=== PATIENT | female | born 1975 | race Caucasian/White ===

== ENCOUNTER 2016-04-26 12:22 | Emergency (ER) | payer OTHER ==
[~2016-04-26] VITALS: Ht 175.3 cm; Wt 97.4 kg
[~2016-04-26 12:22] MED LIST: AMIT25TA9 PO; ONDA4TAB10 SL; PROC1SUP PR; SUMA20SP
[2016-04-26 12:25] VITALS: TEMP 36.8; Ht 175.3 cm; Wt 97.4 kg
[2016-04-26] MEDS ORDERED: MoRPHine SULFATE 4 MG/ML 1 ML CARP\\VIAL IV STA (13:32)
[2016-04-26] MEDS ORDERED: SODIUM CHLORIDE 0.9% 1000ML 1,000 ML IV STA (13:32)
[2016-04-26] MEDS ORDERED: ONDANSETRON INJ 2 MG/ML 2 ML VIAL IV STA (13:32)
[2016-04-26 14:03] LABS: BASO % 0.8 %; BASO ABS # 0.08 K/uL (0-0.2); COMPLETE YES; EOS % 1.7 %; HEMATOCRIT 36.6 % (37-47); IG% 0.3 %; LYMPH % 22.8 %; LYMPH ABS # 2.29 K/uL (1.2-3.4); MEAN CELL VOLUME 90.6 fL (80-100); MEAN CORPUSCULAR HEMOGLOBIN 30.4 pg (25-34); MEAN CORPUSCULAR HGB CONC 33.6 g/dl (32-36); MEAN PLATELET VOLUME 9.7 fL (7.4-10.4); MONO % 5.9 %; NEUT % 68.5 %; PLATELET COUNT 281 K/uL (130-400); RED BLOOD COUNT 4.04 M/uL (4.2-5.4); WHITE BLOOD COUNT 10.06 K/uL (4.8-10.8)
[2016-04-26 14:05] LABS: PREG INTERNAL NEGATIVE QC NEG CLEAR BACKGROUND; PREG INTERNAL POSITIVE QC POS CONTROL LINE
[2016-04-26 14:20] LABS: BUN/CREATININE RATIO 8.3 (10-20); CALCIUM 9.7 mg/dl (8.5-10.1); CREATININE 0.77 mg/dl (0.60-1.20); POTASSIUM 3.2 mmol/L (3.5-5.1)
[2016-04-26 14:23] LABS: ALB/GLOB RATIO 1.1 (0.9-2)
[2016-04-26] MEDS ORDERED: HYDROmorphone INJ 0.5 MG/0.5 ML SYR IV STA (14:23)
--- NOTE | 2016-04-26 14:35 | DIAGNOSTIC IMAGING REPORT ---
PA CHEST RADIOGRAPH AND UPRIGHT AND SUPINE AP RADIOGRAPHS OF THE ABDOMEN CLINICAL HISTORY: Right-sided abdominal pain. COMPARISON STUDY: Chest radiograph and abdominal series March 22, [address] of the abdomen and pelvis April 04, 2016. FINDINGS: Lung volumes are diminished. This is unchanged. No pneumothorax or pleural effusion is present. There is no evidence of pulmonary edema. Cardiomediastinal silhouette is stable. There are cholecystectomy clips. There is no free air. Bowel gas pattern is within normal limits. IMPRESSION: 1. No free air or evidence of bowel obstruction. 2. No acute cardiopulmonary findings. Electronically signed by: Kp Stafford M.D. 04/26/2016 2:33 PM Dictated Date/Time: 04/26/2016 2:32 PM
[2016-04-26 14:55] LABS: URINE APPEARANCE CLOUDY (CLEAR); URINE BILIRUBIN NEG (NEG); URINE COLOR YELLOW; URINE EPITHELIAL CELL AUTO >30 /lpf (0-5); URINE NITRITE NEG (NEG); URINE SPECIFIC GRAVITY 1.017 (1.000-1.030); UROBILINOGEN NEG (NEG); ZZUR CULT IF INDIC CLEAN CATCH YES
[2016-04-26 15:10] LABS: MANUAL MICROSCOPIC REQUIRED? NO; REVIEW REQ? YES
[2016-04-26] MEDS ORDERED: HYDROmorphone INJ 1 MG/ML SYR IV STA (15:13)
[2016-04-26 16:04] VITALS: BP 148/88; PULSE 92; O2SAT 97
[2016-04-26] MEDS ORDERED: CEFTRIAXONE SOD 350MG/ML 1 GM VIAL IM ONE (16:15)
[2016-04-26] MEDS ORDERED: SULF800T23 PO (16:20)
[2016-04-26] MEDS ORDERED: PHEN-876 PO (16:23)
--- NOTE | 2016-04-26 16:23 | EMERGENCY ROOM VISIT NOTE ---
History First contact with patient: 13:19 Chief Complaint: ABDOMINAL PAIN Stated Complaint: ABD. PAIN Nursing Triage Summary: Abd and right flank pain. Vomiting for 24 hours. Denies urinary symptoms. Pain worse with movement. Diarrhea. Does not have gallbladder. History of Present Illness The patient is a 41 year old female who presents to the Emergency Room with complaints of abdominal pain and vomiting. The patient reports that her symptoms began yesterday. She states she has been vomiting all night. She reports that she began to have right-sided abdominal pain in the middle of the night last night. She does have a history of IBS and sees Dr. Choi. She has associated diarrhea, which is chronic for her. Her symptoms have been steadily increasing. They are worse with movement or walking. She rates her discomfort a 10/10. She does have an upcoming appointment with her rehab nurse in 2 weeks. She reports a history of cholecystectomy and tubal ligation. She denies fevers/chills, urinary symptoms, chest pain, shortness of breath or blood in the stools. Review of Systems A complete 10-point Review of Systems was discussed with the patient, with pertinent positives and negatives listed in the History of Present Illness. All remaining Review of Systems questions can be considered negative unless otherwise specified. 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 (23) Migraine Unspecified W/O Intractable Migraine (24) Ovarian Cyst Nec/Nos (25) Sterilization (26) Tension headache (27) Tension headache (28) Urin Tract Infection Nos (29) UTI (lower urinary tract infection) Surgical Problems: (1) History of cholecystectomy (2) History of tubal ligation Family History Diabetes mellitus FHx: cancer Hypertension Seizures Social History Smoking Status: Never Smoker Alcohol Use: none Drug Use: none Housing Status: lives with family Occupation Status: unemployed Current/Historical Medications Scheduled Alosetron Hcl (Lotronex), 0.5 MG PO QAM Amitriptyline Hcl (Elavil), 1 TAB PO HS Medroxyprogesterone Acetate (Medroxyprogesterone Aceta), 150 MG IM UD Pantoprazole (Pantoprazole Sodium), 40 MG PO BID Phenazopyridine HCl (Pyridium), 200 MG PO TID Sulfa/Trimethoprim (Bactrim Ds 800MG/160MG), 1 TAB PO BID Scheduled PRN Dicyclomine Hcl (Dicyclomine Hcl), 10 MG PO QID PRN for Abdominal Pain Ondasetron Odt (Zofran Odt), 4 MG SL Q6H PRN for Nausea Prochlorperazine (Compro), 1 SUPP FL TID PRN for Nausea Sumatriptan Succinate (Imitrex Nasal [place]), 1 SPRAY NA for Migraine Tramadol (Ultram), 100 MG PO QID PRN for Pain Allergies Coded Allergies: POLLEN (Verified Allergy, Mild, ITCHING/SNEEZING, 04/26/16) Physical Exam Vital Signs Date Time Temp Pulse Resp B/P Pulse Ox O2 Delivery O2 Flow Rate FiO2 04/26/16 16:04 92 20 148/88 97 Room Air 04/26/16 15:13 86 18 139/96 97 Room Air 04/26/16 13:49 78 20 142/66 97 04/26/16 12:25 36.8 105 19 152/76 95 Room Air Pain Rating (0-10): 10.0 Physical Exam VITALS: Vitals are noted on the nurse's note and reviewed by myself. Vital signs stable. GENERAL: This is a 41-year-old female, in no acute distress, nondiaphoretic, well-developed well-nourished. SKIN: Capillary reflex less than 2 seconds. HEENT: Normocephalic. PERRLA. EOMI. Nares patent. Mucous membranes moist. Neck is supple without nuchal rigidity. HEART: Regular rate and rhythm without murmurs gallops or rubs. LUNGS: Clear to auscultation bilaterally without wheezes, rales or rhonchi. No retractions or accessory muscle use. ABDOMEN: Positive bowel sounds x 4. Diffuse mild tenderness of the abdomen. No guarding or rebound tenderness. NEURO: Patient was alert and oriented to person place and time. Medical Decision & Procedures ER Provider Diagnostic Interpretation: PA CHEST RADIOGRAPH AND UPRIGHT AND SUPINE AP RADIOGRAPHS OF THE ABDOMEN CLINICAL HISTORY: Right-sided abdominal pain. COMPARISON STUDY: Chest radiograph and abdominal series March 22, [address] of the abdomen and pelvis April 04, 2016. FINDINGS: Lung volumes are diminished. This is unchanged. No pneumothorax or pleural effusion is present. There is no evidence of pulmonary edema. Cardiomediastinal silhouette is stable. There are cholecystectomy clips. There is no free air. Bowel gas pattern is within normal limits. IMPRESSION: 1. No free air or evidence of bowel obstruction. 2. No acute cardiopulmonary findings. Laboratory Results 04/26/16 13:45 Red Blood Count 4.04, Mean Corpuscular Volume 90.6, Mean Corpuscular Hemoglobin 30.4, Mean Corpuscular Hemoglobin Concent 33.6, Mean Platelet Volume 9.7, Neutrophils (%) (Auto) 68.5, Lymphocytes (%) (Auto) 22.8, Monocytes (%) (Auto) 5.9, Eosinophils (%) (Auto) 1.7, Basophils (%) (Auto) 0.8, Neutrophils # (Auto) 6.90, Lymphocytes # (Auto) 2.29, Monocytes # (Auto) 0.59, Eosinophils # (Auto) 0.17, Basophils # (Auto) 0.08 04/26/16 13:45 Test 04/26/16 12:45 04/26/16 13:45 Urine Color YELLOW Urine Appearance CLOUDY (CLEAR) Urine pH 6.0 (4.5-7.5) Urine Specific [place] 1.017 (1.000-1.030) Urine Protein TRACE (NEG) Urine Glucose (UA) NEG (NEG) Urine Ketones NEG (NEG) Urine Occult Blood 2+ (NEG) Urine Nitrite NEG (NEG) Urine Bilirubin NEG (NEG) Urine Urobilinogen NEG (NEG) Urine Leukocyte Esterase LARGE (NEG) Urine WBC (Auto) >30 /hpf (0-5) Urine RBC (Auto) 0-4 /hpf (0-4) Urine Hyaline Casts (Auto) 5-10 /lpf (0-5) Urine Epithelial Cells (Auto) >30 /lpf (0-5) Urine Bacteria (Auto) 4+ (NEG) Urine Yeast (Auto) (NONE PRSENT) Urine Test NEG (NEG) White Blood Count 10.06 K/uL (4.8-10.8) Red Blood Count 4.04 M/uL (4.2-5.4) Hemoglobin 12.3 g/dL (12.0-16.0) Hematocrit 36.6 % (37-47) Mean Corpuscular Volume 90.6 fL (80-100) Mean Corpuscular Hemoglobin 30.4 pg (25-34) Mean Corpuscular Hemoglobin Concent 33.6 g/dl (32-36) Platelet Count 281 K/uL (130-400) Mean Platelet Volume 9.7 fL (7.4-10.4) Neutrophils (%) (Auto) 68.5 % Lymphocytes (%) (Auto) 22.8 % Monocytes (%) (Auto) 5.9 % Eosinophils (%) (Auto) 1.7 % Basophils (%) (Auto) 0.8 % Neutrophils # (Auto) 6.90 K/uL (1.4-6.5) Lymphocytes # (Auto) 2.29 K/uL (1.2-3.4) Monocytes # (Auto) 0.59 K/uL (0.11-0.59) Eosinophils # (Auto) 0.17 K/uL (0-0.5) Basophils # (Auto) 0.08 K/uL (0-0.2) RDW Standard Deviation 46.5 fL (36.4-46.3) RDW Coefficient of Variation 14.0 % (11.5-14.5) Immature Granulocyte % (Auto) 0.3 % Immature Granulocyte # (Auto) 0.03 K/uL (0.00-0.02) Anion Gap 11.0 mmol/L (3-11) Est Creatinine Clear Calc Drug Dose 119.5 ml/min Estimated GFR () 111.2 Estimated GFR (Non- 95.9 BUN/Creatinine Ratio 8.3 (10-20) Calcium Level 9.7 mg/dl (8.5-10.1) Total Bilirubin 0.4 mg/dl (0.2-1) Aspartate Amino Transf (AST/SGOT) 8 U/L (15-37) Alanine Aminotransferase (ALT/SGPT) 23 U/L (12-78) Alkaline Phosphatase 78 U/L (45-117) Total Protein 8.2 gm/dl (6.4-8.2) Albumin 4.2 gm/dl (3.4-5.0) Globulin 4.0 gm/dl (2.5-4.0) Albumin/Globulin Ratio 1.1 (0.9-2) Lipase 106 U/L (73-393) Medications Administered Medications (Trade) Dose Ordered Sig/Magdalene Route Start Time Stop Time Status Last Admin Dose Admin Sodium Chloride (Nss 1000ml) 1,000 ml @ 999 mls/hr Q1H1M STAT IV 04/26/16 13:32 04/26/16 14:32 DC 04/26/16 13:46 999 MLS/HR Ondansetron HCl (Zofran Inj) 4 mg NOW STAT IV 04/26/16 13:32 04/26/16 13:34 DC 04/26/16 13:47 4 MG Morphine Sulfate (MoRPHine SULFATE INJ) 4 mg NOW STAT IV 04/26/16 13:32 04/26/16 13:34 DC 04/26/16 13:47 4 MG Hydromorphone HCl (Dilaudid Inj) 0.5 mg NOW STAT IV 04/26/16 14:23 04/26/16 14:24 DC 04/26/16 14:28 0.5 MG Hydromorphone HCl (Dilaudid Inj) 1 mg NOW STAT IV 04/26/16 15:13 04/26/16 15:14 DC 04/26/16 15:18 1 MG Ceftriaxone Sodium (Rocephin Im) 1,000 mg NOW ONCE IM 04/26/16 16:15 04/26/16 16:16 DC 04/26/16 16:18 1,000 MG Medical Decision Differential diagnosis includes appendicitis, gastritis, colitis, IBS, pyelonephritis, cystitis, renal, among others. The patient was evaluated as above. Labs were drawn and IV access was obtained. Imaging studies were performed and read by radiology as above. The patient was initially medicated with 1 L normal saline solution, 4 mg morphine IV and 4 mg Zofran IV. She complained of continued pain and was then given 0.5 mg Dilaudid IV. She was given 1 mg Dilaudid IV before discharge. The patient was reassessed multiple times during their stay in the emergency department and remained in stable condition. The patient is a 41-year-old female who presents today complaining of right- sided abdominal pain. The patient is very well-known to this emergency department and has presented multiple times for similar complaints. Labs revealed no leukocytosis, anemia or concerning electrolyte abnormalities. LFTs were within normal limits. Kidney function was within normal limits. Abdominal series was obtained and was unremarkable. Given that the patient does not have a leukocytosis, I feel that any acute infectious process within the abdomen is very unlikely. The patient has had 7 CT scans of her abdomen and pelvis within the last year, and I do not feel that further CT is necessary at this time. Urinalysis was suggestive of a possible infection. Urine was negative. The patient was given 1 g Rocephin and will be placed on Bactrim and Pyridium. She was instructed to follow-up closely with her primary care provider and rehab nurse. She will return for worsening symptoms, fevers, or any new symptoms. Based on the patient's presentation, lab results, and imaging studies, I feel the patient is stable for outpatient treatment. The patient's case was reviewed with Dr. Ornelas, ED attending physician, who agreed with my assessment and treatment plan. Discharge instructions were reviewed with the patient. The patient verbalized understanding of my assessment and treatment plan and was discharged home in good condition. Impression Primary Impression: Right sided abdominal pain Departure Information Dispostion Home / Self-Care Condition GOOD Prescriptions Phenazopyridine HCl (Pyridium) 200 Mg Tab 200 MG PO TID for 3 Days, #9 TAB Prov: Nae Tadeo PA-C 04/26/16 Sulfa/Trimethoprim (Bactrim Ds 800MG/160MG) Tab 1 TAB PO BID for 7 Days, #14 TAB Prov: Nae Tadeo PA-C 04/26/16 Referrals RV. Schwab MD (PCP) Patient Instructions My [facility] Additional Instructions You have been treated in the Emergency Department your Abdominal Pain. Laboratory results and imaging studies have ruled out any emergent causes for your abdominal pain which would warrant admission or surgery. You were prescribed Bactrim to be taken twice daily as prescribed. This is an antibiotic. All antibiotics have the potential to cause diarrhea. Stop this medication and contact a medical provider if you were to develop any significant adverse side effects including: wheezing, shortness of breath, passing out, vomiting, or a diffuse rash. Always take antibiotics as directed and COMPLETE the ENTIRE course regardless of the improvement of your symptoms. Pyridium as prescribed. For pain control, you can use the following [id number] medicines (if >12 yo): - Regular strength (325mg/tab) Tylenol (acetaminophen) 2 tabs every 4-6 hours as needed. Do not exceed 12 tablets in a 24 hour period. Avoid taking more than 4 grams (4000 mg) of Tylenol per day. This includes any other sources of acetaminophen you may take on a regular basis. - Regular strength (200 mg/tab) Advil (ibuprofen) 1-2 tabs every 4-6 hours as needed. Do not exceed a dose of 3200 mg per day. Drink plenty of water and stay well hydrated. Follow-up with your primary care provider within 2-3 days for further evaluation of your symptoms. Return to the emergency department if your symptoms persist despite treatment plan outlined above or if the following symptoms occur: Worsening abdominal pain , fevers, worsening vomiting or any other new/concerning symptoms.
[2016-09-14] MEDS ORDERED: IMTIN5 (13:07)
[2016-09-14] MEDS ORDERED: ACET325T96 PO (14:54)
[2016-09-14] MEDS ORDERED: [UNRECOGNIZED DRUG - CODE] PO (15:35)
[2016-09-14] MEDS ORDERED: TRAM-10 PO (15:51)
[2016-09-14] MEDS ORDERED: PRT/40 PO (18:58)
[2016-11-28] MEDS ORDERED: DIPH25CA65 PO (12:39)
[2016-11-28] MEDS ORDERED: RBN/2 PO (12:39)
[2016-11-28] MEDS ORDERED: ZOLP5TAB PO (12:39)
[2016-11-28] MEDS ORDERED: PARO1TAB29 PO (12:39)
[2016-11-28] MEDS ORDERED: SUCR1TAB29 PO (12:39)
[2016-11-28] MEDS ORDERED: ZOLP10TA PO (12:39)
[2016-11-28] MEDS ORDERED: MEDR1INJ3 IM (12:39)
[2016-11-28] MEDS ORDERED: COLE1TAB5 PO (12:39)
[2016-11-28] MEDS ORDERED: CLID5CAP PO (12:39)
[2016-11-28] MEDS ORDERED: ELUX1TAB PO (12:39)
[2016-11-28] MEDS ORDERED: PROC5TAB PO (12:39)
[2016-11-28] MEDS ORDERED: RANI300T2 PO (12:39)
== END 2016-04-26 15:30 | disposition home or self-care (01) ==
LOC: C.EDB 12:24 → C.EDA 15:30
DX: R10.9 Unspecified abdominal pain (principal); Z90.49 Acquired absence of other specified parts of digestive tract; K58.0 Irritable bowel syndrome with diarrhea; F41.9 Anxiety disorder, unspecified; K21.9 Gastro-esophageal reflux disease without esophagitis; J45.909 Unspecified asthma, uncomplicated; Z87.440 Personal history of urinary (tract) infections; F31.9 Bipolar disorder, unspecified; K22.70 Barrett's esophagus without dysplasia; Z83.3 Family history of diabetes mellitus; Z82.49 Family history of ischemic heart disease and other diseases of the circulatory system; Z79.899 Other long term (current) drug therapy

== ENCOUNTER 2016-05-05 11:27 | Emergency (ER) | payer OTHER ==
[~2016-05-05] VITALS: Ht 177.8 cm; Wt 97.4 kg
[~2016-05-05 11:27] MED LIST changes: -SUMA20SP
[2016-05-05 11:34] VITALS: Ht 177.8 cm; Wt 97.4 kg
[2016-05-05] MEDS ORDERED: ONDANSETRON INJ 2 MG/ML 2 ML VIAL IV STA ×2 (12:00→14:54)
[2016-05-05 12:06] LABS: BASO % 0.8 %; BASO ABS # 0.07 K/uL (0-0.2); COMPLETE YES; EOS % 3.1 %; HEMATOCRIT 36.1 % (37-47); IG% 0.2 %; LYMPH % 25.1 %; MEAN CELL VOLUME 91.4 fL (80-100); MEAN CORPUSCULAR HEMOGLOBIN 30.4 pg (25-34); MEAN CORPUSCULAR HGB CONC 33.2 g/dl (32-36); MEAN PLATELET VOLUME 9.8 fL (7.4-10.4); MONO % 8.4 %; NEUT % 62.4 %; PLATELET COUNT 302 K/uL (130-400); RED BLOOD COUNT 3.95 M/uL (4.2-5.4); WHITE BLOOD COUNT 8.38 K/uL (4.8-10.8)
[2016-05-05 12:33] LABS: BUN/CREATININE RATIO 10.7 (10-20); CALCIUM 9.5 mg/dl (8.5-10.1); CREATININE 0.81 mg/dl (0.60-1.20); POTASSIUM 3.3 mmol/L (3.5-5.1)
[2016-05-05 12:35] LABS: ALB/GLOB RATIO 1.1 (0.9-2)
[2016-05-05] MEDS ORDERED: SODIUM CHLORIDE 0.9% 1000ML 1,000 ML IV STA (12:46)
[2016-05-05] MEDS ORDERED: HYDROmorphone INJ 1 MG/ML SYR IV STA ×3 (12:49→14:54)
[2016-05-05] MEDS ORDERED: GI COCKTAIL PO STA (12:50)
[2016-05-05] MEDS ORDERED: FAMOTIDINE 20 MG TAB PO STA (12:50)
[2016-05-05] MEDS ORDERED: SUCRALFATE 1 GM TAB PO STA (12:50)
--- NOTE | 2016-05-05 12:52 | EMERGENCY ROOM VISIT NOTE ---
History Report prepared by Froy: Rafael Batista Under the Supervision of: Dr. Lukas Cristobal M.D. First contact with patient: 12:45 Chief Complaint: ABDOMINAL PAIN Stated Complaint: IBS, VOMITING X 2 DAYS OFF AND ON Nursing Triage Summary: Pt reports emesis since Sun. Now "dull, stabbing pain around umbilicus." Hx of IBS-D. History of Present Illness The patient is a 41 year old female who presents to the Emergency Room with complaints of persistent abdominal pain that started 2 days ago. She says that the pain was a "cramping", but has shifted to a "stabbing" pain prior to arrival today. She has not had any abdominal surgeries. The patient has no chance of . Her last menstrual period was last month. The patient has IBS and sees a doctor for it. Source of History: patient Onset: 2 days ago Position: abdomen Quality: other (cramping that has since shifted to a stabbing) Timing: other (persistent) Note: No other associated symptoms noted. Review of Systems See HPI for pertinent positives & negatives. A total of 10 systems reviewed and were otherwise negative. Past Medical & Surgical Medical Problems: (1) Abdominal pain (2) Abdominal pain (3) Abdominal pain (4) Anxiety (5) Asthma, Unspecified, W (Acute) Exacerbation (6) Back pain (7) Barretts esophagus (8) Bipolar Disorder, Unspecified (9) Blindness, One Eye (10) section (11) Dehydration (12) Deliver-Single Liveborn (13) Esophageal Reflux (14) Hyperventilation (15) Hyperventilation (16) Hyperventilation (17) Hypokalemia (18) Hypokalemia, gastrointestinal losses (19) IBS (irritable bowel syndrome) (20) Intractable pain (21) Intractable vomiting (22) Mesenteric adenitis (23) Migraine Unspecified W/O Intractable Migraine (24) Ovarian Cyst Nec/Nos (25) Sterilization (26) Tension headache (27) Tension headache (28) Urin Tract Infection Nos (29) UTI (lower urinary tract infection) Surgical Problems: (1) History of cholecystectomy (2) History of tubal ligation Family History Diabetes mellitus FHx: cancer Hypertension Seizures Social History Smoking Status: Never Smoker Alcohol Use: none Drug Use: none Housing Status: lives with family Occupation Status: unemployed Current/Historical Medications Scheduled Alosetron Hcl (Lotronex), 0.5 MG PO QAM Amitriptyline Hcl (Elavil), 1 TAB PO HS Medroxyprogesterone Acetate (Medroxyprogesterone Aceta), 150 MG IM UD Pantoprazole (Pantoprazole Sodium), 40 MG PO BID Scheduled PRN Dicyclomine Hcl (Dicyclomine Hcl), 10 MG PO QID PRN for Abdominal Pain Ondasetron Odt (Zofran Odt), 4 MG SL Q6H PRN for Nausea Prochlorperazine (Compro), 1 SUPP [place] TID PRN for Nausea Sumatriptan Succinate (Imitrex Nasal [place]), 1 SPRAY NA for Migraine Tramadol (Ultram), 100 MG PO QID PRN for Pain Allergies Coded Allergies: POLLEN (Verified Allergy, Mild, ITCHING/SNEEZING, 05/05/16) Physical Exam Vital Signs Date Time Temp Pulse Resp B/P Pulse Ox O2 Delivery O2 Flow Rate FiO2 05/05/16 16:21 37.3 104 18 129/79 95 05/05/16 16:04 104 18 129/79 95 Room Air 05/05/16 12:59 104 18 136/91 96 Room Air 05/05/16 11:34 37.3 109 18 116/76 95 Room Air Physical Exam GENERAL: Patient is a healthy-appearing well-nourished. Hyperventilating. HEAD: Normocephalic atraumatic EYES: Ocular movements intact pupils equal and react to light OROPHARYNX mucous membranes are moist no exudates present no erythema or edema present NECK: Supple no nuchal rigidity CHEST: Good equal expansion LUNGS: Clear and equal to auscultation CARDIAC: Normal S1 and S2 ABDOMEN: Soft nontender no guarding BACK: No CVA tenderness EXTREMITIES: No pain upon palpation normal muscle strength in all groups no clubbing cyanosis or edema NEURO: Patient is following commands is answering questions appropriately. Alert and oriented x3 Cranial Nerves 2-12 grossly intact Medical Decision & Procedures ER Provider Diagnostic Interpretation: X-ray results as stated below per interpretation by me and the radiologist: PA CHEST RADIOGRAPH AND UPRIGHT AND SUPINE AP RADIOGRAPHS OF THE ABDOMEN CLINICAL HISTORY: Epigastric pain and nausea. Vomiting. COMPARISON STUDY: Chest radiograph with abdominal series April 26, 2016. FINDINGS: No pneumothorax or pleural effusion is present. Lung volumes are at the lower limits of normal. There is no consolidation. Cardiac size is normal. Mediastinal contours are normal. There is no evidence of pulmonary edema. There is no free air. Cholecystectomy clips are present. The bowel gas pattern is normal. There is a moderate amount stool within colon. IMPRESSION: 1. No free air or evidence of bowel obstruction. 2. Moderate amount stool within the colon. 3. No acute cardiopulmonary findings. Electronically signed by: Kp Stafford M.D. 05/05/2016 1:25 PM Dictated Date/Time: 05/05/2016 1:23 PM Laboratory Results 05/05/16 11:55 Red Blood Count 3.95, Mean Corpuscular Volume 91.4, Mean Corpuscular Hemoglobin 30.4, Mean Corpuscular Hemoglobin Concent 33.2, Mean Platelet Volume 9.8, Neutrophils (%) (Auto) 62.4, Lymphocytes (%) (Auto) 25.1, Monocytes (%) (Auto) 8.4, Eosinophils (%) (Auto) 3.1, Basophils (%) (Auto) 0.8, Neutrophils # (Auto) 5.23, Lymphocytes # (Auto) 2.10, Monocytes # (Auto) 0.70, Eosinophils # (Auto) 0.26, Basophils # (Auto) 0.07 05/05/16 11:55 Test 05/05/16 11:55 05/05/16 15:50 White Blood Count 8.38 K/uL (4.8-10.8) Red Blood Count 3.95 M/uL (4.2-5.4) Hemoglobin 12.0 g/dL (12.0-16.0) Hematocrit 36.1 % (37-47) Mean Corpuscular Volume 91.4 fL (80-100) Mean Corpuscular Hemoglobin 30.4 pg (25-34) Mean Corpuscular Hemoglobin Concent 33.2 g/dl (32-36) Platelet Count 302 K/uL (130-400) Mean Platelet Volume 9.8 fL (7.4-10.4) Neutrophils (%) (Auto) 62.4 % Lymphocytes (%) (Auto) 25.1 % Monocytes (%) (Auto) 8.4 % Eosinophils (%) (Auto) 3.1 % Basophils (%) (Auto) 0.8 % Neutrophils # (Auto) 5.23 K/uL (1.4-6.5) Lymphocytes # (Auto) 2.10 K/uL (1.2-3.4) Monocytes # (Auto) 0.70 K/uL (0.11-0.59) Eosinophils # (Auto) 0.26 K/uL (0-0.5) Basophils # (Auto) 0.07 K/uL (0-0.2) RDW Standard Deviation 47.7 fL (36.4-46.3) RDW Coefficient of Variation 14.3 % (11.5-14.5) Immature Granulocyte % (Auto) 0.2 % Immature Granulocyte # (Auto) 0.02 K/uL (0.00-0.02) Anion Gap 10.0 mmol/L (3-11) Est Creatinine Clear Calc Drug Dose 115.5 ml/min Estimated GFR () 104.6 Estimated GFR (Non- 90.2 BUN/Creatinine Ratio 10.7 (10-20) Calcium Level 9.5 mg/dl (8.5-10.1) Total Bilirubin 0.5 mg/dl (0.2-1) Aspartate Amino Transf (AST/SGOT) 6 U/L (15-37) Alanine Aminotransferase (ALT/SGPT) 20 U/L (12-78) Alkaline Phosphatase 75 U/L (45-117) Total Protein 8.1 gm/dl (6.4-8.2) Albumin 4.3 gm/dl (3.4-5.0) Globulin 3.8 gm/dl (2.5-4.0) Albumin/Globulin Ratio 1.1 (0.9-2) Lipase 107 U/L (73-393) Urine Color YELLOW Urine Appearance CLOUDY (CLEAR) Urine pH 5.5 (4.5-7.5) Urine Specific [place] 1.007 (1.000-1.030) Urine Protein NEG (NEG) Urine Glucose (UA) NEG (NEG) Urine Ketones NEG (NEG) Urine Occult Blood 2+ (NEG) Urine Nitrite NEG (NEG) Urine Bilirubin NEG (NEG) Urine Urobilinogen NEG (NEG) Urine Leukocyte Esterase LARGE (NEG) Urine WBC (Auto) >30 /hpf (0-5) Urine RBC (Auto) 0-4 /hpf (0-4) Urine Hyaline Casts (Auto) 5-10 /lpf (0-5) Urine Epithelial Cells (Auto) >30 /lpf (0-5) Urine Bacteria (Auto) 2+ (NEG) Urine Test NEG (NEG) Labs reviewed by ED physician. Medications Administered Medications (Trade) Dose Ordered Sig/Magdalene Route Start Time Stop Time Status Last Admin Dose Admin Ondansetron HCl 4 mg 4 mg NOW STAT IV 05/05/16 12:00 05/05/16 12:02 DC 05/05/16 12:05 4 MG Sodium Chloride (Nss 1000ml) 1,000 ml @ 999 mls/hr Q1H1M STAT IV 05/05/16 12:46 05/05/16 13:46 DC 05/05/16 12:52 999 MLS/HR Hydromorphone HCl (Dilaudid Inj) 1 mg NOW STAT IV 05/05/16 12:49 05/05/16 12:51 DC 05/05/16 12:58 1 MG Famotidine (Pepcid Tab) 20 mg NOW STAT PO 05/05/16 12:50 05/05/16 12:51 DC 05/05/16 13:30 20 MG Sucralfate (Carafate Tab) 1 gm NOW STAT PO 05/05/16 12:50 05/05/16 12:51 DC 05/05/16 13:30 1 GM Lidocaine HCl (Viscous Lidocaine 2% Soln) 20 ml STK-MED ONCE .ROUTE 05/05/16 13:28 05/05/16 13:29 DC 05/05/16 13:32 20 ML Al Hydroxide/Mg Hydroxide (Maalox Susp) 30 ml STK-MED ONCE .ROUTE 05/05/16 13:28 05/05/16 13:29 DC 05/05/16 13:32 30 ML Hydromorphone HCl 1 mg 1 mg NOW STAT IV 05/05/16 13:39 05/05/16 13:41 DC 05/05/16 13:49 1 MG Promethazine HCl/ Sodium Chloride (Phenergan Inj/ Nss 50ml) 51 ml @ 204 mls/hr NOW STAT IV 05/05/16 13:39 05/05/16 13:53 DC 05/05/16 13:55 204 MLS/HR Hydromorphone HCl (Dilaudid Inj) 1 mg NOW STAT IV 05/05/16 14:54 05/05/16 14:59 DC 05/05/16 15:45 1 MG Ondansetron HCl (Zofran Inj) 4 mg NOW STAT IV 05/05/16 14:54 05/05/16 14:59 DC 05/05/16 15:44 4 MG Magnesium Citrate (Citrate Of Magnesia Soln) 296 ml NOW STAT PO 05/05/16 14:54 05/05/16 14:59 DC 05/05/16 15:43 296 ML Dicyclomine HCl (Bentyl Inj) 20 mg NOW STAT IM 05/05/16 14:54 05/05/16 14:59 DC 05/05/16 15:44 20 MG Ketorolac Tromethamine (Toradol Inj) 30 mg NOW STAT IV 05/05/16 14:54 05/05/16 14:59 DC 05/05/16 15:44 30 MG ED Course 1246: Ordered NSS 1000 ml @ 999 mls/hr IV. 1248: Past medical records reviewed. The patient was evaluated in room C11B. A complete history and physical examination was performed. 1249: Ordered Dilaudid Inj 1 mg IV. 1250: Ordered Carafate Tab 1 gm PO, Pepcid Tab 20 mg PO, GI Cocktail 24 ml PO. 1339: Ordered Promethazine HCl 25 mg/Sodium Chloride 51 ml @ 204 mls/hr IV. 1454: Ordered Bentyl Inj 20 mg IM, Citrate of Magnesia Soln 296 ml PO, Zofran Inj 4 mg IV. 1505: I reevaluated the patient and she is resting comfortably. The patient verbally expressed understanding and agreement of the treatment plan. The patient will be discharged. Medical Decision Differential diagnosis: Etiologies such as appendicitis, diverticulitis, PUD, biliary pathology, UTI, pancreatitis, obstruction, mesenteric ischemia, aortic pathology, infections, inflammatory bowel disease, renal colic, as well as others were entertained. This is a 41-year-old female who presents emergency department complaining of abdominal pain. I will note that the patient has had multiple imaging studies here in the emergency department with very low yield. Serial abdominal examinations were performed on the patient in the emergency department and at no time did the patient exhibit a surgical abdomen or even abdominal tenderness on examination. Based on these findings and using shared medical decision- making as well as a normal CBC normal renal profile normal liver profile normal lipase I felt that further imaging would not contribute much to this patient. I do believe that the patient is suffering from a costipation or she was given 1 mg Dilaudid x3 as well as Zofran Phenergan and Bentyl. The patient was also given a normal saline bolus as well as Zofran. Repeat examination revealed improvement in the patient's symptoms. I do believe that the patient is well enough to be discharged home for follow-up with gastroenterology. In the meantime the patient is going to use a clear liquid diet as well as 5 mL some Maalox before every meal and at bedtime. She was placed on magnesium citrate which she will take half the bottle and repeat in 6 hours. Patient was in agreement with the treatment plan. Impression Primary Impression: Abdominal pain Additional Impression: Constipation Scribe Attestation The scribe's documentation has been prepared under my direction and personally reviewed by me in its entirety. I confirm that the note above accurately reflects all work, treatment, procedures, and medical decision making performed by me. Departure Information Dispostion Home / Self-Care Referrals No Doctor, Assigned (PCP) Forms Call Back Authorization, HOME CARE DOCUMENTATION FORM, IMPORTANT VISIT INFORMATION, School Instructions, Work Instructions Patient Instructions Constipation, ED Epigastric Pain [facility] [place] Interwise Additional Instructions Take 1/2 bottle of Mag Citrate Repeat second half in six hours Clear liquid diet next 48 hours Culture results are usually available in approx 48 hours You have been examined and treated today on an emergency basis only. This is not a substitute for, or an effort to provide, complete comprehensive medical care. It is impossible to recognize and treat all injuries or illnesses in a single emergency department visit. It is therefore important that you follow up closely with your PCP. Call as soon as possible for an appointment. Thank you for your time and consideration. I look forward to speaking with you again soon. Please don't hesitate to call us if you have any questions. Problem Qualifiers Primary Impression: Abdominal pain Abdominal location: generalized Qualified Codes: R10.84 - Generalized abdominal pain Additional Impression: Constipation Constipation type: unspecified constipation type Qualified Codes: K59.00 - Constipation, unspecified
--- NOTE | 2016-05-05 13:26 | DIAGNOSTIC IMAGING REPORT ---
PA CHEST RADIOGRAPH AND UPRIGHT AND SUPINE AP RADIOGRAPHS OF THE ABDOMEN CLINICAL HISTORY: Epigastric pain and nausea. Vomiting. COMPARISON STUDY: Chest radiograph with abdominal series April 26, 2016. FINDINGS: No pneumothorax or pleural effusion is present. Lung volumes are at the lower limits of normal. There is no consolidation. Cardiac size is normal. Mediastinal contours are normal. There is no evidence of pulmonary edema. There is no free air. Cholecystectomy clips are present. The bowel gas pattern is normal. There is a moderate amount stool within colon. IMPRESSION: 1. No free air or evidence of bowel obstruction. 2. Moderate amount stool within the colon. 3. No acute cardiopulmonary findings. Electronically signed by: Kp Stafford M.D. 05/05/2016 1:25 PM Dictated Date/Time: 05/05/2016 1:23 PM
[2016-05-05] MEDS ORDERED: LIDOCAINE HCL 2% VISC SOLN 20 ML UDC ONE (13:28)
[2016-05-05] MEDS ORDERED: ALUMINUM/MAGNESIUM SUSP 30 ML UDC ONE (13:28)
[2016-05-05] MEDS ORDERED: PROMETHAZINE HCL INJ 25 MG in SODIUM CHLORIDE 0.9% 50ML 50 ML IV STA (13:39)
[2016-05-05] MEDS ORDERED: MAGNESIUM CITRATE 296 ML/BTL PO STA (14:54)
[2016-05-05] MEDS ORDERED: KETOROLAC TROMETHAMINE 30 MG/ML VIAL IV STA (14:54)
[2016-05-05] MEDS ORDERED: DICYCLOMINE HCL 10 MG/ML 2 ML AMP IM STA (14:54)
[2016-05-05 16:21] VITALS: BP 129/79; PULSE 104; TEMP 37.3; O2SAT 95
[2016-05-05 17:03] LABS: URINE APPEARANCE CLOUDY (CLEAR); URINE BILIRUBIN NEG (NEG); URINE COLOR YELLOW; URINE EPITHELIAL CELL AUTO >30 /lpf (0-5); URINE NITRITE NEG (NEG); URINE PH 5.5 (4.5-7.5); URINE SPECIFIC GRAVITY 1.007 (1.000-1.030); UROBILINOGEN NEG (NEG); ZZUR CULT IF INDIC CLEAN CATCH YES
[2016-05-05 17:10] LABS: MANUAL MICROSCOPIC REQUIRED? NO; REVIEW REQ? NO
[2016-09-14] MEDS ORDERED: IMTIN5 (13:07)
[2016-09-14] MEDS ORDERED: ACET325T96 PO (14:54)
[2016-09-14] MEDS ORDERED: [UNRECOGNIZED DRUG - CODE] PO (15:35)
[2016-09-14] MEDS ORDERED: TRAM-10 PO (15:51)
[2016-09-14] MEDS ORDERED: PRT/40 PO (18:58)
[2016-11-28] MEDS ORDERED: RANI300T2 PO (12:39)
[2016-11-28] MEDS ORDERED: DIPH25CA65 PO (12:39)
[2016-11-28] MEDS ORDERED: ZOLP10TA PO (12:39)
[2016-11-28] MEDS ORDERED: MEDR1INJ3 IM (12:39)
[2016-11-28] MEDS ORDERED: PROC5TAB PO (12:39)
[2016-11-28] MEDS ORDERED: COLE1TAB5 PO (12:39)
[2016-11-28] MEDS ORDERED: ZOLP5TAB PO (12:39)
[2016-11-28] MEDS ORDERED: CLID5CAP PO (12:39)
[2016-11-28] MEDS ORDERED: SUCR1TAB29 PO (12:39)
[2016-11-28] MEDS ORDERED: RBN/2 PO (12:39)
[2016-11-28] MEDS ORDERED: ELUX1TAB PO (12:39)
[2016-11-28] MEDS ORDERED: PARO1TAB29 PO (12:39)
== END 2016-05-05 16:23 | disposition home or self-care (01) ==
LOC: C.EDB 11:28 → C.EDC 16:23
DX: R10.84 Generalized abdominal pain (principal); K59.00 Constipation, unspecified; K58.9 Irritable bowel syndrome, unspecified; J45.909 Unspecified asthma, uncomplicated; F41.9 Anxiety disorder, unspecified; K22.70 Barrett's esophagus without dysplasia; F31.9 Bipolar disorder, unspecified; K21.9 Gastro-esophageal reflux disease without esophagitis; E87.6 Hypokalemia; I88.0 Nonspecific mesenteric lymphadenitis; G43.909 Migraine, unspecified, not intractable, without status migrainosus; Z79.899 Other long term (current) drug therapy

== ENCOUNTER 2016-05-20 10:56 | Emergency (ER) | payer OTHER ==
[~2016-05-20] VITALS: Ht 175.3 cm; Wt 95.9 kg
[2016-05-20 11:06] VITALS: TEMP 37; Ht 175.3 cm; Wt 95.9 kg
[2016-05-20] MEDS ORDERED: KETOROLAC TROMETHAMINE 30 MG/ML VIAL IV STA (11:58)
[2016-05-20] MEDS ORDERED: ACETAMINOPHEN 500 MG TAB PO STA (11:58)
[2016-05-20] MEDS ORDERED: DiphenhydrAMINE HCL 50 MG/ML VIAL IV STA (11:58)
[2016-05-20] MEDS ORDERED: ONDANSETRON INJ 2 MG/ML 2 ML VIAL IV STA (11:58)
[2016-05-20] MEDS ORDERED: PROCHLORPERAZINE 5 MG/ML 2 ML VIAL IV STA (11:58)
[2016-05-20] MEDS ORDERED: HYDROmorphone INJ 1 MG/ML SYR IV STA (11:58)
[2016-05-20] MEDS ORDERED: SODIUM CHLORIDE 0.9% 1000ML 1,000 ML IV STA (11:58)
--- NOTE | 2016-05-20 12:05 | EMERGENCY ROOM VISIT NOTE ---
History Report prepared by Froy: Scott Vitale Under the Supervision of: Dr. Noble Vasquez M.D. First contact with patient: 11:56 Chief Complaint: ABDOMINAL PAIN Stated Complaint: VOMITING,ABD PAIN Nursing Triage Summary: Triage note: Pt reports nausea, vomitting, diarrhea upper abd pain x 3 days. "i had a biopsy done 3 days ago so i don't know if it is from that ." History of Present Illness The patient is a 41 year old female who presents to the Emergency Room with complaints of constant abdominal pain for the past three days. The patient currently rates her discomfort as a 10/10 in severity. The patient additionally states that she has been vomiting. The patient states that it feels like there are stones in her stomach. She states that she had a recent biopsy of her duodenum. The patient states that she can't eat or drink without vomiting, and she cannot take any pain medication. She states that she has a history of IBS-D and cholecystectomy. Source of History: patient Onset: three days ago Position: abdomen Symptom Intensity: 10/10 Quality: other (feel like stones) Timing: constant Associated Symptoms: + vomiting Review of Systems See HPI for pertinent positives & negatives. A total of 10 systems reviewed and were otherwise negative. Past Medical & Surgical Medical Problems: (1) Abdominal pain (2) Abdominal pain (3) Abdominal pain (4) Anxiety (5) Asthma, Unspecified, W (Acute) Exacerbation (6) Back pain (7) Barretts esophagus (8) Bipolar Disorder, Unspecified (9) Blindness, One Eye (10) section (11) Dehydration (12) Deliver-Single Liveborn (13) Esophageal Reflux (14) Hyperventilation (15) Hyperventilation (16) Hyperventilation (17) Hypokalemia (18) Hypokalemia, gastrointestinal losses (19) IBS (irritable bowel syndrome) (20) Intractable pain (21) Intractable vomiting (22) Mesenteric adenitis (23) Migraine Unspecified W/O Intractable Migraine (24) Ovarian Cyst Nec/Nos (25) Sterilization (26) Tension headache (27) Tension headache (28) Urin Tract Infection Nos (29) UTI (lower urinary tract infection) Surgical Problems: (1) History of cholecystectomy (2) History of tubal ligation Family History Diabetes mellitus FHx: cancer Hypertension Seizures Social History Smoking Status: Never Smoker Alcohol Use: none Drug Use: none Housing Status: lives with family Occupation Status: unemployed Current/Historical Medications Scheduled Alosetron Hcl (Lotronex), 0.5 MG PO QAM Amitriptyline Hcl (Elavil), 1 TAB PO HS Medroxyprogesterone Acetate (Medroxyprogesterone Aceta), 150 MG IM UD Pantoprazole (Pantoprazole Sodium), 40 MG PO BID Scheduled PRN Dicyclomine Hcl (Dicyclomine Hcl), 10 MG PO QID PRN for Abdominal Pain Ondasetron Odt (Zofran Odt), 4 MG SL Q6H PRN for Nausea Prochlorperazine (Compro), 1 SUPP [place] TID PRN for Nausea Sumatriptan Succinate (Imitrex Nasal [place]), 1 SPRAY NA for Migraine Tramadol (Ultram), 100 MG PO QID PRN for Pain Allergies Coded Allergies: POLLEN (Verified Allergy, Mild, ITCHING/SNEEZING, 05/05/16) Physical Exam Vital Signs Date Time Temp Pulse Resp B/P Pulse Ox O2 Delivery O2 Flow Rate FiO2 05/20/16 15:58 88 18 152/92 97 05/20/16 14:00 88 18 153/100 99 Room Air 05/20/16 12:52 93 18 155/92 97 Room Air 05/20/16 11:06 37.0 111 20 136/101 98 Room Air Physical Exam CONSTITUTIONAL: moderate to severe emotional distress HEENT: No icterus, moist mucous membranes NECK: No meningismus, trachea is midline. CARDIOVASCULAR: Regular rate, normal perfusion RESPIRATORY: Unlabored breathing. Clear to auscultation. GASTROINTESTINAL: Moderate epigastric tenderness GENITOURINARY: No flank tenderness MUSCULOSKELETAL: Full range of motion NEUROLOGIC: No acute gross focal deficits. PSYCHIATRIC: Normal affect SKIN: Normal for ethnicity. Medical Decision & Procedures ER Provider Diagnostic Interpretation: Radiology results as stated below per my review and radiologist interpretation. TWO VIEW CHEST CLINICAL HISTORY: Epigastric abdominal pain. FINDINGS: PA and lateral chest radiographs are compared to study dated 05/05/2016. The cardiomediastinal silhouette is unremarkable. The lungs and pleural spaces are clear. There is no pneumothorax. The bony thorax appears intact. Cholestatic clips are seen in the right upper quadrant. The stomach is distended and filled with enteric contrast. IMPRESSION: No active disease in the chest. Electronically signed by: Kevin Panda M.D. 05/20/2016 2:15 PM Dictated Date/Time: 05/20/2016 2:[address] SCAN OF THE ABDOMEN AND PELVIS WITH IV CONTRAST CLINICAL HISTORY: Epigastric abdominal pain. Vomiting. COMPARISON STUDY: Multiple prior abdominal CT scans, most recently dated 04/04/2016. TECHNIQUE: Following the IV administration of 118 cc of Optiray 320, CT scan of the abdomen and pelvis is performed from the lung bases to the proximal femora. Images are reviewed in the axial, sagittal, and coronal planes. IV contrast was administered without complication. Automated dose control exposure was utilized. The examination is modestly degraded by motion artifact. CT DOSE: 900.68 mGy.cm FINDINGS: Lung bases: The heart is normal in size and there is trace pericardial effusion. The lung bases are clear noting dependent atelectasis. A small hiatal hernia is noted. Liver: The contrast-enhanced liver is enlarged, measuring 21 cm in craniocaudal length. The liver demonstrates diminished attenuation consistent with hepatic steatosis. More focal fatty infiltration is noted adjacent to the falciform ligament. There is no intrahepatic biliary ductal dilatation. The hepatic veins and portal veins are patent. Gallbladder: Surgically absent noting clips in the gallbladder fossa. Spleen: Normal in size and attenuation. Pancreas: Atrophic for age. Adrenal glands: Unremarkable. Kidneys: The contrast enhanced kidneys are normal in size and without hydronephrosis. The kidneys enhance symmetrically. There is a punctate nonobstructing calculus again seen in the interpolar right kidney. A subcentimeter cortical hypodensity in the right upper pole likely represents a cyst but is too small for definitive characterization. Abdominal vasculature: The abdominal aorta is normal in course and caliber. Bowel: The small bowel and colon are normal in course and caliber. There are scattered colonic diverticula without CT evidence of acute diverticulitis. The appendix is well-visualized and normal. Peritoneum: There is no intraperitoneal free air or abdominal ascites. There is a small fat-containing umbilical hernia. Lymphadenopathy: None. Pelvic viscera: The bladder, uterus, and adnexa are normal as visualized. Small ovarian follicles are identified. Skeletal structures: No fracture is identified. No lytic or blastic lesions are seen. Heterogeneity of the left iliac wing is unchanged. IMPRESSION: 1. There are no acute infectious or inflammatory findings in the abdomen or pelvis. 2. Hepatomegaly and hepatic steatosis. 3. A punctate nonobstructing right renal calculus is again noted. 4. Additional findings as above. Electronically signed by: Kevin Panda M.D. 05/20/2016 2:39 PM Dictated Date/Time: 05/20/2016 2:34 PM Laboratory Results 05/20/16 11:32 Red Blood Count 4.19, Mean Corpuscular Volume 91.9, Mean Corpuscular Hemoglobin 30.8, Mean Corpuscular Hemoglobin Concent 33.5, Mean Platelet Volume 9.9, Neutrophils (%) (Auto) 60.0, Lymphocytes (%) (Auto) 29.4, Monocytes (%) (Auto) 7.6, Eosinophils (%) (Auto) 1.4, Basophils (%) (Auto) 1.4, Neutrophils # (Auto) 5.77, Lymphocytes # (Auto) 2.82, Monocytes # (Auto) 0.73, Eosinophils # (Auto) 0.13, Basophils # (Auto) 0.13 05/20/16 11:32 Test 05/20/16 11:32 05/20/16 12:01 05/20/16 12:30 05/20/16 12:34 White Blood Count 9.60 K/uL (4.8-10.8) Red Blood Count 4.19 M/uL (4.2-5.4) Hemoglobin 12.9 g/dL (12.0-16.0) Hematocrit 38.5 % (37-47) Mean Corpuscular Volume 91.9 fL (80-100) Mean Corpuscular Hemoglobin 30.8 pg (25-34) Mean Corpuscular Hemoglobin Concent 33.5 g/dl (32-36) Platelet Count 369 K/uL (130-400) Mean Platelet Volume 9.9 fL (7.4-10.4) Neutrophils (%) (Auto) 60.0 % Lymphocytes (%) (Auto) 29.4 % Monocytes (%) (Auto) 7.6 % Eosinophils (%) (Auto) 1.4 % Basophils (%) (Auto) 1.4 % Neutrophils # (Auto) 5.77 K/uL (1.4-6.5) Lymphocytes # (Auto) 2.82 K/uL (1.2-3.4) Monocytes # (Auto) 0.73 K/uL (0.11-0.59) Eosinophils # (Auto) 0.13 K/uL (0-0.5) Basophils # (Auto) 0.13 K/uL (0-0.2) RDW Standard Deviation 46.8 fL (36.4-46.3) RDW Coefficient of Variation 14.0 % (11.5-14.5) Immature Granulocyte % (Auto) 0.2 % Immature Granulocyte # (Auto) 0.02 K/uL (0.00-0.02) Anion Gap 16.0 mmol/L (3-11) Est Creatinine Clear Calc Drug Dose 96.1 ml/min Estimated GFR () 86.2 Estimated GFR (Non- 74.4 BUN/Creatinine Ratio 5.8 (10-20) Calcium Level 9.2 mg/dl (8.5-10.1) Magnesium Level 2.0 mg/dl (1.8-2.4) Total Bilirubin 0.3 mg/dl (0.2-1) Direct Bilirubin < 0.1 mg/dl (0-0.2) Aspartate Amino Transf (AST/SGOT) < 3 U/L (15-37) Alanine Aminotransferase (ALT/SGPT) 15 U/L (12-78) Alkaline Phosphatase 72 U/L (45-117) Troponin I < 0.015 ng/ml (0-0.045) C-Reactive Protein 0.79 mg/dl (0-0.29) Total Protein 8.6 gm/dl (6.4-8.2) Albumin 4.7 gm/dl (3.4-5.0) Lipase 134 U/L (73-393) Procalcitonin < 0.05 ng/mL (0-0.5) Human Chorionic Gonadotropin, Qual NEG (NEG) Urine Color YELLOW Urine Appearance TURBID (CLEAR) Urine pH 5.0 (4.5-7.5) Urine Specific [place] 1.011 (1.000-1.030) Urine Protein 1+ (NEG) Urine Glucose (UA) NEG (NEG) Urine Ketones NEG (NEG) Urine Occult Blood 2+ (NEG) Urine Nitrite NEG (NEG) Urine Bilirubin NEG (NEG) Urine Urobilinogen NEG (NEG) Urine Leukocyte Esterase LARGE (NEG) Urine WBC (Auto) >30 /hpf (0-5) Urine RBC (Auto) 0-4 /hpf (0-4) Urine Hyaline Casts (Auto) 5-10 /lpf (0-5) Urine Epithelial Cells (Auto) >30 /lpf (0-5) Urine Bacteria (Auto) 4+ (NEG) Urine Opiates Screen NEG (NEG) Urine Methadone, Qualitative NEG (NEG) Urine Barbiturates NEG (NEG) Urine Phencyclidine (PCP) Level NEG (NEG) Ur Amphetamine/Methamphetamine NEG (NEG) MDMA (Ecstasy) Screen NEG (NEG) Urine Benzodiazepines Screen NEG (NEG) Urine Cocaine Metabolite NEG (NEG) Urine Marijuana (THC) NEG (NEG) Activated Partial Thromboplast Time 33.8 SECONDS (21.0-31.0) Partial Thromboplastin Ratio 1.3 Ethyl Alcohol mg/dL < 3.0 mg/dl (0-3) Labs reviewed by ED physician. Medications Administered Medications (Trade) Dose Ordered Sig/Magdalene Route Start Time Stop Time Status Last Admin Dose Admin Sodium Chloride (Nss 1000ml) 1,000 ml @ 0 mls/hr Q0M STAT IV 05/20/16 11:58 05/20/16 12:03 DC 05/20/16 12:20 999 MLS/HR Prochlorperazine Edisylate (Compazine Inj) 10 mg NOW STAT IV 05/20/16 11:58 05/20/16 12:03 DC 05/20/16 12:19 10 MG Diphenhydramine HCl (Benadryl Inj) 25 mg NOW STAT IV 05/20/16 11:58 05/20/16 12:03 DC 05/20/16 12:19 25 MG Hydromorphone HCl (Dilaudid Inj) 1 mg PRN STAT IV 05/20/16 11:58 05/20/16 12:03 DC 05/20/16 12:19 1 MG Ketorolac Tromethamine (Toradol Inj) 30 mg NOW STAT IV 05/20/16 11:58 05/20/16 12:03 DC 05/20/16 12:19 30 MG Acetaminophen (Tylenol Tab) 1,000 mg NOW STAT PO 05/20/16 11:58 05/20/16 12:03 DC 05/20/16 12:20 1,000 MG Ondansetron HCl (Zofran Inj) 4 mg NOW STAT IV 05/20/16 11:58 05/20/16 12:03 DC 05/20/16 12:20 4 MG ED Course 1156: Past medical records reviewed. The patient was evaluated in room A11. A complete history and physical examination was performed. 1158: Zofran Inj 4mg IV, Tylenol Tab 1000mg PO, Toradol Inj 30mg IV, Dilaudid Inj 1mg IV, Benadryl Inj 25mg IV, Compazine 10mg IV, Sodium Chloride 1000 ml @ 0 mls/hr wide open IV 1550: Upon reexamination the patient is resting. I discussed results and treatment plan with the patient. She verbalizes agreement and understanding. The patient is ready for discharge. Medical Decision Differential diagnoses include but are not limited to; pancreatitis, biliary disease, neuropsychiatric pathology, complication of biopsy. 41-year-old presented to the emergency room for evaluation of several hours of acute epigastric pain after recent biopsy by Dr. Choi. She notes a history of chronic abdominal problems on multiple pain medications. Screening evaluation was negative, including CT and labs. Patient was comfortable on reexamination prior to discharge at roughly 4 PM. Declined any prescriptions. Impression Primary Impression: Abdominal pain Scribe Attestation The scribe's documentation has been prepared under my direction and personally reviewed by me in its entirety. I confirm that the note above accurately reflects all work, treatment, procedures, and medical decision making performed by me. Departure Information Dispostion Home / Self-Care Referrals RV. Schwab MD (PCP) Forms Call Back Authorization, HOME CARE DOCUMENTATION FORM, IMPORTANT VISIT INFORMATION Patient Instructions Abdominal Pain - [facility], My [facility]
[2016-05-20 12:15] LABS: BASO % 1.4 %; BASO ABS # 0.13 K/uL (0-0.2); COMPLETE YES; EOS % 1.4 %; HEMATOCRIT 38.5 % (37-47); IG% 0.2 %; LYMPH % 29.4 %; LYMPH ABS # 2.82 K/uL (1.2-3.4); MEAN CELL VOLUME 91.9 fL (80-100); MEAN CORPUSCULAR HEMOGLOBIN 30.8 pg (25-34); MEAN CORPUSCULAR HGB CONC 33.5 g/dl (32-36); MEAN PLATELET VOLUME 9.9 fL (7.4-10.4); MONO % 7.6 %; PLATELET COUNT 369 K/uL (130-400); RED BLOOD COUNT 4.19 M/uL (4.2-5.4)
[2016-05-20] MEDS ORDERED: OPTIRAY 320 IV PRN (12:15)
[2016-05-20 12:22] LABS: PREG INTERNAL NEGATIVE QC NEG CLEAR BACKGROUND; PREG INTERNAL POSITIVE QC POS CONTROL LINE
[2016-05-20 12:27] LABS: ALT/SGPT 15 U/L (12-78); BLOOD UREA NITROGEN 6 mg/dl (7-18); BUN/CREATININE RATIO 5.8 (10-20); CALCIUM 9.2 mg/dl (8.5-10.1); CARBON DIOXIDE 18 mmol/L (21-32); CHLORIDE 110 mmol/L (98-107); CREATININE 0.95 mg/dl (0.60-1.20); GLUCOSE 97 mg/dl (70-99)
[2016-05-20 12:50] LABS: PROCALCITONIN < 0.05 ng/mL (0-0.5)
[2016-05-20 13:01] LABS: PARTIAL THROMBOPLASTIN RATIO 1.3
[2016-05-20 13:02] LABS: ALKALINE PHOSPHATASE 72 U/L (45-117); C-REACTIVE PROTEIN 0.79 mg/dl (0-0.29)
[2016-05-20 13:10] LABS: POTASSIUM 3.4 mmol/L (3.5-5.1); SODIUM 144 mmol/L (136-145)
[2016-05-20 13:17] LABS: AST/SGOT < 3 U/L (15-37)
[2016-05-20 13:48] LABS: URINE APPEARANCE TURBID (CLEAR); URINE BILIRUBIN NEG (NEG); URINE COLOR YELLOW; URINE EPITHELIAL CELL AUTO >30 /lpf (0-5); URINE NITRITE NEG (NEG); URINE SPECIFIC GRAVITY 1.011 (1.000-1.030); UROBILINOGEN NEG (NEG)
[2016-05-20 13:49] LABS: MANUAL MICROSCOPIC REQUIRED? NO; REVIEW REQ? NO
[2016-05-20 14:10] LABS: BENZODIAZEPINE, URINE NEG (NEG); COCAINE,URINE NEG (NEG); PHENCYCLIDINE, URINE NEG (NEG)
--- NOTE | 2016-05-20 14:17 | DIAGNOSTIC IMAGING REPORT ---
TWO VIEW CHEST CLINICAL HISTORY: Epigastric abdominal pain. FINDINGS: PA and lateral chest radiographs are compared to study dated 05/05/2016. The cardiomediastinal silhouette is unremarkable. The lungs and pleural spaces are clear. There is no pneumothorax. The bony thorax appears intact. Cholestatic clips are seen in the right upper quadrant. The stomach is distended and filled with enteric contrast. IMPRESSION: No active disease in the chest. Electronically signed by: Kevin Panda M.D. 05/20/2016 2:15 PM Dictated Date/Time: 05/20/2016 2:14 PM
--- NOTE | 2016-05-20 14:40 | DIAGNOSTIC IMAGING REPORT ---
CT SCAN OF THE ABDOMEN AND PELVIS WITH IV CONTRAST CLINICAL HISTORY: Epigastric abdominal pain. Vomiting. COMPARISON STUDY: Multiple prior abdominal CT scans, most recently dated 04/04/2016. TECHNIQUE: Following the IV administration of 118 cc of Optiray 320, CT scan of the abdomen and pelvis is performed from the lung bases to the proximal femora. Images are reviewed in the axial, sagittal, and coronal planes. IV contrast was administered without complication. Automated dose control exposure was utilized. The examination is modestly degraded by motion artifact. CT DOSE: 900.68 mGy.cm FINDINGS: Lung bases: The heart is normal in size and there is trace pericardial effusion. The lung bases are clear noting dependent atelectasis. A small hiatal hernia is noted. Liver: The contrast-enhanced liver is enlarged, measuring 21 cm in craniocaudal length. The liver demonstrates diminished attenuation consistent with hepatic steatosis. More focal fatty infiltration is noted adjacent to the falciform ligament. There is no intrahepatic biliary ductal dilatation. The hepatic veins and portal veins are patent. Gallbladder: Surgically absent noting clips in the gallbladder fossa. Spleen: Normal in size and attenuation. Pancreas: Atrophic for age. Adrenal glands: Unremarkable. Kidneys: The contrast enhanced kidneys are normal in size and without hydronephrosis. The kidneys enhance symmetrically. There is a punctate nonobstructing calculus again seen in the interpolar right kidney. A subcentimeter cortical hypodensity in the right upper pole likely represents a cyst but is too small for definitive characterization. Abdominal vasculature: The abdominal aorta is normal in course and caliber. Bowel: The small bowel and colon are normal in course and caliber. There are scattered colonic diverticula without CT evidence of acute diverticulitis. The appendix is well-visualized and normal. Peritoneum: There is no intraperitoneal free air or abdominal ascites. There is a small fat-containing umbilical hernia. Lymphadenopathy: None. Pelvic viscera: The bladder, uterus, and adnexa are normal as visualized. Small ovarian follicles are identified. Skeletal structures: No fracture is identified. No lytic or blastic lesions are seen. Heterogeneity of the left iliac wing is unchanged. IMPRESSION: 1. There are no acute infectious or inflammatory findings in the abdomen or pelvis. 2. Hepatomegaly and hepatic steatosis. 3. A punctate nonobstructing right renal calculus is again noted. 4. Additional findings as above. Electronically signed by: Kevin Panda M.D. 05/20/2016 2:39 PM Dictated Date/Time: 05/20/2016 2:34 PM
[2016-05-20 15:58] VITALS: BP 152/92; PULSE 88; O2SAT 97
[2016-09-14] MEDS ORDERED: IMTIN5 (13:07)
[2016-09-14] MEDS ORDERED: ACET325T96 PO (14:54)
[2016-09-14] MEDS ORDERED: [UNRECOGNIZED DRUG - CODE] PO (15:35)
[2016-09-14] MEDS ORDERED: TRAM-10 PO (15:51)
[2016-09-14] MEDS ORDERED: PRT/40 PO (18:58)
[2016-11-28] MEDS ORDERED: PARO1TAB29 PO (12:39)
[2016-11-28] MEDS ORDERED: ELUX1TAB PO (12:39)
[2016-11-28] MEDS ORDERED: MEDR1INJ3 IM (12:39)
[2016-11-28] MEDS ORDERED: SUCR1TAB29 PO (12:39)
[2016-11-28] MEDS ORDERED: ZOLP5TAB PO (12:39)
[2016-11-28] MEDS ORDERED: CLID5CAP PO (12:39)
[2016-11-28] MEDS ORDERED: COLE1TAB5 PO (12:39)
[2016-11-28] MEDS ORDERED: ZOLP10TA PO (12:39)
[2016-11-28] MEDS ORDERED: RBN/2 PO (12:39)
[2016-11-28] MEDS ORDERED: RANI300T2 PO (12:39)
[2016-11-28] MEDS ORDERED: PROC5TAB PO (12:39)
[2016-11-28] MEDS ORDERED: DIPH25CA65 PO (12:39)
== END 2016-05-20 16:00 | disposition home or self-care (01) ==
LOC: C.EDB 10:58 → C.EDA 16:00
DX: R10.13 Epigastric pain (principal); K58.9 Irritable bowel syndrome, unspecified; F41.9 Anxiety disorder, unspecified; J45.901 Unspecified asthma with (acute) exacerbation; K22.70 Barrett's esophagus without dysplasia; F31.9 Bipolar disorder, unspecified; H54.40 Blindness, one eye, unspecified eye; K21.9 Gastro-esophageal reflux disease without esophagitis; E87.6 Hypokalemia; I88.0 Nonspecific mesenteric lymphadenitis; G43.909 Migraine, unspecified, not intractable, without status migrainosus; Z79.899 Other long term (current) drug therapy

== ENCOUNTER 2016-06-09 15:13 | Emergency (ER) | payer OTHER ==
[~2016-06-09] VITALS: Ht 175.3 cm; Wt 96.2 kg
[2016-06-09 15:17] VITALS: Ht 175.3 cm; Wt 96.2 kg
[2016-06-09] MEDS ORDERED: SODIUM CHLORIDE 0.9% 1000ML 1,000 ML IV STA (15:58)
[2016-06-09] MEDS ORDERED: ONDANSETRON INJ 2 MG/ML 2 ML VIAL IV STA (15:58)
[2016-06-09 16:28] LABS: HEMATOCRIT 37.8 % (37-47); MEAN CELL VOLUME 90.9 fL (80-100); MEAN CORPUSCULAR HEMOGLOBIN 30.5 pg (25-34); MEAN CORPUSCULAR HGB CONC 33.6 g/dl (32-36); PLATELET COUNT 258 K/uL (130-400); RED BLOOD COUNT 4.16 M/uL (4.2-5.4); WHITE BLOOD COUNT 8.99 K/uL (4.8-10.8)
[2016-06-09 16:30] LABS: URINE APPEARANCE CLEAR (CLEAR); URINE BILIRUBIN NEG (NEG); URINE COLOR YELLOW; URINE EPITHELIAL CELL AUTO >30 /lpf (0-5); URINE NITRITE NEG (NEG); URINE PH 5.5 (4.5-7.5); URINE SPECIFIC GRAVITY 1.028 (1.000-1.030); UROBILINOGEN NEG (NEG); ZZUR CULT IF INDIC CLEAN CATCH NO
[2016-06-09 16:31] LABS: MANUAL MICROSCOPIC REQUIRED? NO; REVIEW REQ? NO
[2016-06-09 16:46] LABS: ALT/SGPT 18 U/L (12-78); BLOOD UREA NITROGEN 7 mg/dl (7-18); BUN/CREATININE RATIO 8.2 (10-20); CALCIUM 9.2 mg/dl (8.5-10.1); CARBON DIOXIDE 19 mmol/L (21-32); CHLORIDE 109 mmol/L (98-107); CREATININE 0.84 mg/dl (0.60-1.20); GLUCOSE 105 mg/dl (70-99); POTASSIUM 3.2 mmol/L (3.5-5.1); SODIUM 140 mmol/L (136-145)
--- NOTE | 2016-06-09 16:46 | DIAGNOSTIC IMAGING REPORT ---
TWO VIEW CHEST CLINICAL HISTORY: Cough. Fever. FINDINGS: PA and lateral chest radiographs are compared to study dated 05/20/2016. The cardiomediastinal silhouette is unremarkable. There are low lung volumes. Patchy airspace consolidation is seen at the right lung base, new from 05/20/2016. The left lung appears clear. No pleural effusion is identified. There is no pneumothorax. The bony thorax appears intact. Cholecystectomy clips are seen in the right upper quadrant. IMPRESSION: There is patchy airspace consolidation at the right lung base, typical in appearance for pneumonia. Radiographic follow-up to resolution is recommended. Electronically signed by: Kevin Panda M.D. 06/09/2016 4:45 PM Dictated Date/Time: 06/09/2016 4:44 PM
[2016-06-09 16:49] LABS: ALKALINE PHOSPHATASE 88 U/L (45-117); AST/SGOT 12 U/L (15-37)
[2016-06-09] MEDS ORDERED: AZITHROMYCIN 250 MG TAB PO STA (16:51)
[2016-06-09] MEDS ORDERED: HYDROCODONE/HOMATROPINE SYRUP 5MG/1.5MG 5ML UDP PO STA (16:55)
[2016-06-09] MEDS ORDERED: HYDR5SYP11 PO (16:59)
[2016-06-09] MEDS ORDERED: ONDA4TAB46 PO (16:59)
[2016-06-09] MEDS ORDERED: AZIT250T PO (16:59)
--- NOTE | 2016-06-09 17:00 | EMERGENCY ROOM VISIT NOTE ---
History First contact with patient: 15:38 Chief Complaint: COUGH Stated Complaint: COUGH Nursing Triage Summary: pt c/o cough 3 days ago now has diarrhea and vomiting. feels weak History of Present Illness The patient is a 41 year old female who presents to the Emergency Room with complaints of cough for the past 3 days and nausea vomiting and diarrhea since yesterday. The patient states that the cough started 3 days ago and now when she coughs she vomits as well as moves her bowels. The patient denies any ear pain, sore throat, head congestion. The patient does admit to a low-grade temperature of 100.5. The patient admits to generalized abdominal pain but no specific point area of pain. The patient denies any urinary symptoms of frequency, urgency or dysuria. Review of Systems 10 system review was performed and was negative unless stated otherwise history of present illness. 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 (23) Migraine Unspecified W/O Intractable Migraine (24) Ovarian Cyst Nec/Nos (25) Sterilization (26) Tension headache (27) Tension headache (28) Urin Tract Infection Nos (29) UTI (lower urinary tract infection) Surgical Problems: (1) History of cholecystectomy (2) History of tubal ligation Family History Diabetes mellitus FHx: cancer Hypertension Seizures Social History Smoking Status: Never Smoker Alcohol Use: none Drug Use: none Housing Status: lives with family Occupation Status: unemployed Current/Historical Medications Scheduled Alosetron Hcl (Lotronex), 0.5 MG PO QAM Amitriptyline Hcl (Elavil), 1 TAB PO HS Azithromycin (Zithromax), 500 MG PO DAILY Medroxyprogesterone Acetate (Medroxyprogesterone Aceta), 150 MG IM UD Pantoprazole (Pantoprazole Sodium), 40 MG PO BID Scheduled PRN Dicyclomine Hcl (Dicyclomine Hcl), 10 MG PO QID PRN for Abdominal Pain Hydrocodone W/ Homatropine (Hycodan 5/1.5MG 5 Ml), 5-10 ML PO Q4H PRN for Cough Ondansetron Hcl (Zofran), 4 MG PO Q8H PRN for Nausea Ondasetron Odt (Zofran Odt), 4 MG SL Q6H PRN for Nausea Prochlorperazine (Compro), 1 SUPP CA TID PRN for Nausea Sumatriptan Succinate (Imitrex Nasal [place]), 1 SPRAY NA for Migraine Tramadol (Ultram), 100 MG PO QID PRN for Pain Allergies Coded Allergies: POLLEN (Verified Allergy, Mild, ITCHING/SNEEZING, 06/09/16) Physical Exam Vital Signs Date Time Temp Pulse Resp B/P Pulse Ox O2 Delivery O2 Flow Rate FiO2 06/09/16 15:17 93 Room Air 06/09/16 15:17 37.2 115 22 140/92 93 Room Air Physical Exam GENERAL: 41-year-old white female who is well-known to the emergency room presents in no acute distress. MENTAL Status: Alert and oriented 3. NOSE: Nasal mucosa without erythema or engorgement. PHARYNX: No erythema or edema noted. Airway is adequate. EARS: Canals clear. TMs without fluid level noted. NECK: Supple, no lymphadenopathy noted. No carotid bruits noted. LUNGS: Clear auscultation without wheezes rales or rhonchi. BACK: No CVA tenderness noted CARDIAC: Regular rate and rhythm without murmur. Pulses is full and equal throughout. ABDOMEN: Positive bowel sounds all 4 quadrants. Soft, generalized tenderness to palpation without any specific point tenderness, organomegaly or masses noted EXTREMITIES: No cyanosis or edema noted. Medical Decision & Procedures ER Provider Diagnostic Interpretation: TWO VIEW CHEST CLINICAL HISTORY: Cough. Fever. FINDINGS: PA and lateral chest radiographs are compared to study dated 05/20/2016. The cardiomediastinal silhouette is unremarkable. There are low lung volumes. Patchy airspace consolidation is seen at the right lung base, new from 05/20/2016. The left lung appears clear. No pleural effusion is identified. There is no pneumothorax. The bony thorax appears intact. Cholecystectomy clips are seen in the right upper quadrant. IMPRESSION: There is patchy airspace consolidation at the right lung base, typical in appearance for pneumonia. Radiographic follow-up to resolution is recommended. Electronically signed by: Kevin Panda M.D. 06/09/2016 4:45 PM Dictated Date/Time: 06/09/2016 4:44 PM The status of this report is Signed. Laboratory Results 06/09/16 16:15 Red Blood Count 4.16, Mean Corpuscular Volume 90.9, Mean Corpuscular Hemoglobin 30.5, Mean Corpuscular Hemoglobin Concent 33.6, Mean Platelet Volume 10.0 06/09/16 16:15 Test 06/09/16 16:15 White Blood Count 8.99 K/uL (4.8-10.8) Red Blood Count 4.16 M/uL (4.2-5.4) Hemoglobin 12.7 g/dL (12.0-16.0) Hematocrit 37.8 % (37-47) Mean Corpuscular Volume 90.9 fL (80-100) Mean Corpuscular Hemoglobin 30.5 pg (25-34) Mean Corpuscular Hemoglobin Concent 33.6 g/dl (32-36) Platelet Count 258 K/uL (130-400) Mean Platelet Volume 10.0 fL (7.4-10.4) RDW Standard Deviation 47.4 fL (36.4-46.3) RDW Coefficient of Variation 14.3 % (11.5-14.5) Urine Color YELLOW Urine Appearance CLEAR (CLEAR) Urine pH 5.5 (4.5-7.5) Urine Specific [place] 1.028 (1.000-1.030) Urine Protein 2+ (NEG) Urine Glucose (UA) NEG (NEG) Urine Ketones NEG (NEG) Urine Occult Blood 3+ (NEG) Urine Nitrite NEG (NEG) Urine Bilirubin NEG (NEG) Urine Urobilinogen NEG (NEG) Urine Leukocyte Esterase TRACE (NEG) Urine WBC (Auto) 5-10 /hpf (0-5) Urine RBC (Auto) 10-30 /hpf (0-4) Urine Hyaline Casts (Auto) 5-10 /lpf (0-5) Urine Epithelial Cells (Auto) >30 /lpf (0-5) Urine Bacteria (Auto) NEG (NEG) Anion Gap 12.0 mmol/L (3-11) Est Creatinine Clear Calc Drug Dose 108.8 ml/min Estimated GFR () 100.1 Estimated GFR (Non- 86.3 BUN/Creatinine Ratio 8.2 (10-20) Calcium Level 9.2 mg/dl (8.5-10.1) Total Bilirubin 0.2 mg/dl (0.2-1) Direct Bilirubin < 0.1 mg/dl (0-0.2) Aspartate Amino Transf (AST/SGOT) 12 U/L (15-37) Alanine Aminotransferase (ALT/SGPT) 18 U/L (12-78) Alkaline Phosphatase 88 U/L (45-117) Total Protein 8.3 gm/dl (6.4-8.2) Albumin 4.2 gm/dl (3.4-5.0) Lipase 108 U/L (73-393) Medications Administered Medications (Trade) Dose Ordered Sig/Magdalene Route Start Time Stop Time Status Last Admin Dose Admin Sodium Chloride (Nss 1000ml) 1,000 ml @ 999 mls/hr Q1H1M STAT IV 06/09/16 15:58 06/09/16 16:58 DC 06/09/16 15:58 999 MLS/HR Ondansetron HCl (Zofran Inj) 4 mg NOW STAT IV 06/09/16 15:58 06/09/16 16:00 DC 06/09/16 15:58 4 MG Azithromycin (Zithromax Tab) 500 mg NOW STAT PO 06/09/16 16:51 06/09/16 16:53 DC 06/09/16 16:59 500 MG Hydrocodone Bit/ Homatropine Methylb (Hycodan Syrup) 5 ml NOW STAT PO 06/09/16 16:55 06/09/16 16:56 DC 06/09/16 17:00 5 ML ED Course The patient was evaluated. IV access was obtained. The patient was given 1 L normal saline wide-open. She was given Zofran 4 mg IV push for nausea. CBC and differential, renal profile, LFTs and lipase levels were ordered. Urinalysis was ordered. Chest x-ray was ordered and interpreted by the radiologist and myself as above with evidence of right lower lobe pneumonia. The patient was informed of the findings. The patient's labs are reviewed. The patient's white count was normal. Otherwise labs are unremarkable. Urinalysis did not reveal any bacteria. There was some blood this will be sent for culture. Except for The patient was given Zithromax 500 mg by mouth while in the emergency room.. Patient was also given Hycodan syrup 5 mL's while in the emergency room. The patient was reevaluated was feeling better. The patient was discharged home in stable condition. Medical Decision Differential diagnosis include URI, pneumonia, influenza, viral gastroenteritis , GERD Impression Primary Impression: Pneumonia Additional Impression: Nausea and vomiting Departure Information Dispostion Home / Self-Care Condition GOOD Prescriptions Hydrocodone W/ Homatropine (HYCODAN 5/1.5MG 5 ML) 1 Syp Syp 5-10 ML PO Q4H Y for Cough, #200 ML Prov: Maine Blake PA-C 06/09/16 Ondansetron Hcl (ZOFRAN) 4 Mg Tab 4 MG PO Q8H Y for Nausea, #14 TAB Prov: Maine Blake PA-C 06/09/16 Azithromycin (Zithromax) 250 Mg Tab 500 MG PO DAILY for 4 Days, #8 TAB Prov: Maine Blake PA-C 06/09/16 Referrals RV. Schwab MD (PCP) Patient Instructions ED Pneumonia, [facility] Additional Instructions Push fluids, rest. Tylenol and/or ibuprofen as needed for fever. Take Vicodin as needed for cough. Do not drive while taking the Vicodin. Take Zithromax as prescribed. Take Zofran as needed for nausea. Follow-up with your family physician on Sunday or Sunday next week. If symptoms worsen in the interim, return to ER. Problem Qualifiers Primary Impression: Pneumonia Pneumonia type: due to unspecified organism Laterality: right Lung location : lower lobe of lung Qualified Codes: J18.1 - Lobar pneumonia, unspecified organism Additional Impression: Nausea and vomiting Vomiting type: unspecified Vomiting Intractability: unspecified Qualified Codes: R11.2 - Nausea with vomiting, unspecified
[2016-06-09 17:09] VITALS: BP 145/89; PULSE 91; TEMP 37; O2SAT 100
[2016-06-09 17:59] LABS: BASO % 0.9 %; BASO ABS # 0.08 K/uL (0-0.2); COMPLETE YES; IG% 0.2 %; LYMPH % 22.7 %; LYMPH ABS # 2.04 K/uL (1.2-3.4); MONO % 10.6 %; NEUT % 63.6 %
[2016-09-14] MEDS ORDERED: IMTIN5 (13:07)
[2016-09-14] MEDS ORDERED: ACET325T96 PO (14:54)
[2016-09-14] MEDS ORDERED: [UNRECOGNIZED DRUG - CODE] PO (15:35)
[2016-09-14] MEDS ORDERED: TRAM-10 PO (15:51)
[2016-09-14] MEDS ORDERED: PRT/40 PO (18:58)
[2016-11-28] MEDS ORDERED: RANI300T2 PO (12:39)
[2016-11-28] MEDS ORDERED: ZOLP10TA PO (12:39)
[2016-11-28] MEDS ORDERED: ELUX1TAB PO (12:39)
[2016-11-28] MEDS ORDERED: SUCR1TAB29 PO (12:39)
[2016-11-28] MEDS ORDERED: MEDR1INJ3 IM (12:39)
[2016-11-28] MEDS ORDERED: RBN/2 PO (12:39)
[2016-11-28] MEDS ORDERED: PROC5TAB PO (12:39)
[2016-11-28] MEDS ORDERED: CLID5CAP PO (12:39)
[2016-11-28] MEDS ORDERED: COLE1TAB5 PO (12:39)
[2016-11-28] MEDS ORDERED: ZOLP5TAB PO (12:39)
[2016-11-28] MEDS ORDERED: DIPH25CA65 PO (12:39)
[2016-11-28] MEDS ORDERED: PARO1TAB29 PO (12:39)
== END 2016-06-09 17:10 | disposition home or self-care (01) ==
LOC: C.EDB 15:15
DX: J18.9 Pneumonia, unspecified organism (principal); R11.2 Nausea with vomiting, unspecified; J45.909 Unspecified asthma, uncomplicated; K21.9 Gastro-esophageal reflux disease without esophagitis; F41.9 Anxiety disorder, unspecified; F31.9 Bipolar disorder, unspecified; K58.9 Irritable bowel syndrome, unspecified; N83.209 Unspecified ovarian cyst, unspecified side; Z87.440 Personal history of urinary (tract) infections; Z98.51 Tubal ligation status; Z90.49 Acquired absence of other specified parts of digestive tract; Z79.899 Other long term (current) drug therapy; Z91.09 Other allergy status, other than to drugs and biological substances; Z83.3 Family history of diabetes mellitus; Z80.9 Family history of malignant neoplasm, unspecified; Z82.49 Family history of ischemic heart disease and other diseases of the circulatory system; Z82.0 Family history of epilepsy and other diseases of the nervous system

== ENCOUNTER 2016-07-23 14:34 | Emergency (ER) | payer OTHER ==
[~2016-07-23] VITALS: Ht 175.3 cm; Wt 96.2 kg
[~2016-07-23 14:34] MED LIST changes: +ONDA4TAB46 PO
[2016-07-23 14:40] VITALS: TEMP 37.1; Ht 175.3 cm; Wt 96.2 kg
[2016-07-23] MEDS ORDERED: ONDANSETRON INJ 2 MG/ML 2 ML VIAL IV STA (15:08)
[2016-07-23] MEDS ORDERED: SODIUM CHLORIDE 0.9% 1000ML 1,000 ML IV STA (15:08)
[2016-07-23] MEDS ORDERED: HYDROmorphone INJ 1 MG/ML SYR IV STA (15:08)
[2016-07-23 15:27] LABS: BASO % 0.6 %; BASO ABS # 0.07 K/uL (0-0.2); COMPLETE YES; EOS % 1.1 %; HEMATOCRIT 35.8 % (37-47); IG% 0.2 %; LYMPH % 23.6 %; LYMPH ABS # 2.85 K/uL (1.2-3.4); MEAN CELL VOLUME 91.3 fL (80-100); MEAN CORPUSCULAR HEMOGLOBIN 30.6 pg (25-34); MEAN CORPUSCULAR HGB CONC 33.5 g/dl (32-36); MONO % 8.3 %; NEUT % 66.2 %; PLATELET COUNT 291 K/uL (130-400); RED BLOOD COUNT 3.92 M/uL (4.2-5.4); WHITE BLOOD COUNT 12.06 K/uL (4.8-10.8)
[2016-07-23 15:30] LABS: ISTAT HEMOGLOBIN 12.6 g/dl (12.0-16.0); ISTAT IONIZED CALCIUM 1.27 mmol/l (1.12-1.32)
[2016-07-23 15:43] LABS: ALT/SGPT 17 U/L (12-78); AST/SGOT 6 U/L (15-37); BLOOD UREA NITROGEN 8 mg/dl (7-18); BUN/CREATININE RATIO 8.2 (10-20); CALCIUM 9.4 mg/dl (8.5-10.1); CARBON DIOXIDE 22 mmol/L (21-32); CHLORIDE 109 mmol/L (98-107); GLUCOSE 100 mg/dl (70-99); POTASSIUM 3.3 mmol/L (3.5-5.1); SODIUM 144 mmol/L (136-145)
[2016-07-23] MEDS ORDERED: OPTIRAY 320 IV PRN (15:45)
[2016-07-23 15:46] LABS: ALKALINE PHOSPHATASE 68 U/L (45-117)
--- NOTE | 2016-07-23 15:53 | DIAGNOSTIC IMAGING REPORT ---
CT SCAN OF THE ABDOMEN AND PELVIS WITH IV CONTRAST CLINICAL HISTORY: Right lower quadrant abdominal pain. COMPARISON STUDY: Multiple prior abdominal CT scans, most recently dated 05/20/16. TECHNIQUE: Following the IV administration of 115 cc of Optiray 320, CT scan of the abdomen and pelvis is performed from the lung bases to the proximal femora. Images are reviewed in the axial, sagittal, and coronal planes. IV contrast was administered without complication. Automated dose control exposure was utilized. The examination is modestly degraded by motion artifact. CT DOSE: 670.27 mGy.cm FINDINGS: Lung bases: The heart is normal in size and there is trace pericardial effusion. The lung bases are clear noting dependent atelectasis. A small hiatal hernia is noted. Liver: The contrast-enhanced liver is enlarged, measuring 21 cm in craniocaudal length. The liver demonstrates diminished attenuation consistent with hepatic steatosis. More focal fatty infiltration is noted adjacent to the falciform ligament. There is no intrahepatic biliary ductal dilatation. The hepatic veins and portal veins are patent. Gallbladder: Surgically absent noting clips in the gallbladder fossa. Spleen: Normal in size and attenuation. Pancreas: Atrophic for age. Adrenal glands: Unremarkable. Kidneys: The contrast enhanced kidneys are normal in size and without hydronephrosis. The kidneys enhance symmetrically. There is a punctate nonobstructing calculus again seen in the interpolar right kidney. A subcentimeter cortical hypodensity in the right upper pole likely represents a cyst but is too small for definitive characterization. Abdominal vasculature: The abdominal aorta is normal in course and caliber. Bowel: The small bowel and colon are normal in course and caliber. There are scattered colonic diverticula without CT evidence of acute diverticulitis. The appendix is well-visualized and normal. Peritoneum: There is no intraperitoneal free air or abdominal ascites. There is a small fat-containing umbilical hernia. Lymphadenopathy: None. Pelvic viscera: The bladder, uterus, and adnexa are normal as visualized. Small ovarian follicles are identified. Skeletal structures: No fracture is identified. No lytic or blastic lesions are seen. Heterogeneity of the left iliac wing is unchanged. IMPRESSION: 1. There are no acute infectious or inflammatory findings in the abdomen or pelvis. No significant change from multiple prior studies. 2. Hepatomegaly and hepatic steatosis. 3. A punctate nonobstructing right renal calculus is again noted. 4. Additional findings as above. Electronically signed by: Kevin Panda M.D. 07/23/2016 3:51 PM Dictated Date/Time: 07/23/2016 3:47 PM
[2016-07-23 16:17] LABS: URINE APPEARANCE CLOUDY (CLEAR); URINE BILIRUBIN NEG (NEG); URINE COLOR YELLOW; URINE EPITHELIAL CELL AUTO >30 /lpf (0-5); URINE NITRITE NEG (NEG); URINE PH 5.5 (4.5-7.5); URINE SPECIFIC GRAVITY > 1.045 (1.000-1.030); UROBILINOGEN NEG (NEG); ZZUR CULT IF INDIC CLEAN CATCH YES
[2016-07-23 16:18] LABS: MANUAL MICROSCOPIC REQUIRED? NO; REVIEW REQ? YES
[2016-07-23] MEDS ORDERED: MoRPHine SULFATE 4 MG/ML 1 ML CARP\\VIAL IV STA (16:47)
[2016-07-23] MEDS ORDERED: KETOROLAC TROMETHAMINE 30 MG/ML VIAL IV STA (16:47)
[2016-07-23 17:00] VITALS: BP 151/97; PULSE 99; O2SAT 99
[2016-07-23] MEDS ORDERED: SULFAMETHOXAZOLE/TRIMETHOPRIM DS 800/160MG TAB PO STA (17:06)
[2016-07-23] MEDS ORDERED: CEFTRIAXONE SOD 350MG/ML 1 GM VIAL IM STA (17:10)
[2016-07-23] MEDS ORDERED: AZITHROMYCIN 250 MG TAB PO STA (17:10)
[2016-07-23] MEDS ORDERED: SULF800T23 PO (17:10)
--- NOTE | 2016-07-23 21:31 | EMERGENCY ROOM VISIT NOTE ---
History Report prepared by Froy: Destiny Greenwood Under the Supervision of: Shawn SeamanO. First contact with patient: 14:53 Chief Complaint: ABDOMINAL PAIN Stated Complaint: RIGHT SIDE PAIN History of Present Illness The patient is a 41 year old female who presents to the Emergency Room with complaints of worsening right sided abdominal pain for the past week. She states that the pain has been there for a week, but it started to get much worse last night and continued to worsen today. The patient has also been experiencing intermittent fevers with temperatures around 100.6. She has been taking Tylenol for her symptoms, which has been helping. She took her last dose at 8pm last night. She has been experiencing nausea and vomiting and states that this is worse with trying to eat anything. The patient rates her current pain as a 9/10 in severity. Movement exacerbates her pain. She has a history of IBS-D but states that these symptoms feel different. The patient denies urinary symptoms, back pain, abnormal vaginal bleeding or discharge, and any chance of . She still has her appendix. Source of History: patient Onset: 1 week ago Position: abdomen (right sided) Symptom Intensity: 9/10 Timing: worsening Modifying Factors (Worsening): movement Modifying Factors (Relieving): tylenol Associated Symptoms: + fevers, + nausea, + vomiting, No back pain, No urinary symptoms Note: Pt denies abnormal vaginal bleeding or discharge and any chance of . Review of Systems See HPI for pertinent positives & negatives. A total of 10 systems reviewed and were otherwise negative. Past Medical & Surgical Medical Problems: (1) Abdominal pain (2) Abdominal pain (3) Abdominal pain (4) Anxiety (5) Asthma, Unspecified, W (Acute) Exacerbation (6) Back pain (7) Barretts esophagus (8) Bipolar Disorder, Unspecified (9) Blindness, One Eye (10) section (11) Dehydration (12) Deliver-Single Liveborn (13) Esophageal Reflux (14) Hyperventilation (15) Hyperventilation (16) Hyperventilation (17) Hypokalemia (18) Hypokalemia, gastrointestinal losses (19) IBS (irritable bowel syndrome) (20) Intractable pain (21) Intractable vomiting (22) Mesenteric adenitis (23) Migraine Unspecified W/O Intractable Migraine (24) Ovarian Cyst Nec/Nos (25) Sterilization (26) Tension headache (27) Tension headache (28) Urin Tract Infection Nos (29) UTI (lower urinary tract infection) Surgical Problems: (1) History of cholecystectomy (2) History of tubal ligation Family History Diabetes mellitus FHx: cancer Hypertension Seizures Social History Smoking Status: Never Smoker Alcohol Use: none Drug Use: none Housing Status: lives with family Occupation Status: unemployed Current/Historical Medications Scheduled Alosetron Hcl (Lotronex), 0.5 MG PO QAM Amitriptyline Hcl (Elavil), 1 TAB PO HS Medroxyprogesterone Acetate (Medroxyprogesterone Aceta), 150 MG IM UD Pantoprazole (Pantoprazole Sodium), 40 MG PO BID Sulfa/Trimethoprim (Bactrim Ds 800MG/160MG), 1 TAB PO BID Scheduled PRN Acetaminophen Tab (Tylenol), 650 MG PO Q4 PRN for abd pain Dicyclomine Hcl (Dicyclomine Hcl), 10 MG PO QID PRN for Abdominal Pain Ondasetron Odt (Zofran Odt), 4 MG SL Q6H PRN for Nausea Prochlorperazine (Compro), 1 SUPP DC TID PRN for Nausea Sumatriptan Succinate (Imitrex Nasal [place]), 1 SPRAY NA for Migraine Tramadol (Ultram), 100 MG PO QID PRN for Pain Allergies Coded Allergies: POLLEN (Verified Allergy, Mild, ITCHING/SNEEZING, 06/09/16) Physical Exam Vital Signs Date Time Temp Pulse Resp B/P Pulse Ox O2 Delivery O2 Flow Rate FiO2 07/23/16 17:00 99 18 151/97 99 Room Air 07/23/16 14:40 37.1 96 22 146/99 99 Room Air Physical Exam GENERAL: alert, well appearing, well nourished, sitting up in bed holding abdomen, in moderate distress, non-toxic EYE EXAM: normal conjunctiva OROPHARYNX: no exudate, no erythema, lips, buccal mucosa, and tongue normal and mucous membranes are moist NECK: supple, no nuchal rigidity, no adenopathy, non-tender LUNGS: Clear to auscultation. Normal chest wall mechanics HEART: no murmurs, S1 normal and S2 normal ABDOMEN: abdomen soft, tender to palpation of the RLQ, normo-active bowel sounds , no masses, no rebound or guarding. PELVIC: Normal external genitalia, normal vaginal mucosa, no cervical tenderness , right adnexal tenderness. BACK: Back is symmetrical on inspection and there is no deformity, no midline tenderness, no CVA tenderness. SKIN: no rashes and no bruising UPPER EXTREMITIES: upper extremities are grossly normal. LOWER EXTREMITIES: No pitting edema. NEURO EXAM: Normal sensorium, cranial nerves II-XII grossly intact, normal speech, no gross weakness of arms, no gross weakness of legs. Medical Decision & Procedures ER Provider Diagnostic Interpretation: Radiology results as stated below per my review and the radiologist's interpretation: CT SCAN OF THE ABDOMEN AND PELVIS WITH IV CONTRAST CLINICAL HISTORY: Right lower quadrant abdominal pain. COMPARISON STUDY: Multiple prior abdominal CT scans, most recently dated 05/20/16. TECHNIQUE: Following the IV administration of 115 cc of Optiray 320, CT scan of the abdomen and pelvis is performed from the lung bases to the proximal femora. Images are reviewed in the axial, sagittal, and coronal planes. IV contrast was administered without complication. Automated dose control exposure was utilized. The examination is modestly degraded by motion artifact. CT DOSE: 670.27 mGy.cm FINDINGS: Lung bases: The heart is normal in size and there is trace pericardial effusion. The lung bases are clear noting dependent atelectasis. A small hiatal hernia is noted. Liver: The contrast-enhanced liver is enlarged, measuring 21 cm in craniocaudal length. The liver demonstrates diminished attenuation consistent with hepatic steatosis. More focal fatty infiltration is noted adjacent to the falciform ligament. There is no intrahepatic biliary ductal dilatation. The hepatic veins and portal veins are patent. Gallbladder: Surgically absent noting clips in the gallbladder fossa. Spleen: Normal in size and attenuation. Pancreas: Atrophic for age. Adrenal glands: Unremarkable. Kidneys: The contrast enhanced kidneys are normal in size and without hydronephrosis. The kidneys enhance symmetrically. There is a punctate nonobstructing calculus again seen in the interpolar right kidney. A subcentimeter cortical hypodensity in the right upper pole likely represents a cyst but is too small for definitive characterization. Abdominal vasculature: The abdominal aorta is normal in course and caliber. Bowel: The small bowel and colon are normal in course and caliber. There are scattered colonic diverticula without CT evidence of acute diverticulitis. The appendix is well-visualized and normal. Peritoneum: There is no intraperitoneal free air or abdominal ascites. There is a small fat-containing umbilical hernia. Lymphadenopathy: None. Pelvic viscera: The bladder, uterus, and adnexa are normal as visualized. Small ovarian follicles are identified. Skeletal structures: No fracture is identified. No lytic or blastic lesions are seen. Heterogeneity of the left iliac wing is unchanged. IMPRESSION: 1. There are no acute infectious or inflammatory findings in the abdomen or pelvis. No significant change from multiple prior studies. 2. Hepatomegaly and hepatic steatosis. 3. A punctate nonobstructing right renal calculus is again noted. 4. Additional findings as above. Electronically signed by: Kevin Panda M.D. 07/23/2016 3:51 PM Dictated Date/Time: 07/23/2016 3:47 PM Laboratory Results 07/23/16 15:15 Red Blood Count 3.92, Mean Corpuscular Volume 91.3, Mean Corpuscular Hemoglobin 30.6, Mean Corpuscular Hemoglobin Concent 33.5, Mean Platelet Volume 10.0, Neutrophils (%) (Auto) 66.2, Lymphocytes (%) (Auto) 23.6, Monocytes (%) (Auto) 8.3, Eosinophils (%) (Auto) 1.1, Basophils (%) (Auto) 0.6, Neutrophils # (Auto) 7.99, Lymphocytes # (Auto) 2.85, Monocytes # (Auto) 1.00, Eosinophils # (Auto) 0.13, Basophils # (Auto) 0.07 07/23/16 15:15 Test 07/23/16 15:15 07/23/16 15:16 07/23/16 16:03 White Blood Count 12.06 K/uL (4.8-10.8) Red Blood Count 3.92 M/uL (4.2-5.4) Hemoglobin 12.0 g/dL (12.0-16.0) Hematocrit 35.8 % (37-47) Mean Corpuscular Volume 91.3 fL (80-100) Mean Corpuscular Hemoglobin 30.6 pg (25-34) Mean Corpuscular Hemoglobin Concent 33.5 g/dl (32-36) Platelet Count 291 K/uL (130-400) Mean Platelet Volume 10.0 fL (7.4-10.4) Neutrophils (%) (Auto) 66.2 % Lymphocytes (%) (Auto) 23.6 % Monocytes (%) (Auto) 8.3 % Eosinophils (%) (Auto) 1.1 % Basophils (%) (Auto) 0.6 % Neutrophils # (Auto) 7.99 K/uL (1.4-6.5) Lymphocytes # (Auto) 2.85 K/uL (1.2-3.4) Monocytes # (Auto) 1.00 K/uL (0.11-0.59) Eosinophils # (Auto) 0.13 K/uL (0-0.5) Basophils # (Auto) 0.07 K/uL (0-0.2) RDW Standard Deviation 49.9 fL (36.4-46.3) RDW Coefficient of Variation 14.8 % (11.5-14.5) Immature Granulocyte % (Auto) 0.2 % Immature Granulocyte # (Auto) 0.02 K/uL (0.00-0.02) Est Creatinine Clear Calc Drug Dose 91.4 ml/min Estimated GFR () 81.0 Estimated GFR (Non- 69.9 BUN/Creatinine Ratio 8.2 (10-20) Calcium Level 9.4 mg/dl (8.5-10.1) Total Bilirubin 0.4 mg/dl (0.2-1) Direct Bilirubin < 0.1 mg/dl (0-0.2) Aspartate Amino Transf (AST/SGOT) 6 U/L (15-37) Alanine Aminotransferase (ALT/SGPT) 17 U/L (12-78) Alkaline Phosphatase 68 U/L (45-117) Total Protein 8.0 gm/dl (6.4-8.2) Albumin 4.3 gm/dl (3.4-5.0) Lipase 119 U/L (73-393) Bedside Hemoglobin 12.6 g/dl (12.0-16.0) Bedside Hematocrit 37 % (37-47) Bedside Sodium 143 mEq/L (135-144) Bedside Potassium 3.5 mEq/L (3.3-5.0) Bedside Chloride 108 mEq/L (101-112) Bedside Total CO2 21 mEq/l (24-31) Anion Gap 18.0 mmol/L (16-25) Bedside Blood Urea Nitrogen 9 mg/dl (7-18) Bedside Creatinine 1.0 mg/dl (0.6-1.3) Bedside Glucose (other) 101 mg/dl (70-99) Bedside Ionized Calcium (Sandra) 1.27 mmol/l (1.12-1.32) Urine Color YELLOW Urine Appearance CLOUDY (CLEAR) Urine pH 5.5 (4.5-7.5) Urine Specific [place] > 1.045 (1.000-1.030) Urine Protein NEG (NEG) Urine Glucose (UA) NEG (NEG) Urine Ketones NEG (NEG) Urine Occult Blood 2+ (NEG) Urine Nitrite NEG (NEG) Urine Bilirubin NEG (NEG) Urine Urobilinogen NEG (NEG) Urine Leukocyte Esterase MODERATE (NEG) Urine WBC (Auto) >30 /hpf (0-5) Urine RBC (Auto) 0-4 /hpf (0-4) Urine Hyaline Casts (Auto) /lpf (0-5) Urine Epithelial Cells (Auto) >30 /lpf (0-5) Urine Bacteria (Auto) 2+ (NEG) Urine Pathogenic Casts /lpf (0) Urine Yeast (Auto) (NONE PRSENT) Urine Test NEG (NEG) Laboratory results per my review. Medications Administered Medications (Trade) Dose Ordered Sig/Magdalene Route Start Time Stop Time Status Last Admin Dose Admin Hydromorphone HCl 1 mg 1 mg NOW STAT IV 07/23/16 15:08 07/23/16 15:09 DC 07/23/16 15:25 1 MG Sodium Chloride (Nss 1000ml) 1,000 ml @ 999 mls/hr Q1H1M STAT IV 07/23/16 15:08 07/23/16 16:08 DC 07/23/16 15:25 999 MLS/HR Ondansetron HCl (Zofran Inj) 4 mg NOW STAT IV 07/23/16 15:08 07/23/16 15:09 DC 07/23/16 15:25 4 MG Ketorolac Tromethamine (Toradol Inj) 30 mg NOW STAT IV 07/23/16 16:47 07/23/16 16:48 DC 07/23/16 17:00 30 MG Morphine Sulfate (MoRPHine SULFATE INJ) 4 mg NOW STAT IV 07/23/16 16:47 07/23/16 16:48 DC 07/23/16 16:59 4 MG Trimethoprim/ Sulfamethoxazole (Septra Ds 800/ 160MG Tab) 1 tab NOW STAT PO 07/23/16 17:06 07/23/16 17:07 DC 07/23/16 17:14 1 TAB Ceftriaxone Sodium (Rocephin Im) 250 mg NOW STAT IM 07/23/16 17:10 07/23/16 17:11 DC 07/23/16 17:22 250 MG Azithromycin (Zithromax Tab) 1,000 mg NOW STAT PO 07/23/16 17:10 07/23/16 17:11 DC 07/23/16 17:22 1,000 MG ED Course ED COURSE: Vital signs were reviewed and showed tachycardic The patients medical record was reviewed The above diagnostic studies were performed and reviewed. ED treatments and interventions as stated above. 1453: The patient was evaluated in room C10. A complete history and physical examination was performed. 1508: Zofran 4 mg IV, NSS 1000 ml @ 999 mls/hr IV, Dilaudid 1 mg IV 1559: I reassessed the patient and updated her at this time. 1646: I reevaluated the patient and she is complaining of more pain. 1647: Morphine sulfate 4 mg IV, Toradol 30 mg IV 1701: At this time I performed a pelvic examination, please refer to the physical examination for my findings. 1706: Trimethoprim/Sulfamethoxazole 1 tab PO 1710: Azithromycin 1000 mg PO, Rocephin 250 mg IM 1714: Upon reevaluation, the patient is feeling better. I discussed my findings with the patient and she understands and agrees with the treatment plan. Based on the patients age, coexisting illnesses, exam and lab findings the decision to treat as an outpatient was made. The patient remained stable while under my care. The patient appeared well at the time of discharge. Medical Decision Differential diagnoses includes but is not limited to gastritis, peptic ulcer disease, GERD, gallbladder disease, pancreatitis, small bowel obstruction, acute coronary syndrome, pericarditis, ischemic bowel, irritable bowel disease, irritable bowel syndrome, appendicitis, diverticulitis, malignancy, hernia, urinary tract infection, torsion, /ectopic , perforation, trauma, infectious. Patient is a 41-year-old female who presents the ER for right lower quadrant dull pain which has been present for the past week. She notes that it has been persistent for the past week without any exacerbating or remitting factors. She has vomited with eating. She does have a history of IBS. Previous cholecystectomy. Previous tubal ligation. On exam she does have tenderness in right lower quadrant which improves when distracted. Pelvic exam did show a faint green discharge with minimal tenderness in the right lower quadrant/right adnexa. She was treated for STDs with Rocephin and azithromycin and covered with Bactrim for possible UTI based on her urine although this could've been a contaminant. Labs have a mild leukocytosis which I favor secondary to the vomiting. CT of her abdomen pelvis was unremarkable without signs of appendicitis, obstruction or torsion. Patient was updated in regards these findings following normal saline, Zofran and Dilaudid and morphine she was discharged follow-up with her primary care doctor. Discussed with Pt concerning signs and symptoms to watch out for. Pt was instructed to follow up with their PCP and discussed with the patient their option to return to the ED at anytime for persistent or worsening symptoms. The appropriate anticipatory guidance and out-patient management, including indications for return to the emergency department, were explained at length to the patient and understood. Impression Primary Impression: RLQ abdominal pain Additional Impression: UTI (urinary tract infection) Scribe Attestation The scribe's documentation has been prepared under my direction and personally reviewed by me in its entirety. I confirm that the note above accurately reflects all work, treatment, procedures, and medical decision making performed by me. Departure Information Dispostion Home / Self-Care Prescriptions Sulfa/Trimethoprim (Bactrim Ds 800MG/160MG) Tab 1 TAB PO BID, #20 TAB Prov: Rey Aguirre, 07/23/16 Referrals RV. Schwab MD (PCP) Forms Call Back Authorization, HOME CARE DOCUMENTATION FORM, IMPORTANT VISIT INFORMATION Patient Instructions Abdominal Pain - [facility], [facility] Additional Instructions Please follow up with your primary care doctor with in the next 24 hours. Any worsening of your symptoms, please return to the ED immediately. This includes persistent fevers greater than 100.4, worsening pain, passing out, or any other concerning signs or symptoms from your standpoint. Please take Motrin or Tylenol as needed for pain. Please take the antibiotics as prescribed. Problem Qualifiers Additional Impression: UTI (urinary tract infection) Urinary tract infection type: site unspecified Hematuria presence: with hematuria Qualified Codes: N39.0 - Urinary tract infection, site not specified ; R31.9 - Hematuria, unspecified
[2016-09-14] MEDS ORDERED: IMTIN5 (13:07)
[2016-09-14] MEDS ORDERED: ACET325T96 PO (14:54)
[2016-09-14] MEDS ORDERED: ALOS0.5T PO (15:35)
[2016-09-14] MEDS ORDERED: TRAM-10 PO (15:51)
[2016-11-28] MEDS ORDERED: ZOLP10TA PO (12:39)
[2016-11-28] MEDS ORDERED: CLID5CAP PO (12:39)
[2016-11-28] MEDS ORDERED: PROC5TAB PO (12:39)
[2016-11-28] MEDS ORDERED: RANI300T2 PO (12:39)
[2016-11-28] MEDS ORDERED: ELUX1TAB PO (12:39)
[2016-11-28] MEDS ORDERED: SUCR1TAB29 PO (12:39)
[2016-11-28] MEDS ORDERED: DIPH25CA65 PO (12:39)
[2016-11-28] MEDS ORDERED: RBN/2 PO (12:39)
[2016-11-28] MEDS ORDERED: PARO1TAB29 PO (12:39)
[2016-11-28] MEDS ORDERED: MEDR1INJ3 IM (12:39)
[2016-11-28] MEDS ORDERED: ZOLP5TAB PO (12:39)
[2016-11-28] MEDS ORDERED: COLE1TAB5 PO (12:39)
[2017-02-11] MEDS ORDERED: OXYC1TAB3 PO (13:58)
[2017-02-11] MEDS ORDERED: CYCL10TA6 PO (13:58)
== END 2016-07-23 17:27 | disposition home or self-care (01) ==
LOC: C.EDB 14:35 → C.EDC 17:27
DX: R10.31 Right lower quadrant pain (principal); N39.0 Urinary tract infection, site not specified; R31.9 Hematuria, unspecified; A64 Unspecified sexually transmitted disease; K58.0 Irritable bowel syndrome with diarrhea; F41.9 Anxiety disorder, unspecified; J45.909 Unspecified asthma, uncomplicated; M54.9 Dorsalgia, unspecified; K22.70 Barrett's esophagus without dysplasia; F31.9 Bipolar disorder, unspecified; H54.40 Blindness, one eye, unspecified eye; K21.9 Gastro-esophageal reflux disease without esophagitis; N83.209 Unspecified ovarian cyst, unspecified side; Z83.3 Family history of diabetes mellitus; Z82.49 Family history of ischemic heart disease and other diseases of the circulatory system; Z82.0 Family history of epilepsy and other diseases of the nervous system

== ENCOUNTER 2016-08-04 16:45 | Emergency (ER) | payer OTHER ==
[~2016-08-04] VITALS: Ht 175.3 cm; Wt 95.1 kg
[~2016-08-04 16:45] MED LIST changes: -ONDA4TAB46 PO; +SULF800T23 PO
[2016-08-04 16:56] VITALS: TEMP 36.8; Ht 175.3 cm; Wt 95.1 kg
[2016-08-04] MEDS ORDERED: SODIUM CHLORIDE 0.9% 1000ML 1,000 ML IV STA (17:51)
[2016-08-04 17:58] VITALS: O2SAT 100
[2016-08-04] MEDS ORDERED: ONDANSETRON INJ 2 MG/ML 2 ML VIAL IV STA (18:13)
[2016-08-04 18:17] LABS: BASO % 0.5 %; BASO ABS # 0.06 K/uL (0-0.2); COMPLETE YES; EOS % 1.2 %; HEMATOCRIT 36.2 % (37-47); IG% 0.2 %; LYMPH % 19.9 %; LYMPH ABS # 2.57 K/uL (1.2-3.4); MEAN CELL VOLUME 92.8 fL (80-100); MEAN CORPUSCULAR HEMOGLOBIN 30.3 pg (25-34); MEAN CORPUSCULAR HGB CONC 32.6 g/dl (32-36); MEAN PLATELET VOLUME 9.9 fL (7.4-10.4); MONO % 8.6 %; NEUT % 69.6 %; PLATELET COUNT 310 K/uL (130-400)
[2016-08-04 18:35] LABS: ALT/SGPT 21 U/L (12-78); AST/SGOT 9 U/L (15-37); BLOOD UREA NITROGEN 12 mg/dl (7-18); BUN/CREATININE RATIO 16.1 (10-20); CALCIUM 9.2 mg/dl (8.5-10.1); CARBON DIOXIDE 22 mmol/L (21-32); CHLORIDE 109 mmol/L (98-107); CREATININE 0.74 mg/dl (0.60-1.20); GLUCOSE 96 mg/dl (70-99); POTASSIUM 3.4 mmol/L (3.5-5.1); SODIUM 141 mmol/L (136-145)
[2016-08-04 18:37] LABS: ALKALINE PHOSPHATASE 79 U/L (45-117)
[2016-08-04 18:42] LABS: PREG INTERNAL NEGATIVE QC NEG CLEAR BACKGROUND; PREG INTERNAL POSITIVE QC POS CONTROL LINE
[2016-08-04] MEDS ORDERED: OPTIRAY 320 IV PRN (18:45)
[2016-08-04] MEDS: HYDROmorphone INJ 1 MG/ML SYR IV PRN ×2 (18:46→20:24)
--- NOTE | 2016-08-04 19:45 | DIAGNOSTIC IMAGING REPORT ---
CT OF THE CHEST WITH IV CONTRAST CLINICAL HISTORY: Retrosternal chest pain s/p EGD today, COMPARISON STUDY: Radiograph June 09, [address] July 02, 2007 TECHNIQUE: Following IV administration of 115 mL of Optiray-320, helical axial images of the chest were obtained. Images were viewed in the axial, sagittal and coronal planes. IV contrast was administered without complication. A small amount of oral contrast was given immediately prior to CT. CT DOSE: 241.63 mGy.cm FINDINGS: No oral contrast extravasation is noted from the esophagus. There is no pneumomediastinum. No pneumothorax or pleural effusion is present. There is no consolidation to suggest pneumonia. Mild ground glass opacities favor atelectasis. No abnormalities within the bony thorax and upper abdomen are identified. No pneumoperitoneum is noted within the upper abdomen. IMPRESSION: No acute intrathoracic findings. No pneumomediastinum or oral contrast extravasation to suggest leak. Electronically signed by: Kp Stafford M.D. 08/04/2016 7:44 PM Dictated Date/Time: 08/04/2016 7:39 PM
[2016-08-04] MEDS ORDERED: GI COCKTAIL PO STA (22:08)
[2016-08-04] MEDS ORDERED: LIDOCAINE HCL 2% VISC SOLN 20 ML UDC ONE (22:14)
[2016-08-04] MEDS ORDERED: ALUMINUM/MAGNESIUM SUSP 30 ML UDC ONE (22:14)
[2016-08-04 23:05] VITALS: BP 124/78; PULSE 86; O2SAT 98
--- NOTE | 2016-08-05 00:38 | EMERGENCY ROOM VISIT NOTE ---
History Report prepared by Froy: Brian Cruz Under the Supervision of: Dr. Kyle Carbajal M.D. First contact with patient: 17:47 Chief Complaint: CHEST PAIN Stated Complaint: CHEST PAIN Nursing Triage Summary: pt had an egd today at 10 am at [facility], around 1200 pt developed midsternal cp constant in nature, called pcp told it was probably a spasm History of Present Illness The patient is a 41 year old female who presents to the Emergency Room with complaints of constant sternal chest pain beginning seven hours prior to arrival. She describes her discomfort as "a child sitting on my chest" and currently rates her discomfort as a 7/10 in severity. The patient states she had an EGD performed this morning at [facility] at 10 AM, and she developed the chest discomfort approximately an hour later. She notes the endoscopy was performed for reflux. The patient states she took a nap and woke up with the pain again, and she has not eaten or drank anything. She notes she called Dr. Choi'sJose (Gastroenterology) office, who told the patient it was probably a spasm but to go to the ED for imaging. The patient states this was her first endoscopy. She notes her symptoms worsen with swallowing. The patient also complains of experiencing diarrhea after the procedure. Pt denies LOC, headache, fevers, chills, diaphoresis, visual changes, neck pain, breathing difficulties, nausea, vomiting, abdominal pain, back pain, melena, hematochezia, urinary symptoms, numbness, weakness, lymphadenopathy, rash, or other complaints. Source of History: patient Onset: seven hours [employer] Position: chest Symptom Intensity: 7/10 Quality: other ("child sitting on my chest") Timing: constant Modifying Factors (Worsening): other (swallowing) Associated Symptoms: + chest pain, + diarrhea Review of Systems See HPI for pertinent positives and negatives. A total of ten systems were reviewed and were otherwise negative. Past Medical & Surgical Medical Problems: (1) Abdominal pain (2) Abdominal pain (3) Abdominal pain (4) Acute gastroenteritis (5) Anxiety (6) Asthma, Unspecified, W (Acute) Exacerbation (7) Back pain (8) Barretts esophagus (9) Bipolar Disorder, Unspecified (10) Blindness, One Eye (11) Bronchitis (12) section (13) Cough (14) Coughing (15) Dehydration (16) Deliver-Single Liveborn (17) Epigastric abdominal pain (18) Esophageal Reflux (19) Hyperventilation (20) Hyperventilation (21) Hyperventilation (22) Hypokalemia (23) Hypokalemia, gastrointestinal losses (24) IBS (irritable bowel syndrome) (25) Intractable pain (26) Intractable vomiting (27) Left sided abdominal pain (28) Left upper quadrant abdominal pain of unknown etiology (29) Mesenteric adenitis (30) Migraine Unspecified W/O Intractable Migraine (31) Ovarian Cyst Nec/Nos (32) Right sided abdominal pain (33) Right upper quadrant abdominal pain (34) RLQ abdominal pain (35) Sterilization (36) Tension headache (37) Tension headache (38) Upper abdominal pain (39) Urin Tract Infection Nos (40) Urinary tract infection (41) UTI (lower urinary tract infection) (42) UTI (urinary tract infection) Surgical Problems: (1) History of cholecystectomy (2) History of tubal ligation Family History Diabetes mellitus FHx: cancer Hypertension Seizures Social History Smoking Status: Never Smoker Alcohol Use: none Drug Use: none Housing Status: lives with family Occupation Status: unemployed Current/Historical Medications Scheduled Alosetron Hcl (Lotronex), 0.5 MG PO QAM Amitriptyline Hcl (Elavil), 1 TAB PO HS Medroxyprogesterone Acetate (Medroxyprogesterone Aceta), 150 MG IM UD Pantoprazole (Pantoprazole Sodium), 40 MG PO BID Sulfa/Trimethoprim (Bactrim Ds 800MG/160MG), 1 TAB PO BID Scheduled PRN Acetaminophen Tab (Tylenol), 650 MG PO Q4 PRN for abd pain Dicyclomine Hcl (Dicyclomine Hcl), 10 MG PO QID PRN for Abdominal Pain Ondasetron Odt (Zofran Odt), 4 MG SL Q6H PRN for Nausea Prochlorperazine (Compro), 1 SUPP CO TID PRN for Nausea Sumatriptan Succinate (Imitrex Nasal [place]), 1 SPRAY NA for Migraine Tramadol (Ultram), 100 MG PO QID PRN for Pain Allergies Coded Allergies: POLLEN (Verified Allergy, Mild, ITCHING/SNEEZING, 08/04/16) Clonazepam (Verified Allergy, Unknown, ., 08/04/16) Physical Exam Vital Signs Date Time Temp Pulse Resp B/P Pulse Ox O2 Delivery O2 Flow Rate FiO2 08/04/16 23:05 86 23 124/78 98 08/04/16 22:17 87 21 139/79 98 Room Air 08/04/16 20:20 94 16 129/102 97 Room Air 08/04/16 18:33 92 08/04/16 18:12 98 18 109/75 97 Room Air 08/04/16 17:58 100 Room Air 08/04/16 17:58 100 Room Air 08/04/16 16:56 36.8 104 18 124/70 100 Room Air Physical Exam GENERAL: Awake, alert, uncomfortable-appearing, in no distress HENT: Normocephalic, atraumatic. Oropharynx unremarkable. EYES: Normal conjunctiva. Sclera non-icteric. NECK: Supple. No nuchal rigidity. FROM. No JVD. RESPIRATORY: Clear to auscultation. CARDIAC: Regular rate, normal rhythm. Extremities warm and well perfused. Pulses equal. ABDOMEN: Soft, non-distended. No tenderness to palpation. No rebound or guarding. No masses. RECTAL: Deferred. MUSCULOSKELETAL: Chest examination reveals no tenderness. The back is symmetrical on inspection without obvious abnormality. There is no CVA tenderness to palpation. No joint edema. LOWER EXTREMITIES: Calves are equal size bilaterally and non-tender. No edema. No discoloration. NEURO: Normal sensorium. No sensory or motor deficits noted. SKIN: No rash or jaundice noted. Medical Decision & Procedures ER Provider Diagnostic Interpretation: CT: Radiology results as stated below per my review and radiologist interpretation CT OF THE CHEST WITH IV CONTRAST CLINICAL HISTORY: Retrosternal chest pain s/p EGD today, COMPARISON STUDY: Radiograph June 09, [address] July 02, 2007 TECHNIQUE: Following IV administration of 115 mL of Optiray-320, helical axial images of the chest were obtained. Images were viewed in the axial, sagittal and coronal planes. IV contrast was administered without complication. A small amount of oral contrast was given immediately prior to CT. CT DOSE: 241.63 mGy.cm FINDINGS: No oral contrast extravasation is noted from the esophagus. There is no pneumomediastinum. No pneumothorax or pleural effusion is present. There is no consolidation to suggest pneumonia. Mild ground glass opacities favor atelectasis. No abnormalities within the bony thorax and upper abdomen are identified. No pneumoperitoneum is noted within the upper abdomen. IMPRESSION: No acute intrathoracic findings. No pneumomediastinum or oral contrast extravasation to suggest leak. Electronically signed by: Kp Stafford M.D. 08/04/2016 7:44 PM Laboratory Results 08/04/16 18:08 Red Blood Count 3.90, Mean Corpuscular Volume 92.8, Mean Corpuscular Hemoglobin 30.3, Mean Corpuscular Hemoglobin Concent 32.6, Mean Platelet Volume 9.9, Neutrophils (%) (Auto) 69.6, Lymphocytes (%) (Auto) 19.9, Monocytes (%) (Auto) 8.6, Eosinophils (%) (Auto) 1.2, Basophils (%) (Auto) 0.5, Neutrophils # (Auto) 8.97, Lymphocytes # (Auto) 2.57, Monocytes # (Auto) 1.11, Eosinophils # (Auto) 0.16, Basophils # (Auto) 0.06 08/04/16 18:08 Test 08/04/16 18:07 08/04/16 18:08 Bedside Troponin I 0.000 ng/ml (0-0.045) White Blood Count 12.90 K/uL (4.8-10.8) Red Blood Count 3.90 M/uL (4.2-5.4) Hemoglobin 11.8 g/dL (12.0-16.0) Hematocrit 36.2 % (37-47) Mean Corpuscular Volume 92.8 fL (80-100) Mean Corpuscular Hemoglobin 30.3 pg (25-34) Mean Corpuscular Hemoglobin Concent 32.6 g/dl (32-36) Platelet Count 310 K/uL (130-400) Mean Platelet Volume 9.9 fL (7.4-10.4) Neutrophils (%) (Auto) 69.6 % Lymphocytes (%) (Auto) 19.9 % Monocytes (%) (Auto) 8.6 % Eosinophils (%) (Auto) 1.2 % Basophils (%) (Auto) 0.5 % Neutrophils # (Auto) 8.97 K/uL (1.4-6.5) Lymphocytes # (Auto) 2.57 K/uL (1.2-3.4) Monocytes # (Auto) 1.11 K/uL (0.11-0.59) Eosinophils # (Auto) 0.16 K/uL (0-0.5) Basophils # (Auto) 0.06 K/uL (0-0.2) RDW Standard Deviation 48.7 fL (36.4-46.3) RDW Coefficient of Variation 14.3 % (11.5-14.5) Immature Granulocyte % (Auto) 0.2 % Immature Granulocyte # (Auto) 0.03 K/uL (0.00-0.02) Anion Gap 10.0 mmol/L (3-11) Est Creatinine Clear Calc Drug Dose 122.8 ml/min Estimated GFR () 116.6 Estimated GFR (Non- 100.6 BUN/Creatinine Ratio 16.1 (10-20) Calcium Level 9.2 mg/dl (8.5-10.1) Total Bilirubin 0.3 mg/dl (0.2-1) Direct Bilirubin < 0.1 mg/dl (0-0.2) Aspartate Amino Transf (AST/SGOT) 9 U/L (15-37) Alanine Aminotransferase (ALT/SGPT) 21 U/L (12-78) Alkaline Phosphatase 79 U/L (45-117) Total Protein 7.8 gm/dl (6.4-8.2) Albumin 4.2 gm/dl (3.4-5.0) Lipase 110 U/L (73-393) Human Chorionic Gonadotropin, Qual NEG (NEG) Laboratory results reviewed by me Medications Administered Medications (Trade) Dose Ordered Sig/Magdalene Route Start Time Stop Time Status Last Admin Dose Admin Sodium Chloride (Nss 1000ml) 1,000 ml @ 999 mls/hr Q1H1M STAT IV 08/04/16 17:51 08/04/16 18:51 DC 08/04/16 18:14 999 MLS/HR Hydromorphone HCl (Dilaudid Inj) 1 mg Q15M PRN IV 08/04/16 18:15 08/04/16 23:38 DC 08/04/16 20:24 1 MG Ondansetron HCl (Zofran Inj) 4 mg NOW STAT IV 08/04/16 18:13 08/04/16 18:16 DC 08/04/16 18:46 4 MG Al Hydroxide/Mg Hydroxide (Maalox Susp) 30 ml STK-MED ONCE .ROUTE 08/04/16 22:14 08/04/16 22:15 DC 08/04/16 22:16 30 ML Lidocaine HCl (Viscous Lidocaine 2% Soln) 20 ml STK-MED ONCE .ROUTE 08/04/16 22:14 08/04/16 22:15 DC 08/04/16 22:16 10 ML ECG Indication: chest pain Rate (beats per minute): 97 Rhythm: normal sinus Findings: nonspecific-ST abn, no ectopy Comparison ECG Date: 03/22/2016 Change: no significant change ED Course 175: Ordered Sodium Chloride 1,000 ml @ 999 mls/hr IV. 1811: The patient was evaluated in room B7. A complete history and physical exam was performed. 1812: Ordered Zofran Inj 4 mg IV. 1814: Ordered Dilaudid Inj 1 mg IV. 2201: Reevaluated the patient at this time, and she is still experiencing some chest discomfort. 2207: Ordered Gi Cocktail 24 ml PO. 2244: Patient reassessed and is feeling better. Still has some minor discomfort but prefers to go home. Return instructions were outlined and the patient was discharged in stable condition. Medical Decision Triage Nursing notes reviewed. The patient's presentation and history were concerning for chest pain s/p endoscopy. Etiologies such as esophageal spasm, esophagitis, esophageal perforation, cardiac ischemia, aortic dissection, pulmonary embolism, pneumonia, pneumothorax , musculoskeletal, infections, gastrointestinal, as well as others were entertained. The patient was evaluated. She is quite uncomfortable. She had an IV established. ECG was unchanged. Patient was given normal saline, Dilaudid, and Zofran. Laboratory work revealed a slight leukocytosis but not significantly different than prior 2 weeks ago. Chemistry panel, LFTs, lipase, troponin, and were negative. A single set of cardiac markers were performed based upon the patient's duration of symptoms. ECG was also nonischemic. History does not support a cardiac etiology. The patient went for CT imaging of the chest. The patient's CT imaging of the chest was unremarkable. There was nothing to suggest esophageal rupture or extravasation of contrast. No obstruction was seen. Lung parenchyma was normal as was the mediastinum. The patient was still feeling some discomfort with swallowing and therefore was given a GI cocktail. She was rested and reassessed. She was feeling somewhat better although still had some discomfort. She preferred to be discharged. I discussed conservative management with the patient. She will use Maalox or Gaviscon. She will follow-up closely with gastroenterology. If she develops any worsening symptoms, symptoms persist, or she develops fever she will come back to emergency department immediately. By the evaluation outlined above other emergent etiologies such as those listed in the differential, as well as others, were deemed relatively unlikely. The patient was informed about the findings as listed above. All questions were answered and she was pleased with the treatment. Return instructions were outlined and the patient was discharged in stable condition. The patient was referred to GI for follow-up Sunday for a recheck of the current condition. The chart was completed utilizing [employer] Speech voice recognition software. Grammatical errors, random word insertions, pronoun errors, and incomplete sentences are an occasional consequence of this system due to software limitations, ambient noise, and hardware issues. Any formal questions or concerns about the content, text, or information contained within the body of this dictation should be directly addressed to the physician for clarification. Impression Primary Impression: Retrosternal chest pain Scribe Attestation The scribe's documentation has been prepared under my direction and personally reviewed by me in its entirety. I confirm that the note above accurately reflects all work, treatment, procedures, and medical decision making performed by me. Departure Information Dispostion Home / Self-Care Referrals RV. Schwab MD (PCP) Patient Instructions My [facility] Additional Instructions CHEST PAIN INSTRUCTIONS: DO NOT drive, drink alcohol, operate machinery, or perform dangerous activities today. You were given medications in the ER that can affect your ability to safely function or operate a vehicle. Use Maalox or Gaviscon every 2-3 hours as needed for discomfort. Acetaminophen(Tylenol) may be used for fever or pain. Use 1000mg every six hours as needed. Avoid using more than 4000mg in a 24 hour period. Rest and drink plenty of fluids as tolerated. Continue current medications. Avoid strenuous activities and anything that worsens your pain. Resume normal activities once your symptoms resolve. Return to the ER immediately for worsening or persistent chest pain, abdominal pain, vomiting, fevers, chest pains, vomiting blood, bloody stools, black stools , difficulty breathing, worsening of your condition, or as needed. Follow up with your GI doctor on Sunday for a recheck of your current condition.
[2016-09-14] MEDS ORDERED: IMTIN5 (13:07)
[2016-09-14] MEDS ORDERED: ACET325T96 PO (14:54)
[2016-09-14] MEDS ORDERED: ALOS0.5T PO (15:35)
[2016-09-14] MEDS ORDERED: TRAM-10 PO (15:51)
[2016-11-28] MEDS ORDERED: CLID5CAP PO (12:39)
[2016-11-28] MEDS ORDERED: DIPH25CA65 PO (12:39)
[2016-11-28] MEDS ORDERED: ELUX1TAB PO (12:39)
[2016-11-28] MEDS ORDERED: ZOLP10TA PO (12:39)
[2016-11-28] MEDS ORDERED: PARO1TAB29 PO (12:39)
[2016-11-28] MEDS ORDERED: COLE1TAB5 PO (12:39)
[2016-11-28] MEDS ORDERED: MEDR1INJ3 IM (12:39)
[2016-11-28] MEDS ORDERED: RBN/2 PO (12:39)
[2016-11-28] MEDS ORDERED: ZOLP5TAB PO (12:39)
[2016-11-28] MEDS ORDERED: SUCR1TAB29 PO (12:39)
[2016-11-28] MEDS ORDERED: RANI300T2 PO (12:39)
[2016-11-28] MEDS ORDERED: PROC5TAB PO (12:39)
[2017-02-11] MEDS ORDERED: CYCL10TA6 PO (13:58)
[2017-02-11] MEDS ORDERED: OXYC1TAB3 PO (13:58)
== END 2016-08-04 23:06 | disposition home or self-care (01) ==
LOC: C.EDB 16:46
DX: R07.2 Precordial pain (principal); F41.9 Anxiety disorder, unspecified; J45.909 Unspecified asthma, uncomplicated; F31.9 Bipolar disorder, unspecified; K22.70 Barrett's esophagus without dysplasia; K21.9 Gastro-esophageal reflux disease without esophagitis; E87.6 Hypokalemia; K58.9 Irritable bowel syndrome, unspecified; I88.0 Nonspecific mesenteric lymphadenitis; G43.909 Migraine, unspecified, not intractable, without status migrainosus; Z87.440 Personal history of urinary (tract) infections; Z83.3 Family history of diabetes mellitus; Z80.9 Family history of malignant neoplasm, unspecified; Z82.49 Family history of ischemic heart disease and other diseases of the circulatory system; Z79.899 Other long term (current) drug therapy

== ENCOUNTER 2016-08-21 10:59 | Emergency (ER) | payer OTHER ==
[~2016-08-21] VITALS: Ht 175.3 cm; Wt 80.9 kg
[2016-08-21 11:08] VITALS: Ht 175.3 cm; Wt 80.9 kg
[2016-08-21 11:49] LABS: BASO % 1.3 %; BASO ABS # 0.12 K/uL (0-0.2); COMPLETE YES; EOS % 2.4 %; HEMATOCRIT 38.4 % (37-47); IG% 0.1 %; LYMPH % 32.7 %; LYMPH ABS # 2.98 K/uL (1.2-3.4); MEAN CELL VOLUME 94.1 fL (80-100); MEAN CORPUSCULAR HEMOGLOBIN 29.9 pg (25-34); MEAN CORPUSCULAR HGB CONC 31.8 g/dl (32-36); MONO % 9.1 %; NEUT % 54.4 %; PLATELET COUNT 366 K/uL (130-400); RED BLOOD COUNT 4.08 M/uL (4.2-5.4)
[2016-08-21 11:55] LABS: URINE APPEARANCE CLOUDY (CLEAR); URINE BILIRUBIN NEG (NEG); URINE COLOR YELLOW; URINE EPITHELIAL CELL AUTO >30 /lpf (0-5); URINE NITRITE NEG (NEG); URINE PH 5.5 (4.5-7.5); URINE SPECIFIC GRAVITY 1.018 (1.000-1.030); UROBILINOGEN NEG (NEG); ZZUR CULT IF INDIC CLEAN CATCH YES
[2016-08-21 12:06] LABS: BUN/CREATININE RATIO 9.8 (10-20); CREATININE 0.8 mg/dl (0.60-1.20); POTASSIUM 3.3 mmol/L (3.5-5.1)
[2016-08-21 12:08] LABS: ALB/GLOB RATIO 1.1 (0.9-2)
[2016-08-21 12:09] LABS: MANUAL MICROSCOPIC REQUIRED? NO; REVIEW REQ? YES
[2016-08-21] MEDS ORDERED: KETOROLAC TROMETHAMINE 30 MG/ML VIAL IV STA (12:21)
[2016-08-21] MEDS ORDERED: ONDANSETRON INJ 2 MG/ML 2 ML VIAL IV STA (12:21)
[2016-08-21] MEDS ORDERED: SODIUM CHLORIDE 0.9% 1000ML 1,000 ML IV STA (12:21)
[2016-08-21 13:13] LABS: CALCIUM 9.6 mg/dl (8.5-10.1)
--- NOTE | 2016-08-21 13:22 | DIAGNOSTIC IMAGING REPORT ---
ABDOMEN 2VIEW W/PA CHEST RTN CLINICAL HISTORY: eval for obstruction pain. Obstruction. COMPARISON STUDY: 06/09/2016 FINDINGS: The soft tissues, psoas shadows, renal outlines and intestinal gas pattern appear normal. There is no evidence for bowel obstruction. There is no evidence for free intraperitoneal air. No abnormal abdominal calcifications are seen. A frontal view of the chest was performed and is unremarkable. IMPRESSION: Normal study. Electronically signed by: Lai Blake M.D. 08/21/2016 1:21 PM Dictated Date/Time: 08/21/2016 1:20 PM
[2016-08-21] MEDS ORDERED: ONDA4TAB10 SL (13:54)
[2016-08-21 14:15] VITALS: BP 115/84; PULSE 83; TEMP 37.4; O2SAT 96
--- NOTE | 2016-08-21 14:27 | EMERGENCY ROOM VISIT NOTE ---
History Report prepared by Froy: Eli Cheatham Under the Supervision of: Dr. Vinny Montez M.D. First contact with patient: 12:01 Chief Complaint: ABDOMINAL PAIN Stated Complaint: BELLY PAIN MAJOR ISB-D Nursing Triage Summary: pt reports ibsd, diarreah and vomiting started last mich pain on the left upper quad History of Present Illness The patient is a 41 year old female who presents to the Emergency Room with complaints of worsening right mid abdominal pain for the past 3 days. Last night she developed nausea and vomiting after which the pain became worse. She describes the pain as stabbing. She has a history of IBS and often does experience abdominal pain, but she states the pain this time is different and feels more stabbing whereas she usually just feels bloated. She reports diarrhea. She denies any fever, problems urinating, hematuria, abnormal vaginal discharge or bleeding. She follows which GI, but states that the medications being prescribed are not working for her. Source of History: patient Onset: 3 days ago Position: abdomen Quality: stabbing Timing: worsening Associated Symptoms: + diarrhea, + nausea, + vomiting, No fevers, No urinary symptoms Note: Pt denies abnormal vaginal discharge or bleeding. Review of Systems See HPI for pertinent positives & negatives. A total of 10 systems reviewed and were otherwise negative. Past Medical & Surgical Medical Problems: (1) Abdominal pain (2) Abdominal pain (3) Abdominal pain (4) Acute gastroenteritis (5) Anxiety (6) Asthma, Unspecified, W (Acute) Exacerbation (7) Back pain (8) Barretts esophagus (9) Bipolar Disorder, Unspecified (10) Blindness, One Eye (11) Bronchitis (12) section (13) Cough (14) Coughing (15) Dehydration (16) Deliver-Single Liveborn (17) Epigastric abdominal pain (18) Esophageal Reflux (19) Hyperventilation (20) Hyperventilation (21) Hyperventilation (22) Hypokalemia (23) Hypokalemia, gastrointestinal losses (24) IBS (irritable bowel syndrome) (25) Intractable pain (26) Intractable vomiting (27) Left sided abdominal pain (28) Left upper quadrant abdominal pain of unknown etiology (29) Mesenteric adenitis (30) Migraine Unspecified W/O Intractable Migraine (31) Ovarian Cyst Nec/Nos (32) Right sided abdominal pain (33) Right upper quadrant abdominal pain (34) RLQ abdominal pain (35) Sterilization (36) Tension headache (37) Tension headache (38) Upper abdominal pain (39) Urin Tract Infection Nos (40) Urinary tract infection (41) UTI (lower urinary tract infection) (42) UTI (urinary tract infection) Surgical Problems: (1) History of cholecystectomy (2) History of tubal ligation Family History Diabetes mellitus FHx: cancer Hypertension Seizures Social History Smoking Status: Never Smoker Alcohol Use: none Drug Use: none Housing Status: lives with family Occupation Status: unemployed Current/Historical Medications Scheduled Alosetron Hcl (Lotronex), 0.5 MG PO QAM Amitriptyline Hcl (Elavil), 1 TAB PO HS Medroxyprogesterone Acetate (Medroxyprogesterone Aceta), 150 MG IM UD Ondasetron Odt (Zofran Odt), 4 MG SL Q6H Pantoprazole (Pantoprazole Sodium), 40 MG PO BID Scheduled PRN Acetaminophen Tab (Tylenol), 650 MG PO Q4 PRN for abd pain Dicyclomine Hcl (Dicyclomine Hcl), 10 MG PO QID PRN for Abdominal Pain Ondasetron Odt (Zofran Odt), 4 MG SL Q6H PRN for Nausea Prochlorperazine (Compro), 1 SUPP [place] TID PRN for Nausea Sumatriptan Succinate (Imitrex Nasal [place]), 1 SPRAY NA for Migraine Tramadol (Ultram), 100 MG PO QID PRN for Pain Allergies Coded Allergies: POLLEN (Verified Allergy, Mild, ITCHING/SNEEZING, 08/04/16) Clonazepam (Verified Allergy, Unknown, ., 08/04/16) Physical Exam Vital Signs Date Time Temp Pulse Resp B/P Pulse Ox O2 Delivery O2 Flow Rate FiO2 08/21/16 14:15 37.4 83 18 115/84 96 08/21/16 12:52 78 125/84 99 08/21/16 11:08 37.4 100 18 151/71 96 Room Air Physical Exam Constitutional: Vital signs reviewed. Eyes: Pupils are equal round reactive to light. Conjunctiva are noninjected. ENT: Pharynx is clear without erythema or exudate. Mucous membranes are moist. Neck supple without meningeal signs. Respiratory: Clear to auscultation bilaterally. Breath sounds are equal bilaterally. Cardiovascular: Regular rate and rhythm. No rubs or gallops. GI: Soft, nondistended with right mid abdominal tenderness, no guarding. Bowel sounds are present. Musculoskeletal: No peripheral edema. No lower extremity tenderness. Integumentary: No cyanosis. Neurological: The patient is awake and alert. No focal deficits. Psychiatric: Crying throughout H and P, clutching her abdomen. Medical Decision & Procedures ER Provider Diagnostic Interpretation: X-ray results as stated below per interpretation by me and the radiologist: ABDOMEN 2VIEW W/PA CHEST RTN CLINICAL HISTORY: eval for obstruction pain. Obstruction. COMPARISON STUDY: 06/09/2016 FINDINGS: The soft tissues, psoas shadows, renal outlines and intestinal gas pattern appear normal. There is no evidence for bowel obstruction. There is no evidence for free intraperitoneal air. No abnormal abdominal calcifications are seen. A frontal view of the chest was performed and is unremarkable. IMPRESSION: Normal study. Electronically signed by: Lai Blake M.D. 08/21/2016 1:21 PM Dictated Date/Time: 08/21/2016 1:20 PM Laboratory Results 08/21/16 11:30 Red Blood Count 4.08, Mean Corpuscular Volume 94.1, Mean Corpuscular Hemoglobin 29.9, Mean Corpuscular Hemoglobin Concent 31.8, Mean Platelet Volume 10.0, Neutrophils (%) (Auto) 54.4, Lymphocytes (%) (Auto) 32.7, Monocytes (%) (Auto) 9.1, Eosinophils (%) (Auto) 2.4, Basophils (%) (Auto) 1.3, Neutrophils # (Auto) 4.94, Lymphocytes # (Auto) 2.98, Monocytes # (Auto) 0.83, Eosinophils # (Auto) 0.22, Basophils # (Auto) 0.12 08/21/16 11:30 Test 08/21/16 11:29 08/21/16 11:30 08/21/16 12:38 Urine Color YELLOW Urine Appearance CLOUDY (CLEAR) Urine pH 5.5 (4.5-7.5) Urine Specific [place] 1.018 (1.000-1.030) Urine Protein NEG (NEG) Urine Glucose (UA) NEG (NEG) Urine Ketones NEG (NEG) Urine Occult Blood 3+ (NEG) Urine Nitrite NEG (NEG) Urine Bilirubin NEG (NEG) Urine Urobilinogen NEG (NEG) Urine Leukocyte Esterase SMALL (NEG) Urine WBC (Auto) 10-30 /hpf (0-5) Urine RBC (Auto) 5-10 /hpf (0-4) Urine Hyaline Casts (Auto) /lpf (0-5) Urine Epithelial Cells (Auto) >30 /lpf (0-5) Urine Bacteria (Auto) 1+ (NEG) Urine Pathogenic Casts /lpf (0) White Blood Count 9.10 K/uL (4.8-10.8) Red Blood Count 4.08 M/uL (4.2-5.4) Hemoglobin 12.2 g/dL (12.0-16.0) Hematocrit 38.4 % (37-47) Mean Corpuscular Volume 94.1 fL (80-100) Mean Corpuscular Hemoglobin 29.9 pg (25-34) Mean Corpuscular Hemoglobin Concent 31.8 g/dl (32-36) Platelet Count 366 K/uL (130-400) Mean Platelet Volume 10.0 fL (7.4-10.4) Neutrophils (%) (Auto) 54.4 % Lymphocytes (%) (Auto) 32.7 % Monocytes (%) (Auto) 9.1 % Eosinophils (%) (Auto) 2.4 % Basophils (%) (Auto) 1.3 % Neutrophils # (Auto) 4.94 K/uL (1.4-6.5) Lymphocytes # (Auto) 2.98 K/uL (1.2-3.4) Monocytes # (Auto) 0.83 K/uL (0.11-0.59) Eosinophils # (Auto) 0.22 K/uL (0-0.5) Basophils # (Auto) 0.12 K/uL (0-0.2) RDW Standard Deviation 47.6 fL (36.4-46.3) RDW Coefficient of Variation 13.8 % (11.5-14.5) Immature Granulocyte % (Auto) 0.1 % Immature Granulocyte # (Auto) 0.01 K/uL (0.00-0.02) Anion Gap 9.0 mmol/L (3-11) Est Creatinine Clear Calc Drug Dose 105.3 ml/min Estimated GFR () 106.1 Estimated GFR (Non- 91.6 BUN/Creatinine Ratio 9.8 (10-20) Calcium Level 9.6 mg/dl (8.5-10.1) Total Bilirubin 0.3 mg/dl (0.2-1) Aspartate Amino Transf (AST/SGOT) 11 U/L (15-37) Alanine Aminotransferase (ALT/SGPT) 20 U/L (12-78) Alkaline Phosphatase 79 U/L (45-117) Total Protein 7.9 gm/dl (6.4-8.2) Albumin 4.2 gm/dl (3.4-5.0) Globulin 3.7 gm/dl (2.5-4.0) Albumin/Globulin Ratio 1.1 (0.9-2) Lipase 110 U/L (73-393) Urine Test NEG (NEG) Laboratory results as reviewed by me. Medications Administered Medications (Trade) Dose Ordered Sig/Magdalene Route Start Time Stop Time Status Last Admin Dose Admin Ketorolac Tromethamine (Toradol Inj) 10 mg NOW STAT IV 08/21/16 12:21 08/21/16 12:24 DC 08/21/16 12:21 10 MG Ondansetron HCl 4 mg 4 mg NOW STAT IV 08/21/16 12:21 08/21/16 12:24 DC 08/21/16 12:21 4 MG Sodium Chloride (Nss 1000ml) 1,000 ml @ 999 mls/hr Q1H1M STAT IV 08/21/16 12:21 08/21/16 13:21 DC 08/21/16 12:21 999 MLS/HR ED Course 1207: The patient was evaluated in room C12B. A complete history and physical exam was performed. 1221: NSS 1000 ml @ 999 mls/hr IV, Zofran Inj 4 mg IV, Toradol Inj 10 mg IV. 1323: I reevaluated the patient. I discussed the test results with her. 1349: I discussed the patient's case with [facility]. She recommend no acute intervention at this time and outpatient follow up. 1355: Upon reevaluation, the patient appeared to have improvement of her symptoms. I discussed tonight's findings with her. She verbalized agreement of the treatment plan. She was discharged home. Medical Decision This is a 41-year-old female who presents with abdominal pain. Differential diagnosis includes chronic pain syndrome, irritable bowel syndrome, constipation , pancreatitis, duodenitis. I did perform a limited focused review of portions of the patient's old chart on the electronic medical record. The patient was here August 04 for chest pain which developed after EGD. She had an unremarkable CT of the chest. She was here July 23 for right sided abdominal pain with a history of IBS. She had a CT of the abdomen/pelvis which was unremarkable for any acute findings. Since April she was here 3 other times for abdominal pain and noted on one visit to have 7 prior CTs of the abdomen/ pelvis within the past year. She was admitted for intractable pain in January of last year and seen by GI. She was diagnosed with IBS and had extensive testing including EGD, celiac testing and was noted to have had 30 CTs in the past 10-15 years. I did evaluate the patient as noted above. The patient has a very dramatic presentation. She is crying and holding her abdomen throughout the history and physical. She states that this pain is different but reviewing the H&Ps from her prior providers she has been here each time with 10 out of 10 pain and her workup has always been negative for any acute process. I did question the nurses who know the patient from prior visits and they stated that she always presents in a similar fashion and that she appears no different than usual. On examination she has some mild tenderness in the right side without peritoneal signs. I did listen outside the room without her knowing and noted that she was quiet and not moaning in pain as she was when I was in the room. Her nurses state that this is common for her when she comes here. I did, from my initial visit with her, explain to her that I would not be providing her with narcotic pain medication as I think this would be counterproductive in treating her overall health. I also explained to her that she has had multiple CT scans in the past, which was previously estimated at over 30 CTs in the past 10-15 years and explained that this poses a significant risk to her health. After further discussion with the patient she did admit that the pain she has today is very similar to the pain she has had on her prior visits. IV access was established. I did treat the patient with Toradol IV. I did order and personally review the patient's urine analysis as described above. The specimen appears to be contaminated. Review of her prior urinalyses show similar findings on her previous visits with negative urine cultures to follow. A culture was sent. She denies having any urinary symptoms and so has no objection to not being treated with antibiotics at this time. I did order and review the patient's blood work as noted in the electronic medical record. Her white blood cell count is not elevated. She does not have a left shift. She has a normal lipase. Her potassium is slightly low. I did order an x-ray of the abdomen and chest. I did review the images myself as well as the radiology report as described above. There is no evidence of free air or obstruction. She does appear to have some moderate fecal retention. I did discuss the test results with the patient. I did attempted speak to her GI physician, Dr. Choi but he was not available today. I did speak to the nurse practitioner, Berta. She recommended outpatient follow up for further evaluation and agreed with me that no further intervention was needed in the emergency department. I did discuss the plan with the patient. She was given a prescription for Zofran and discharged. Consults Time Called: 1345 Consulting Physician: [facility] Returned Call: 1342 I discussed the patient's case with her. She recommend no acute intervention at this time and outpatient follow up. Impression Primary Impression: Chronic abdominal pain Additional Impression: Hypokalemia Scribe Attestation The scribe's documentation has been prepared under my direct and personally reviewed by me in its entirety. I confirm that the note above accurately reflects all work, treatment, procedures, and medical decision making performed by me. Departure Information Dispostion Home / Self-Care Prescriptions Ondasetron Odt (ZOFRAN ODT) 4 Mg Tab 4 MG SL Q6H for Nausea, #10 TAB Prov: Vinny Montez M.D. 08/21/16 Referrals RV. Schwab MD (PCP) Forms Call Back Authorization, HOME CARE DOCUMENTATION FORM, IMPORTANT VISIT INFORMATION Patient Instructions ED Abd Pain Unkn Cause Fem, ED Chronic Pain Management, [facility] Additional Instructions You have been examined and treated today on an emergency basis only. This is not a substitute for, or an effort to provide, complete comprehensive medical care. It is impossible to recognize and treat all injuries or illnesses in a single emergency department visit. It is therefore important that you follow up closely with your physician. Call as soon as possible for an appointment. Return for worsening symptoms or if you develop fever or any other concerning symptoms. Problem Qualifiers
[2016-09-14] MEDS ORDERED: IMTIN5 (13:07)
[2016-09-14] MEDS ORDERED: ACET325T96 PO (14:54)
[2016-09-14] MEDS ORDERED: ALOS0.5T PO (15:35)
[2016-09-14] MEDS ORDERED: TRAM-10 PO (15:51)
[2016-11-28] MEDS ORDERED: ELUX1TAB PO (12:39)
[2016-11-28] MEDS ORDERED: SUCR1TAB29 PO (12:39)
[2016-11-28] MEDS ORDERED: RANI300T2 PO (12:39)
[2016-11-28] MEDS ORDERED: PARO1TAB29 PO (12:39)
[2016-11-28] MEDS ORDERED: COLE1TAB5 PO (12:39)
[2016-11-28] MEDS ORDERED: PROC5TAB PO (12:39)
[2016-11-28] MEDS ORDERED: ZOLP5TAB PO (12:39)
[2016-11-28] MEDS ORDERED: RBN/2 PO (12:39)
[2016-11-28] MEDS ORDERED: DIPH25CA65 PO (12:39)
[2016-11-28] MEDS ORDERED: MEDR1INJ3 IM (12:39)
[2016-11-28] MEDS ORDERED: ZOLP10TA PO (12:39)
[2016-11-28] MEDS ORDERED: CLID5CAP PO (12:39)
[2017-02-11] MEDS ORDERED: OXYC1TAB3 PO (13:58)
[2017-02-11] MEDS ORDERED: CYCL10TA6 PO (13:58)
== END 2016-08-21 14:16 | disposition home or self-care (01) ==
LOC: C.EDB 11:01 → C.EDC 14:16
DX: G89.29 Other chronic pain (principal); R10.9 Unspecified abdominal pain; E87.6 Hypokalemia; K58.9 Irritable bowel syndrome, unspecified; R19.7 Diarrhea, unspecified; F41.9 Anxiety disorder, unspecified; J45.909 Unspecified asthma, uncomplicated; K22.70 Barrett's esophagus without dysplasia; F31.9 Bipolar disorder, unspecified; K21.9 Gastro-esophageal reflux disease without esophagitis; N83.209 Unspecified ovarian cyst, unspecified side; Z98.51 Tubal ligation status

== ENCOUNTER → 2016-08-31 | Outpatient (CLI) | payer OTHER ==
[~2016-08-31] MED LIST changes: +ACET325T96 PO; +ALOS0.5T PO; +AMT25 PO; +CLID5CAP PO; +COLE1TAB5 PO; +CYCL10TA6 PO; +DICY10CA12 PO; +DIPH25CA65 PO; +DPPI150 IM; +ELUX1TAB PO; +HYDR-5688 PO; +IMTIN5; +MEDR1INJ3 IM; +OXYC1TAB3 PO; +PANT40TA2 PO; +PARO1TAB29 PO; +PENI-82 PO; +PROC5TAB PO; +RANI300T2 PO; +RBN/2 PO; +SUCR1TAB29 PO; -SULF800T23 PO; +TRAM-10 PO; +ZOLP10TA PO; +ZOLP5TAB PO
[2016-08-31 14:14] LABS: BASO % 0.9 %; BASO ABS # 0.09 K/uL (0-0.2); COMPLETE YES; EOS % 1.6 %; HEMATOCRIT 38.8 % (37-47); IG% 0.2 %; LYMPH % 21.7 %; LYMPH ABS # 2.27 K/uL (1.2-3.4); MEAN CELL VOLUME 94.4 fL (80-100); MEAN CORPUSCULAR HEMOGLOBIN 30.9 pg (25-34); MEAN CORPUSCULAR HGB CONC 32.7 g/dl (32-36); MEAN PLATELET VOLUME 10.5 fL (7.4-10.4); MONO % 8.7 %; NEUT % 66.9 %; PLATELET COUNT 317 K/uL (130-400); RED BLOOD COUNT 4.11 M/uL (4.2-5.4); WHITE BLOOD COUNT 10.48 K/uL (4.8-10.8)
[2016-08-31 14:22] LABS: ALT/SGPT 27 U/L (12-78); AST/SGOT 13 U/L (15-37); BLOOD UREA NITROGEN 9 mg/dl (7-18); BUN/CREATININE RATIO 11.3 (10-20); CALCIUM 9.7 mg/dl (8.5-10.1); CARBON DIOXIDE 28 mmol/L (21-32); CHLORIDE 107 mmol/L (98-107); CREATININE 0.82 mg/dl (0.60-1.20); GLUCOSE 87 mg/dl (70-99); MAGNESIUM 2.3 mg/dl (1.8-2.4); POTASSIUM 3.4 mmol/L (3.5-5.1); SODIUM 143 mmol/L (136-145)
[2016-08-31 14:33] LABS: ALKALINE PHOSPHATASE 94 U/L (45-117)
== END | disposition home or self-care (01) ==
LOC: C.LAB1850 12:40
PROVIDERS: ATTEND Physician Assistant
DX: G40.209 Localization-related (focal) (partial) symptomatic epilepsy and epileptic syndromes with complex partial seizures, not intractable, without status epilepticus (principal)

== ENCOUNTER 2016-09-14 17:58 | Emergency (ER) | payer OTHER ==
[~2016-09-14] VITALS: Ht 175.3 cm; Wt 96.1 kg
[~2016-09-14 17:58] MED LIST changes: -AMT25 PO; -CLID5CAP PO; -COLE1TAB5 PO; -CYCL10TA6 PO; -DICY10CA12 PO; -DIPH25CA65 PO; -DPPI150 IM; -ELUX1TAB PO; -HYDR-5688 PO; -MEDR1INJ3 IM; -OXYC1TAB3 PO; -PANT40TA2 PO; -PARO1TAB29 PO; -PENI-82 PO; -PROC5TAB PO; -RANI300T2 PO; -RBN/2 PO; -SUCR1TAB29 PO; -ZOLP10TA PO; -ZOLP5TAB PO
[2016-09-14 18:11] VITALS: BP 150/81; PULSE 100; TEMP 37.5; O2SAT 94; Ht 175.3 cm; Wt 96.1 kg
[2016-09-14] MEDS ORDERED: PANT40TA2 PO (18:58)
[2016-09-14] MEDS ORDERED: DPPI150 IM (18:58)
[2016-09-14] MEDS ORDERED: DICY10CA12 PO (18:58)
[2016-09-14] MEDS ORDERED: SODIUM CHLORIDE 0.9% 1000ML 1,000 ML IV STA (19:01)
[2016-09-14] MEDS ORDERED: PROMETHAZINE HCL INJ 25 MG/ML 1 ML VIAL IM STA (19:01)
[2016-09-14] MEDS ORDERED: KETOROLAC TROMETHAMINE 30 MG/ML VIAL IV STA (19:01)
[2016-09-14 19:13] LABS: BASO % 0.7 %; BASO ABS # 0.08 K/uL (0-0.2); COMPLETE YES; EOS % 1.3 %; HEMATOCRIT 35.5 % (37-47); IG% 0.2 %; LYMPH % 27.9 %; MEAN CELL VOLUME 90.8 fL (80-100); MEAN CORPUSCULAR HEMOGLOBIN 30.2 pg (25-34); MEAN CORPUSCULAR HGB CONC 33.2 g/dl (32-36); MEAN PLATELET VOLUME 9.9 fL (7.4-10.4); MONO % 8.1 %; NEUT % 61.8 %; PLATELET COUNT 319 K/uL (130-400); RED BLOOD COUNT 3.91 M/uL (4.2-5.4); WHITE BLOOD COUNT 11.12 K/uL (4.8-10.8)
[2016-09-14 19:21] LABS: URINE APPEARANCE CLEAR (CLEAR); URINE BILIRUBIN NEG (NEG); URINE COLOR YELLOW; URINE EPITHELIAL CELL AUTO >30 /lpf (0-5); URINE NITRITE NEG (NEG); URINE SPECIFIC GRAVITY 1.027 (1.000-1.030); UROBILINOGEN NEG (NEG); ZZUR CULT IF INDIC CLEAN CATCH YES
--- NOTE | 2016-09-14 19:21 | EMERGENCY ROOM VISIT NOTE ---
History First contact with patient: 18:49 Chief Complaint: ABDOMINAL PAIN Stated Complaint: BELLY PAIN, VOMITING Nursing Triage Summary: triage note: pt reports "i have ibsd and about 3 days ago my stomach started to hurts and i am throwing up." History of Present Illness The patient is a 41 year old female who presents to the Emergency Room with complaints of abdominal pain, nausea and vomiting. The patient has a history of chronic and recurrent abdominal pain. She has been diagnosed with IBS and has had significant evaluation including multiple CTs, EGD and close evaluation with her ironworker. She states that 3 days ago her discomfort started. She rates her discomfort a 9/10. She reports nausea and vomiting. She denies any pain in her chest or trouble breathing. She states she has had a fever at home. She reports diarrhea. She denies urinary symptoms. Review of Systems A 10 system review of systems was completed with positives and pertinent negatives listed in the HPI. Past Medical/Surgical History Medical Problems: (1) Abdominal pain (2) Abdominal pain (3) Abdominal pain (4) Acute gastroenteritis (5) Anxiety (6) Asthma, Unspecified, W (Acute) Exacerbation (7) Back pain (8) Barretts esophagus (9) Bipolar Disorder, Unspecified (10) Blindness, One Eye (11) Bronchitis (12) section (13) Cough (14) Coughing (15) Dehydration (16) Deliver-Single Liveborn (17) Epigastric abdominal pain (18) Esophageal Reflux (19) Hyperventilation (20) Hyperventilation (21) Hyperventilation (22) Hypokalemia (23) Hypokalemia, gastrointestinal losses (24) IBS (irritable bowel syndrome) (25) Intractable pain (26) Intractable vomiting (27) Left sided abdominal pain (28) Left upper quadrant abdominal pain of unknown etiology (29) Mesenteric adenitis (30) Migraine Unspecified W/O Intractable Migraine (31) Ovarian Cyst Nec/Nos (32) Right sided abdominal pain (33) Right upper quadrant abdominal pain (34) RLQ abdominal pain (35) Sterilization (36) Tension headache (37) Tension headache (38) Upper abdominal pain (39) Urin Tract Infection Nos (40) Urinary tract infection (41) UTI (lower urinary tract infection) (42) UTI (urinary tract infection) Surgical Problems: (1) History of cholecystectomy (2) History of tubal ligation Family History Diabetes mellitus FHx: cancer Hypertension Seizures Social History Smoking Status: Never Smoker Alcohol Use: none Drug Use: none Housing Status: lives with family Occupation Status: unemployed Current/Historical Medications Scheduled Alosetron Hcl (Lotronex), 0.5 MG PO QAM Amitriptyline HCl (Amitriptyline HCl), 25 MG PO HS Medroxyprogesterone Acetate (Medroxyprogesterone Aceta), 150 MG IM UD Pantoprazole (Pantoprazole Sodium), 40 MG PO BID Scheduled PRN Acetaminophen Tab (Tylenol), 650 MG PO Q4 PRN for abd pain Dicyclomine Hcl (Dicyclomine Hcl), 10 MG PO QID PRN for Abdominal Pain Ondasetron Odt (Zofran Odt), 4 MG SL Q6H PRN for Nausea Sumatriptan Succinate (Imitrex Nasal [place]), 1 SPRAY NA for Migraine Tramadol (Ultram), 100 MG PO QID PRN for Pain Allergies Coded Allergies: POLLEN (Verified Allergy, Mild, ITCHING/SNEEZING, 08/04/16) Clonazepam (Verified Allergy, Unknown, ., 08/04/16) Physical Exam Vital Signs Date Time Temp Pulse Resp B/P (MAP) Pulse Ox O2 Delivery O2 Flow Rate FiO2 09/14/16 18:11 37.5 100 18 150/81 94 Room Air Physical Exam VITALS: Vitals are noted on the nurse's note and reviewed by myself. Vital signs stable. The patient is afebrile. GENERAL: The patient is anxious in appearance, in no acute distress, nondiaphoretic, well-developed well-nourished. SKIN: The skin was without rashes, erythema, edema, or bruising. There is no tenting of the skin. Capillary reflex less than 2 seconds. HEAD: Normocephalic atraumatic. EARS: The external ears are normal in appearance. EYES: Pupils equal round and reactive to light and accommodation. Conjunctivae without injection, sclerae without icterus. Extraocular movements intact. NOSE: Patent, turbinates without inflammation or discharge. MOUTH: Mucous membranes moist. Tonsils are not enlarged. Pharynx without erythema or exudate. Uvula midline. Airway patent. Tongue does not deviate. NECK: Supple without nuchal rigidity. No lymphadenopathy. No thyromegaly. Cervical spine is nontender. No JVD. HEART: Regular rate and rhythm without murmurs gallops or rubs. LUNGS: Clear to auscultation bilaterally without wheezes, rales or rhonchi. No retractions or accessory muscle use. ABDOMEN: Positive bowel sounds x 4. Soft, marked diffuse tenderness, without masses or organomegaly. MUSCULOSKELETAL: No muscle atrophy, erythema, or edema noted. Full range of motion in all extremities. Normal gait. Strength 5/5 throughout. NEURO: Patient was alert and oriented to person place and time. No focal neurological deficits. Medical Decision & Procedures ER Provider Diagnostic Interpretation: ABDOMEN 2VIEW W/PA CHEST RTN CLINICAL HISTORY: upper abdominal pain nausea COMPARISON STUDY: No previous studies for comparison. FINDINGS: The soft tissues, psoas shadows, renal outlines and intestinal gas pattern appear normal. There is no evidence for bowel obstruction. There is no evidence for free intraperitoneal air. No abnormal abdominal calcifications are seen. A frontal view of the chest was performed and is unremarkable. IMPRESSION: Normal study. Laboratory Results 09/14/16 19:00 Red Blood Count 3.91, Mean Corpuscular Volume 90.8, Mean Corpuscular Hemoglobin 30.2, Mean Corpuscular Hemoglobin Concent 33.2, Mean Platelet Volume 9.9, Neutrophils (%) (Auto) 61.8, Lymphocytes (%) (Auto) 27.9, Monocytes (%) (Auto) 8.1, Eosinophils (%) (Auto) 1.3, Basophils (%) (Auto) 0.7, Neutrophils # (Auto) 6.88, Lymphocytes # (Auto) 3.10, Monocytes # (Auto) 0.90, Eosinophils # (Auto) 0.14, Basophils # (Auto) 0.08 09/14/16 19:00 Test 09/14/16 19:00 09/14/16 20:15 White Blood Count 11.12 K/uL (4.8-10.8) Red Blood Count 3.91 M/uL (4.2-5.4) Hemoglobin 11.8 g/dL (12.0-16.0) Hematocrit 35.5 % (37-47) Mean Corpuscular Volume 90.8 fL (80-100) Mean Corpuscular Hemoglobin 30.2 pg (25-34) Mean Corpuscular Hemoglobin Concent 33.2 g/dl (32-36) Platelet Count 319 K/uL (130-400) Mean Platelet Volume 9.9 fL (7.4-10.4) Neutrophils (%) (Auto) 61.8 % Lymphocytes (%) (Auto) 27.9 % Monocytes (%) (Auto) 8.1 % Eosinophils (%) (Auto) 1.3 % Basophils (%) (Auto) 0.7 % Neutrophils # (Auto) 6.88 K/uL (1.4-6.5) Lymphocytes # (Auto) 3.10 K/uL (1.2-3.4) Monocytes # (Auto) 0.90 K/uL (0.11-0.59) Eosinophils # (Auto) 0.14 K/uL (0-0.5) Basophils # (Auto) 0.08 K/uL (0-0.2) RDW Standard Deviation 44.3 fL (36.4-46.3) RDW Coefficient of Variation 13.5 % (11.5-14.5) Immature Granulocyte % (Auto) 0.2 % Immature Granulocyte # (Auto) 0.02 K/uL (0.00-0.02) Anion Gap 11.0 mmol/L (3-11) Est Creatinine Clear Calc Drug Dose 97.2 ml/min Estimated GFR () 87.3 Estimated GFR (Non- 75.4 BUN/Creatinine Ratio 16.2 (10-20) Calcium Level 8.8 mg/dl (8.5-10.1) Total Bilirubin 0.2 mg/dl (0.2-1) Aspartate Amino Transf (AST/SGOT) 5 U/L (15-37) Alanine Aminotransferase (ALT/SGPT) 15 U/L (12-78) Alkaline Phosphatase 81 U/L (45-117) Total Protein 7.7 gm/dl (6.4-8.2) Albumin 4.0 gm/dl (3.4-5.0) Globulin 3.7 gm/dl (2.5-4.0) Albumin/Globulin Ratio 1.1 (0.9-2) Lipase 111 U/L (73-393) Urine Color YELLOW Urine Appearance CLEAR (CLEAR) Urine pH 6.0 (4.5-7.5) Urine Specific [place] 1.019 (1.000-1.030) Urine Protein NEG (NEG) Urine Glucose (UA) NEG (NEG) Urine Ketones NEG (NEG) Urine Occult Blood 1+ (NEG) Urine Nitrite NEG (NEG) Urine Bilirubin NEG (NEG) Urine Urobilinogen NEG (NEG) Urine Leukocyte Esterase NEG (NEG) Urine WBC (Auto) 1-5 /hpf (0-5) Urine RBC (Auto) 5-10 /hpf (0-4) Urine Hyaline Casts (Auto) 0 /lpf (0-5) Urine Epithelial Cells (Auto) 20-30 /lpf (0-5) Urine Bacteria (Auto) NEG (NEG) Medications Administered Medications (Trade) Dose Ordered Sig/Magdalene Route Start Time Stop Time Status Last Admin Dose Admin Sodium Chloride 1,000 ml @ 999 mls/hr Q1H1M STAT IV 09/14/16 19:01 09/14/16 20:01 DC 09/14/16 19:01 999 MLS/HR Promethazine HCl (Phenergan Inj) 25 mg NOW STAT IM 09/14/16 19:01 09/14/16 19:03 DC 09/14/16 19:22 25 MG Ketorolac Tromethamine (Toradol Inj) 30 mg NOW STAT IV 09/14/16 19:01 09/14/16 19:03 DC 09/14/16 19:18 30 MG Dicyclomine HCl (Bentyl Inj) 20 mg NOW ONCE IM 09/14/16 20:00 09/14/16 20:01 DC 09/14/16 20:19 20 MG ED Course The patient was seen and examined. Previous visits were reviewed. The patient does not have a fever. She does have a mild leukocytosis of 11.12. She does not have any significant electrolyte abnormalities. Lipase was not elevated. Urine clean catch suggested contamination versus urinary tract infection. The patient agreed to a re-collect as a straight cath. This repeated urinalysis was negative for urinary tract infection. Plain films of the abdomen did not reveal any free air or evidence for obstruction The patient was hydrated with normal saline She was given 25 mg IM Phenergan and 30 mg IV Toradol. She still complained of pain She was given 20 mg IM Bentyl and still complained of pain She was given a take-home pack of OxyIR The patient presents to the emergency department with a long-standing history of chronic abdominal pain with significant evaluation including CT imaging, EGD and close follow-up with gastroenterology. She states that she has been diagnosed with IBS. The above workup does not reveal any significant change or abnormality compared to previous. There was some contamination on initial clean catch urinalysis. This was not found on the repeat straight cath urinalysis. I advised the patient that this could indicate a pelvic infection. I recommended a pelvic examination but the patient refused. The patient also refused CT imaging. She has had numerous CTs of the abdomen and pelvis in the past. The patient is very dramatic in her presentation with her abdominal pain. Review of previous documentation indicates the patient has a similar presentation on all of her visits. I do not feel that additional IV narcotics is the best plan of care for her. I agreed to give her a take-home pack of pain medication and advised her to follow-up with her family doctor and gastroenterology tomorrow. She should return to the ER with worsening symptoms. The case was discussed with Dr. Black who agrees with the assessment and treatment plan. Medication Reconciliation: I attest that I have personally reviewed the patient' s current medication list. Medical Decision DIFFERENTIAL DIAGNOSIS: Hepatitis, cholecystitis, cholangitis, biliary colic, pancreatitis, pneumonia, subdiaphragmatic abscess, appendicitis, inguinal hernia , nephrolithiasis, inflammatory bowel disease, mesenteric adenitis, peptic ulcer disease, GERD, gastritis, pancreatitis, myocardial infarction, pericarditis, ruptured aortic aneurysm, appendicitis, gastroenteritis, bowel obstruction, splenic infarct, diverticulitis, mesenteric ischemia, metabolic, peritonitis, among others. Impression Primary Impression: Chronic bilateral upper abdominal pain Departure Information Dispostion Home / Self-Care Condition GOOD Referrals RV. Schwab MD (PCP) Patient Instructions My [facility] [place] Additional Instructions Oxy IR 1-2 tablets every 4-6 hrs as needed for worse pain. No driving or alcohol use with Oxy IR. Contact your family doctor and ironworker first thing in the morning for a follow-up appointment Return with any worsening symptoms
[2016-09-14] MEDS ORDERED: AMT25 PO (19:24)
[2016-09-14 19:30] LABS: BUN/CREATININE RATIO 16.2 (10-20); CALCIUM 8.8 mg/dl (8.5-10.1); CREATININE 0.94 mg/dl (0.60-1.20); POTASSIUM 3.2 mmol/L (3.5-5.1)
[2016-09-14 19:33] LABS: ALB/GLOB RATIO 1.1 (0.9-2)
[2016-09-14 19:35] LABS: MANUAL MICROSCOPIC REQUIRED? NO; REVIEW REQ? NO
[2016-09-14] MEDS ORDERED: DICYCLOMINE HCL 10 MG/ML 2 ML AMP IM ONE (20:00)
[2016-09-14 20:34] LABS: URINE APPEARANCE CLEAR (CLEAR); URINE BILIRUBIN NEG (NEG); URINE COLOR YELLOW; URINE EPITHELIAL CELL AUTO 20-30 /lpf (0-5); URINE NITRITE NEG (NEG); URINE SPECIFIC GRAVITY 1.019 (1.000-1.030); UROBILINOGEN NEG (NEG); ZZURINE CULT IF INDIC CATH NO
[2016-09-14 20:36] LABS: MANUAL MICROSCOPIC REQUIRED? NO; REVIEW REQ? NO
--- NOTE | 2016-09-14 20:46 | DIAGNOSTIC IMAGING REPORT ---
ABDOMEN 2VIEW W/PA CHEST RTN CLINICAL HISTORY: upper abdominal pain nausea COMPARISON STUDY: No previous studies for comparison. FINDINGS: The soft tissues, psoas shadows, renal outlines and intestinal gas pattern appear normal. There is no evidence for bowel obstruction. There is no evidence for free intraperitoneal air. No abnormal abdominal calcifications are seen. A frontal view of the chest was performed and is unremarkable. IMPRESSION: Normal study. Electronically signed by: Lai Blake M.D. 09/14/2016 8:45 PM Dictated Date/Time: 09/14/2016 8:44 PM
[2016-09-14] MEDS ORDERED: OXYCODONE IR HOME PACK PO ONE (21:15)
[2016-11-28] MEDS ORDERED: COLE1TAB5 PO (12:39)
[2016-11-28] MEDS ORDERED: DIPH25CA65 PO (12:39)
[2016-11-28] MEDS ORDERED: PARO1TAB29 PO (12:39)
[2016-11-28] MEDS ORDERED: ELUX1TAB PO (12:39)
[2016-11-28] MEDS ORDERED: RANI300T2 PO (12:39)
[2016-11-28] MEDS ORDERED: ZOLP5TAB PO (12:39)
[2016-11-28] MEDS ORDERED: RBN/2 PO (12:39)
[2016-11-28] MEDS ORDERED: MEDR1INJ3 IM (12:39)
[2016-11-28] MEDS ORDERED: ZOLP10TA PO (12:39)
[2016-11-28] MEDS ORDERED: CLID5CAP PO (12:39)
[2016-11-28] MEDS ORDERED: SUCR1TAB29 PO (12:39)
[2016-11-28] MEDS ORDERED: PROC5TAB PO (12:39)
[2017-02-11] MEDS ORDERED: OXYC1TAB3 PO (13:58)
[2017-02-11] MEDS ORDERED: CYCL10TA6 PO (13:58)
== END 2016-09-14 21:50 | disposition home or self-care (01) ==
LOC: C.EDB 17:59 → C.EDA 21:50
DX: R10.11 Right upper quadrant pain (principal); R10.12 Left upper quadrant pain; G89.29 Other chronic pain; R11.2 Nausea with vomiting, unspecified; K58.9 Irritable bowel syndrome, unspecified; F41.9 Anxiety disorder, unspecified; J45.909 Unspecified asthma, uncomplicated; K21.9 Gastro-esophageal reflux disease without esophagitis; Z79.899 Other long term (current) drug therapy; Z87.19 Personal history of other diseases of the digestive system; Z87.440 Personal history of urinary (tract) infections; Z87.898 Personal history of other specified conditions; Z82.0 Family history of epilepsy and other diseases of the nervous system; Z82.49 Family history of ischemic heart disease and other diseases of the circulatory system; Z83.3 Family history of diabetes mellitus

== ENCOUNTER → 2016-11-09 | Outpatient (CLI) | payer OTHER ==
[~2016-11-09] MED LIST changes: -ALOS0.5T PO; -AMIT25TA9 PO; +AMT25 PO; +CLID5CAP PO; +COLE1TAB5 PO; +DICY10CA12 PO; +DIPH25CA65 PO; +DPPI150 IM; +ELUX1TAB PO; +HYDR-5688 PO; +MEDR1INJ3 IM; +PARO1TAB29 PO; +PENI-82 PO; -PROC1SUP PR; +PROC5TAB PO; +PRT/40 PO; +RANI300T2 PO; +RBN/2 PO; +SUCR1TAB29 PO; +ZOLP10TA PO; +ZOLP5TAB PO; +[UNRECOGNIZED DRUG - CODE] PO
--- NOTE | 2016-11-09 10:58 | DIAGNOSTIC IMAGING REPORT ---
TWO VIEW CHEST CLINICAL HISTORY: Community acquired pneumonia. Atypical chest pain and dyspnea. FINDINGS: PA and lateral chest radiographs are compared to study dated 09/14/2016. The cardiomediastinal silhouette is unremarkable. The lungs and pleural spaces are clear. There is no pneumothorax. The bony thorax appears intact. IMPRESSION: No active disease in the chest. Electronically signed by: Kevin Panda M.D. 11/09/2016 10:57 AM Dictated Date/Time: 11/09/2016 10:57 AM
[2016-11-09 12:06] LABS: HEMATOCRIT 38.2 % (37-47); MEAN CORPUSCULAR HEMOGLOBIN 29.3 pg (25-34); MEAN CORPUSCULAR HGB CONC 32.2 g/dl (32-36); PLATELET COUNT 330 K/uL (130-400); WHITE BLOOD COUNT 9.34 K/uL (4.8-10.8)
[2016-11-09 12:10] LABS: PREG INTERNAL NEGATIVE QC NEG CLEAR BACKGROUND; PREG INTERNAL POSITIVE QC POS CONTROL LINE
== END | disposition home or self-care (01) ==
LOC: C.RAD1850 10:40
PROVIDERS: ATTEND Physician Assistant
DX: J18.9 Pneumonia, unspecified organism (principal); N94.6 Dysmenorrhea, unspecified

== ENCOUNTER → 2016-11-09 | Outpatient (CLI) | payer OTHER | END | disposition home or self-care (01) | LOC: C.PAPS 13:24 | PROVIDERS: ATTEND Physician Assistant | DX: Z12.4 Encounter for screening for malignant neoplasm of cervix (principal) ==

== ENCOUNTER 2016-11-16 10:02 | Emergency (ER) | payer OTHER ==
[~2016-11-16] VITALS: Ht 175.3 cm; Wt 97.2 kg
[~2016-11-16 10:02] MED LIST changes: -CLID5CAP PO; -COLE1TAB5 PO; -DIPH25CA65 PO; -ELUX1TAB PO; -HYDR-5688 PO; -MEDR1INJ3 IM; -PARO1TAB29 PO; -PENI-82 PO; -PROC5TAB PO; -RANI300T2 PO; -RBN/2 PO; -SUCR1TAB29 PO; -ZOLP10TA PO; -ZOLP5TAB PO
[2016-11-16 10:12] VITALS: BP 130/83; PULSE 103; TEMP 36.9; O2SAT 98; Ht 175.3 cm; Wt 97.2 kg
[2016-11-16] MEDS ORDERED: HYDR-5688 PO (10:25)
[2016-11-16] MEDS ORDERED: PENI-82 PO (10:25)
--- NOTE | 2016-11-16 10:27 | EMERGENCY ROOM VISIT NOTE ---
ED Visit Note First contact with patient: 10:15 CHIEF COMPLAINT: Toothache HISTORY OF PRESENT ILLNESS: This 41-year-old female patient presented to the emergency department ambulatory with a progressive toothache for past 3 days. The patient believes it is coming from left lower jaw. The pain is now steady and severe and radiates to the face. The patient does not a dentist appointment set up but states she is calling around. They rate their pain a 9/ 10 and the ibuprofen and Tylenol they have been taking has not relieved the pain. Denies facial swelling or fever. The patient denies any discharge from the mouth. REVIEW OF SYSTEMS: A 6 system review of systems was completed with positives and pertinent negatives listed in the HPI. ALLERGIES: Clonazepam, environmental allergies MEDICATIONS: See nursing notes PMH: GERD, abdominal pain, migraines SOCIAL HISTORY: The patient locally. She does not smoke PHYSICAL EXAM: Vitals are noted on the nurse's note and reviewed by myself. Vital signs stable. Temperature 36.9C orally. GENERAL: This 41-year-old female, in no acute distress, nondiaphoretic, well-developed well-nourished. Mouth: The left lower tooth is very carious and the gum is swollen and tender around it, without any discharge or signs of an abscess. The remainder of the pharynx and tonsils are without erythema, edema, or exudate. The airway is patent. There is no facial swelling, cervical or submandibular lymphadenopathy. The patient appears uncomfortable and in pain. The patient has overall fair dental hygiene. Problem List Medical Problems: (1) Abdominal pain Status: Resolved (2) Abdominal pain Status: Resolved (3) Abdominal pain Status: Resolved (4) Acute gastroenteritis Status: Resolved (5) Anxiety Status: Chronic (6) Asthma, Unspecified, W (Acute) Exacerbation Status: Chronic (7) Back pain Status: Resolved (8) Barretts esophagus Status: Chronic (9) Bipolar Disorder, Unspecified Status: Chronic (10) Blindness, One Eye Status: Chronic (11) Bronchitis Status: Resolved (12) section Status: Resolved (13) Dehydration Status: Resolved (14) Deliver-Single Liveborn Status: Resolved (15) Esophageal Reflux Status: Chronic (16) Hyperventilation Status: Resolved (17) Hyperventilation Status: Resolved (18) Hyperventilation Status: Resolved (19) Hypokalemia Status: Resolved (20) Hypokalemia, gastrointestinal losses Status: Resolved (21) IBS (irritable bowel syndrome) Status: Chronic (22) Intractable pain Status: Chronic (23) Intractable vomiting Status: Resolved (24) Mesenteric adenitis Status: Resolved (25) Migraine Unspecified W/O Intractable Migraine Status: Chronic (26) Ovarian Cyst Nec/Nos Status: Resolved (27) Sterilization Status: Chronic (28) Tension headache Status: Resolved (29) Tension headache Status: Resolved (30) Urin Tract Infection Nos Status: Resolved (31) UTI (lower urinary tract infection) Status: Resolved Surgical Problems: (1) History of cholecystectomy Status: Resolved (2) History of tubal ligation Status: Resolved Current/Historical Medications Scheduled Alosetron Hcl (Lotronex), 0.5 MG PO QAM Amitriptyline HCl (Amitriptyline HCl), 25 MG PO HS Medroxyprogesterone Acetate (Medroxyprogesterone Aceta), 150 MG IM UD Pantoprazole (Pantoprazole Sodium), 40 MG PO BID Penicillin V Potassium (Veetids), 500 MG PO QID Scheduled PRN Acetaminophen Tab (Tylenol), 650 MG PO Q4 PRN for abd pain Dicyclomine Hcl (Dicyclomine Hcl), 10 MG PO QID PRN for Abdominal Pain Hydrocodone/Acetaminophen 5MG/325MG ([place] 5MG/325MG), 1 TABLET PO Q6 PRN for Pain Ondasetron Odt (Zofran Odt), 4 MG SL Q6H PRN for Nausea Sumatriptan Succinate (Imitrex Nasal [place]), 1 SPRAY NA for Migraine Tramadol (Ultram), 100 MG PO QID PRN for Pain Allergies Coded Allergies: POLLEN (Verified Allergy, Mild, ITCHING/SNEEZING, 08/04/16) Clonazepam (Verified Allergy, Unknown, ., 08/04/16) Vital Signs Date Time Temp Pulse Resp B/P (MAP) Pulse Ox O2 Delivery O2 Flow Rate FiO2 11/16/16 10:12 36.9 103 22 130/83 98 Room Air Departure Information Impression Primary Impression: Dental caries Additional Impression: Tooth pain with chewing Dispostion Home / Self-Care Condition GOOD Prescriptions Hydrocodone/Acetaminophen 5MG/325MG ([place] 5MG/325MG) Tab 1 TABLET PO Q6 Y for Pain, #10 TAB For Initial Treatment Prov: Britta Ga PA-C 11/16/16 Penicillin V Potassium (Veetids) 500 Mg Tab 500 MG PO QID, #40 TAB Prov: Britta Ga PA-C 11/16/16 Referrals RV. Schwab MD (PCP) Patient Instructions Decay Tooth, My [facility] Additional Instructions Pen-Vee K 4 times daily for 10 days.[place] one tablet every 6 hours if needed for worse pain. Do not drink or drive while taking [place] and do not take with Tylenol. Followup with a dentist for definitive management of your tooth. Return with high fevers, worsening pain or swelling. Problem Qualifiers
[2016-11-28] MEDS ORDERED: ELUX1TAB PO (12:39)
[2016-11-28] MEDS ORDERED: DIPH25CA65 PO (12:39)
[2016-11-28] MEDS ORDERED: PROC5TAB PO (12:39)
[2016-11-28] MEDS ORDERED: RBN/2 PO (12:39)
[2016-11-28] MEDS ORDERED: MEDR1INJ3 IM (12:39)
[2016-11-28] MEDS ORDERED: SUCR1TAB29 PO (12:39)
[2016-11-28] MEDS ORDERED: ZOLP10TA PO (12:39)
[2016-11-28] MEDS ORDERED: COLE1TAB5 PO (12:39)
[2016-11-28] MEDS ORDERED: CLID5CAP PO (12:39)
[2016-11-28] MEDS ORDERED: RANI300T2 PO (12:39)
[2016-11-28] MEDS ORDERED: PARO1TAB29 PO (12:39)
[2016-11-28] MEDS ORDERED: ZOLP5TAB PO (12:39)
== END 2016-11-16 10:31 | disposition home or self-care (01) ==
LOC: C.EDB 10:04
DX: K02.9 Dental caries, unspecified (principal); K08.89 Other specified disorders of teeth and supporting structures; K21.9 Gastro-esophageal reflux disease without esophagitis; F31.9 Bipolar disorder, unspecified; K22.70 Barrett's esophagus without dysplasia; J45.909 Unspecified asthma, uncomplicated; K58.9 Irritable bowel syndrome, unspecified; N83.209 Unspecified ovarian cyst, unspecified side; F41.9 Anxiety disorder, unspecified; Z87.440 Personal history of urinary (tract) infections; Z98.51 Tubal ligation status; Z90.49 Acquired absence of other specified parts of digestive tract; Z79.899 Other long term (current) drug therapy; Z88.8 Allergy status to other drugs, medicaments and biological substances; Z91.09 Other allergy status, other than to drugs and biological substances

== ENCOUNTER → 2016-11-29 | Day surgery (SDC) | payer OTHER ==
[~2016-11-29] VITALS: Ht 175.3 cm; Wt 95.5 kg
[~2016-11-29] MED LIST changes: +CLID5CAP PO; +COLE1TAB5 PO; +DIPH25CA65 PO; -DPPI150 IM; +ELUX1TAB PO; +LIDOCAINE HCL 2% 2 ML VIAL (20MG/ML) ONE; +MEDR1INJ3 IM; +PARO1TAB29 PO; +PROC5TAB PO; +PROPOFOL IV EMULSION 10 MG/ML 20 ML VIAL IV ONE; +RANI300T2 PO; +RBN/2 PO; +SODIUM CHLORIDE 0.9% 500ML 500 ML IV ONE; +SUCR1TAB29 PO; +ZOLP10TA PO; +ZOLP5TAB PO
[2016-11-29 12:32] VITALS: Ht 175.3 cm; Wt 95.5 kg
--- NOTE | 2016-11-29 13:28 | Endo History and Physical ---
History & Physical Date of Service: Nov 29, 2016. Chief Complaint: DIFFICULTY SWALLOWING DILALATED IN PAST Referring Physician: JANAE History of Present Illness Dysphagia. Chronic abdominal pain. Past Medical History Asthma, Gastrointestinal Disorder, Anxiety, Reflux, Seizure Disorder Past Surgical History Hx Cardiac Surgery: No Hx Internal Defibrillator: No Hx Pacemaker: No Hx Abdominal Surgery: Yes (, MARGARITA) Hx of Implantable Prosthesis: No Hx Post-Op Nausea and Vomiting: No Hx Cancer Surgery: No Hx Thoracic Surgery: No Hx Orthopedic: No Hx Urinary Tract Surgery: No Family History Colon CA, Polyp Social History Smoking Status: Never Smoker Hx Substance Use: No Hx Alcohol Use: No Allergies Coded Allergies: POLLEN (Verified Allergy, Mild, ITCHING/SNEEZING, 11/29/16) Clonazepam (Verified Allergy, Unknown, SOB AND DIFFICULTY WALKING, 11/29/16 ) Current Medications Reported Home Medications Medications Dose Route/Sig Max Daily Dose Days Date Category Dose Instructions Paxil (Paroxetine HCl) 40 Mg Tab 40 Mg PO QAM 11/28/16 Reported Benadryl Allergy (Diphenhydramine Hcl) 25 Mg Cap 1 Cap PO QID PRN 11/28/16 Reported Ambien (Zolpidem Tartrate) 5 Mg Tab 5 Mg PO HS PRN 11/28/16 Reported Ambien (Zolpidem Tartrate) 10 Mg Tab 10 Mg PO HS 11/28/16 Reported Colestipol Hcl 1 Gm Tab 1 Tab PO BID 11/28/16 Reported Librax 5MG/2.5MG (Chlordiazepoxide/Clidinium) Cap 2 Cap PO BIDM 11/28/16 Reported Glycopyrrolate 2 Mg Tab 1 Tab PO TIDM 11/28/16 Reported Carafate (Sucralfate) 1 Gm Tab 1 Gm PO QID 11/28/16 Reported Compazine (Prochlorperazine Maleate) 5 Mg Tab 5 Mg PO Q6H PRN 11/28/16 Reported Viberzi (Eluxadoline) 75 Mg Tab 1 Tab PO BID 11/28/16 Reported Zantac (Ranitidine HCl) 300 Mg Tab 300 Mg PO HS 11/28/16 Reported Depo-Provera Contraceptiv (Medroxyprogesterone Acetate (C) 150 Mg/Ml Inj 1 Dose IM Q3MO 11/28/16 Reported Amitriptyline HCl 25 Mg Tab 25 Mg PO HS 09/14/16 Reported Tylenol (Acetaminophen) 325 Mg Tab 1-2 Tabs PO Q4 PRN 07/23/16 Reported Imitrex Nasal [place] (Sumatriptan Succinate) 5 Mg Aers 1 [place] NA PRN 04/26/16 Reported Dicyclomine Hcl 10 Mg Cap 10 Mg PO QID PRN 12/10/15 Reported Pantoprazole Sodium (Pantoprazole) 40 Mg Tab 40 Mg PO BID 12/10/15 Reported Zofran Odt (Ondansetron HCl) 4 Mg Tab 4 Mg SL Q6H PRN 12/10/15 Reported ALLOW TABLET TO DISSOLVE ON TONGUE Ultram (Tramadol HCl) 50 Mg Tab 50 Mg PO QID PRN 11/11/15 Reported Lotronex (Alosetron Hcl) 0.5 Mg Tab 0.5 Mg PO QAM 03/03/15 Reported Vital Signs Weight (Kilograms): 95.45 Height (Feet): 5 Height (Inches): 9 Date Time Temp Pulse Resp B/P (MAP) Pulse Ox O2 Delivery O2 Flow Rate FiO2 11/29/16 13:01 37.1 72 20 139/68 (91) 97 Room Air Physical Exam General Appearance: WD/WN, no apparent distress Respiratory/Chest: Auscultation: breath sounds normal, no wheezing Cardiovascular: Heart Auscultation: RRR, no murmurs Abdomen: Inspection & Palpation: soft, no tenderness, guarding & rebound Assessment and Plan Cleared for EGD
--- NOTE | 2016-11-29 14:01 | Discharge Instructions ---
Endoscopy Patient Instructions Date / Procedure(s) Performed Nov 29, 2016. EGD Allergy Information Coded Allergies: POLLEN (Verified Allergy, Mild, ITCHING/SNEEZING, 11/29/16) Clonazepam (Verified Allergy, Unknown, SOB AND DIFFICULTY WALKING, 11/29/16 ) Discharge Date / Findings Nov 29, 2016. Esophagitis. Dilation performed. Biopsies obtained. Medication Instructions Stopped Medication(s): STOPPED SUNDAY DO TO INABILITY TO SWALLOW Restart Stopped Medication(s): Restart medications. Take pantoprazole before breakfast and before supper. Take ranitidine (Zantac) after supper. Provider Instructions Activity Restrictions - No exercising or heavy lifting for 24 hours. - Do not drink alcohol the day of the procedure. - Do not drive a car or operate machinery until the day after the procedure. - Do not make any important decisions or sign important papers in 24 hours after the procedure. Following Day: - Return to full activity which may include returning to work/school. Diet Start your diet with liquids and light foods (jello, soup, juice, toast). Then eat your usual diet if not nauseated. Treatment For Common After Affects For mild abdominal pain, bloating, or excessive gas: - Rest - Eat lightly - Lie on right side Follow-Up Information Follow-up with JANAE as scheduled Anesthesia Information What You Should Know You have had a procedure that required some medicine to reduce anxiety and discomfort. This treatment is called moderate sedation. After receiving the treatment, you may be sleepy, but you will be able to breathe on your own. The effects of the treatment may last for several hours. Follow these instructions along with Activity/Diet recommendations noted above: * Do NOT do anything where dizziness or clumsiness would be dangerous. * Rest quietly at home today, then you can be up and about tomorrow. * Have a responsible person stay with you the rest of today. * You may have had an I.V. today. If so, you may take the dressing off later today. Recommendations Call your doctor if: * Trouble breathing * Continuous vomiting for more than 24 hours * Temperature above 101 degrees * Severe abdominal pain or bloating * Pain not relieved by pain medicine ordered * There is increased drainage or redness from any incision * A large amount of rectal bleeding greater than 2-3 tablespoons. (If you had a polyp/s removed or have hemorrhoids, a small amount of blood - from the rectum is to be expected.) * You have any unanswered questions or concerns. IN THE EVENT OF A SERIOUS EMERGENCY, GO TO THE NEAREST EMERGENCY ROOM Your discharge instructions were prepared by provider Medhat Choi. Patient Instructions Signature Page Lata Griffith Patient (or Guardian) Signature/Date: I have read and understand the instructions given to me by my caregivers. Caregiver/RN/Doctor Signature/Date: The above-named patient and/or guardian has received patient instructions on this date. + Original Patient Signature Page (only) stays with chart. Please make copy for patient.
--- NOTE | 2016-11-29 14:14 | Anesthesiology Progress Note ---
Anesthesia Post Op Note Date & Time Nov 29, 2016 at 14:14 Vital Signs Pain Intensity: 0 Vital Signs Past 12 Hours Date Time Temp Pulse Resp B/P (MAP) Pulse Ox O2 Delivery O2 Flow Rate FiO2 11/29/16 13:01 37.1 72 20 139/68 (91) 97 Room Air Notes Mental Status: alert / awake / arousable, participated in evaluation Pt Amnestic to Procedure: Yes Nausea / Vomiting: adequately controlled Pain: adequately controlled Airway Patency, RR, SpO2: stable & adequate BP & HR: stable & adequate Hydration State: stable & adequate Anesthetic Complications: no major complications apparent
[2016-11-29 14:33] VITALS: BP 141/92; PULSE 82; O2SAT 98
--- NOTE | 2016-11-30 00:15 | GI REPORT ---
Procedure Date: 11/29/2016 1:36 PM Procedure: Upper GI endoscopy Indications: Dysphagia Medicines: Propofol per Anesthesia Complications: No immediate complications. Estimated blood loss: None. Estimated Blood Loss: Estimated blood loss: none. Procedure: Pre-Anesthesia Assessment: - Prior to the procedure, a History and Physical was performed, and patient medications, allergies and sensitivities were reviewed. The patient's tolerance of previous anesthesia was reviewed. - ASA Grade Assessment: II - A patient with mild systemic disease. After obtaining informed consent, the endoscope was passed under direct vision. Throughout the procedure, the patient's blood pressure, pulse, and oxygen saturations were monitored continuously. The scope was introduced through the mouth, and advanced to the third part of duodenum. The upper GI endoscopy was accomplished with ease. The patient tolerated the procedure well. Findings: No endoscopic abnormality was evident in the esophagus to explain the patient's complaint of dysphagia. It was decided, however, to proceed with dilation of the entire esophagus. A guidewire was placed and the scope was withdrawn. Dilation was performed with an Kazakh dilator with no resistance at 48 Fr and 51 Fr. LA Grade D (one or more mucosal breaks involving at least 75% of esophageal circumference) esophagitis with no bleeding was found in the lower third of the esophagus. Biopsies were taken with a cold forceps for histology. The Z-line was regular and was found 35 cm from the incisors. A hiatus hernia was present. The stomach was normal. The examined duodenum was normal. Verification of patient identification for the specimen was done by the physician and nurse using the patient's name, date and medical record number. Impression: - No endoscopic esophageal abnormality to explain patient's dysphagia. Esophagus dilated. Dilated. - LA Grade D reflux esophagitis. Biopsied. - Z-line regular, 35 cm from the incisors. - Hiatus hernia. - Normal stomach. - Normal examined duodenum. Recommendation: - Await pathology results. - Discharge patient to home (with escort). Medhat Choi M.D. Medhat Choi MD 11/29/2016 2:04:58 PM This report has been signed electronically. Note Initiated On: 11/29/2016 1:36 PM I attest to the content of the Intraoperative Record and orders documented therein, exceptions below
== END | disposition home or self-care (01) ==
LOC: C.GI 12:13
PROVIDERS: ATTEND Internal Medicine Gastroenterology
DX: K21.0 Gastro-esophageal reflux disease with esophagitis (principal); R13.10 Dysphagia, unspecified; K44.9 Diaphragmatic hernia without obstruction or gangrene; J45.909 Unspecified asthma, uncomplicated; F41.9 Anxiety disorder, unspecified; G40.909 Epilepsy, unspecified, not intractable, without status epilepticus; Z80.0 Family history of malignant neoplasm of digestive organs; Z79.899 Other long term (current) drug therapy

== ENCOUNTER 2017-05-04 10:42 | Emergency (ER) | payer OTHER ==
[~2017-05-04] VITALS: Ht 175.3 cm; Wt 99.0 kg
[~2017-05-04 10:42] MED LIST changes: +ALOS0.5T PO; -LIDOCAINE HCL 2% 2 ML VIAL (20MG/ML) ONE; +OXYC1TAB3 PO; +PANT40TA2 PO; -PROPOFOL IV EMULSION 10 MG/ML 20 ML VIAL IV ONE; -PRT/40 PO; -SODIUM CHLORIDE 0.9% 500ML 500 ML IV ONE; -[UNRECOGNIZED DRUG - CODE] PO
[2017-05-04 10:47] VITALS: TEMP 36.9; Ht 175.3 cm; Wt 99.0 kg
[2017-05-04] MEDS ORDERED: KETOROLAC TROMETHAMINE 60 MG/2 ML VIAL IM STA (11:11)
[2017-05-04] MEDS ORDERED: CYCLOBENZAPRINE HCL 5 MG TAB PO STA (11:11)
--- NOTE | 2017-05-04 11:17 | EMERGENCY ROOM VISIT NOTE ---
ED Visit Note First contact with patient: 10:55 CHIEF COMPLAINT: Low back pain HISTORY OF PRESENT ILLNESS: This 42-year-old female patient presents to the emergency department ambulatory, via POV, complaining of pain in the low back which began yesterday. The patient states she had placed toys on the stairs, and as she was walking down, she tripped. The patient did not fall, and was able to catch herself. The pain was gradual in onset, is now constant and worse with movement. The patient did have difficulty sleeping due to the pain last night. She has been using BenGay, and taking 400 mg ibuprofen last night, at 4 AM, and again this morning. The pain has been severe since the middle of the night, and did wake her from sleep. The patient notes the pain as throbbing , with paresthesias radiating down the right leg, and a 10/10. The patient denies any loss of control of their bowel or bladder functions. There has been no leg numbness or weakness, and no change in sensation. No nausea or vomiting or abdominal pain. No chest pain or shortness of breath. The patient has not had prior back injuries, but does have a history of sciatica. She states the pain feels similar to the sciatica pain she has experienced in the past, however this is much more severe. No dysuria or increased urinary frequency. REVIEW OF SYSTEMS: A 10 system review of systems was performed with positives and pertinent negatives listed in the history of present illness. All other systems were reviewed and are negative. ALLERGIES: Clonazepam, pollen MEDICATIONS: amitriptyline PMH: Difficulty sleeping SOCIAL HISTORY: The patient lives locally with family. She denies drug, alcohol , tobacco use. PHYSICAL EXAM: VITALS: Vitals are noted on the nurse's note and reviewed by myself. Vital signs stable. GENERAL: This is a 42-year-old white female, in no acute distress, nondiaphoretic, well-developed well-nourished. SKIN: The skin was without rashes, erythema, edema, or bruising. Capillary refill less than 2 seconds. NECK: Supple without nuchal rigidity. No cervical spine tenderness. No paraspinous muscle tenderness. HEART: Regular rate and rhythm without murmurs gallops or rubs. LUNGS: Clear to auscultation bilaterally without wheezes, rales or rhonchi. ABDOMEN: Positive bowel sounds x 4. Normal tympanic percussion. Soft, nontender, without masses or organomegaly. Maradiaga sign negative. MUSCULOSKELETAL: No muscle atrophy, erythema, or edema noted of the back. There is tenderness over the lumbar spinous processes. There is tenderness over the paraspinous muscles bilaterally. There is no tenderness over the thoracic spine or paraspinous muscles. There are muscle spasms present. The patient is slow to move around with maximum tenderness with any position changes. Positive straight leg raise test bilaterally. NEURO: Patient was alert and oriented to person place and time. Normal sensation to light and sharp touch. Deep tendon reflexes 2+ in the lower extremities. Dorsalis pedis pulse 2+ bilaterally. Strength 5/5 and equal in the bilateral lower extremities. RADIOLOGY: L-SPINE MIN 4 VIEWS ROUTINE HISTORY: Pain low back pain COMPARISON: 02/15/2011 FINDINGS: There is no fracture. No subluxation. Disc spaces are preserved. IMPRESSION: No fracture or subluxation within the lumbar spine. The above report was generated using voice recognition software. It may contain grammatical, syntax or spelling errors. Electronically signed by: Lai Blake M.D. 05/04/2017 11:29 AM Dictated Date/Time: 05/04/2017 11:29 AM EMERGENCY DEPARTMENT COURSE: The patient was seen and evaluated as above. She presents today complaining of significant low back pain after tripping and almost falling down the stairs. The patient did not actually fall, but was able to catch herself. Her symptoms are consistent with a back strain, however she does report chronic low back pain, and has not had recent x-rays performed. X-ray was insignificant for fracture or subluxation. The patient was initially treated with 60 mg Toradol and 10 mg Flexeril. She did not note significant improvement in her pain on reevaluation. I discussed with the patient the negative x-rays. She was given 5 mg OxyIR for her discomfort and did report mild improvement. Discharge instructions reviewed, and the patient was discharged home in good condition. I attest that I have personally reviewed the patient's current medication list. Blood Pressure Screening: Patient was found to have a slightly elevated blood pressure due to circumstances. I do not believe that the patient requires hypertension monitoring. Etiologies such as lumbago, sciatica, cauda equina, epidural abscess, osteomyelitis, fracture, aortic disease, metastatic disease, infection, renal colic, gastrointestinal, as well as others were entertained. DIAGNOSIS: Lumbar strain Problem List Medical Problems: (1) Abdominal pain Status: Resolved (2) Abdominal pain Status: Resolved (3) Abdominal pain Status: Resolved (4) Acute gastroenteritis Status: Resolved (5) Anxiety Status: Chronic (6) Asthma, Unspecified, W (Acute) Exacerbation Status: Chronic (7) Back pain Status: Resolved (8) Barretts esophagus Status: Chronic (9) Bipolar Disorder, Unspecified Status: Chronic (10) Blindness, One Eye Status: Chronic (11) Bronchitis Status: Resolved (12) section Status: Resolved (13) Dehydration Status: Resolved (14) Deliver-Single Liveborn Status: Resolved (15) Esophageal Reflux Status: Chronic (16) Hyperventilation Status: Resolved (17) Hyperventilation Status: Resolved (18) Hyperventilation Status: Resolved (19) Hypokalemia Status: Resolved (20) Hypokalemia, gastrointestinal losses Status: Resolved (21) IBS (irritable bowel syndrome) Status: Chronic (22) Intractable pain Status: Chronic (23) Intractable vomiting Status: Resolved (24) Mesenteric adenitis Status: Resolved (25) Migraine Unspecified W/O Intractable Migraine Status: Chronic (26) Ovarian Cyst Nec/Nos Status: Resolved (27) Sterilization Status: Chronic (28) Tension headache Status: Resolved (29) Tension headache Status: Resolved (30) Urin Tract Infection Nos Status: Resolved (31) UTI (lower urinary tract infection) Status: Resolved Surgical Problems: (1) History of cholecystectomy Status: Resolved (2) History of tubal ligation Status: Resolved Current/Historical Medications Scheduled Alosetron Hcl (Lotronex), 0.5 MG PO QAM Amitriptyline HCl (Amitriptyline HCl), 25 MG PO HS Chlordiazepoxide/Clidinium (Librax 5MG/2.5MG), 2 CAP PO BIDM Colestipol Hcl (Colestipol Hcl), 1 GM PO BID Cyclobenzaprine Hcl (Flexeril), 5-10 MG PO TID Eluxadoline (Viberzi), 75 MG PO BID Glycopyrrolate (Glycopyrrolate), 2 MG PO TIDM Medroxyprogesterone Acetate (C (Depo-Provera Contraceptiv), 1 DOSE IM Q3MO Pantoprazole (Pantoprazole Sodium), 40 MG PO BID Paroxetine (Paxil), 40 MG PO QAM Ranitidine (Zantac), 300 MG PO HS Sucralfate (Carafate), 1 GM PO QID Zolpidem Tartrate (Ambien), 10 MG PO HS Scheduled PRN Acetaminophen Tab (Tylenol), 1-2 TABS PO Q4 PRN for Pain Dicyclomine Hcl (Dicyclomine Hcl), 10 MG PO QID PRN for Abdominal Pain Diphenhydramine Hcl (Benadryl Allergy), 25 MG PO QID PRN for ALLERGIES Ibuprofen (Motrin), 400 MG PO Q6H PRN for Pain Ondasetron Odt (Zofran Odt), 4 MG SL Q6H PRN for Nausea Oxycodone Ir (Roxicodone Ir), 1 TAB PO Q6 PRN for Pain Prochlorperazine Maleate (Compazine), 5 MG PO Q6H PRN for Nausea Sumatriptan Succinate (Imitrex Nasal [place]), 1 SPRAY NA UD PRN for Migraine Tramadol (Ultram), 50 MG PO QID PRN for Pain Zolpidem Tartrate (Ambien), 5 MG PO HS PRN for Sleep Allergies Coded Allergies: POLLEN (Verified Allergy, Mild, ITCHING/SNEEZING, 05/04/17) Clonazepam (Verified Allergy, Unknown, SOB AND DIFFICULTY WALKING, 05/04/17 ) Vital Signs Date Time Temp Pulse Resp B/P (MAP) Pulse Ox O2 Delivery O2 Flow Rate FiO2 05/04/17 12:45 77 20 134/89 100 Room Air 05/04/17 10:47 36.9 100 20 135/92 99 Medications Administered Medications (Trade) Dose Ordered Sig/Magdalene Route Start Time Stop Time Status Last Admin Dose Admin Ketorolac Tromethamine (Toradol Inj) 60 mg NOW STAT IM 05/04/17 11:11 05/04/17 11:13 DC 05/04/17 11:26 60 MG Cyclobenzaprine HCl (Flexeril Tab) 10 mg NOW STAT PO 05/04/17 11:11 05/04/17 11:13 DC 05/04/17 11:25 10 MG Oxycodone HCl (Roxicodone Immediate Rel Tab) 5 mg NOW STAT PO 05/04/17 12:31 05/04/17 12:33 DC 05/04/17 12:43 5 MG Departure Information Impression Primary Impression: Strain of lumbar region Dispostion Home / Self-Care Condition GOOD Prescriptions Oxycodone Ir (Roxicodone Ir) 5 Mg Tab 1 TAB PO Q6 Y for Pain, #4 TAB For Initial Treatment Prov: Linda Alcala PA-C 05/04/17 Cyclobenzaprine Hcl (FLEXERIL) 5 Mg Tab 5-10 MG PO TID, #20 TAB PRN Prov: Linda Alcala PA-C 05/04/17 Referrals RV. Schwab MD (PCP) Patient Instructions ED Low Back Pain Injury, My [facility] Additional Instructions You have been treated in the Emergency Department for Back Pain. You have received pain medicine in the emergency department which impairs your ability to operate a vehicle. It is illegal for you to drive after receiving these medicines. You have been prescribed OxyIR to be used for pain control. This is a narcotic medication. You cannot drive or consume alcohol while on this medicine. This medicine should only be used for pain that cannot be controlled with over-the- counter pain medicines. You have been prescribed Flexeril (cyclobenzaprine) 1-2 tabs orally, three times per day. Do NOT exceed 30 mg (6 tabs) per day. Take your first dose at bedtime as it can make you drowsy. Always take all medications as prescribed. For pain control, you can use the following [id number] medicines (if >12 yo): Ibuprofen(Motrin, Advil) may be used for fever or pain. Use 600mg every six hours as needed. Take with food. Avoid using more than 2400mg in a 24 hour period. Do not use 2400mg per day for more than three consecutive days without physician direction. Prolonged inappropriate use can lead to stomach upset or ulcers. (AND/OR) Acetaminophen(Tylenol) may be used for fever or pain. Use 1000mg every six hours as needed. Avoid using more than 3000mg in a 24 hour period. If this is an acute injury, ice can be applied to the area of pain for the first 3 days to help decrease pain and inflammation. After the first 3 days, a heating pad can be used over the area for continued soothing relief. You should schedule a follow-up appointment in 2-3 days with your Primary Care Provider for further evaluation and treatment of your back pain. As discussed, you should follow-up with your PCP regarding ongoing pain issues. Return to the Emergency Department if your current symptoms worsen despite treatment course outlined above, or if you develop any of the following symptoms : intractable pain despite aforementioned treatment course, loss of control of your bowel or bladder, numbness or tingling in your groin, or development of a fever. Problem Qualifiers Primary Impression: Strain of lumbar region Encounter type: initial encounter Qualified Codes: S39.012A - Strain of muscle, fascia and tendon of lower back, initial encounter
--- NOTE | 2017-05-04 11:31 | DIAGNOSTIC IMAGING REPORT ---
L-SPINE MIN 4 VIEWS ROUTINE HISTORY: Pain low back pain COMPARISON: 02/15/2011 FINDINGS: There is no fracture. No subluxation. Disc spaces are preserved. IMPRESSION: No fracture or subluxation within the lumbar spine. The above report was generated using voice recognition software. It may contain grammatical, syntax or spelling errors. Electronically signed by: Lai Blaek M.D. 05/04/2017 11:29 AM Dictated Date/Time: 05/04/2017 11:29 AM
[2017-05-04] MEDS ORDERED: IBUP-1459 PO (11:32)
[2017-05-04] MEDS ORDERED: OXYCODONE HCL IR 5 MG TAB (IMMEDIATE RELEASE) PO STA (12:31)
[2017-05-04] MEDS ORDERED: CYCL5TAB PO (12:39)
[2017-05-04] MEDS ORDERED: OXYC1TAB3 PO (12:39)
[2017-05-04 12:45] VITALS: BP 134/89; PULSE 77; O2SAT 100
== END 2017-05-04 12:53 | disposition home or self-care (01) ==
LOC: C.EDB 10:43 → C.EDD 12:53
DX: S39.012A Strain of muscle, fascia and tendon of lower back, initial encounter (principal); W10.9XXA Fall (on) (from) unspecified stairs and steps, initial encounter; F41.9 Anxiety disorder, unspecified; J45.909 Unspecified asthma, uncomplicated; K22.70 Barrett's esophagus without dysplasia; K58.9 Irritable bowel syndrome, unspecified

== ENCOUNTER 2017-08-09 10:48 | Emergency (ER) | payer OTHER ==
[~2017-08-09] VITALS: Ht 175.3 cm; Wt 98.5 kg
[~2017-08-09 10:48] MED LIST changes: +ACET-1693 PO; -ACET325T96 PO; +IBUP-1459 PO
[2017-08-09 10:58] VITALS: TEMP 37.3; Ht 175.3 cm; Wt 98.5 kg
[2017-08-09] MEDS ORDERED: ONDANSETRON INJ 2 MG/ML 2 ML VIAL IV STA (11:20)
[2017-08-09] MEDS ORDERED: SODIUM CHLORIDE 0.9% 1000ML 1,000 ML IV STA (11:20)
[2017-08-09 11:32] LABS: BASO % 0.9 %; BASO ABS # 0.09 K/uL (0-0.2); EOS % 1.9 %; EOS ABS # 0.19 K/uL (0-0.5); HEMATOCRIT 38.8 % (37-47); HEMOGLOBIN 12.6 g/dL (12.0-16.0); IG# 0.04 K/uL (0.00-0.02); LYMPH % 28.8 %; LYMPH ABS # 2.87 K/uL (1.2-3.4); MEAN CELL VOLUME 92.2 fL (80-100); MEAN CORPUSCULAR HEMOGLOBIN 29.9 pg (25-34); MEAN CORPUSCULAR HGB CONC 32.5 g/dl (32-36); MEAN PLATELET VOLUME 9.8 fL (7.4-10.4); MONO % 8.6 %; MONO ABS # 0.86 K/uL (0.11-0.59); NEUT % 59.4 %; PLATELET COUNT 328 K/uL (130-400); RED CELL DISTRIBUTION WIDTH CV 13.7 % (11.5-14.5); RED CELL DISTRIBUTION WIDTH SD 45.7 fL (36.4-46.3); WHITE BLOOD COUNT 9.95 K/uL (4.8-10.8)
[2017-08-09] MEDS ORDERED: OPTIRAY 320 IV PRN (11:45)
[2017-08-09] MEDS ORDERED: MoRPHine SULFATE 10 MG/ML CARP/VIAL IV STA ×2 (11:48→12:52)
[2017-08-09 11:54] LABS: ALBUMIN 4.4 gm/dl (3.4-5.0); ALT/SGPT 20 U/L (12-78); AST/SGOT 7 U/L (15-37); BLOOD UREA NITROGEN 7 mg/dl (7-18); CALCIUM 9.4 mg/dl (8.5-10.1); CARBON DIOXIDE 24 mmol/L (21-32); CREATININE 0.84 mg/dl (0.60-1.20); GLUCOSE 95 mg/dl (70-99); LIPASE 92 U/L (73-393); POTASSIUM 3.2 mmol/L (3.5-5.1); SODIUM 138 mmol/L (136-145)
[2017-08-09 11:57] LABS: ALKALINE PHOSPHATASE 96 U/L (45-117); TOTAL PROTEIN 8.4 gm/dl (6.4-8.2)
[2017-08-09] MEDS ORDERED: AMT50 PO (12:49)
--- NOTE | 2017-08-09 14:19 | DIAGNOSTIC IMAGING REPORT ---
CT OF THE ABDOMEN AND PELVIS WITH CONTRAST CLINICAL HISTORY: Right sided abdominal pain, nausea and vomiting. COMPARISON STUDY: CT of the abdomen and pelvis July 23, 2016 and abdominal series September 24, 2016. TECHNIQUE: Following IV administration of 93 mL of Optiray-320, axial images of the abdomen and pelvis were obtained from the lung bases to the proximal femurs. Images were reviewed in the axial, sagittal, and coronal planes. IV contrast was administered without complication. A dose lowering technique was utilized adhering to the principles of ALARA. Oral contrast was administered. CT DOSE: 863.22 mGy.cm FINDINGS: A 2 mm right renal calculus is present. There are no ureteral calculi. There is no hydronephrosis. Note is made of a 1.2 cm cyst within the upper pole the right kidney. There is no biliary ductal dilatation status post cholecystectomy. There is no peripancreatic infiltration. There may be fatty infiltration of the liver. The spleen and adrenal glands are normal. There is no evidence for a bowel obstruction. The appendix is normal. There is sigmoid diverticulosis without evidence for acute diverticulitis. There is no free fluid within the abdomen or the pelvis. The ovaries are not enlarged. There is no lymphadenopathy. No suspicious osseous lesions are present. IMPRESSION: 1. No acute process within the abdomen or pelvis. Normal appendix. No bowel obstruction. 2. Punctate right renal calculus. No ureteral calculi. No hydronephrosis. Electronically signed by: Kp Stafford M.D. 08/09/2017 2:18 PM Dictated Date/Time: 08/09/2017 2:12 PM
[2017-08-09] MEDS ORDERED: KETOROLAC TROMETHAMINE 30 MG/ML VIAL IV STA (15:06)
--- NOTE | 2017-08-09 16:17 | DIAGNOSTIC IMAGING REPORT ---
ULTRASOUND OF THE PELVIS CLINICAL HISTORY: Right pelvic pain. COMPARISON STUDY: Pelvic CT dated 08/09/2017. TECHNIQUE: Real-time, grayscale, and color flow sonography of the pelvis is performed both transabdominally and endovaginally. Images are reviewed in the transverse and longitudinal planes. FINDINGS: Uterus: The uterus is normal in size and echotexture, measuring 7.5 x 2.6 x 5.1 cm. Endometrium: The endometrium is normal in appearance, and the endometrial stripe is normal in thickness measuring up to 0.3 cm. Ovaries: The right ovary was not visualized. The left ovary is normal as imaged, measuring 2.7 x 1.6 x 1.6 cm. Normal Doppler waveforms are shown in the left ovary. Pelvis: There is no free fluid in the cul-de-sac. No concerning adnexal lesion is seen. IMPRESSION: 1. No acute sonographic abnormality is identified in the pelvis 2. The right ovary was not visualized. Electronically signed by: Kevin Panda M.D. 08/09/2017 4:16 PM Dictated Date/Time: 08/09/2017 4:14 PM
[2017-08-09 17:07] VITALS: BP 120/91; PULSE 81; O2SAT 94
[2017-08-09] MEDS ORDERED: DICY10CA55 PO (17:08)
--- NOTE | 2017-08-09 19:16 | EMERGENCY ROOM VISIT NOTE ---
ED Visit Note First contact with patient: 11:10 Chief Complaint: Abdominal pain History of Present Illness: Ms. Griffith is a 42 year-old white female complaining of right lower quadrant abdominal pain. Historically patient reports chronic abdominal pain gastroenteritis, Greenfield's esophagus, irritable bowel syndrome, gastric reflux, mesenteric adenitis, urinary tract infections, ovarian cysts and status post tubal ligation, section and cholecystectomy. Patient reports yesterday she started experiencing diarrhea. Since that time it has been constant but she is unsure of exactly how many times she had it. She describes it as whitish in color and mostly liquid. She then reports at approximately 5 AM this morning, approximately 6 hours ago she had an acute onset of severe right lower quadrant abdominal pain. Since that time the pain has been constant. She describes her pain as a sharp sensation that goes in the right lower quadrant and heads diagonally towards the iliac crest area. She reports the pain is constant. She rates her discomfort 10/10. She has not identified any aggravating or alleviating factors related to the pain. She reports taken ibuprofen without relief of her discomfort. Associated with her pain she has been nauseated and has had multiple episodes of vomiting and she reports 102 fever associated with chills. She denies sweats, skin eruptions, skin color changes, upper respiratory tract symptoms, shortness of breath, chest pain, constipation, rectal bleeding, black /tarry stools, urinary symptoms, hematuria, vaginal bleeding, vaginal discharge , back/flank pain. Review of Systems: As noted above in history of present illness. All body systems were reviewed and found to be negative as noted above. Past Medical History: As previously noted, anxiety, asthma, bipolar disorder, bronchitis, migraine, tension headache, Current Medications: Medications Dose Route/Sig Max Daily Dose Days Date Category Dose Instructions Elavil (Amitriptyline HCl) 50 Mg Tab 50 Mg PO HS 08/09/17 Reported Motrin (Ibuprofen) 400 Mg Tab 400 Mg PO Q6H PRN 05/04/17 Reported Paxil (Paroxetine HCl) 40 Mg Tab 40 Mg PO QAM 11/28/16 Reported Benadryl Allergy (Diphenhydramine Hcl) 25 Mg Cap 25 Mg PO QID PRN 11/28/16 Reported Ambien (Zolpidem Tartrate) 5 Mg Tab 5 Mg PO HS 11/28/16 Reported PATIENT STATES DOSE INCREASED TO 25MG Ambien (Zolpidem Tartrate) 10 Mg Tab 20 Mg PO HS 11/28/16 Reported PATIENT STATES DOSE INCREASED TO 25MG Colestipol Hcl 1 Gm Tab 1 Gm PO BID 11/28/16 Reported Librax 5MG/2.5MG (Chlordiazepoxide/Clidinium) Cap 2 Cap PO BIDM 11/28/16 Reported Glycopyrrolate 2 Mg Tab 2 Mg PO TIDM 11/28/16 Reported Carafate (Sucralfate) 1 Gm Tab 1 Gm PO QID 11/28/16 Reported Compazine (Prochlorperazine Maleate) 5 Mg Tab 5 Mg PO Q6H PRN 11/28/16 Reported Viberzi (Eluxadoline) 75 Mg Tab 75 Mg PO BID 11/28/16 Reported Zantac (Ranitidine HCl) 300 Mg Tab 300 Mg PO HS PRN 11/28/16 Reported Depo-Provera Contraceptiv (Medroxyprogesterone Acetate (C) 150 Mg/Ml Inj 1 Dose IM UD 11/28/16 Reported EVERY 10 WEEKS Imitrex Nasal Sula (Sumatriptan Succinate) 5 Mg Aers 1 Sula NA UD PRN 04/26/16 Reported Dicyclomine Hcl 10 Mg Cap 10 Mg PO QID PRN 12/10/15 Reported Pantoprazole Sodium (Pantoprazole) 40 Mg Tab 40 Mg PO BID 12/10/15 Reported Zofran Odt (Ondansetron HCl) 4 Mg Tab 4 Mg SL Q6H PRN 12/10/15 Reported ALLOW TABLET TO DISSOLVE ON TONGUE Ultram (Tramadol HCl) 50 Mg Tab 50 Mg PO QID PRN 11/11/15 Reported Lotronex (Alosetron Hcl) 0.5 Mg Tab 0.5 Mg PO QAM 03/03/15 Reported Allergies to Medications: Diazepam. Social History: Patient is not employed; she feels safe in her home environment ; she denies tobacco and alcohol use. Physical Examination: Vital Signs: Date Time Temp Pulse Resp B/P (MAP) Pulse Ox O2 Delivery O2 Flow Rate FiO2 08/09/17 17:07 81 16 120/91 94 08/09/17 16:47 77 16 144/96 100 Room Air 08/09/17 15:14 81 18 129/80 97 Room Air 08/09/17 14:53 85 18 117/93 99 Room Air 08/09/17 13:12 83 16 123/74 98 Room Air 08/09/17 12:15 24 96 Room Air 08/09/17 10:58 37.3 87 18 165/66 94 Room Air GENERAL: 42-year-old female in moderate distress due to pain, nontoxic-appearing , afebrile and hemodynamically stable. NEUROLOGICAL: Awake, alert and oriented to person, place and time. Answering questions appropriately and following commands. Normal gait. Good hand eye coordination. SKIN: Warm, dry and pink. No soft tissue eruptions or trauma noted. HEENT: Atraumatic and normocephalic. PERRLA. Sclera white and conjunctiva pink. Oral cavity moist and pink. Pharynx is nonerythematous or edematous. Speech normal. No lymphadenopathy. Trachea midline. No jugular venous distention. BACK: No tenderness over the bony spine. No CVA tenderness. THORAX: Lungs sounds are clear to auscultation and equal bilaterally with symmetrical chest wall. No wheezing, rales or rhonchi. No crepitus, tenderness , subcutaneous air or deformities noted. HEART: Regular rate and rhythm. No gallops, rubs or murmurs are appreciated. ABDOMEN: Flat and soft with moderate tenderness in the right lower quadrant just superior to McBurney's point. Positive bowel sounds in all quadrants. No guarding, rigidity or organomegaly. EXTREMITIES: Moves all extremities well on command and with purpose. All distal neurovascular statuses are intact and equal bilaterally. ED Course: Patient is assessed as noted above. Laboratory Testing: Test 08/09/17 11:08 08/09/17 12:55 Range/Units White Blood Count 9.95 4.8-10.8 K/uL Red Blood Count 4.21 4.2-5.4 M/uL Hemoglobin 12.6 12.0-16.0 g/dL Hematocrit 38.8 37-47 % Mean Corpuscular Volume 92.2 80-100 fL Mean Corpuscular Hemoglobin 29.9 25-34 pg Mean Corpuscular Hemoglobin Concent 32.5 32-36 g/dl Platelet Count 328 130-400 K/uL Mean Platelet Volume 9.8 7.4-10.4 fL Neutrophils (%) (Auto) 59.4 % Lymphocytes (%) (Auto) 28.8 % Monocytes (%) (Auto) 8.6 % Eosinophils (%) (Auto) 1.9 % Basophils (%) (Auto) 0.9 % Neutrophils # (Auto) 5.90 1.4-6.5 K/uL Lymphocytes # (Auto) 2.87 1.2-3.4 K/uL Monocytes # (Auto) 0.86 0.11-0.59 K/uL Eosinophils # (Auto) 0.19 0-0.5 K/uL Basophils # (Auto) 0.09 0-0.2 K/uL RDW Standard Deviation 45.7 36.4-46.3 fL RDW Coefficient of Variation 13.7 11.5-14.5 % Immature Granulocyte % (Auto) 0.4 % Immature Granulocyte # (Auto) 0.04 0.00-0.02 K/uL Sodium Level 138 136-145 mmol/L Potassium Level 3.2 3.5-5.1 mmol/L Chloride Level 108 98-107 mmol/L Carbon Dioxide Level 24 21-32 mmol/L Anion Gap 7.0 3-11 mmol/L Blood Urea Nitrogen 7 7-18 mg/dl Creatinine 0.84 0.60-1.20 mg/dl Est Creatinine Clear Calc Drug Dose 109.0 ml/min Estimated GFR () 99.4 Estimated GFR (Non- 85.7 BUN/Creatinine Ratio 8.5 10-20 Random Glucose 95 70-99 mg/dl Calcium Level 9.4 8.5-10.1 mg/dl Total Bilirubin 0.4 0.2-1 mg/dl Direct Bilirubin < 0.1 0-0.2 mg/dl Aspartate Amino Transf (AST/SGOT) 7 15-37 U/L Alanine Aminotransferase (ALT/SGPT) 20 12-78 U/L Alkaline Phosphatase 96 45-117 U/L Total Protein 8.4 6.4-8.2 gm/dl Albumin 4.4 3.4-5.0 gm/dl Lipase 92 73-393 U/L Urine Color YELLOW Urine Appearance CLOUDY CLEAR Urine pH 5.5 4.5-7.5 Urine Specific [place] 1.014 1.000-1.030 Urine Protein NEG NEG Urine Glucose (UA) NEG NEG Urine Ketones NEG NEG Urine Occult Blood 1+ NEG Urine Nitrite NEG NEG Urine Bilirubin NEG NEG Urine Urobilinogen NEG NEG Urine Leukocyte Esterase MODERATE NEG Urine WBC (Auto) 10-30 0-5 /hpf Urine RBC (Auto) 0-4 0-4 /hpf Urine Hyaline Casts (Auto) 1-5 0-5 /lpf Urine Epithelial Cells (Auto) >30 0-5 /lpf Urine Bacteria (Auto) 2+ NEG Urine Crystals CALCIUM OXALATE NONE PRSENT Urine Pathogenic Casts 0 /lpf Urine Test NEG NEG Urine Culture: Pending IV abdominal/pelvic contrast CT: Was reviewed by myself and read by the radiologist showing no acute process within the abdomen or pelvis. Normal- appearing appendix. No bowel obstruction. Continued right renal calculi without ureter calculus or hydronephrosis. Pelvic Ultrasound: Was reviewed by myself showing no acute sonographic abnormalities in the pelvis, nonvisualized right ovary, no free fluid in the cul -de-sac and no concerning and the adnexal lesions. Patient was hydrated with normal saline and received a total of 12 mg of morphine IV and 30 mg Toradol IV for pain and 4 mg of Zofran for nausea. Patient was unable to provide a stool sample. Patient was rechecked multiple times during her stay in the emergency department. Patient's case was reviewed with Dr. Carbajal; we agreed on diagnostic approach, treatment, disposition and plan. Patient was educated about today's findings and instructed on her treatment plan ; she verbalized understanding and agreement with this plan. Clinical Impression: Right lower quadrant abdominal pain. Acute on chronic abdominal pain. Decision-Making: Initially my differential diagnosis I considered appendicitis, ovarian torsion, ovarian cyst rupture, bowel obstruction, constipation, perforated viscus, ureter stone, pyelonephritis, irritable bowel syndrome exacerbation and other causes. Disposition: Patient discharged home in stable condition; prior to departure she was reassessed and subjectively reported she was feeling better and rated her discomfort 7/10. She reported resolution of nausea. Plan: Patient was encouraged alternate ibuprofen and acetaminophen every 3 hours as needed for pain. Patient was prescribed Bentyl 20 mg every 6 hours as needed for pain/column spasm. Patient was encouraged to contact her audiovisual tech tomorrow and inform them of today's ED visit and request follow-up care and treatment; she does note that she has a follow-up scheduled for 2 weeks. Patient was encouraged return the ED for worsening pain, worsening vomiting, worsening diarrhea, bloody vomitus, bloody diarrhea, fevers or any new/ concerning symptoms.
== END 2017-08-09 17:12 | disposition home or self-care (01) ==
LOC: C.EDB 10:49 → C.EDA 17:12
DX: R10.31 Right lower quadrant pain (principal); R10.84 Generalized abdominal pain; F41.9 Anxiety disorder, unspecified; J45.909 Unspecified asthma, uncomplicated; F31.9 Bipolar disorder, unspecified; Z88.8 Allergy status to other drugs, medicaments and biological substances

== ENCOUNTER 2017-11-08 10:12 | Emergency (ER) | payer OTHER ==
[~2017-11-08] VITALS: Ht 175.3 cm; Wt 98.0 kg
[~2017-11-08 10:12] MED LIST changes: -ACET-1693 PO; -AMT25 PO; +AMT50 PO; -OXYC1TAB3 PO
[2017-11-08 10:24] VITALS: TEMP 37.2; Ht 175.3 cm; Wt 98.0 kg
[2017-11-08 11:20] LABS: BASO % 0.7 %; BASO ABS # 0.08 K/uL (0-0.2); EOS % 2.3 %; EOS ABS # 0.27 K/uL (0-0.5); HEMOGLOBIN 13.3 g/dL (12.0-16.0); IG# 0.03 K/uL (0.00-0.02); LYMPH % 29.1 %; LYMPH ABS # 3.41 K/uL (1.2-3.4); MEAN CELL VOLUME 90.7 fL (80-100); MEAN CORPUSCULAR HEMOGLOBIN 29.4 pg (25-34); MEAN CORPUSCULAR HGB CONC 32.4 g/dl (32-36); MEAN PLATELET VOLUME 10.1 fL (7.4-10.4); MONO % 7.5 %; MONO ABS # 0.88 K/uL (0.11-0.59); NEUT % 60.1 %; NEUT ABS # 7.04 K/uL (1.4-6.5); PLATELET COUNT 348 K/uL (130-400); RED CELL DISTRIBUTION WIDTH CV 14.3 % (11.5-14.5); RED CELL DISTRIBUTION WIDTH SD 47.7 fL (36.4-46.3); WHITE BLOOD COUNT 11.71 K/uL (4.8-10.8)
[2017-11-08] MEDS ORDERED: ONDANSETRON INJ 2 MG/ML 2 ML VIAL IV STA (11:25)
[2017-11-08] MEDS ORDERED: MoRPHine SULFATE 4 MG/ML 1 ML CARP\\VIAL IV STA (11:25)
[2017-11-08] MEDS ORDERED: SODIUM CHLORIDE 0.9% 1000ML 1,000 ML IV STA (11:25)
[2017-11-08] MEDS ORDERED: FAMOTIDINE 20MG/5ML IV PUSH IV STA (11:30)
[2017-11-08 11:38] LABS: ALBUMIN 4.5 gm/dl (3.4-5.0); CALCIUM 9.5 mg/dl (8.5-10.1); CREATININE 0.9 mg/dl (0.60-1.20); POTASSIUM 3.2 mmol/L (3.5-5.1); TOTAL PROTEIN 8.9 gm/dl (6.4-8.2)
--- NOTE | 2017-11-08 11:44 | EMERGENCY ROOM VISIT NOTE ---
ED Visit Note First contact with patient: 11:01 CHIEF COMPLAINT: Epigastric abdominal pain, nausea/vomiting, diarrhea HISTORY OF PRESENTING ILLNESS: This is a 42-year-old female who presents the emergency department with complaint of epigastric pain, vomiting and diarrhea. She states that she started with vomiting and diarrhea about 1 week ago and has been persistent, she has had mild epigastric pain until last night when the pain became severe. She states that she has not been able to keep anything down that she eats or drinks including pills. She denies any bloody or coffee- ground emesis. She states that she has been having several episodes of watery foul-smelling diarrhea, she denies any bloody or black stools. She rates the pain as severe, states it is in the epigastric area and radiates around into her back, states that her abdomen feels bloated and feels like it is pushing up on her rib cage, is worse with movement, nothing seems to make it better, she rates as 10/10. She has not tried any medications for the pain, stating that she cannot keep anything down. She reports fevers of 100-101 off and on with the symptoms as well. She denies any recent sick contacts with similar symptoms. She cannot recall anything unusual that she ate recently for her symptoms started, though she does mention that she ate shrimp for the first time a little over a week ago. She denies any recent antibiotics in the last few months. She does have a history of IBS, but states that her pain symptoms are usually in her lower abdomen and have never been this severe. Reports abdominal surgeries of and cholecystectomy in the past. REVIEW OF SYSTEMS: A complete 10 point review of systems was reviewed with the patient with pertinent positives and negatives as per history of present illness. All else were negative. PAST MEDICAL HISTORY: Reviewed in chart, see problem list below. SOCIAL HISTORY: Lives at home. She denies tobacco use. ALLERGIES: Reviewed in chart, see below. PHYSICAL EXAM: CONSTITUTIONAL: Pleasant and cooperative. No acute distress, but appears uncomfortable and in pain. Moderately dehydrated. HEENT: Normocephalic, atraumatic. Pupils equal, round and reactive to light, EOMI. TMs normal. Pharynx normal. Dry mucous membranes. NECK: Supple, full active range of motion without discomfort. RESPIRATORY: Clear to auscultation bilaterally with no wheezing, crackles, rhonchi or stridor. Equal expansion bilaterally. CARDIOVASCULAR: Regular rate and rhythm with no murmurs, rubs or gallops. Normal peripheral perfusion. No edema. GASTROINTESTINAL: Diffusely tender throughout the upper abdomen, most tender in the epigastric region. Abdomen is soft and mildly distended. No rebound tenderness or guarding. No palpable masses or HSM. Bowel sounds present in all quadrants. No CVA tenderness bilaterally. MUSCULOSKELETAL: Full range of motion of all joints without discomfort. INTEGUMENTARY: No rash or other significant dermatologic conditions noted. NEUROLOGIC: Alert and oriented X 4 with normal affect. Normal strength and sensation in all 4 extremities. No focal neurologic deficits noted. Normal speech. Normal gait observed. ED COURSE AND MEDICAL DECISION MAKING: CC: Patient presenting with complaint of abdominal pain, nausea and vomiting with diarrhea DIFFERENTIAL DIAGNOSIS: Includes, but not limited to gastroenteritis, gastritis , peptic ulcer disease, food poisoning, cholelithiasis, pancreatitis, colitis, dehydration, electrolyte abnormality, among others. INTERPRETATION OF LABS: Mild leukocytosis (appears consistent with baseline), no anemia, normal platelets, mild hypokalemia, no other significant electrolyte abnormalities, normal renal function, normal liver enzymes and lipase. UA shows hematuria and appears consistent with contamination, no infection. Urine negative. IMAGING: CT ABD/PELVIS IV CONTRAST ONLY CLINICAL HISTORY: Abdominal pain, possible small bowel obstruction. Colitis. COMPARISON STUDY: 08/09/2017 TECHNIQUE: Following the IV administration of 94 mL of Optiray-320, CT scan of the abdomen and pelvis was performed from the lung bases to the proximal femurs. Images are reviewed in the axial, sagittal, and coronal planes. IV contrast was administered without complication. A dose lowering technique was utilized adhering to the principles of ALARA. CT DOSE: 690.34 mGy.cm FINDINGS: Lower chest: There are mild dependent atelectatic changes. Liver: The contrast-enhanced liver is normal in size, contour, and attenuation. There is no intrahepatic biliary ductal dilatation. The hepatic veins and portal veins are patent. Gallbladder: Surgically absent Spleen: Normal in size and attenuation. Pancreas: Unremarkable. Adrenal glands: Unremarkable. Kidneys: There is a punctate nonobstructing right renal calculus. There is a 1 cm right renal cyst. There is no hydronephrosis. Bowel: There are no transition zones indicate bowel obstruction. There is no acute diverticulitis. There is no evidence of acute appendicitis. There is residual contrast within the appendix. Peritoneum: There is no intraperitoneal free air or abdominal ascites. Vasculature: The abdominal aorta is normal in course and caliber. Adenopathy: None. Pelvic viscera: The bladder, and pelvic viscera are unremarkable. Skeletal structures: There is a stable 7 cm lytic focus within the left iliac wing. This contains internal septations. There is no cortical breakthrough. There is a relatively narrow zone of transition. IMPRESSION: 1. No evidence of bowel obstruction. No evidence of free air 2. Punctate nonobstructing right renal calculus 3. No evidence of acute appendicitis 4. No evidence of acute diverticulitis 5. Stable 7 cm lytic focus within the left iliac wing. This has nonaggressive imaging characteristics. MEDICATION RECONCILIATION: I attest that I have personally reviewed the patient 's current medication list. INITIAL VITAL SIGNS REVIEW: I reviewed the patient's initial vital signs and interpret them as follows: T: Afebrile; BP: Normotensive; HR: Mildly tachycardic; RR: Within normal limits; Pulse Ox: Within normal limits on room air. Blood pressure screening: The patient was found to have normal blood pressure on screening and does not require follow-up for repeat blood pressure check. SUMMARY: Patient was evaluated at bedside, history and physical exam performed. Patient is alert and oriented, in no acute distress, but does appear significantly uncomfortable and in pain, resting in the stretcher. Patient is tender throughout the entire abdomen, but most tender in the epigastric area. No acute abdomen. Review of the patient's chart was performed, noting numerous visits to the emergency department over the past few years for abdominal pain. I discussed the patient's history of chronic abdominal problems, she states that this pain is worse and different from her usual IBS pain. Orders were placed at bedside for labs, UA and urine , IV fluids for hydration, IV morphine for pain, IV Zofran for nausea, CT abdomen/pelvis with IV contrast to evaluate abdominal pain. Stool studies were ordered given the history of severe diarrhea. Patient discussed with Dr. Coley, who agrees with my assessment and plan. Labs and imaging reviewed as above. No acute findings. Hematuria discussed with the patient, she states she is on her menses. CT abdomen/pelvis unremarkable, no explanation for patient's pain. Specifically , no evidence of bowel obstruction or perforation. Patient was given a dose of IV Toradol for continued pain management, and was also given a GI cocktail. Patient reassessed multiple times throughout ED stay, she has remained stable, tachycardia improved after IV fluids, and she states that her epigastric pain was really improved after the GI cocktail. I suspect she may have some gastritis or peptic ulcer disease as the cause of her pain. She is already on Protonix and Carafate. Patient was updated on all results and plan for discharge, she was encouraged to follow closely with her PCP and GI specialist. She does note that she has a GI appointment in 1 week, she was encouraged to keep this. Patient was unable to provide a stool sample while in the ED. She was provided with a stool collection kit at discharge and encouraged to discuss stool studies with her PCP if her diarrhea continues. Patient was also given strict return precautions should her symptoms worsen, she verbalized understanding. Patient was discharged home in stable condition and ambulatory. Problem List Medical Problems: (1) Abdominal pain Status: Resolved (2) Abdominal pain Status: Resolved (3) Abdominal pain Status: Resolved (4) Acute gastroenteritis Status: Resolved (5) Anxiety Status: Chronic (6) Asthma, Unspecified, W (Acute) Exacerbation Status: Chronic (7) Back pain Status: Resolved (8) Barretts esophagus Status: Chronic (9) Bipolar Disorder, Unspecified Status: Chronic (10) Blindness, One Eye Status: Chronic (11) Bronchitis Status: Resolved (12) section Status: Resolved (13) Dehydration Status: Resolved (14) Deliver-Single Liveborn Status: Resolved (15) Esophageal Reflux Status: Chronic (16) Hyperventilation Status: Resolved (17) Hyperventilation Status: Resolved (18) Hyperventilation Status: Resolved (19) Hypokalemia Status: Resolved (20) Hypokalemia, gastrointestinal losses Status: Resolved (21) IBS (irritable bowel syndrome) Status: Chronic (22) Intractable pain Status: Chronic (23) Intractable vomiting Status: Resolved (24) Mesenteric adenitis Status: Resolved (25) Migraine Unspecified W/O Intractable Migraine Status: Chronic (26) Ovarian Cyst Nec/Nos Status: Resolved (27) Sterilization Status: Chronic (28) Tension headache Status: Resolved (29) Tension headache Status: Resolved (30) Urin Tract Infection Nos Status: Resolved (31) UTI (lower urinary tract infection) Status: Resolved Surgical Problems: (1) History of cholecystectomy Status: Resolved (2) History of tubal ligation Status: Resolved Current/Historical Medications Scheduled Alosetron Hcl (Lotronex), 0.5 MG PO QAM Amitriptyline Hcl (Elavil), 50 MG PO HS Chlordiazepoxide/Clidinium (Librax 5MG/2.5MG), 2 CAP PO BIDM Colestipol Hcl (Colestipol Hcl), 1 GM PO BID Eluxadoline (Viberzi), 75 MG PO BID Glycopyrrolate (Glycopyrrolate), 2 MG PO TIDM Medroxyprogesterone Acetate (C (Depo-Provera Contraceptiv), 1 DOSE IM UD Pantoprazole (Pantoprazole Sodium), 40 MG PO BID Paroxetine (Paxil), 40 MG PO QAM Sucralfate (Carafate), 1 GM PO QID Zolpidem Tartrate (Ambien), 20 MG PO HS Zolpidem Tartrate (Ambien), 5 MG PO HS Scheduled PRN Dicyclomine Hcl (Dicyclomine Hcl), 10 MG PO QID PRN for Abdominal Pain Diphenhydramine Hcl (Benadryl Allergy), 25 MG PO QID PRN for ALLERGIES Ibuprofen (Motrin), 400 MG PO Q6H PRN for Pain Ondasetron Odt (Zofran Odt), 4 MG SL Q6H PRN for Nausea Prochlorperazine Maleate (Compazine), 5 MG PO Q6H PRN for Nausea Ranitidine (Zantac), 300 MG PO HS PRN for GI Upset Sumatriptan Succinate (Imitrex Nasal [place]), 1 SPRAY NA UD PRN for Migraine Tramadol (Ultram), 50 MG PO QID PRN for Pain Allergies Coded Allergies: POLLEN (Verified Allergy, Mild, ITCHING/SNEEZING, 11/08/17) Clonazepam (Verified Allergy, Unknown, SOB AND DIFFICULTY WALKING, 11/08/17) Vital Signs Date Time Temp Pulse Resp B/P (MAP) Pulse Ox O2 Delivery O2 Flow Rate FiO2 11/08/17 16:25 83 24 125/94 98 Room Air 11/08/17 15:36 81 22 97 Room Air 11/08/17 15:32 123/82 11/08/17 15:06 80 19 97 Room Air 11/08/17 15:01 82 18 119/85 Room Air 11/08/17 14:45 159/75 Room Air 11/08/17 14:06 82 18 141/91 98 Room Air 11/08/17 12:30 82 11/08/17 12:03 149/91 11/08/17 12:02 88 18 149/91 98 Room Air 11/08/17 10:24 37.2 99 18 96 Room Air Laboratory Results 11/08/17 11:10 Red Blood Count 4.52, Mean Corpuscular Volume 90.7, Mean Corpuscular Hemoglobin 29.4, Mean Corpuscular Hemoglobin Concent 32.4, Mean Platelet Volume 10.1, Neutrophils (%) (Auto) 60.1, Lymphocytes (%) (Auto) 29.1, Monocytes (%) (Auto) 7.5, Eosinophils (%) (Auto) 2.3, Basophils (%) (Auto) 0.7, Neutrophils # (Auto) 7.04, Lymphocytes # (Auto) 3.41, Monocytes # (Auto) 0.88, Eosinophils # (Auto) 0.27, Basophils # (Auto) 0.08 11/08/17 11:10 Test 11/08/17 10:48 11/08/17 11:10 Urine Color YELLOW Urine Appearance CLOUDY (CLEAR) Urine pH 5.5 (4.5-7.5) Urine Specific [place] 1.025 (1.000-1.030) Urine Protein 1+ (NEG) Urine Glucose (UA) NEG (NEG) Urine Ketones NEG (NEG) Urine Occult Blood 2+ (NEG) Urine Nitrite NEG (NEG) Urine Bilirubin NEG (NEG) Urine Urobilinogen NEG (NEG) Urine Leukocyte Esterase SMALL (NEG) Urine WBC (Auto) 10-30 /hpf (0-5) Urine RBC (Auto) 5-10 /hpf (0-4) Urine Hyaline Casts (Auto) 1-5 /lpf (0-5) Urine Epithelial Cells (Auto) >30 /lpf (0-5) Urine Bacteria (Auto) 1+ (NEG) White Blood Count 11.71 K/uL (4.8-10.8) Red Blood Count 4.52 M/uL (4.2-5.4) Hemoglobin 13.3 g/dL (12.0-16.0) Hematocrit 41.0 % (37-47) Mean Corpuscular Volume 90.7 fL (80-100) Mean Corpuscular Hemoglobin 29.4 pg (25-34) Mean Corpuscular Hemoglobin Concent 32.4 g/dl (32-36) Platelet Count 348 K/uL (130-400) Mean Platelet Volume 10.1 fL (7.4-10.4) Neutrophils (%) (Auto) 60.1 % Lymphocytes (%) (Auto) 29.1 % Monocytes (%) (Auto) 7.5 % Eosinophils (%) (Auto) 2.3 % Basophils (%) (Auto) 0.7 % Neutrophils # (Auto) 7.04 K/uL (1.4-6.5) Lymphocytes # (Auto) 3.41 K/uL (1.2-3.4) Monocytes # (Auto) 0.88 K/uL (0.11-0.59) Eosinophils # (Auto) 0.27 K/uL (0-0.5) Basophils # (Auto) 0.08 K/uL (0-0.2) RDW Standard Deviation 47.7 fL (36.4-46.3) RDW Coefficient of Variation 14.3 % (11.5-14.5) Immature Granulocyte % (Auto) 0.3 % Immature Granulocyte # (Auto) 0.03 K/uL (0.00-0.02) Anion Gap 8.0 mmol/L (3-11) Est Creatinine Clear Calc Drug Dose 101.5 ml/min Estimated GFR () 91.4 Estimated GFR (Non- 78.9 BUN/Creatinine Ratio 9.9 (10-20) Calcium Level 9.5 mg/dl (8.5-10.1) Total Bilirubin 0.4 mg/dl (0.2-1) Aspartate Amino Transf (AST/SGOT) 11 U/L (15-37) Alanine Aminotransferase (ALT/SGPT) 19 U/L (12-78) Alkaline Phosphatase 84 U/L (45-117) Total Protein 8.9 gm/dl (6.4-8.2) Albumin 4.5 gm/dl (3.4-5.0) Globulin 4.4 gm/dl (2.5-4.0) Albumin/Globulin Ratio 1.0 (0.9-2) Lipase 125 U/L (73-393) Medications Administered Medications (Trade) Dose Ordered Sig/Magdalene Route Start Time Stop Time Status Last Admin Dose Admin Ondansetron HCl (Zofran Inj) 4 mg NOW STAT IV 11/08/17 11:25 11/08/17 11:27 DC 11/08/17 12:00 4 MG Morphine Sulfate (MoRPHine SULFATE INJ) 4 mg NOW STAT IV 11/08/17 11:25 11/08/17 11:27 DC 11/08/17 11:59 4 MG Sodium Chloride 1,000 ml @ 999 mls/hr Q1H1M STAT IV 11/08/17 11:25 11/08/17 12:25 DC 11/08/17 11:59 999 MLS/HR Famotidine (Pepcid 20mg Iv Push) 20 mg ONE STAT IV 11/08/17 11:30 11/08/17 11:31 DC 11/08/17 12:00 20 MG Ketorolac Tromethamine (Toradol Inj) 15 mg NOW STAT IV 11/08/17 14:09 11/08/17 14:10 DC 11/08/17 14:40 15 MG Lidocaine HCl (Viscous Lidocaine 2% Soln) 20 ml STK-MED ONCE .ROUTE 11/08/17 14:22 11/08/17 14:23 DC 11/08/17 14:40 20 ML Al Hydroxide/Mg Hydroxide (Maalox Susp) 30 ml STK-MED ONCE .ROUTE 11/08/17 14:22 11/08/17 14:23 DC 11/08/17 14:40 30 ML Departure Information Impression Primary Impression: Epigastric abdominal pain Additional Impression: Nausea, vomiting, and diarrhea Dispostion Home / Self-Care Condition GOOD Referrals RV. Schwab MD (PCP) Patient Instructions ED Diet [place], ED Diet Clear Liquid, ED Food Poison Or Gastroenteritis, ED PUD Vs Gastritis, My [facility] Additional Instructions You have been evaluated and treated in the Emergency Department today for your abdominal pain, nausea/vomiting and diarrhea. Laboratory results and imaging studies have ruled out any emergent causes for your symptoms which would warrant admission or surgery. Take your prescribed Zofran every 6 hours as needed for severe nausea or vomiting. For pain control, you can use the following [id number] medicines (if >12 yo): - Regular strength (325mg/tab) Tylenol (acetaminophen) 2 tabs every 4-6 hours as needed. Do not exceed 10 tablets in a 24 hour period. Avoid taking more than 3000 mg of Tylenol per day. This includes any other sources of acetaminophen you may take on a regular basis. Avoid NSAIDs such as ibuprofen, Aleve, aspirin, etc., as these medications may make her symptoms worse. Drink plenty of fluids to stay well hydrated. Stick with a clear liquid diet and bland diet until your symptoms are improved. Avoid any spicy foods or dairy until your symptoms are completely resolved. Please follow-up with your Primary Care Provider in the next few days for recheck of your symptoms. Please also keep your scheduled GI appointment in the next week. You may need to have an endoscopy to further evaluate your pain if your symptoms do not improve. Return to the emergency department for severe worsening abdominal or back pain, worsening nausea/vomiting, vomiting blood, blood in your stool or urine, fevers > 101.5, severe dizziness or passing out, or any other concerns. Work Instructions Return To Work: 3 days Problem Qualifiers
[2017-11-08] MEDS ORDERED: OPTIRAY 320 IV PRN (11:45)
--- NOTE | 2017-11-08 13:09 | DIAGNOSTIC IMAGING REPORT ---
CT ABD/PELVIS IV CONTRAST ONLY CLINICAL HISTORY: Abdominal pain, possible small bowel obstruction. Colitis. COMPARISON STUDY: 08/09/2017 TECHNIQUE: Following the IV administration of 94 mL of Optiray-320, CT scan of the abdomen and pelvis was performed from the lung bases to the proximal femurs. Images are reviewed in the axial, sagittal, and coronal planes. IV contrast was administered without complication. A dose lowering technique was utilized adhering to the principles of ALARA. CT DOSE: 690.34 mGy.cm FINDINGS: Lower chest: There are mild dependent atelectatic changes. Liver: The contrast-enhanced liver is normal in size, contour, and attenuation. There is no intrahepatic biliary ductal dilatation. The hepatic veins and portal veins are patent. Gallbladder: Surgically absent Spleen: Normal in size and attenuation. Pancreas: Unremarkable. Adrenal glands: Unremarkable. Kidneys: There is a punctate nonobstructing right renal calculus. There is a 1 cm right renal cyst. There is no hydronephrosis. Bowel: There are no transition zones indicate bowel obstruction. There is no acute diverticulitis. There is no evidence of acute appendicitis. There is residual contrast within the appendix. Peritoneum: There is no intraperitoneal free air or abdominal ascites. Vasculature: The abdominal aorta is normal in course and caliber. Adenopathy: None. Pelvic viscera: The bladder, and pelvic viscera are unremarkable. Skeletal structures: There is a stable 7 cm lytic focus within the left iliac wing. This contains internal septations. There is no cortical breakthrough. There is a relatively narrow zone of transition. IMPRESSION: 1. No evidence of bowel obstruction. No evidence of free air 2. Punctate nonobstructing right renal calculus 3. No evidence of acute appendicitis 4. No evidence of acute diverticulitis 5. Stable 7 cm lytic focus within the left iliac wing. This has nonaggressive imaging characteristics. Electronically signed by: Von Nguyen M.D. 11/08/2017 1:07 PM Dictated Date/Time: 11/08/2017 1:01 PM
[2017-11-08] MEDS ORDERED: KETOROLAC TROMETHAMINE 30 MG/ML VIAL IV STA (14:09)
[2017-11-08] MEDS ORDERED: GI COCKTAIL PO STA (14:13)
[2017-11-08] MEDS ORDERED: LIDOCAINE HCL 2% VISC SOLN 20 ML UDC ONE (14:22)
[2017-11-08] MEDS ORDERED: ALUMINUM/MAGNESIUM SUSP 30 ML UDC ONE (14:22)
[2017-11-08 16:25] VITALS: BP 125/94; PULSE 83; O2SAT 98
== END 2017-11-08 16:34 | disposition home or self-care (01) ==
LOC: C.EDB 10:13 → C.EDC 16:34
DX: R11.2 Nausea with vomiting, unspecified (principal); R19.7 Diarrhea, unspecified; E86.0 Dehydration; Z87.19 Personal history of other diseases of the digestive system; K58.9 Irritable bowel syndrome, unspecified; Z79.3 Long term (current) use of hormonal contraceptives; K21.9 Gastro-esophageal reflux disease without esophagitis; F41.9 Anxiety disorder, unspecified; Z88.8 Allergy status to other drugs, medicaments and biological substances; Z91.048 Other nonmedicinal substance allergy status

== ENCOUNTER 2022-11-10 10:19 | Observation (INO) ==
[2022-11-10] MEDS ORDERED: SODIUM CHLORIDE 0.9% 1000ML 1,000 ML IV ONE (10:33)
--- NOTE | 2022-11-10 10:42 | Emergency Department Note ---
Impression & Plan Atypical chest pain, Chest wall pain, Palpitations, Elevated troponin, Pericardial effusion ED Provider Note NAME: ZIGGY SALAZAR AGE: 47 SEX: F ARRIVES VIA: Walk-In INFORMANT: Patient ED PROVIDER(S): Sid Velasquez MD CHIEF COMPLAINT: Chest pain, referred. 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 The patient had a CT scan of her head and hip which were negative for acute abnormalities. Lab work demonstrated potassium of 3.4 which is similar to the patient's baseline range for which she takes oral potassium supplements. Her bicarbonate was 19 with a normal anion gap and so likely a component of dehydration. LFTs were unremarkable. Yesterday's EKG performed by triage protocols had not crossed over to the electronic record and was not seen by patient's midlevel provider until after patient's discharge. Upon her review noted question of ST depressions in anterior leads and T wave inversions inferior and laterally, per computer interpretation. Yesterday the patient did not have chest pain, however, reasonably, the patient was then contacted to return the emergency department for further assessment regarding this but voicemail was left after repeat attempts. The patient returned the phone call today to inquire about the message and I was able to speak with the patient directly. I discussed my review of the EKG yesterday and again today and comparison with her prior EKGs, which demonstrated LVH with repolarization abnormality. Specifically, her ST abnormalities and T wave inversions are not particularly changed from her previous EKGs and appears nearly identical to July 13, 2022 while mildly differ ent from September but with meandering baseline. However, given that she was now reporting constant chest pain since waking at 4 AM she was instructed to return to the emergency department as soon as possible to be reevaluated. On my evaluation the patient is anxious appearing but is in no acute distress, afebrile with heart in the 100s and vital signs otherwise stable. She appears clinically dry. She has reproducible anterior chest wall tenderness without bony crepitus. The patient confirms when the pain is reproduced that this is the pain she is experiencing. She reports the pain has been constant since it started. EKG without overt acute ischemia similar to priors with LVH with repolarization abnormality.. CXR negative for acute cardiopulmonary process. WBC and platelets within normal. H/H similar to prior. Chemistry with bicarbonate of 20 improved from yesterday with normal anion gap. Potassium 3.3 with repletion initiated. Magnesium low-normal and so IV repletion provided. L FTs are unremarkable. High-sensitivity troponin initially 24.7, nonspecific with delta 2-hour high-sensitivity troponin 25.5, essentially unchanged and nonspecific. Lipase is nonelevated. hCG negative. CTA of the chest was performed and was negative for PE or pneumonia. Mild nonspecific left axillary subpectoral lymphadenopathy is noted. Of note, trace pericardial effusion is seen and was similarly described on patient's echocardiogram in July of this year which demonstrated grade 1 diastolic dysfunction and otherwise normal LV size and function. Upon reevaluation the patient did appear more comfortable however denied any change in her pain after IV fluid hydration, IV APAP, Ativan. Given persistent of her symptoms with mildly elevated but stable troponin which is new she did prefer plan for admission for further assessment. Case was discussed with Dr. Richard, [facility] hospitalist, who will evaluate the patient for admission. Case d/w Dr. Sinha, [place] cardiology. Appreciate consultation and recommendations. Agrees symptoms are atypical and do not seem cardiac in nature. Moreover agrees that EKG yesterday appears the same as July and overall not suggestive of ACS. Given the patient's concerns regarding her symptoms and the fact that her troponin is not entirely normal, though not necessarily suggestive of ACS, observation and echo would be reasonable and outpatient stress testing a consideration if not available over the weekend. Triage Nursing notes reviewed and agree them. Prior/outside medical records reviewed Vital Signs: reviewed Differential diagnosis: Cardiac ischemia, aortic dissection, pulmonary embolism, pneumothorax, pneumonia, pericarditis, myocarditis, esophageal rupture, GERD, cholecystitis, pancreatitis, musculoskeletal, as well as other pathologies. ER treatment provided: See below. Diagnostics interpreted by me: ECG: Normal sinus rhythm, 94 bpm, no ectopy, LVH with repolarization abnorm ality, no overt ST elevation or depression, QTc 437, QRS 78. Cardiac Monitoring: An order for continuous cardiac monitoring was placed and demonstrated Normal sinus rhythm, 94 bpm, no ectopy Laboratory studies: See below Imaging studies: See below Consultation(s): Case was discussed with Dr. Richard, [facility] hospitalist, who will evaluate the patient for admission. Dr. Sinha, [place] cardiology. HPI: The patient is a pleasant 47-year-old woman with a past medical history of bipolar disorder, IBS, migraines, anxiety/depression, congenital blindness of the left eye, history of atypical chest pain who presents to the emergency department for evaluation of chest pain that began this morning where she felt her heart racing and palpitations in the setting of being seen in the emergency department yesterday for evaluation of vertigo and hip pain after a fall 2 days ago seen by her PCP and referred to the emergency department. The patient had a CT scan of her head and hip which were negative for acute abnormalities. Lab work demonstrated potassium of 3.4 which is similar to the patient's baseline range for which she takes oral potassium supplements. Her bicarbonate was 19 with a normal anion gap and so likely a component of dehydration. LFTs were unremarkable. Yesterday's EKG performed by triage protocols had not crossed over to the electronic record and was not seen by patient's midlevel provider until after patient's discharge. Upon her review noted question of ST depressions in anterior leads and T wave inversions inferior and laterally, per computer interpretation. Yesterday the patient did not have chest pain, however, reasonably, the patient was then contacted to return the emergency department for further assessment regarding this but voicemail was left after repeat attempts. The patient returned the phone call today to inquire about the md ssage and I was able to speak with the patient directly. I discussed my review of the EKG yesterday and again today and comparison with her prior EKGs, which demonstrated LVH with repolarization abnormality. Specifically, her ST abnormalities and T wave inversions are not particularly changed from her previous EKGs and appears nearly identical to July 13, 2022 while mildly different from September but with meandering baseline. However, given that she was now reporting constant chest pain since waking at 4 AM she was instructed to return to the emergency department as soon as possible to be reevaluated. ROS: See above HPI for pertinent positives & negatives. A total of 10 systems reviewed and were otherwise negative. VITALS:See Below PHYSICAL EXAMINATION: GENERAL: Awake, alert, anxious-appearing, in no distress, BMI 29.3. HENT: Normocephalic, atraumatic. Oropharynx with dry mucous membranes and otherwise unremarkable. EYES: Normal conjunctiva. Sclera non-icteric. NECK: Supple. No nuchal rigidity. FROM. No JVD. RESPIRATORY: Clear to auscultation. CARDIAC: Tachycardic rate, normal rhythm. Extremities warm and well perfused. Pulses equal. ABDOMEN: Soft, non-distended. No tenderness to palpation. No rebound or guarding. No masses. RECTAL: Deferred. MUSCULOSKELETAL: Chest examination reveals reproducible anterior chest wall tenderness without bony crepitus. The back is symmetrical on inspection without obvious abnormality. There is no CVA tenderness to palpation. No joint edema. LOWER EXTREMITIES: Calves are equal size bilaterally and non-tender. No edema. No discoloration. NEURO: Normal sensorium. No sensory or motor deficits noted. SKIN: No rash or jaundice noted. Sid Velasquez MD Past Med/Surg History Medical History Anxiety Asthma (03/03/11) Barretts esophagus Bipolar disorder, unspecified (03/03/11) Blindness, one eye (03/03/11) LEFT Chronic abdominal pain Complex partial seizure A CHILD-NONE SINCE PER PT Cough productive of clear sputum Depression with anxiety Ear pain Epigastric abdominal pain Fever Fever and chills GERD (gastroesophageal reflux disease) (03/03/11) IBS (irritable bowel syndrome) Mgr NOS wo ntrc w st mgr (03/03/11) Migraine headache Shoulder pain, bilateral URI (upper respiratory infection) URI, acute Vertigo Vomiting Surgical History H/O eye surgery MUSCLE SX LEFT EYE History of cholecystectomy History of colonoscopy History of ear surgery 2013 - Eustacian tube History of esophagogastroduodenoscopy (EGD) 2017 @ [facility] by Dr Medhat Choi History of tubal ligation Hx of section x1 Family History Grandfather (Paternal) Colorectal cancer Father Myocardial infarction Heart disease Hypertension Aunt Diabetes Mother Hypertension Grandfather (Maternal) Colon cancer Uncle Lung cancer Other Gallbladder disease Lung disease Seizure Denies family history of Ovarian cancer Prostate cancer Breast cancer Uterine cancer Social History Smoking Status: Never smoker Second Hand Exposure: No; Do You Dip or Chew Tobacco: No; Tobacco Cessation Education Requested by Patient: No Hx Alcohol Use: No Hx Substance Use: No Preferred Language: Icelandic Communication Ability: Effective Inductor Tester Required: No Beliefs That Will Affect Care: Mosque marital status: Single Current Living Situation: Spouse current occupational status: disabled Other Information That Helps Us Care for You: No Feels Safe at Home: Yes Safety Concerns: Feels Safe At This Time Dental Care, Regularly: Yes Physical Activity Frequency Comment: Walking Seatbelt Use: always Sunscreen Use: Yes Assistive Devices: None Allergies Allergies Allergy/AdvReac Type Severity Reaction Status Date / Time clonazepam Allergy Severe SOB AND Verified 11/09/22 10:41 DIFFICULTY WALKING pollen extracts Allergy Mild ITCHING/SNE Verified 11/09/22 10:41 EZING aspirin AdvReac Mild Nausea Verified 11/09/22 10:41 Home Meds Home Medications Medication Instructions Recorded Confirmed dicyclomine 10 mg capsule 20 mg PO QID 02/13/18 11/10/22 pantoprazole 40 mg tablet,delayed 40 mg PO BID 02/13/18 11/10/22 release (Protonix) acetaminophen 500 mg tablet 1,000 mg PO Q6H PRN Pain 08/02/18 11/10/22 (Tylenol Extra Strength) aluminum hydrox-magnesium carb 254 10 ml PO QID PRN ABD PAIN/UPSET 12/05/18 11/10/22 mg-237.5 mg/5 mL oral suspension (Gaviscon Extra Strength) brivaracetam 75 mg tablet 75 mg PO QAM 04/29/19 11/10/22 (Briviact) famotidine 40 mg tablet 40 mg PO QAM 11/10/22 11/10/22 sucralfate 100 mg/mL oral See Rx Instructions .Route .COMPLEX 11/10/22 11/10/22 suspension Previous Rx's Medication Instructions Recorded amitriptyline 150 mg tablet 150 mg PO HS #30 tabs 08/04/19 potassium chloride 20 mEq oral 20 meq PO BID #10 packets 10/31/21 packet (Klor-Con) albuterol sulfate 90 mcg/actuation 2 puff inhalation Q6H PRN 11/15/21 aerosol inhaler shortness of breath or wheezing #8.5 grams medroxyprogesterone 150 mg/mL 150 mg IM .COMPLEX #1 mL 01/18/22 intramuscular syringe citalopram 10 mg tablet (Celexa) 10 mg PO DAILY #30 tabs 09/15/22 ondansetron 8 mg disintegrating 8 mg PO Q8H PRN nausea and 09/15/22 tablet vomiting #20 tabs meclizine 12.5 mg tablet 12.5 mg PO TID PRN dizziness #30 11/07/22 tabs Results & Data (ED) Vital Signs Vital Signs - 24 hr 11/10/22 10:22 11/10/22 10:37 11/10/22 10:41 Temperature 36.6 C Temperature Source Temporal Artery Scan Pulse Rate 105 H 92 H Pulse Rate [Apical] 95 H Pulse Rhythm Regular Pulse Rhythm [Apical] Respiratory Rate 20 15 20 Respiratory Effort / Characteristics Non-Labored Non-Labored Spontaneous Respiratory Depth Normal Normal Respiratory Pattern Regular Blood Pressure 136/84 Blood Pressure [Right Arm] 145/89 H Blood Pressure Mean 101 Blood Pressure Mean [Right Arm] 107 Blood Pressure Position Sitting Blood Pressure Position [Right Arm] Semi-fowlers Pulse Oximetry 98 99 98 Oxygen Delivery Method Room Air Room Air Room Air Sepsis Recent Fever Within 48 Hours No Sepsis New/Unexplained Change in Mental Status No Sepsis Action Taken by Nursing No Action Required 11/10/22 12:06 11/10/22 13:59 11/10/22 16:16 Temperature Temperature Source Pulse Rate 80 76 Pulse Rate [Apical] 73 Pulse Rhythm Pulse Rhythm [Apical] Regular Respiratory Rate 18 Respiratory Effort / Characteristics Non-Labored Spontaneous Respiratory Depth Normal Respiratory Pattern Regular Blood Pressure Blood Pressure [Right Arm] Blood Pressure Mean Blood Pressure Mean [Right Arm] Blood Pressure Position Blood Pressure Position [Right Arm] Lying Pulse Oximetry 100 Oxygen Delivery Method Room Air Sepsis Recent Fever Within 48 Hours Sepsis New/Unexplained Change in Mental Status Sepsis Action Taken by Nursing Laboratory Data Attestation: I reviewed the patient's lab results. 11/10/22 10:41 11/10/22 10:41 Lab Results 11/10/22 11/10/2211/10/23 Range/Units 10:41 10:41 10:41 WBC 8.81 (4.8-10.8) K/ul RBC 3.96 L (4.20-5.40) M/uL Hgb 11.5 L (12.0-16.0) g/dl Hct 34.5 L (37.0-47.0) % MCV 87.1 (80.0-100.0) fL MCH 29.0 (25.0-34.0) pg MCHC 33.3 (32.0-36.0) g/dL RDW Std Deviation 45.3 (36.4-46.3) fL RDW Coeff of Aurelio 14.3 (11.5-14.5) % Plt Count 285 (130-400) K/uL MPV 9.9 (9.4-12.4) fL Immature Gran % (Auto) 0.3 % Neut % (Auto) 65.9 % Lymph % (Auto) 22.1 % Dickey % (Auto) 8.3 % Eos % (Auto) 2.0 % Baso % (Auto) 1.4 % Neut # (Auto) 5.80 (1.40-6.50) K/uL Lymph # (Auto) 1.95 (1.2-3.4) K/uL Dickey # (Auto) 0.73 H (0.11-0.59) K/uL Eos # (Auto) 0.18 (0-0.50) K/uL Baso # (Auto) 0.12 (0-0.2) K/uL Immature Gran # (Auto) 0.03 (0.01-0.20) K/uL PT (9.0-12.0) Seconds INR (0.9-1.1) Sodium 139 (136-145) mmol/L Potassium 3.3 L (3.5-5.1) mmol/L Chloride 109 H (98-107) mmol/L Carbon Dioxide 20 L (21-32) mmol/L Anion Gap 10 (3-11) BUN 13 (6-23) mg/dl Creatinine 1.06 (0.6-1.2) mg/dl Est Cr Clr Drug Dosing 80.4 ml/min Est GFR ( Amer) 72.4 ml/min Est GFR (Non-Af Amer) 62.5 ml/min BUN/Creatinine Ratio 12.3 (10-20) Glucose 101 H (70-99(Fasting)) mg/dl Calcium 10.1 (8.6-10.3) mg/dl Phosphorus 2.7 (2.5-4.9) mg/dl Magnesium 1.9 (1.7-2.4) mg/dl Total Bilirubin 0.4 (0.2-1.0) mg/dl AST 12 L (13-39) U/L ALT 11 (7-52) U/L Alkaline Phosphatase 75 (34-104) U/L Troponin I High Sens 24.7 H (0-14) pg/ml Total Protein 8.1 (6.0-8.3) gm/dl Albumin 4.9 (3.4-5.0) gm/dl Globulin 3.2 (2.5-4.0) gm/dl Albumin/Globulin Ratio 1.5 (0.9-2) Lipase 26 (11-82) U/L HCG, Qual Negative (Negative) Anaplasma Smear Babesia Smear Lyme Disease IgG Ab (Negative) Lyme Disease IgM Ab (Negative) 11/10/22 11/10/22 11/10/22 Range/Units 10:41 10:41 10:41 WBC (4.8-10.8) K/ul RBC (4.20-5.40) M/uL Hgb (12.0-16.0) g/dl Hct (37.0-47.0) % MCV (80.0-100.0) fL MCH (25.0-34.0) pg MCHC (32.0-36.0) g/dL RDW Std Deviation (36.4-46.3) fL RDW Coeff of Aurelio (11.5-14.5) % Plt Count (130-400) K/uL MPV (9.4-12.4) fL Immature Gran % (Auto) % Neut % (Auto) % Lymph % (Auto) % Dickey % (Auto) % Eos % (Auto) % Baso % (Auto) % Neut # (Auto) (1.40-6.50) K/uL Lymph # (Auto) (1.2-3.4) K/uL Dickey # (Auto) (0.11-0.59) K/uL Eos # (Auto) (0-0.50) K/uL Baso # (Auto) (0-0.2) K/uL Immature Gran # (Auto) (0.01-0.20) K/uL PT 11.2 (9.0-12.0) Seconds INR 1.0 (0.9-1.1) Sodium (136-145) mmol/L Potassium (3.5-5.1) mmol/L Chloride (98-107) mmol/L Carbon Dioxide (21-32) mmol/L Anion Gap (3-11) BUN (6-23) mg/dl Creatinine (0.6-1.2) mg/dl Est Cr Clr Drug Dosing ml/min Est GFR ( Amer) ml/min Est GFR (Non-Af Amer) ml/min BUN/Creatinine Ratio (10-20) Glucose (70-99(Fasting)) mg/dl Calcium (8.6-10.3) mg/dl Phosphorus (2.5-4.9) mg/dl Magnesium (1.7-2.4) mg/dl Total Bilirubin (0.2-1.0) mg/dl AST (13-39) U/L ALT (7-52) U/L Alkaline Phosphatase (34-104) U/L Troponin I High Sens (0-14) pg/ml Total Protein (6.0-8.3) gm/dl Albumin (3.4-5.0) gm/dl Globulin (2.5-4.0) gm/dl Albumin/Globulin Ratio (0.9-2) Lipase (11-82) U/L HCG, Qual (Negative) Anaplasma Smear See Comment Babesia Smear See Comment Lyme Disease IgG Ab Negative (Negative) Lyme Disease IgM Ab Negative (Negative) 11/10/22 11/10/22 Range/Units 12:24 16:12 WBC (4.8-10.8) K/ul RBC (4.20-5.40) M/uL Hgb (12.0-16.0) g/dl Hct (37.0-47.0) % MCV (80.0-100.0) fL MCH (25.0-34.0) pg MCHC (32.0-36.0) g/dL RDW Std Deviation (36.4-46.3) fL RDW Coeff of Aurelio (11.5-14.5) % Plt Count (130-400) K/uL MPV (9.4-12.4) fL Immature Gran % (Auto) % Neut % (Auto) % Lymph % (Auto) % Dickey % (Auto) % Eos % (Auto) % Baso % (Auto) % Neut # (Auto) (1.40-6.50) K/uL Lymph # (Auto) (1.2-3.4) K/uL Dickey # (Auto) (0.11-0.59) K/uL Eos # (Auto) (0-0.50) K/uL Baso # (Auto) (0-0.2) K/uL Immature Gran # (Auto) (0.01-0.20) K/uL PT (9.0-12.0) Seconds INR (0.9-1.1) Sodium 138 (136-145) mmol/L Potassium 3.4 L (3.5-5.1) mmol/L Chloride 110 H (98-107) mmol/L Carbon Dioxide 21 (21-32) mmol/L Anion Gap 7 (3-11) BUN 11 (6-23) mg/dl Creatinine 0.94 (0.6-1.2) mg/dl Est Cr Clr Drug Dosing 90.7 ml/min Est GFR ( Amer) 83.7 ml/min Est GFR (Non-Af Amer) 72.2 ml/min BUN/Creatinine Ratio 11.7 (10-20) Glucose 89 (70-99(Fasting)) mg/dl Calcium 9.1 (8.6-10.3) mg/dl Phosphorus (2.5-4.9) mg/dl Magnesium (1.7-2.4) mg/dl Total Bilirubin 0.4 (0.2-1.0) mg/dl AST 10 L (13-39) U/L ALT 10 (7-52) U/L Alkaline Phosphatase 65 (34-104) U/L Troponin I High Sens 25.5 H (0-14) pg/ml Total Protein 6.8 (6.0-8.3) gm/dl Albumin 4.2 (3.4-5.0) gm/dl Globulin 2.6 (2.5-4.0) gm/dl Albumin/Globulin Ratio 1.6 (0.9-2) Lipase (11-82) U/L HCG, Qual (Negative) Anaplasma Smear Babesia Smear Lyme Disease IgG Ab (Negative) Lyme Disease IgM Ab (Negative) Administered Medications Acetaminophen (Acetaminophen 500 Mg Tab) 500 mg PO Q4H PRN PRN Reason: pain 1st line Stop: 12/10/22 16:37 Last Admin: 11/10/22 19:38 Dose: 500 mg Documented By: BEATRICE Miscellaneous (Order Awaiting Action: Brivaracetam [Briviact] 75 Mg Tablet) 1 each N/A QS TIMBO Stop: 12/11/22 00:00 Last Admin: 11/10/22 23:26 Dose: Not Given Documented By: MG Morphine Sulfate (Morphine Sulfate 2 Mg/Ml Carp) 2 mg IV Q4H PRN PRN Reason: Pain, 3rd line/breakthrough Stop: 11/24/22 16:37 Last Admin: 11/10/22 22:08 Dose: 2 mg Documented By: Admin: 11/10/22 18:42 Dose: 2 mg Documented By: BRODIE Pantoprazole Sodium (Pantoprazole 40 Mg Tab) 40 mg PO BID [facility] Stop: 12/10/22 20:59 Last Admin: 11/10/22 20:29 Dose: 40 mg Documented By: MG Potassium Chloride (Potassium Chloride Pwd 20 Meq Pack) 20 meq PO BID TIMBO Stop: 12/10/22 20:59 Last Admin: 11/10/22 20:30 Dose: 20 meq Documented By: MG Discontinued Medications Sodium Chloride (Nss 1000ml) 1,000 mls @ 999 mls/hr IV .Q1H1M ONE Stop: 11/10/22 11:33 Last Infusion: 11/10/22 12:04 Dose: 0 mls/hr Documented By: Admin: 11/10/22 10:48 Dose: 999 mls/hr Documented By: AYSHA Potassium Chloride (K Tom / Wtr) 10 meq in 100 mls @ 100 mls/hr IV Q1H TIMBO Stop: 11/10/22 13:29 Last Infusion: 11/10/22 15:43 Dose: 0 mls/hr Documented By: Admin: 11/10/22 14:43 Dose: 100 mls/hr Documented By: Infusion: 11/10/22 14:43 Dose: 0 mls/hr Documented By: Admin: 11/10/22 12:05 Dose: 100 mls/hr Documented By: AYSHA Acetaminophen (Ofirmev) 1,000 mg in 100 mls @ 400 mls/hr IV NOW STA Stop: 11/10/22 12:11 Last Infusion: 11/10/22 12:55 Dose: 0 mls/hr Documented By: Admin: 11/10/22 12:04 Dose: 400 mls/hr Documented By: AYSHA Potassium Chloride (K Tom / Wtr) 10 meq in 100 mls @ 100 mls/hr IV Q1H TIMBO Stop: 11/10/22 17:14 Last Admin: 11/10/22 18:27 Dose: Not Given Documented By: Infusion: 11/10/22 18:25 Dose: 0 mls/hr Documented By: Infusion: 11/10/22 18:18 Dose: 0 mls/hr Documented By: Admin: 11/10/22 17:18 Dose: 100 mls/hr Documented By: ARJUN Magnesium Sulfate/Dextrose (Magnesium Sulfate / D5w) 1 gm in 100 mls @ 100 mls/hr IV NOW STA Stop: 11/10/22 16:08 Last Infusion: 11/10/22 17:20 Dose: 0 mls/hr Documented By: Admin: 11/10/22 16:20 Dose: 100 mls/hr Documented By: ARJUN Ioversol (Ioversol 350 Mg 125ml Prefilled Syringe) 120 ml IV ONCE ONE Stop: 11/10/22 12:46 Last Admin: 11/10/22 12:45 Dose: 120 ml Documented By: ABDI Ketorolac Tromethamine (Ketorolac Tromethamine 15 Mg/Ml Vial) 15 mg IV NOW ONE Stop: 11/10/22 16:33 Last Admin: 11/10/22 17:18 Dose: 15 mg Documented By: ARJUN Lorazepam (Lorazepam 2 Mg/1 Ml Vial) 1 mg IV NOW STA Stop: 11/10/22 11:58 Last Admin: 11/10/22 12:05 Dose: 1 mg Documented By: AYSHA Nitroglycerin (Nitroglycerin Sl 0.4 Mg/Tab Tab) 0.4 mg SL NOW STA Stop: 11/10/22 16:49 Last Admin: 11/10/22 17:19 Dose: 0.4 mg Documented By: S Imaging Data Radiologist's Impression: Chest CTA 11/10/22 11:57 CT angio chest PE protocol CT DOSE: 651.82 mGy.cm HISTORY: 47 years-old Female with cp, elevated trop, r/o PE. Acute shortness of breath with chest pain TECHNIQUE: Multiple CTA images of the chest were obtained after the intravenous administration of 120 ml Optiray. Coronal and sagittal MIPS were obtained from the axial data set and were submitted for review. All measurements were obtained according to NASCET criteria. A dose lowering technique was utilized adhering to the principles of ALARA. COMPARISON: Chest radiograph of same day, chest CT 10/03/2022, 08/04/2016 FINDINGS: CTA: Mild cardiomegaly. Trace pericardial effusion. Unremarkable thoracic aorta. The pulmonary artery is suboptimally visualized secondary to respiratory motion artifact. No pulmonary emboli identified. CT CHEST: No thyroid nodule identified. Mild left axillary/subpectoral lymphadenopathy with a 2.0 x 1.1 cm lymph node on image 169 which has mildly increased in size from prior. No pneumothorax, pleural effusion, airspace consolidation or pulmonary edema. Central airways are patent. Unremarkable soft tissues. No acute fracture. IMPRESSION: 1. Limited exam secondary to respiratory motion artifact. No pulmonary emboli identified. 2. No pleural effusion or airspace consolidation to suggest pneumonia. 3. Mild nonspecific left axillary/subpectoral lymphadenopathy. ACT 112: Negative or not required by law. The above report was generated using voice recognition software. It may contain grammatical, syntax or spelling errors. Electronically signed by: Sergio Santos M.D. 11/10/2022 1:35 PM Discharge Plan Visit Data Chief Complaint: Chest Pain Stated Complaint: CHEST PAIN, DR VELASQUEZ TOLD TO COME BACK IN ED Provider: Sid Velasquez Discharge Problem: Atypical chest pain, Chest wall pain, Palpitations, Elevated troponin, Pericardial effusion Patient Disposition: Admitted As Inpatient Discharge Instructions Interventions: ED Discharge Assessment Last Done: 11/10/22 18:15
[2022-11-10 10:58] LABS: Basophils # (auto) 0.12 K/uL (0-0.2); Basophils % (auto) 1.4 %; Eosinophils # (auto) 0.18 K/uL (0-0.50); Hematocrit (blood only) 34.5 % (37.0-47.0); Hemoglobin 11.5 g/dl (12.0-16.0); Immature Granulocytes # (auto) 0.03 K/uL (0.01-0.20); Immature Granulocytes % (auto) 0.3 %; Lymphocytes # (auto) 1.95 K/uL (1.2-3.4); Lymphocytes % (auto) 22.1 %; Mean Corpuscular Hgb Conc 33.3 g/dL (32.0-36.0); Mean Corpuscular Volume 87.1 fL (80.0-100.0); Mean Platelet Volume 9.9 fL (9.4-12.4); Monocytes # (auto) 0.73 K/uL (0.11-0.59); Monocytes % (auto) 8.3 %; Neutrophils % (auto) 65.9 %; Platelet Count 285 K/uL (130-400); RDW Coefficient of Variation 14.3 % (11.5-14.5); RDW Standard Deviation 45.3 fL (36.4-46.3); Red Blood Count 3.96 M/uL (4.20-5.40); White Blood Count 8.81 K/ul (4.8-10.8)
[2022-11-10 11:14] LABS: Pregnancy Test, Serum Negative (Negative)
[2022-11-10 11:16] LABS: Albumin Globulin Ratio 1.5 (0.9-2); Albumin Level 4.9 gm/dl (3.4-5.0); BUN Creatinine Ratio 12.3 (10-20); Bilirubin,Total 0.4 mg/dl (0.2-1.0); Calcium 10.1 mg/dl (8.6-10.3); Creatinine Clr Calc Pharmacy 80.4 ml/min; Est GFR (African American) 72.4 ml/min; Est GFR (Non-African American) 62.5 ml/min; Globulin 3.2 gm/dl (2.5-4.0); Magnesium 1.9 mg/dl (1.7-2.4); Phosphorus 2.7 mg/dl (2.5-4.9); Potassium 3.3 mmol/L (3.5-5.1); Total Protein 8.1 gm/dl (6.0-8.3)
[2022-11-10 11:21] LABS: Troponin I High Sensitivity 24.7 pg/ml (0-14)
--- NOTE | 2022-11-10 11:23 | XRay Report ---
XR chest 1V portable CLINICAL HISTORY: Chest pain, nonspecific COMPARISON STUDY: Chest CT October 03, 2022. Chest radiograph November 09, 2022. FINDINGS: Lung volumes are normal. Lungs are clear. There is no pneumothorax or pleural effusion. Car diac size is normal. Mediastinal contours are normal. There is no evidence for pulmonary edema. IMPRESSION: No acute cardiopulmonary findings. ACT 112: Negative or not required by law. Electronically signed by: Kp Stafford M.D. 11/10/2022 11:21 AM
[2022-11-10 11:25] LABS: Prothrombin Time 11.2 Seconds (9.0-12.0)
[2022-11-10] MEDS ORDERED: ACETAMINOPHEN 1,000 MG/100 ML VIAL IV STA (11:57)
[2022-11-10] MEDS ORDERED: LORazepam 2 MG/1 ML VIAL IV STA (11:57)
[2022-11-10] MEDS: POTASSIUM CHLORIDE / WTR 10 MEQ/100 ML PLCT IV SCH ×4 (12:05→18:27)
[2022-11-10] MEDS ORDERED: IOVERSOL 350 MG 125mL Prefilled Syringe IV ONE (12:45)
--- NOTE | 2022-11-10 13:36 | CT Scan Report ---
CT angio chest PE protocol CT DOSE: 651.82 mGy.cm HISTORY: 47 years-old Female with cp, elevated trop, r/o PE. Acute shortness of breath with chest p ain TECHNIQUE: Multiple CTA images of the chest were obtained after the intravenous administration of 120 ml Optiray. Coronal and sagittal MIPS were obtained from the axial data set and were submitted for review. All measurements were obtained according to NASCET criteria. A dose lowering technique was u tilized adhering to the principles of ALARA. COMPARISON: Chest radiograph of same day, chest CT 10/03/2022, 08/04/2016 FINDINGS: CTA: Mild cardiomegaly. Trace pericardial effusion. Unremarkable thoracic aorta. The pulmonary artery is s uboptimally visualized secondary to respiratory motion artifact. No pulmonary emboli identified. CT CHEST: No thyroid nodule identified. Mild left axillary/subpectoral lymphadenopathy with a 2.0 x 1.1 cm lymp h node on image 169 which has mildly increased in size from prior. No pneumothorax, pleural effusion, airspace consolidation or pulmonary edema. Central airways are patent. Unremarkable soft tissues. No acute fracture. IMPRESSION: 1. Limited exam secondary to respiratory motion artifact. No pulmonary emboli identified. 2. No pleural effusion or airspace consolidation to suggest pneumonia. 3. Mild nonspecific left axillary/subpectoral lymphadenopathy. ACT 112: Negative or not required by law. The above report was generated using voice recognition software. It may contain grammatical, syntax o r spelling errors. Electronically signed by: Sergio Santos M.D. 11/10/2022 1:35 PM
[2022-11-10] MEDS ORDERED: MAGNESIUM SULFATE / D5W 1 GM/100 ML BAG IV STA (15:09)
--- NOTE | 2022-11-10 16:29 | History & Physical Report ---
Date of Service November 10, 2022 Assessment & Plan (1) Atypical chest pain: Plan: Atypical chest pain Troponin minimally elevated 24/25 in ER Constant chest pain for more than 8 hours with minimally elevated troponin, and EKG as noted with lower suspicion for ACS.? Pericarditis/pericardial effusion, pain is somewhat positional and worsened with laying flat - Chest pain is worsened with position, worse with laying back and movement. EKG with some ST abnormalities similar to prior, not consistent with acute ischemia/ACS. Case was discussed with cardiology by ER, reasonable to follow for echo and then if patient is stable can be discharged for outpatient stress test if doing well. Troponin trended Echo pending Tylenol, Toradol, morphine ordered Patient has had similar chest pain in the past without significant change. Nitro CTA: 1. Limited exam secondary to respiratory motion artifact. No pulmonary emboli identified. 2. No pleural effusion or airspace consolidation to suggest pneumonia. 3. Mild nonspecific left axillary/subpectoral lymphadenopathy. -Multimodal pain control, Tylenol, Toradol, breakthrough morphine. If pericarditis is noted on echo start colchicine Tickborne panel is pending Anxiety/depression Continue home medications GERD Continue Protonix Hypokalemia Continue potassium daily, replete as needed Enlarged lymph node Mild left axillary/subpectoral lymphadenopathy increased from prior 09/2022. No history of malignancy. Serial imaging, biopsy if continuing to enlarge/atypical features Disposition: Medical telemetry CODE STATUS: Full code Diet: Heart healthy DVT prophylaxis: Lovenox (2) Chest wall pain: (3) Elevated troponin: (4) GERD with stricture: (5) Complex partial seizure: (6) GERD (gastroesophageal reflux disease): (7) IBS (irritable bowel syndrome): History of Present Illness Primary Care Provider: Manas Mcqueen MD Lata is a 47-year-old female with a history of pericardial effusion, elevated troponin, depression/anxiety, complex partial seizures, GERD with stricture, Greenfield's esophagus, IBS who was recently seen in the ER for hip pain and had an EKG performed per protocol which was noted to have possible ST changes 1 day ago. EKG was reviewed by cardiology who noted symptoms are atypical and not suggestive of ACS, EKG has ST changes that are similar to prior and not consistent with ACS but are also not normal and reasonable to admit for echo. Stress test can be pursued, this may be done as an outpatient if patient is stable enough to be discharged over the weekend SHe denies history of heart problems Lata reports this morning she felt like her heart was racing this morning and she felt her chest was very tender and had pain into her back and shoulders. Chest pain has been constant since this morning. Is worse when laying backwards and when leaning for forwards. Has a burning quality sternum and chest are tender to palpation she reports she feels a little short of breath/tight breathing, isn't breathing as deeply due to concern for pain recieved a medicine for anxiety which 'helped a tad but not much' Feels like she is getting a 'bear hug on the ribs' Feels Tylenol helped a little bit Has a family history of ME with multiple family members including her father in their 60s, no early heart disease. She has not had pain like this previously, was not having pain yesterday Denies fever/chills/sweats. Denies recent illnesses. No abdominal pain No diarrhea/constipation Medical History: Reviewed Medications: Reviewed Surgical History: Reviewed Family history: Reviewed Allergies: Reviewed Social History: No tobacco product use. Denies etoh Code Status: Full Code Allergies Allergy/AdvReac Type Severity Reaction Status Date / Time clonazepam Allergy Severe SOB AND Verified 11/09/22 10:41 DIFFICULTY WALKING pollen extracts Allergy Mild ITCHING/SNE Verified 11/09/22 10:41 EZING aspirin AdvReac Mild Nausea Verified 11/09/22 10:41 Home Medications Medication Instructions Recorded Confirmed Type dicyclomine 10 mg capsule 20 mg PO QID 02/13/18 11/10/22 History pantoprazole 40 mg tablet,delayed 40 mg PO BID 02/13/18 11/10/22 History release (Protonix) acetaminophen 500 mg tablet 1,000 mg PO Q6H PRN Pain 08/02/18 11/10/22 History (Tylenol Extra Strength) aluminum hydrox-magnesium carb 254 10 ml PO QID PRN ABD PAIN/UPSET 12/05/18 11/10/22 History mg-237.5 mg/5 mL oral suspension (Gaviscon Extra Strength) brivaracetam 75 mg tablet 75 mg PO QAM 04/29/19 11/10/22 History (Briviact) amitriptyline 150 mg tablet 150 mg PO HS #30 tabs 08/04/19 11/10/22 Rx potassium chloride 20 mEq oral 20 meq PO BID #10 packets 10/31/21 11/10/22 Rx packet (Klor-Con) albuterol sulfate 90 mcg/actuation 2 puff inhalation Q6H PRN 11/15/21 11/10/22 Rx aerosol inhaler shortness of breath or wheezing #8.5 grams medroxyprogesterone 150 mg/mL 150 mg IM .COMPLEX #1 mL 01/18/22 11/10/22 Rx intramuscular syringe citalopram 10 mg tablet (Celexa) 10 mg PO DAILY #30 tabs 09/15/22 11/10/22 Rx ondansetron 8 mg disintegrating 8 mg PO Q8H PRN nausea and 09/15/22 11/10/22 Rx tablet vomiting #20 tabs meclizine 12.5 mg tablet 12.5 mg PO TID PRN dizziness #30 11/07/22 11/10/22 Rx tabs famotidine 40 mg tablet 40 mg PO QAM 11/10/22 11/10/22 History sucralfate 100 mg/mL oral See Rx Instructions .Route .COMPLEX 11/10/22 11/10/22 History suspension Past Med/Surg History Medical History Anxiety Asthma (03/03/11) Barretts esophagus Bipolar disorder, unspecified (03/03/11) Blindness, one eye (03/03/11) LEFT Chronic abdominal pain Complex partial seizure A CHILD-NONE SINCE PER PT Cough productive of clear sputum Depression with anxiety Ear pain Epigastric abdominal pain Fever Fever and chills GERD (gastroesophageal reflux disease) (03/03/11) IBS (irritable bowel syndrome) Mgr NOS wo ntrc w st mgr (03/03/11) Migraine headache Shoulder pain, bilateral URI (upper respiratory infection) URI, acute Vertigo Vomiting Surgical History H/O eye surgery MUSCLE SX LEFT EYE History of cholecystectomy History of colonoscopy History of ear surgery 2013 - Eustacian tube History of esophagogastroduodenoscopy (EGD) 2016 @ [facility] by Dr Medhat Jimbo History of tubal ligation Hx of section x1 Family History Grandfather (Paternal) Colorectal cancer Father Myocardial infarction Heart disease Hypertension Aunt Diabetes Mother Hypertension Grandfather (Maternal) Colon cancer Uncle Lung cancer Other Gallbladder disease Lung disease Seizure Denies family history of Ovarian cancer Prostate cancer Breast cancer Uterine cancer Social History Smoking Status: Never smoker Second Hand Exposure: No; Do You Dip or Chew Tobacco: No; Hx Alcohol Use: No Hx Substance Use: No Preferred Language: Martiniquais Communication Ability: Effective Science And Operations Officer Required: No Beliefs That Will Affect Care: None marital status: Single Current Living Situation: Alone current occupational status: disabled Feels Safe at Home: Yes Dental Care, Regularly: Yes Physical Activity Frequency Comment: Walking Seatbelt Use: always Sunscreen Use: Yes Assistive Devices: None Review of Systems Review of Systems: All systems reviewed & are unremarkable except as noted in HPI & below Physical Exam Physical Exam: General: A&Ox3. NAD. Cooperative. HEENT: Atraumatic, normocephalic. Poor dentition. Vision/hearing grossly intact. Pulm: CTAB A&P. -wheezes, -rales, -rhonchi. Symmetrical chest rise. No increased work of breathing. No respiratory distress. Cardiac: RRR, -mrg. Radial pulses intact and symmetrical. Chest wall TTP overlying sternum/R chest/L chest. +positional pain when leaning backwards. No JVD Abdominal: Nontender, nondistended, soft. BS present. Ext: warm, dry. no edema Results & Data Results & Data Vital Signs (Past 12 Hours) Vital Signs Temp Pulse Pulse Resp BP BP Pulse Ox 11/10/22 16:16 76 11/10/22 13:59 73 18 100 11/10/22 12:06 80 11/10/22 10:41 95 H 20 145/89 H 98 11/10/22 10:37 92 H 15 99 11/10/22 10:22 36.6 C 105 H 20 136/84 98 O2 Del Method 11/10/22 16:16 11/10/22 13:59 Room Air 11/10/22 12:06 11/10/22 10:41 Room Air 11/10/22 10:37 Room Air 08/04/23 10:22 Room Air PG Care Time/CCT Total # of Minutes Spent Total Time Spent with Patient: Total time spent is greater than 50% in coordination of care (as documented) at patient's floor/unit and/or counseling patient: Coding Level of Care Code 59373 INT INP/OBS CARE 3/75MIN Diagnoses Atypical chest pain R07.89 Chest wall pain R07.89 Elevated troponin R77.8 GERD with stricture K21.9; K22.2 Complex partial seizure G40.209 Epilepsy type: partial symptomatic Intractability: not intractable Status epilepticus: without status epilepticus GERD (gastroesophageal reflux disease) K21.9 IBS (irritable bowel syndrome) K58.9 (5) Complex partial seizure Epilepsy type: partial symptomatic Intractability: not intractable Status epilepticus: without status epilepticus Qualified Code(s): G40.209 - Localization-related (focal) (partial) symptomatic epilepsy and epileptic syndromes with complex partial seizures, not intractable, without status epilepticus
[2022-11-10] MEDS ORDERED: KETOROLAC TROMETHAMINE 15 MG/ML VIAL IV ONE (16:32)
[2022-11-10 16:45] LABS: Albumin Globulin Ratio 1.6 (0.9-2); Albumin Level 4.2 gm/dl (3.4-5.0); BUN Creatinine Ratio 11.7 (10-20); Bilirubin,Total 0.4 mg/dl (0.2-1.0); Calcium 9.1 mg/dl (8.6-10.3); Creatinine Clr Calc Pharmacy 90.7 ml/min; Est GFR (African American) 83.7 ml/min; Est GFR (Non-African American) 72.2 ml/min; Globulin 2.6 gm/dl (2.5-4.0); Potassium 3.4 mmol/L (3.5-5.1); Total Protein 6.8 gm/dl (6.0-8.3)
[2022-11-10] MEDS ORDERED: NITROGLYCERIN SL 0.4 MG/TAB TAB SL STA (16:48)
[2022-11-10 16:58] LABS: Lyme Ab IgG w/WB Rflx Negative (Negative)
[2022-11-10 16:59] LABS: Lyme Ab IgM w/WB Rflx Negative (Negative)
[2022-11-10] MEDS: MoRPHine SULFATE 2 MG/ML CARP IV PRN ×2 (18:42→22:08)
[2022-11-10] MEDS: ACETAMINOPHEN 500 MG TAB PO PRN (19:38)
[2022-11-10] MEDS: PANTOprazole 40 MG TAB PO SCH (20:29)
[2022-11-10] MEDS: POTASSIUM CHLORIDE PWD 20 MEQ PACK PO SCH (20:30)
--- NOTE | 2022-11-11 00:16 | Electrocardiogram Report ---
Test Reason : Blood Pressure : / mmHG Vent. Rate : 094 BPM Atrial Rate : 094 BPM P-R Int : 130 ms QRS Dur : 078 ms QT Int : 350 ms P-R-T Axes : 004 -15 -10 degrees QTc Int : 437 ms Normal sinus rhythm Left ventricular hypertrophy with repolarization abnormality ( R in aVL ) Abnormal ECG When compared with ECG of 09-NOV-2022 11:38, No significant change was found Confirmed by Rivera Sinha ([id number]) on 11/11/2022 12:16:45 AM Referred By: Confirmed By:Rivera Sinha
[2022-11-11] MEDS: KETOROLAC TROMETHAMINE 15 MG/ML VIAL IV PRN ×3 (03:01→18:38)
--- NOTE | 2022-11-11 07:13 | Electrocardiogram Report ---
Test Reason : Blood Pressure : / mmHG Vent. Rate : 089 BPM Atrial Rate : 089 BPM P-R Int : 166 ms QRS Dur : 092 ms QT Int : 370 ms P-R-T Axes : 039 002 035 degrees QTc Int : 450 ms Normal sinus rhythm Incomplete right bundle branch block Abnormal ECG When compared with ECG of 10-NOV-2022 10:36, Nonspecific T wave abnormality has replaced inverted T waves in Inferior leads Confirmed by Hugo Napier ([id number]) on 11/11/2022 7:13:25 AM Referred By: Sid Strickland Confirmed By:Eliecer Napier
--- NOTE | 2022-11-11 07:15 | Electrocardiogram Report ---
Test Reason : Blood Pressure : / mmHG Vent. Rate : 069 BPM Atrial Rate : 069 BPM P-R Int : 180 ms QRS Dur : 102 ms QT Int : 420 ms P-R-T Axes : 016 -09 -01 degrees QTc Int : 450 ms Normal sinus rhythm Incomplete right bundle branch block Minimal voltage criteria for LVH, may be normal variant T wave abnormality, consider anterior ischemia Abnormal ECG When compared with ECG of 10-NOV-2022 21:54, (unconfirmed) No significant change was found Confirmed by Hugo Napier ([id number]) on 11/11/2022 7:15:04 AM Referred By: Sid Strickland Confirmed By:Eliecer Napier
[2022-11-11 07:58] LABS: Basophils % (auto) 1.4 %; Eosinophils % (auto) 2.9 %; Immature Granulocytes # (auto) 0.02 K/uL (0.01-0.20); Immature Granulocytes % (auto) 0.3 %; Lymphocytes # (auto) 2.31 K/uL (1.2-3.4); Lymphocytes % (auto) 33.1 %; Mean Corpuscular Hemoglobin 28.9 pg (25.0-34.0); Mean Corpuscular Hgb Conc 32.3 g/dL (32.0-36.0); Mean Corpuscular Volume 89.6 fL (80.0-100.0); Mean Platelet Volume 10.1 fL (9.4-12.4); Monocytes # (auto) 0.61 K/uL (0.11-0.59); Monocytes % (auto) 8.7 %; Neutrophils # (auto) 3.74 K/uL (1.40-6.50); Neutrophils % (auto) 53.6 %; Platelet Count 226 K/uL (130-400); RDW Coefficient of Variation 14.6 % (11.5-14.5); RDW Standard Deviation 47.8 fL (36.4-46.3); Red Blood Count 3.46 M/uL (4.20-5.40); White Blood Count 6.98 K/ul (4.8-10.8)
[2022-11-11 08:15] LABS: BUN Creatinine Ratio 11.6 (10-20); Calcium 9.3 mg/dl (8.6-10.3); Creatinine Clr Calc Pharmacy 78.9 ml/min; Est GFR (African American) 67.7 ml/min; Est GFR (Non-African American) 58.5 ml/min; Potassium 3.7 mmol/L (3.5-5.1)
[2022-11-11] MEDS: ACETAMINOPHEN 500 MG TAB PO PRN ×2 (09:02→20:09)
[2022-11-11] MEDS: CITALOPRAM 20 MG TAB PO SCH (09:03)
[2022-11-11] MEDS: FAMOTIDINE 40 MG TABLET PO SCH (09:03)
[2022-11-11] MEDS: PANTOprazole 40 MG TAB PO SCH ×2 (09:04→20:09)
[2022-11-11] MEDS: POTASSIUM CHLORIDE PWD 20 MEQ PACK PO SCH ×2 (09:04→20:09)
--- NOTE | 2022-11-11 11:48 | XCELERA ---
[id number]
--- NOTE | 2022-11-11 14:32 | Discharge Summary ---
Date of Service November 11, 2022 Admission HPI Per Admitting Provider Lata is a 47-year-old female with a history of pericardial effusion, elevated troponin, depression/anxiety, complex partial seizures, GERD with stricture, Greenfield's esophagus, IBS who was recently seen in the ER for hip pain and had an EKG performed per protocol which was noted to have possible ST changes 1 day ago. EKG was reviewed by cardiology who noted symptoms are atypical and not suggestive of ACS, EKG has ST changes that are similar to prior and not consistent with ACS but are also not normal and reasonable to admit for echo. Stress test can be pursued, this may be done as an outpatient if patient is s table enough to be discharged over the weekend SHe denies history of heart problems Lata reports this morning she felt like her heart was racing this morning and she felt her chest was very tender and had pain into her back and shoulders. Chest pain has been constant since this morning. Is worse when laying backwards and when leaning for forwards. Has a burning quality sternum and chest are tender to palpation she reports she feels a little short of breath/tight breathing, isn't breathing as deeply due to concern for pain recieved a medicine for anxiety which 'helped a tad but not much' Feels like she is getting a 'bear hug on the ribs' Feels Tylenol helped a little bit Has a family history of [place] with multiple family members including her father in their 60s, no early heart disease. She has not had pain like this previously, was not having pain yesterday Denies fever/chills/sweats. Denies recent illnesses. No abdominal pain No diarrhea/constipation Medical History: Reviewed Medications: Reviewed Surgical History: Reviewed Family history: Reviewed Allergies: Reviewed Social History: No tobacco product use. Denies etoh Code Status: Full Code Discharge Data Allergies Allergy/AdvReac Type Severity Reaction Status Date / Time clonazepam Allergy Severe SOB AND Verified 11/09/22 10:41 DIFFICULTY WALKING pollen extracts Allergy Mild ITCHING/SNE Verified 11/09/22 10:41 EZING aspirin AdvReac Mild Nausea Verified 11/09/22 10:41 Consultations 11/10/22 14:14 ED Decision to Admit Stat Ordered Studies 11/10/22 11:57 CT angio chest PE protocol Stat Discharge Plan Discharge Items Reason For Visit: CHEST PAIN Follow-up/Referrals: Manas Mcqueen MD [Primary Care Provider] - Medications and DC Order Prescriptions: No Action amitriptyline 150 mg tablet 150 mg PO HS Qty: 30 2RF Hold Instructions: no longer takes Rx Instructions: still on hold albuterol sulfate 90 mcg/actuation HFA aerosol inhaler 2 puff inhalation Q6H PRN (Reason: shortness of breath or wheezing) Qty: 8.5 1RF meclizine 12.5 mg tablet 12.5 mg PO TID PRN (Reason: dizziness) Qty: 30 0RF Gaviscon Extra Strength 254-237.5 mg/5 mL suspension 10 ml PO QID PRN (Reason: ABD PAIN/UPSET) medroxyprogesterone 150 mg/mL syringe 150 mg IM .COMPLEX Qty: 1 4RF Rx Instructions: 150 mg IM : Inject 1 ml intramuscular every 10 weeks; [id number] ondansetron 8 mg tablet,disintegrating 8 mg PO Q8H PRN (Reason: nausea and vomiting) Qty: 20 0RF citalopram [Celexa] 10 mg tablet 10 mg PO DAILY Qty: 30 1RF Briviact 75 mg tablet 75 mg PO QAM pantoprazole [Protonix] 40 mg Tablet,Delayed Release (Dr/Ec) 40 mg PO BID dicyclomine 10 mg capsule 20 mg PO QID acetaminophen [Tylenol Extra Strength] 500 mg Tablet 1,000 mg PO Q6H PRN (Reason: Pain) potassium chloride [Klor-Con] 20 mEq packet 20 meq PO BID Qty: 10 0RF sucralfate 100 mg/mL suspension See Rx Instructions .ROUTE .COMPLEX Rx Instructions: 10 ml am, noon, pm and hs famotidine 40 mg tablet 40 mg PO QAM Admission Data Admit Date/Time: 11/10/22 16:45 Attending Provider: Neli Gudino Admit Provider: Michael Richard Primary Care Provider: Manas Mcqueen V. Other Providers: Michael Richard Coding Diagnoses
[2022-11-11] MEDS ORDERED: NITROGLYCERIN SL 0.4 MG/TAB TAB ONE (14:37)
[2022-11-11] MEDS: MoRPHine SULFATE 2 MG/ML CARP IV PRN (14:50)
[2022-11-11 16:25] LABS: Troponin I High Sensitivity 14.6 pg/ml (0-14)
[2022-11-11 17:45] LABS: Chol HDL Ratio 7.6 (0-5)
--- NOTE | 2022-11-11 18:33 | Cardiology Consultation ---
Date of Consultation November 11, 2022 Assessment & Plan (1) Atypical chest pain: (2) Palpitations: (3) Elevated troponin: (4) Abnormal EKG: Plan 1. Chest pain: I do not believe her chest pain is related to coronary disease or an acute coronary syndrome. It does seem to be a musculoskeletal component. Given her history of esophageal disease that would also be in the differential. A trial of nonsteroidal anti-inflammatories would be ideal, but given her known peptic ulcer disease, there is a relative contraindications. If inflammatory markers were elevated she may be a good candidate for colchicine. 2. Abnormal EKG: She certainly has an abnormal EKG suggestive of coronary disease. This appears to have changed over the past few months. She certainly has some risk factors for coronary disease including hyperlipidemia and some family history. Base exclusively on her EKG would be reasonable to perform outpatient cardiac perfusion imaging as suggested previously. 3. Elevated troponin: Only mild elevation. Possibly inflammatory. Not indicative of an acute coronary syndrome. 4. Palpitations: She describes very discrete episodes of elevated heart rate. However, there has been no arrhythmia documented on telemetry. Possibly related to underlying anxiety or panic disorder. History of Present Illness Reason for Consultation: Chest pain Requesting Physician: Terese Attending Physician: Neli Gudino MD History of Present Illness The patient is a 47-year-old woman without a known history of cardiac disease originally presented to the emergency room after sustaining a fall at home. The patient does suffer from vertigo and reported turning suddenly on the stairs. She subsequently fell down the stairs and injured her head and her hip she presented to the emergency room for evaluation of her injuries and apparently an EKG was obtained. Patient was not found to have any serious injuries and was discharged home. Evaluation of the EKG subsequently revealed to be abnormal and she was contacted and asked to return to the emergency room. Eventually the patient began to complain of symptoms chest discomfort. She states that she has had intermittent episodes of chest discomfort for several weeks. These are r andom in nature and generally occur at rest there do not appear to be any precipitating or relieving factors. She describes it as a Fernandez aero through her abdomen into her back. There is some worsening with changes in position and currently some discomfort with deep inspiration. The episodes themselves last at least 2 hours but can last for over a day as well. She did find complete relief with morphine, but when the medication wears off her symptoms seem to return. He states there is some tenderness to palpation along the edge of the sternum. Generally she is an active individual, but lately she has been avoiding activity. She is afraid that these symptoms will start when she is out of the house and does not want to draw attention to herself. There does not appear to be an exertional component. Additional complaint includes palpitations. She states that recently she has noticed a racing heartbeat. This tends to awake her from sleep. It is fairly severe and nature but is fairly transient as well. She has had several episodes here in the hospital while on telemetry. Allergies Allergy/AdvReac Type Severity Reaction Status Date / Time clonazepam Allergy Severe SOB AND Verified 11/09/22 10:41 DIFFICULTY WALKING pollen extracts Allergy Mild ITCHING/SNE Verified 11/09/22 10:41 EZING aspirin AdvReac Mild Nausea Verified 11/09/22 10:41 Home Medications Medication Instructions Recorded Confirmed Type dicyclomine 10 mg capsule 20 mg PO QID 02/13/18 11/10/22 History pantoprazole 40 mg tablet,delayed 40 mg PO BID 02/13/18 11/10/22 History release (Protonix) acetaminophen 500 mg tablet 1,000 mg PO Q6H PRN Pain 08/02/18 11/10/22 History (Tylenol Extra Strength) aluminum hydrox-magnesium carb 254 10 ml PO QID PRN ABD PAIN/UPSET 12/05/18 11/10/22 History mg-237.5 mg/5 mL oral suspension (Gaviscon Extra Strength) brivaracetam 75 mg tablet 75 mg PO QAM 04/29/19 11/10/22 History (Briviact) amitriptyline 150 mg tablet 150 mg PO HS #30 tabs 08/04/19 11/10/22 Rx potassium chloride 20 mEq oral 20 meq PO BID #10 packets 10/31/21 11/10/22 Rx packet (Klor-Con) albuterol sulfate 90 mcg/actuation 2 puff inhalation Q6H PRN 11/15/21 11/10/22 Rx aerosol inhaler shortness of breath or wheezing #8.5 grams medroxyprogesterone 150 mg/mL 150 mg IM .COMPLEX #1 mL 01/18/22 11/10/22 Rx intramuscular syringe citalopram 10 mg tablet (Celexa) 10 mg PO DAILY #30 tabs 09/15/22 11/10/22 Rx ondansetron 8 mg disintegrating 8 mg PO Q8H PRN nausea and 09/15/22 11/10/22 Rx tablet vomiting #20 tabs meclizine 12.5 mg tablet 12.5 mg PO TID PRN dizziness #30 11/07/22 11/10/22 Rx tabs famotidine 40 mg tablet 40 mg PO QAM 11/10/22 11/10/22 History sucralfate 100 mg/mL oral See Rx Instructions .Route .COMPLEX 11/10/22 11/10/22 History suspension Patient History Medical History Anxiety Asthma (03/03/11) Barretts esophagus Bipolar disorder, unspecified (03/03/11) Blindness, one eye (03/03/11) LEFT Chronic abdominal pain Complex partial seizure A CHILD-NONE SINCE PER PT Cough productive of clear sputum Depression with anxiety Ear pain Epigastric abdominal pain Fever Fever and chills GERD (gastroesophageal reflux disease) (03/03/11) IBS (irritable bowel syndrome) Mgr NOS wo ntrc w st mgr (03/03/11) Migraine headache Shoulder pain, bilateral URI (upper respiratory infection) URI, acute Vertigo Vomiting Surgical History H/O eye surgery MUSCLE SX LEFT EYE History of cholecystectomy History of colonoscopy History of ear surgery 2013 - Eustacian tube History of esophagogastroduodenoscopy (EGD) 2016 @ [facility] by Dr Medhat Choi History of tubal ligation Hx of section x1 Family History Grandfather (Paternal) Colorectal cancer Father Myocardial infarction Heart disease Hypertension Aunt Diabetes Mother Hypertension Grandfather (Maternal) Colon cancer Uncle Lung cancer Other Gallbladder disease Lung disease Seizure Denies family history of Ovarian cancer Prostate cancer Breast cancer Uterine cancer Social History Smoking Status: Never smoker Second Hand Exposure: No; Do You Dip or Chew Tobacco: No; Hx Alcohol Use: No Hx Substance Use: No Preferred Language: Central African Communication Ability: Effective Retail Agent Required: No Beliefs That Will Affect Care: Lutheran marital status: Single Current Living Situation: Spouse current occupational status: disabled Feels Safe at Home: Yes Dental Care, Regularly: Yes Physical Activity Frequency Comment: Walking Seatbelt Use: always Sunscreen Use: Yes Assistive Devices: None Review of Systems Review of Systems: Per HPI. She has a history of Greenfield's esophagus and gastroesophageal reflux disease. She does have indigestion on occasion but she feels the symptoms are distinct from which he has been experiencing lately Physical Exam Physical Exam: She is alert and oriented x3. Mood affect appear normal. She answered all questions appropriately. HEENT: Sclerae are anicteric. Extraocular movements were intact. Poor dentition Neuro: Cranial nerves intact Chest: Some tenderness to palpation along the sternum and mid back. Lungs: Lungs are clear to auscultation bilaterally. There are no rales wheezes or rhonchi. She has normal respiratory effort without use of accessory muscles. There is normal pulmonary excursion. Cardiac: The rhythm was regular. S1 and S2 were normal. There are no murmurs on examination. The PMI was not markedly displaced on palpation. Extremities: Patient has bilateral radial pulses that are equal in intensity. There is no evidence cyanosis or clubbing. There was no evidence of significant peripheral edema bilaterally. Skin: There are no rashes noted on examination today. Results & Data Vital Signs (Past 12 Hours) Vital Signs Temp Pulse Pulse Resp BP Pulse Ox O2 Del Method 11/11/22 15:00 76 11/11/22 15:51 37 C 90 19 155/61 H 99 Room Air 11/11/22 14:41 36.7 C 78 16 122/66 99 Room Air 11/11/22 11:12 37.2 C 78 16 133/88 98 Room Air 11/11/22 08:00 69 11/11/22 08:05 36.9 C 71 19 117/79 93 Room Air Laboratory Results Abnormal Lab Results 11/11/22 11/11/22 11/11/22 00:30 06:52 06:52 WBC 6.98 RBC 3.46 L Hgb 10.0 L Hct 31.0 L MCV 89.6 MCH 28.9 MCHC 32.3 RDW Std Deviation 47.8 H RDW Coeff of Aurelio 14.6 H Plt Count 226 MPV 10.1 Immature Gran % (Auto) 0.3 Neut % (Auto) 53.6 Lymph % (Auto) 33.1 [place] % (Auto) 8.7 Eos % (Auto) 2.9 Baso % (Auto) 1.4 Neut # (Auto) 3.74 Lymph # (Auto) 2.31 [place] # (Auto) 0.61 H Eos # (Auto) 0.20 Baso # (Auto) 0.10 Immature Gran # (Auto) 0.02 Sodium Potassium Chloride Carbon Dioxide Anion Gap BUN Creatinine Est Cr Clr Drug Dosing Est GFR ( Amer) Est GFR (Non-Af Amer) BUN/Creatinine Ratio Glucose Calcium Troponin I High Sens 25.2 H 20.6 H Triglycerides Cholesterol LDL Cholesterol, Calc VLDL Cholesterol, Calc HDL Cholesterol Cholesterol/HDL Ratio TSH 11/11/22 11/11/22 11/11/22 06:52 12:50 12:50 WBC RBC Hgb Hct MCV MCH MCHC RDW Std Deviation RDW Coeff of Aurelio Plt Count MPV Immature Gran % (Auto) Neut % (Auto) Lymph % (Auto) [place] % (Auto) Eos % (Auto) Baso % (Auto) Neut # (Auto) Lymph # (Auto) [place] # (Auto) Eos # (Auto) Baso # (Auto) Immature Gran # (Auto) Sodium 139 Potassium 3.7 Chloride 109 H Carbon Dioxide 23 Anion Gap 7 BUN 13 Creatinine 1.12 Est Cr Clr Drug Dosing 78.9 Est GFR ( Amer) 67.7 Est GFR (Non-Af Amer) 58.5 BUN/Creatinine Ratio 11.6 Glucose 100 H Calcium 9.3 Troponin I High Sens 15.5 H D Triglycerides Cholesterol LDL Cholesterol, Calc VLDL Cholesterol, Calc HDL Cholesterol Cholesterol/HDL Ratio TSH 1.104 11/11/22 11/11/22 15:33 15:33 WBC RBC Hgb Hct MCV MCH MCHC RDW Std Deviation RDW Coeff of Aurelio Plt Count MPV Immature Gran % (Auto) Neut % (Auto) Lymph % (Auto) [place] % (Auto) Eos % (Auto) Baso % (Auto) Neut # (Auto) Lymph # (Auto) [place] # (Auto) Eos # (Auto) Baso # (Auto) Immature Gran # (Auto) Sodium Potassium Chloride Carbon Dioxide Anion Gap BUN Creatinine Est Cr Clr Drug Dosing Est GFR ( Amer) Est GFR (Non-Af Amer) BUN/Creatinine Ratio Glucose Calcium Troponin I High Sens 14.6 H Triglycerides 298 H Cancelled Cholesterol 228 H Cancelled LDL Cholesterol, Calc 138 Cancelled VLDL Cholesterol, Calc 60 H Cancelled HDL Cholesterol 30 Cancelled Cholesterol/HDL Ratio 7.6 H Cancelled TSH Diagnostic Findings Without significant valvular heart disease. No pericardial effusion. PG Care Time/CCT Total # of Minutes Spent Total Time Spent with Patient: Total time spent is greater than 50% in coordination of care (as documented) at patient's floor/unit and/or counseling patient: Coding Diagnoses Atypical chest pain R07.89 Palpitations R00.2 Elevated troponin R77.8 Abnormal EKG R94.31
--- NOTE | 2022-11-11 18:47 | Hospitalist Progress Note ---
Date of Service November 11, 2022 Assessment & Plan (1) Atypical chest pain: Plan: Atypical chest pain Troponin minimally elevated 24/25 in ER --> has continued to downtrend EKG with some ST abnormalities Echo normal Tylenol, Toradol, morphine ordered Uncertain if cardiac in nature or musculoskeletal or related to underlying Greenfield's disease CTA: 1. Limited exam secondary to respiratory motion artifact. No pulmonary emboli identified. 2. No pleural effusion or airspace consolidation to suggest pneumonia. 3. Mild nonspecific left axillary/subpectoral lymphadenopathy. -Multimodal pain control, Tylenol, Toradol, breakthrough morphine Tickborne panel is pending - Cardiology consulted - Check A1c and cholesterol Anxiety/depression Continue home medications GERD Continue Protonix Hypokalemia Continue home potassium Enlarged lymph node Mild left axillary/subpectoral lymphadenopathy increased from prior 09/2022. No history of malignancy. Serial imaging, biopsy if continuing to enlarge/atypical features Anemia - Recheck CBC in morning - if still low, consider further studies Elevated BPs, no diagnosis of HTN - Continue to monitor - would warrant outpatient monitoring Disposition: Medical telemetry CODE STATUS: Full code Diet: Heart healthy DVT prophylaxis: Lovenox (2) Chest wall pain: (3) Elevated troponin: (4) GERD with stricture: (5) Complex partial seizure: (6) GERD (gastroesophageal reflux disease): (7) IBS (irritable bowel syndrome): (8) Elevated blood pressure reading without diagnosis of hypertension: Admission and Anticipated Discharge Date Admission Date: November 10, 2022 Subjective Was feeling improved on initial evaluation but later in the afternoon developed another episode of substernal chest pain that radiates to her back, lasted for about an hour. Denies any associated nausea or dyspnea. Has chronic vertigo but denies any change or lightheadedness. Morphine did help with her pain. Physical Exam Physical Exam: General: Well-appearing, NAD Cardiovascular: RRR, no M/R/G Pulmonary: CTAB, no W/R/R Abdomen: Soft, NT/ND, no guarding Extremities: Moving all extremities, no pedal edema Integumentary: No suspicious rash or lesion on exposed skin Neurologic: AAOx3, no focal deficits Psychiatric: Appropriate mood/affect Results & Data Results & Data Vital Signs (Past 12 Hours) Vital Signs Temp Pulse Pulse Resp BP Pulse Ox O2 Del Method 11/11/22 15:00 76 11/11/22 15:51 37 C 90 19 155/61 H 99 Room Air 11/11/22 14:41 36.7 C 78 16 122/66 99 Room Air 11/11/22 11:12 37.2 C 78 16 133/88 98 Room Air 11/11/22 08:00 69 11/11/22 08:05 36.9 C 71 19 117/79 93 Room Air Laboratory Results Notable for hemoglobin low at 10.0, potassium improved to 3.7, TSH normal, downtrending troponin (even after second episode of chest pain) Diagnostic Findings Echocardiogram unremarkable ECG Additional Comments: Reviewed EKG from this afternoon - c/f anterolateral ischemic changes - discussed with cardiology PG Care Time/CCT Total # of Minutes Spent Total Time Spent with Patient: Total time spent is greater than 50% in coordination of care (as documented) at patient's floor/unit and/or counseling patient: Coding Level of Care Code 73725 SUB INP/OBS CARE 2/35MIN Diagnoses Atypical chest pain R07.89 Chest wall pain R07.89 Elevated troponin R77.8 GERD with stricture K21.9; K22.2 Complex partial seizure G40.209 Epilepsy type: partial symptomatic Intractability: not intractable Status epilepticus: without status epilepticus GERD (gastroesophageal reflux disease) K21.9 IBS (irritable bowel syndrome) K58.9 Elevated blood pressure reading without diagnosis of hypertension R03.0 (5) Complex partial seizure Epilepsy type: partial symptomatic Intractability: not intractable Status epilepticus: without status epilepticus Qualified Code(s): G40.209 - Localization-related (focal) (partial) symptomatic epilepsy and epileptic syndromes with complex partial seizures, not intractable, without status epilepticus
[2022-11-11] MEDS ORDERED: MELATONIN 3 MG TAB PO PRN (19:46)
--- NOTE | 2022-11-12 07:10 | Electrocardiogram Report ---
Test Reason : Blood Pressure : / mmHG Vent. Rate : 076 BPM Atrial Rate : 076 BPM P-R Int : 144 ms QRS Dur : 086 ms QT Int : 392 ms P-R-T Axes : 002 -13 -01 degrees QTc Int : 441 ms Normal sinus rhythm Moderate voltage criteria for LVH, may be normal variant T wave abnormality, consider anterolateral ischemia Abnormal ECG When compared with ECG of 11-NOV-2022 05:22, Incomplete right bundle branch block is no longer Present Confirmed by Hugo Napier ([id number]) on 11/12/2022 7:09:37 AM Referred By: Sid Strickland Confirmed By:Eliecer Napier
[2022-11-12 07:40] LABS: Basophils # (auto) 0.08 K/uL (0-0.2); Basophils % (auto) 1.1 %; Eosinophils # (auto) 0.25 K/uL (0-0.50); Eosinophils % (auto) 3.4 %; Hemoglobin 9.8 g/dl (12.0-16.0); Immature Granulocytes # (auto) 0.02 K/uL (0.01-0.20); Immature Granulocytes % (auto) 0.3 %; Lymphocytes # (auto) 1.97 K/uL (1.2-3.4); Lymphocytes % (auto) 26.9 %; Mean Corpuscular Hemoglobin 29.1 pg (25.0-34.0); Mean Corpuscular Hgb Conc 32.7 g/dL (32.0-36.0); Mean Platelet Volume 10.1 fL (9.4-12.4); Monocytes # (auto) 0.56 K/uL (0.11-0.59); Monocytes % (auto) 7.6 %; Neutrophils # (auto) 4.45 K/uL (1.40-6.50); Neutrophils % (auto) 60.7 %; Platelet Count 230 K/uL (130-400); RDW Coefficient of Variation 14.5 % (11.5-14.5); RDW Standard Deviation 46.9 fL (36.4-46.3); Red Blood Count 3.37 M/uL (4.20-5.40); White Blood Count 7.33 K/ul (4.8-10.8)
[2022-11-12 07:52] LABS: BUN Creatinine Ratio 15.5 (10-20); C Reactive Protein 0.57 mg/dl (0-0.5); Calcium 9.1 mg/dl (8.6-10.3); Creatinine Clr Calc Pharmacy 84.5 ml/min; Est GFR (Non-African American) 64.7 ml/min; Potassium 4.1 mmol/L (3.5-5.1)
--- NOTE | 2022-11-12 08:11 | Discharge Summary ---
Date of Service November 12, 2022 Admission HPI Per Admitting Provider Lata is a 47-year-old female with a history of pericardial effusion, elevated troponin, depression/anxiety, complex partial seizures, GERD with stricture, Greenfield's esophagus, IBS who was recently seen in the ER for hip pain and had an EKG performed per protocol which was noted to have possible ST changes 1 day ago. EKG was reviewed by cardiology who noted symptoms are atypical and not suggestive of ACS, EKG has ST changes that are similar to prior and not consistent with ACS but are also not normal and reasonable to admit for echo. Stress test can be pursued, this may be done as an outpatient if patient is s table enough to be discharged over the weekend SHe denies history of heart problems Lata reports this morning she felt like her heart was racing this morning and she felt her chest was very tender and had pain into her back and shoulders. Chest pain has been constant since this morning. Is worse when laying backwards and when leaning for forwards. Has a burning quality sternum and chest are tender to palpation she reports she feels a little short of breath/tight breathing, isn't breathing as deeply due to concern for pain recieved a medicine for anxiety which 'helped a tad but not much' Feels like she is getting a 'bear hug on the ribs' Feels Tylenol helped a little bit Has a family history of NM with multiple family members including her father in their 60s, no early heart disease. She has not had pain like this previously, was not having pain yesterday Denies fever/chills/sweats. Denies recent illnesses. No abdominal pain No diarrhea/constipation Medical History: Reviewed Medications: Reviewed Surgical History: Reviewed Family history: Reviewed Allergies: Reviewed Social History: No tobacco product use. Denies etoh Code Status: Full Code Admission Exam Per Admitting Provider General: A&Ox3. NAD. Cooperative. HEENT: Atraumatic, normocephalic. Poor dentition. Vision/hearing grossly intact. Pulm: CTAB A&P. -wheezes, -rales, -rhonchi. Symmetrical chest rise. No increased work of breathing. No respiratory distress. Cardiac: RRR, -mrg. Radial pulses intact and symmetrical. Chest wall TTP overly ing sternum/R chest/L chest. +positional pain when leaning backwards. No JVD Abdominal: Nontender, nondistended, soft. BS present. Ext: warm, dry. no edema Principal Diagnosis Chest Pain Discharge Exam General: Well-appearing, NAD Cardiovascular: RRR, no M/R/G Pulmonary: CTAB, no W/R/R Abdomen: Soft, NT/ND, no guarding Extremities: Moving all extremities, no pedal edema Integumentary: No suspicious rash or lesion on exposed skin Neurologic: AAOx3, no focal deficits Psychiatric: Appropriate mood/affect Discharge Data Allergies Allergy/AdvReac Type Severity Reaction Status Date / Time clonazepam Allergy Severe SOB AND Verified 11/09/22 10:41 DIFFICULTY WALKING pollen extracts Allergy Mild ITCHING/SNE Verified 11/09/22 10:41 EZING aspirin AdvReac Mild Nausea Verified 11/09/22 10:41 Consultations 11/10/22 14:14 ED Decision to Admit Stat 11/11/22 15:36 Consult Cardiology Routine 11/12/22 08:10 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 Limited exam secondary to respiratory motion artifact. No pulmonary emboli identified. 2. No pleural effusion or airspace consolidation to suggest pneumonia. 3. Mild nonspecific left axillary/subpectoral lymphadenopathy. -Multimodal pain control, Tylenol, Toradol, breakthrough morphine Echo normal - A1c normal, Cholesterol panel abnormal - see below Tylenol, Toradol, morphine while inpatient Tickborne panel is pending - Cardiology consulted: felt CP unlikely to be ACS, likely MSK components or possibly esophageal disease. Recommend trial of colchicine if elevated inflammatory markers. Recommend outpatient cardiac perfusion imaging - ESR and CRP mildly elevateddischarged on course of colchicine - Also discharged with as needed nitro - F/u with cardiology outpatient Elevated cholesterol and TGs - 10 year ASCVD risk <5% - Hold on statin initiation, counseled on lifestyle changes - Will need monitoring outpatient Anemia, normocytic - Hgb down to 9.8 on day of discharge. Noted to be low previously with unremarkable iron studies in September - Recommend recheck at PCP f/u appt and ongoing evaluation/management Enlarged lymph node Mild left axillary/subpectoral lymphadenopathy increased from prior 09/2022. No history of malignancy. Serial imaging, biopsy if continuing to enlarge/atypical features Anxiety/depression Continue home medications GERD Continue Protonix Hypokalemia Continue home potassium Elevated BPs, no diagnosis of HTN - Labile while inpatient, noted to have elevated pressures in the past as well, but on discharge was 106/66 - Would warrant outpatient monitoring and follow up Sleep difficulty: - Prescribed melatonin which was helpful while inpatient Total Time Total Time Spent Total Time Spent (In Minutes): 40 minutes Total Time Includes: Examination of the Patient, Discharge Planning and Medication Reconciliation Discharge Plan Discharge Items Patient Disposition: Home - Self-Care Reason For Visit: CHEST PAIN Discharge Diagnosis: Chest pain Activity: Resume your previous activity Non-emergency contact: Primary Care Provider Call non-emergency contact if: your symptoms worsen Follow-up/Referrals: Manas Mcqueen MD [Primary Care Provider] - 11/20/22 11:00 am Diet: Heart Healthy Addtl Attending Provider Instructions: You were admitted with chest pain. Your EKG did have some abnormalities but it does not appear that you had a heart attack. Your echocardiogram was normal. We will help you arrange getting a stress test done outpatient for your heart to better look for heart disease. In the meantime we will start you on a medication called colchicine to take 2 times per day to help with inflammation until you are seen by cardiology. This has been sent to your pharmacy. Nitroglycerin has also been sent to your pharmacy to take as needed for chest pain. For help with sleep, you can get melatonin 3mg over the counter to take at nighttime. You also had anemia while you were in the hospital. This was evaluated in September by your primary care doctor - this is worth discussing with your primary care doctor again. You also had elevated cholesterol - try to work on improving your diet and exercise habits. Pending Studies at Discharge: No Stand-Alone Forms: [employer], Smoking Cessation Medications and DC Order Prescriptions: New melatonin 3 mg Tablet 3 mg PO HS PRN (Reason: sleep) Qty: 30 0RF nitroglycerin 0.4 mg tablet, sublingual 0.4 mg sublingual Q5M PRN (Reason: chest pain) Qty: 10 0RF Rx Instructions: Do not administer more than 3 tablets in a 15 minute period colchicine (gout) 0.6 mg tablet 0.6 mg PO BID Qty: 60 2RF Continued albuterol sulfate 90 mcg/actuation HFA aerosol inhaler 2 puff inhalation Q6H PRN (Reason: shortness of breath or wheezing) Qty: 8.5 1RF meclizine 12.5 mg tablet 12.5 mg PO TID PRN (Reason: dizziness) Qty: 30 0RF Gaviscon Extra Strength 254-237.5 mg/5 mL suspension 10 ml PO QID PRN (Reason: ABD PAIN/UPSET) medroxyprogesterone 150 mg/mL syringe 150 mg IM .COMPLEX Qty: 1 4RF Rx Instructions: 150 mg IM : Inject 1 ml intramuscular every 10 weeks; [id number] ondansetron 8 mg tablet,disintegrating 8 mg PO Q8H PRN (Reason: nausea and vomiting) Qty: 20 0RF citalopram [Celexa] 10 mg tablet 10 mg PO DAILY Qty: 30 1RF Briviact 75 mg tablet 75 mg PO QAM pantoprazole [Protonix] 40 mg Tablet,Delayed Release (Dr/Ec) 40 mg PO BID dicyclomine 10 mg capsule 20 mg PO QID acetaminophen [Tylenol Extra Strength] 500 mg Tablet 1,000 mg PO Q6H PRN (Reason: Pain) potassium chloride [Klor-Con] 20 mEq packet 20 meq PO BID Qty: 10 0RF sucralfate 100 mg/mL suspension See Rx Instructions .ROUTE .COMPLEX Rx Instructions: 10 ml am, noon, pm and hs famotidine 40 mg tablet 40 mg PO QAM No Action amitriptyline 150 mg tablet 150 mg PO HS PRN (Reason: diaz) Qty: 30 2RF Hold Instructions: no longer takes Rx Instructions: still on hold Discharge Orders: Discharge Order (Routine); Ordered 11/12/22 Ordered By: Neli Gudino Admission Data Admit Date/Time: 11/10/22 16:45 Attending Provider: Neli Gudino Admit Provider: Michael Richard Primary Care Provider: Manas Mcqueen V. Other Providers: Michael Richard ; Hugo Napier Other Interventions: Discharge Summary Assessment (RN) Last Done: 11/12/22 12:33 Coding Level of Care Code 41273 INP/OBS DISCH >30 MIN Diagnoses Atypical chest pain R07.89 Abnormal EKG R94.31 High cholesterol E78.00 Anemia D64.9 Sleeping difficulty G47.9
[2022-11-12] MEDS: PANTOprazole 40 MG TAB PO SCH (08:41)
[2022-11-12] MEDS: CITALOPRAM 20 MG TAB PO SCH (08:41)
[2022-11-12] MEDS: FAMOTIDINE 40 MG TABLET PO SCH (08:41)
[2022-11-12] MEDS: POTASSIUM CHLORIDE PWD 20 MEQ PACK PO SCH (08:41)
[2022-11-13 08:38] LABS: Estimated Average Glucose 105 mg/dl; Hemoglobin A1C 5.3 % (4.5-5.6)
[2022-11-15 06:16] LABS: Babesia microti DNA Not Detected (Not Detected)
== END 2022-11-12 14:11 | disposition home or self-care (01) ==
LOC: ED 10:19 → 2N 10:19 → SUATTDRO 16:45 → 2N 18:15
DX: G40.209 Localization-related (focal) (partial) symptomatic epilepsy and epileptic syndromes with complex partial seizures, not intractable, without status epilepticus; D64.9 Anemia, unspecified; E87.6 Hypokalemia; Z79.899 Other long term (current) drug therapy; Z88.8 Allergy status to other drugs, medicaments and biological substances; R03.0 Elevated blood-pressure reading, without diagnosis of hypertension; K21.9 Gastro-esophageal reflux disease without esophagitis; H54.62 Unqualified visual loss, left eye, normal vision right eye; F41.9 Anxiety disorder, unspecified; F32.A Depression, unspecified; E78.00 Pure hypercholesterolemia, unspecified; K58.9 Irritable bowel syndrome, unspecified; Z88.6 Allergy status to analgesic agent; R07.89 Other chest pain; R94.31 Abnormal electrocardiogram [ECG] [EKG]; R77.8 Other specified abnormalities of plasma proteins; R00.2 Palpitations; Z82.49 Family history of ischemic heart disease and other diseases of the circulatory system; R59.0 Localized enlarged lymph nodes

== ENCOUNTER 2022-11-20 16:09 | Observation (INO) ==
--- NOTE | 2022-11-20 16:19 | ED Triage Note ---
Date of Service November 20, 2022 History of Present Illness This patient was briefly evaluated while in triage. An abbreviated physical exam was performed. This patient is a 47-year-old Female who presents to the ED for evaluation of chest pain. Pain started yesterday and has been constant. She states she was seen by cardiology and sent directly here. 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 Physical Exam VITALS: Vitals are noted on the nurse's note and reviewed by myself. GENERAL: This is a 47-year-old female, anxious appearing. SKIN: The skin was without rashes, erythema, edema, or bruising. HEART: Regular rate and rhythm without murmurs gallops or rubs. LUNGS: Clear to auscultation bilaterally without wheezes, rales or rhonchi. NEURO: Patient was alert and oriented to person place and time. Initial orders for labs and / or imaging were placed and patient was placed in the waiting area until a bed is available. Please see further documentation for the full ED course.
[2022-11-20] MEDS ORDERED: ASPIRIN CHEW 324 MG PO STA (16:21)
[2022-11-20] MEDS ORDERED: NITROGLYCERIN 2% OINTMENT 30GM TUBE EXT STA (16:48)
[2022-11-20] MEDS ORDERED: SODIUM CHLORIDE 0.9% 1000ML 500 ML IV ONE (16:48)
[2022-11-20] MEDS ORDERED: MoRPHine SULFATE 4 MG/ML 1 ML CARP\\VIAL IV STA ×2 (16:48→18:28)
[2022-11-20] MEDS ORDERED: ONDANSETRON INJ 2 MG/ML 2 ML VIAL IV STA (16:48)
--- NOTE | 2022-11-20 16:50 | Emergency Department Note ---
Impression & Plan Precordial chest pain, Leukocytosis, Tachycardia ED Provider Note NAME: ZIGGY SALAZAR AGE: 47 SEX: F : 1975 ARRIVES VIA: Walk-In INFORMANT: [Patient] ED PROVIDER(S): [Kevin Coley MD] CHIEF COMPLAINT: Chest pain HISTORY OF PRESENT ILLNESS: The patient is a 47-year-old female who presents to the ER with ongoing chest pain. She was discharged from our hospital 8 days ago after being worked up for chest pain. Cardiology at that time did not feel the pain was secondary to c oronary ischemia, the pain was felt musculoskeletal. She was discharged with colchicine. The patient has not had any improvement on the colchicine. She continues to have central chest pain. The patient was seen by Dr. Ayala of interventional cardiology today. He recommended repeat hospitalization and cardiac catheterization. The patient has not had fever or any real change in her pain. It is always present and is across the central portion of her chest. Its worse to palpate and is described as sharp. Looking at old records, she has had several CTs of the chest for PE, these have been unrevealing. She did have a mildly elevated troponin with her last admission. PMHx/PSHx: See Below SOCIAL HISTORY: See Below. PHYSICAL EXAM: GENERAL: Patient is in no acute distress. Anxious. HEENT: No acute trauma, normocephalic atraumatic, mucous membranes moist, no nasal congestion. NECK: No stridor, no adenopathy, no meningismus, trachea is midline. LUNGS: Clear to auscultation bilaterally, no wheeze, no rhonchi, breath sounds equal. HEART: Mildly tachycardic, no murmurs or rubs, regular rhythm. Chest: Tender to the anterior sternal chest wall. ABDOMEN: Soft, nontender, bowel sounds positive, no peritonitis. EXTREMITIES: No cyanosis, mild bilateral pedal edema, full range of motion of all the joints without pain or difficulty, no signs for acute trauma. NEUROLOGIC: Oriented x 3, no acute motor or sensory deficits, no focal weakness. SKIN: No rash, no jaundice, no diaphoresis. DIFFERENTIAL DIAGNOSIS: AL, angina, PE, aortic dissection, musculoskeletal pain, pericarditis, myocarditis, among others. EMERGENCY DEPARTMENT COURSE/PROCEDURES: Prior/Outside records reviewed: Recent discharge summary. ECG per my interpretation: Indication was chest pain. The ECG shows sinus tachycardia with a rate of 101. There are some subtle ST depressions noted laterally. LVH is present. There is no ST elevation, no PVCs. The QTc is 427. Compared to an ECG from 11 November 2022, the rate has increased, the inverted T waves that were present laterally seem to have resolved, ST depression is now seen laterally. Repeat ECG per my review: Indication was chest pain. The ECG shows a normal sinus rhythm with a rate of 74. There is poor R wave progression. There is no ST elevation, no PVCs. The QTc is 435. Compared to today's earlier ECG, the rate has decreased, the lateral ST depressions have resolved. Repeat ECG per my review: Indication was worsening chest pain. The ECG shows a normal sinus rhythm with a rate of 71. LVH is present. There is no ST elev ation, no PVCs. The QTc is 434. Compared to the last ECG, I see no significant change. Continuous Cardiac Monitoring per my interpretation: An order was placed for continuous cardiac monitoring. The monitor shows a rate of 107 with sinus tachycardia. MEDICAL DECISION MAKING: There is a mild leukocytosis, this could be consistent with infection or pot entially, the stress of her current presentation. A very mild anemia was seen. There was a normal platelet count. No renal failure or significant electrolyte abnormality. No concerning liver enzyme elevation. ECG showed a sinus tachycardia with some subtle ST depressions laterally. No ST elevation. Cardiac enzyme testing x1 was not consistent with acute cardiac injury. No evidence for pancreatitis by her testing. Chest film per my review did not show mediastinal widening, pneumonia or pneumothorax. On exam, the patient appeared uncomfortable, she was tachycardic. She had tenderness across the anterior sternal chest wall. I did reach out to Dr. Ayala of interventional cardiology. The patient is to be hospitalized for a cardiac catheterization. Patient had received aspirin in triage. Patient was given nitroglycerin paste, 2 inches. She received IV morphine for pain, a second dose of IV morphine was given. She was given 5 mg of IV Lopressor. She was given IV Zofran. She received a 500 cc saline bolus. The patient's heart rate did decrease with the above treatment. Repeat ECG showed improvement in her lateral ST depressions. The cause for the patient's chest pain is unclear. She examines as musculoskeletal discomfort however, she did have some ECG changes when her heart rate was quick. She is being hospitalized for cardiac catheterization. I did speak with the patient and case management, the on-call hospitalist was consulted. DISPOSITION: Patient's presentation and findings warrant a hospital stay. Past Med/Surg History Medical History Anxiety Asthma (03/03/11) Barretts esophagus Bipolar disorder, unspecified (03/03/11) Blindness, one eye (03/03/11) LEFT Chronic abdominal pain Complex partial seizure A CHILD-NONE SINCE PER PT Cough productive of clear sputum Depression with anxiety Ear pain Epigastric abdominal pain Fever Fever and chills GERD (gastroesophageal reflux disease) (03/03/11) IBS (irritable bowel syndrome) Mgr NOS wo ntrc w st mgr (03/03/11) Migraine headache Shoulder pain, bilateral URI (upper respiratory infection) URI, acute Vertigo Vomiting Surgical History H/O eye surgery History of cholecystectomy History of colonoscopy History of ear surgery History of esophagogastroduodenoscopy (EGD) History of tubal ligation Hx of section Family History Grandfather (Paternal) Colorectal cancer Father Myocardial infarction Heart disease Hypertension Aunt Diabetes Mother Hypertension Grandfather (Maternal) Colon cancer Uncle Lung cancer Other Gallbladder disease Lung disease Seizure Denies family history of Ovarian cancer Prostate cancer Breast cancer Uterine cancer Social History Smoking Status: Never smoker Second Hand Exposure: No; Do You Dip or Chew Tobacco: Yes; Tobacco Cessation Education Requested by Patient: No Hx Alcohol Use: No Hx Substance Use: No Preferred Language: Turkmen Communication Ability: Effective Trouble Dispatcher Required: No Beliefs That Will Affect Care: None marital status: Single Current Living Situation: Family current occupational status: disabled Other Information That Helps Us Care for You: No Feels Safe at Home: Yes Safety Concerns: Feels Safe At This Time Dental Care, Regularly: Yes Physical Activity Frequency Comment: Walking Seatbelt Use: always Sunscreen Use: Yes Assistive Devices: None Allergies Allergies Allergy/AdvReac Type Severity Reaction Status Date / Time clonazepam Allergy Severe SOB AND Verified 11/20/22 15:00 DIFFICULTY WALKING pollen extracts Allergy Mild ITCHING/SNE Verified 11/20/22 15:00 EZING aspirin AdvReac Mild Nausea Verified 11/20/22 15:00 Home Meds Home Medications Medication Instructions Recorded Confirmed dicyclomine 10 mg capsule 20 mg PO QID 02/13/18 11/20/22 acetaminophen 500 mg tablet 1,000 mg PO Q6H PRN Pain 08/02/18 11/20/22 (Tylenol Extra Strength) aluminum hydrox-magnesium carb 254 10 ml PO QID PRN ABD PAIN/UPSET 12/05/18 11/20/22 mg-237.5 mg/5 mL oral suspension (Gaviscon Extra Strength) brivaracetam 75 mg tablet 75 mg PO QAM 04/29/19 11/20/22 (Briviact) famotidine 40 mg tablet 40 mg PO QAM 11/10/22 11/20/22 Previous Rx's Medication Instructions Recorded potassium chloride 20 mEq oral 20 meq PO BID #10 packets 10/31/21 packet (Klor-Con) medroxyprogesterone 150 mg/mL 150 mg IM .COMPLEX #1 mL 01/18/22 intramuscular syringe ondansetron 8 mg disintegrating 8 mg PO Q8H PRN nausea and 09/15/22 tablet vomiting #20 tabs colchicine (gout) 0.6 mg tablet 0.6 mg PO BID #60 tabs 11/12/22 melatonin 3 mg tablet 3 mg PO HS PRN sleep #30 tabs 11/12/22 nitroglycerin 0.4 mg sublingual 0.4 mg sublingual Q5M PRN chest 11/12/22 tablet pain #10 tabs amitriptyline 150 mg tablet 150 mg PO HS PRN diaz #30 tabs 11/14/22 citalopram 10 mg tablet (Celexa) 10 mg PO DAILY #30 tabs 11/16/22 meclizine 12.5 mg tablet 12.5 mg PO TID PRN dizziness #30 11/16/22 tabs pantoprazole 40 mg tablet,delayed 40 mg PO BID #180 tabs 11/20/22 release (Protonix) sucralfate 100 mg/mL oral See Rx Instructions .Route 11/20/22 suspension .COMPLEX #400 mL Results & Data (ED) Vital Signs Vital Signs - 24 hr 11/20/22 16:20 11/20/22 16:46 11/20/22 16:46 Temperature 36.5 C Temperature Source Temporal Artery Scan Pulse Rate 108 H Respiratory Rate 20 Respiratory Effort / Characteristics Non-Labored Spontaneous Respiratory Depth Normal Blood Pressure 164/93 H Blood Pressure Mean 116 Pulse Oximetry 97 98 98 Oxygen Delivery Method Room Air Room Air Room Air Oxygen Flow Rate 0 Sepsis Recent Fever Within 48 Hours No Sepsis New/Unexplained Change in Mental Status No Sepsis Action Taken by Nursing No Action Required 11/20/22 16:54 11/20/22 17:02 11/20/22 16:53 Temperature Temperature Source Pulse Rate 100 H 98 H 98 H Respiratory Rate 17 Respiratory Effort / Characteristics Respiratory Depth Blood Pressure 152/95 H Blood Pressure Mean Pulse Oximetry Oxygen Delivery Method Oxygen Flow Rate Sepsis Recent Fever Within 48 Hours Sepsis New/Unexplained Change in Mental Status Sepsis Action Taken by Nursing 11/20/22 17:00 11/20/22 17:00 11/20/22 17:10 Temperature Temperature Source Pulse Rate 95 H 76 Respiratory Rate 19 17 Respiratory Effort / Characteristics Respiratory Depth Blood Pressure 152/95 H Blood Pressure Mean 114 Pulse Oximetry Oxygen Delivery Method Oxygen Flow Rate Sepsis Recent Fever Within 48 Hours Sepsis New/Unexplained Change in Mental Status Sepsis Action Taken by Nursing 11/20/22 17:20 11/20/22 17:30 11/20/22 17:30 Temperature Temperature Source Pulse Rate 80 84 Respiratory Rate 22 18 Respiratory Effort / Characteristics Respiratory Depth Blood Pressure 153/93 H Blood Pressure Mean 113 Pulse Oximetry Oxygen Delivery Method Oxygen Flow Rate Sepsis Recent Fever Within 48 Hours Sepsis New/Unexplained Change in Mental Status Sepsis Action Taken by Nursing 11/20/22 17:40 11/20/22 17:50 Temperature Temperature Source Pulse Rate 88 80 Respiratory Rate 15 14 Respiratory Effort / Characteristics Respiratory Depth Blood Pressure Blood Pressure Mean Pulse Oximetry Oxygen Delivery Method Oxygen Flow Rate Sepsis Recent Fever Within 48 Hours Sepsis New/Unexplained Change in Mental Status Sepsis Action Taken by Skilled Nursing Medications Current Medication List: was personally reviewed by me Laboratory Data Attestation: I reviewed the patient's lab results. 11/20/22 16:30 11/20/22 16:30 Lab Results 11/20/22 11/20/22 Range/Units 16:30 16:30 WBC 12.89 H (4.8-10.8) K/ul RBC 4.08 L (4.20-5.40) M/uL Hgb 11.8 L (12.0-16.0) g/dl Hct 35.4 L (37.0-47.0) % MCV 86.8 (80.0-100.0) fL MCH 28.9 (25.0-34.0) pg MCHC 33.3 (32.0-36.0) g/dL RDW Std Deviation 44.1 (36.4-46.3) fL RDW Coeff of Aurelio 13.9 (11.5-14.5) % Plt Count 289 (130-400) K/uL MPV 10.3 (9.4-12.4) fL Immature Gran % (Auto) 0.3 % Neut % (Auto) 69.7 % Lymph % (Auto) 18.8 % [place] % (Auto) 8.6 % Eos % (Auto) 1.4 % Baso % (Auto) 1.2 % Neut # (Auto) 8.99 H (1.40-6.50) K/uL Lymph # (Auto) 2.42 (1.2-3.4) K/uL [place] # (Auto) 1.11 H (0.11-0.59) K/uL Eos # (Auto) 0.18 (0-0.50) K/uL Baso # (Auto) 0.15 (0-0.2) K/uL Immature Gran # (Auto) 0.04 (0.01-0.20) K/uL Sodium 139 (136-145) mmol/L Potassium 3.5 (3.5-5.1) mmol/L Chloride 108 H (98-107) mmol/L Carbon Dioxide 21 (21-32) mmol/L Anion Gap 10 (3-11) BUN 13 (6-23) mg/dl Creatinine 1.09 (0.6-1.2) mg/dl Est Cr Clr Drug Dosing 78.4 ml/min Est GFR ( Amer) 70.0 ml/min Est GFR (Non-Af Amer) 60.4 ml/min BUN/Creatinine Ratio 11.9 (10-20) Glucose 100 H (70-99(Fasting)) mg/dl Calcium 10.2 (8.6-10.3) mg/dl Magnesium 1.8 (1.7-2.4) mg/dl Total Bilirubin 0.4 (0.2-1.0) mg/dl AST 14 (13-39) U/L ALT 18 (7-52) U/L Alkaline Phosphatase 79 (34-104) U/L Troponin I High Sens 5.2 (0-14) pg/ml Total Protein 8.3 (6.0-8.3) gm/dl Albumin 5.0 (3.4-5.0) gm/dl Globulin 3.3 (2.5-4.0) gm/dl Albumin/Globulin Ratio 1.5 (0.9-2) Lipase 34 (11-82) U/L Administered Medications Colchicine (Colchicine 0.6 Mg Tab) 0.6 mg PO BID TIMBO Stop: 12/20/22 20:59 Last Admin: 11/20/22 20:18 Dose: 0.6 mg Documented By: ABL Dicyclomine HCl (Dicyclomine Hcl 10 Mg Cap) 20 mg PO QID TIMBO Stop: 12/20/22 20:59 Last Admin: 11/20/22 20:18 Dose: 20 mg Documented By: ABL Potassium Chloride/Sodium Chloride (Normal Saline W/20 Meq Kcl) 20 meq in 1,000 mls @ 80 mls/hr IV .[id number] TIMBO Stop: 12/20/22 19:59 Last Admin: 11/20/22 20:17 Dose: 80 mls/hr Documented By: ABL Metoprolol Succinate (Metoprolol Succ 25mg Ext Rel Tab) 25 mg PO BID TIMBO Stop: 12/20/22 20:59 Last Admin: 11/20/22 21:29 Dose: 25 mg Documented By: ABL Nitroglycerin (Nitroglycerin 2% Ointment 30gm Tube) 2 inch EXT Q6H TIMBO Stop: 12/20/22 22:59 Last Admin: 11/20/22 22:06 Dose: 2 inch Documented By: ABL Nitroglycerin (Nitroglycerin Sl 0.4 Mg/Tab Tab) 0.4 mg SL Q5M PRN PRN Reason: Chest Pain Stop: 12/20/22 19:31 Last Admin: 11/20/22 21:02 Dose: 0.4 mg Documented By: ABL Pantoprazole Sodium (Pantoprazole 40 Mg Tab) 40 mg PO BID TIMBO Stop: 12/20/22 20:59 Last Admin: 11/20/22 20:18 Dose: 40 mg Documented By: ABL Potassium Chloride (Potassium Chloride Pwd 20 Meq Pack) 20 meq PO BID TIMBO Stop: 12/20/22 20:59 Last Admin: 11/20/22 20:18 Dose: 20 meq Documented By: ABL Discontinued Medications Aspirin (Aspirin Chew 324 Mg) 324 mg PO NOW STA Stop: 11/20/22 16:22 Last Admin: 11/20/22 16:42 Dose: 324 mg Documented By: KARON Hydroxyzine HCl (Hydroxyzine Hcl 10 Mg Tab) 10 mg PO NOW STA Stop: 11/20/22 21:44 Last Admin: 11/20/22 22:05 Dose: 10 mg Documented By: ABL Sodium Chloride (Nss 1000ml) 500 mls @ 999 mls/hr IV .Q31M ONE Stop: 11/20/22 17:18 Last Infusion: 11/20/22 17:58 Dose: 0 mls/hr Documented By: Admin: 11/20/22 16:53 Dose: 999 mls/hr Documented By: GARY Metoprolol Tartrate (Metoprolol Tartrate 1 Mg/Ml Vial) 5 mg IV NOW STA Stop: 11/20/22 16:55 Last Admin: 11/20/22 17:02 Dose: 5 mg Documented By: GARY Morphine Sulfate (Morphine Sulfate 4 Mg/Ml 1 Ml Carp\Vial) 4 mg IV NOW STA Stop: 11/20/22 16:49 Last Admin: 11/20/22 16:54 Dose: 4 mg Documented By: GARY Morphine Sulfate (Morphine Sulfate 4 Mg/Ml 1 Ml Carp\Vial) 4 mg IV NOW STA Stop: 11/20/22 18:29 Last Admin: 11/20/22 18:41 Dose: 4 mg Documented By: ARMANDO Nitroglycerin (Nitroglycerin 2% Ointment 30gm Tube) 2 inch EXT NOW STA Stop: 11/20/22 16:49 Last Admin: 11/20/22 16:54 Dose: 2 inch Documented By: GARY Ondansetron HCl (Ondansetron Inj 2 Mg/Ml 2 Ml Vial) 4 mg IV NOW STA Stop: 11/20/22 16:49 Last Admin: 11/20/22 16:54 Dose: 4 mg Documented By: BCN Imaging Data My Impression: Chest x-ray: Per my review there is no mediastinal widening, pneumonia or pneumothorax. Radiologist's Impression: Chest X-Ray 11/20/22 16:21 XR chest 1V portable HISTORY: 47 years-old Female Chest pain, nonspecific COMPARISON: 11/10/2022 TECHNIQUE: AP view of the chest FINDINGS: Cardiomediastinal and hilar silhouettes are unchanged. Stable mild right hemidiaphragmatic elevation. No pneumothorax, pleural effusion, airspace consolidation or pulmonary edema. Bones of the chest appear grossly intact. IMPRESSION: No acute process. ACT 112: Negative or not required by law. The above report was generated using voice recognition software. It may contain grammatical, syntax or spelling errors. Electronically signed by: Sergio Santos M.D. 11/20/2022 5:48 PM Discharge Plan Visit Data Chief Complaint: Chest Pain Stated Complaint: CHEST PAIN,DIZZY,NAUSEA ED Provider: Kevin Coley Discharge Problem: Precordial chest pain, Leukocytosis, Tachycardia Patient Disposition: Admitted As Inpatient Condition: Fair Discharge Instructions Interventions: ED Discharge Assessment Last Done: 11/20/22 18:45 Leukocytosis Qualifiers: Leukocytosis type: unspecified Qualified Code(s): D72.829 - Elevated white blood cell count, unspecified
[2022-11-20] MEDS ORDERED: METOPROLOL TARTRATE 1 MG/ML VIAL IV STA (16:54)
[2022-11-20 16:55] LABS: Basophils # (auto) 0.15 K/uL (0-0.2); Basophils % (auto) 1.2 %; Eosinophils # (auto) 0.18 K/uL (0-0.50); Eosinophils % (auto) 1.4 %; Hematocrit (blood only) 35.4 % (37.0-47.0); Hemoglobin 11.8 g/dl (12.0-16.0); Immature Granulocytes # (auto) 0.04 K/uL (0.01-0.20); Immature Granulocytes % (auto) 0.3 %; Lymphocytes # (auto) 2.42 K/uL (1.2-3.4); Lymphocytes % (auto) 18.8 %; Mean Corpuscular Hemoglobin 28.9 pg (25.0-34.0); Mean Corpuscular Hgb Conc 33.3 g/dL (32.0-36.0); Mean Corpuscular Volume 86.8 fL (80.0-100.0); Mean Platelet Volume 10.3 fL (9.4-12.4); Monocytes # (auto) 1.11 K/uL (0.11-0.59); Monocytes % (auto) 8.6 %; Neutrophils # (auto) 8.99 K/uL (1.40-6.50); Neutrophils % (auto) 69.7 %; Platelet Count 289 K/uL (130-400); RDW Coefficient of Variation 13.9 % (11.5-14.5); RDW Standard Deviation 44.1 fL (36.4-46.3); Red Blood Count 4.08 M/uL (4.20-5.40); White Blood Count 12.89 K/ul (4.8-10.8)
[2022-11-20 17:13] LABS: Albumin Globulin Ratio 1.5 (0.9-2); BUN Creatinine Ratio 11.9 (10-20); Bilirubin,Total 0.4 mg/dl (0.2-1.0); Calcium 10.2 mg/dl (8.6-10.3); Creatinine Clr Calc Pharmacy 78.4 ml/min; Est GFR (Non-African American) 60.4 ml/min; Globulin 3.3 gm/dl (2.5-4.0); Magnesium 1.8 mg/dl (1.7-2.4); Potassium 3.5 mmol/L (3.5-5.1); Total Protein 8.3 gm/dl (6.0-8.3)
[2022-11-20 17:17] LABS: Troponin I High Sensitivity 5.2 pg/ml (0-14)
--- NOTE | 2022-11-20 17:49 | XRay Report ---
XR chest 1V portable HISTORY: 47 years-old Female Chest pain, nonspecific COMPARISON: 11/10/2022 TECHNIQUE: AP view of the chest FINDINGS: Cardiomediastinal and hilar silhouettes are unchanged. Stable mild right hemidiaphragmatic elevation. No pneumothorax, pleural effusion, airspace consolidation or pulmonary edema. Bones of the chest christina ear grossly intact. IMPRESSION: No acute process. ACT 112: Negative or not required by law. The above report was generated using voice recognition software. It may contain grammatical, syntax o r spelling errors. Electronically signed by: Sergio Santos M.D. 11/20/2022 5:48 PM
--- NOTE | 2022-11-20 18:08 | History & Physical Report ---
Date of Service November 20, 2022 Assessment & Plan (1) High cholesterol: (2) Anemia: (3) Sleeping difficulty: (4) Pericardial effusion: (5) GERD with stricture: (6) Complex partial seizure: (7) Depression with anxiety: (8) Migraine headache: (9) Asthma: (10) Bipolar disorder, unspecified: (11) GERD (gastroesophageal reflux disease): (12) Barretts esophagus: (13) Atypical chest pain: Plan Atypical chest pain/reversible EKG changes/history of elevated troponin- The patient will be admitted to telemetry for serial cardiac enzymes, serial EKG's, cardiac rhythm monitoring Given aspirin 324 mg, Nitropaste 2 inches, morphine sulfate 4 mg IV, Zofran 4 mg IV, and metoprolol 5 mg IV in the ED Continue Nitropaste 2 inches to anterior chest wall every 6 hours she reports that aspirin in the past given her severe esophageal burning Start metoprolol succinate 25 mg p.o. twice daily Continue potassium chloride 20 mEq p.o. twice daily, give a dose this evening for potassium of 3.5 Consult cardiology, as patient was sent here by outpatient cardiology for possible cardiac catheterization tomorrow GERD/Greenfield's esophagus- Continue pantoprazole 40 mg p.o. twice daily, and famotidine 40 mg every morning Anxiety/depression- Continue citalopram 10 mg daily History of Present Illness Chief Complaint: The patient is referred from cardiology office this afternoon due to recurrent chest pain, after recent admission from 11/10-11/11 for chest discomfort and minor troponin elevation, for need for cardiac catheterization Primary Care Provider: Manas Mcqueen MD The patient is a 47-year-old female with a past medical history including pericardial effusion, elevated troponin, depression/anxiety, complex partial seizures, GERD with stricture, Greenfield's esophagus, IBS and family history of heart disease, who presents to the emergency department for reasons as noted above. In the emergency department she reports pounding in her chest, but no heart monitor appears to be normal sinus rhythm. EKG with lateral ST depressions that improved with administration of aspirin 324 mg, Nitropaste 2 inches, morphine sulfate and metoprolol tartrate 5 mg IV. Allergies Allergy/AdvReac Type Severity Reaction Status Date / Time clonazepam Allergy Severe SOB AND Verified 11/20/22 15:00 DIFFICULTY WALKING pollen extracts Allergy Mild ITCHING/SNE Verified 11/20/22 15:00 EZING aspirin AdvReac Mild Nausea Verified 11/20/22 15:00 Home Medications Medication Instructions Recorded Confirmed Type dicyclomine 10 mg capsule 20 mg PO QID 02/13/18 11/20/22 History acetaminophen 500 mg tablet 1,000 mg PO Q6H PRN Pain 08/02/18 11/20/22 History (Tylenol Extra Strength) aluminum hydrox-magnesium carb 254 10 ml PO QID PRN ABD PAIN/UPSET 12/05/18 11/20/22 History mg-237.5 mg/5 mL oral suspension (Gaviscon Extra Strength) brivaracetam 75 mg tablet 75 mg PO QAM 04/29/19 11/20/22 History (Briviact) potassium chloride 20 mEq oral 20 meq PO BID #10 packets 10/31/21 11/20/22 Rx packet (Klor-Con) medroxyprogesterone 150 mg/mL 150 mg IM .COMPLEX #1 mL 01/18/22 11/20/22 Rx intramuscular syringe ondansetron 8 mg disintegrating 8 mg PO Q8H PRN nausea and 09/15/22 11/20/22 Rx tablet vomiting #20 tabs famotidine 40 mg tablet 40 mg PO QAM 11/10/22 11/20/22 History colchicine (gout) 0.6 mg tablet 0.6 mg PO BID #60 tabs 11/12/22 11/20/22 Rx melatonin 3 mg tablet 3 mg PO HS PRN sleep #30 tabs 11/12/22 11/20/22 Rx nitroglycerin 0.4 mg sublingual 0.4 mg sublingual Q5M PRN chest 11/12/22 11/20/22 Rx tablet pain #10 tabs amitriptyline 150 mg tablet 150 mg PO HS PRN diaz #30 tabs 11/14/22 11/20/22 Rx citalopram 10 mg tablet (Celexa) 10 mg PO DAILY #30 tabs 11/16/22 11/20/22 Rx meclizine 12.5 mg tablet 12.5 mg PO TID PRN dizziness #30 11/16/22 11/20/22 Rx tabs pantoprazole 40 mg tablet,delayed 40 mg PO BID #180 tabs 11/20/22 11/20/22 Rx release (Protonix) sucralfate 100 mg/mL oral See Rx Instructions .Route 11/20/22 11/20/22 Rx suspension .COMPLEX #400 mL Past Med/Surg History Medical History Anxiety Asthma (03/03/11) Barretts esophagus Bipolar disorder, unspecified (03/03/11) Blindness, one eye (03/03/11) Chronic abdominal pain Complex partial seizure Cough productive of clear sputum Depression with anxiety Ear pain Epigastric abdominal pain Fever Fever and chills GERD (gastroesophageal reflux disease) (03/03/11) IBS (irritable bowel syndrome) Mgr NOS wo ntrc w st mgr (03/03/11) Migraine headache Shoulder pain, bilateral URI (upper respiratory infection) URI, acute Vertigo Vomiting Surgical History H/O eye surgery History of cholecystectomy History of colonoscopy History of ear surgery History of esophagogastroduodenoscopy (EGD) History of tubal ligation Hx of section Family History Grandfather (Paternal) Colorectal cancer Father Myocardial infarction Heart disease Hypertension Aunt Diabetes Mother Hypertension Grandfather (Maternal) Colon cancer Uncle Lung cancer Other Gallbladder disease Lung disease Seizure Denies family history of Ovarian cancer Prostate cancer Breast cancer Uterine cancer Social History Smoking Status: Never smoker Second Hand Exposure: No; Do You Dip or Chew Tobacco: No; Hx Alcohol Use: No Hx Substance Use: No Preferred Language: Cypriot Communication Ability: Effective Hvac Tech Required: No Beliefs That Will Affect Care: Jainism marital status: Single Current Living Situation: Spouse current occupational status: disabled Feels Safe at Home: Yes Dental Care, Regularly: Yes Physical Activity Frequency Comment: Walking Seatbelt Use: always Sunscreen Use: Yes Assistive Devices: None Review of Systems Review of Systems: The patient denies cough, lower extremity swelling, fevers, chills, sweats, weight change, fatigue, vomiting, diarrhea , constipation,pelvic pain, blood in urine or stool, dysuria, urinary frequency or urgency, lightheadedness, dizziness, headache, memory loss, loss of consciousness, rash, abnormal bruising or bleeding, imbalance, focal or generalized weakness, generalized arthralgias or myalgias, back or neck pain, or night sweats. The review of systems is otherwise negative other than for that already noted above, and at least 10 systems have been reviewed. Physical Exam Physical Exam: The patient is awake, alert and oriented 3, well developed and well nourished, normocephalic and atraumatic, lying in bed and in no acute distress. HEENT--PERRL, EOMI, mucous membranes and oropharynx dry. Neck--supple. No JVD. No bruits. Thyroid normal, trachea midline, no adenopathy. Heart--normal S1 and S2. No murmurs, rubs or gallops. Lungs--clear bilaterally, no respiratory distress, no accessory muscle use. Abdomen--normal bowel sounds and soft. Nontender. Nondistended, no hernias or masses, no organomegaly. Extremities--no cyanosis or clubbing. No edema. There are good distal pulses b/l. Dermatologic--normal skin turgor, normal color, no abnormal lymph nodes, no rash. Neurologic--cranial nerves II through XII grossly intact. Rheumatologic--normal range of motion. Psychiatric--normal affect. Results & Data Results & Data Vital Signs (Past 12 Hours) Vital Signs Temp Pulse Resp BP Pulse Ox O2 Del Method O2 Flow Rate 11/20/22 17:02 98 H 152/95 H 11/20/22 16:54 100 H 11/20/22 16:46 98 Room Air 11/20/22 16:46 98 Room Air 0 11/20/22 16:20 36.5 C 108 H 20 164/93 H 97 Room Air Laboratory Results Laboratory Results WBC 12.89 K/ul (4.8-10.8) H 11/20/22 16:30 RBC 4.08 M/uL (4.20-5.40) L 11/20/22 16:30 Hgb 11.8 g/dl (12.0-16.0) L 11/20/22 16:30 Hct 35.4 % (37.0-47.0) L 11/20/22 16:30 MCV 86.8 fL (80.0-100.0) 11/20/22 16:30 MCH 28.9 pg (25.0-34.0) 11/20/22 16: MCHC 33.3 g/dL (32.0-36.0) 11/20/22 16:30 RDW Std Deviation 44.1 fL (36.4-46.3) 11/20/22 16: RDW Coeff of Aurelio 13.9 % (11.5-14.5) 11/20/22 16:30 Plt Count 289 K/uL (130-400) 11/20/22 16:30 MPV 10.3 fL (9.4-12.4) 11/20/22 16:30 Immature Gran % (Auto) 0.3 % 11/20/22 16:30 Neut % (Auto) 69.7 % 11/20/22 16:30 Lymph % (Auto) 18.8 % 11/20/22 16:30 [place] % (Auto) 8.6 % 11/20/22 16:30 Eos % (Auto) 1.4 % 11/20/22 16:30 Baso % (Auto) 1.2 % 11/20/22 16:30 Neut # (Auto) 8.99 K/uL (1.40-6.50) H 11/20/22 16:30 Lymph # (Auto) 2.42 K/uL (1.2-3.4) 11/20/22 16:30 [place] # (Auto) 1.11 K/uL (0.11-0.59) H 11/20/22 16:30 Eos # (Auto) 0.18 K/uL (0-0.50) 11/20/22 16:30 Baso # (Auto) 0.15 K/uL (0-0.2) 11/20/22 16:30 Immature Gran # (Auto) 0.04 K/uL (0.01-0.20) 11/20/22 16:30 Sodium 139 mmol/L (136-145) 11/20/22 16:30 Potassium 3.5 mmol/L (3.5-5.1) 11/20/22 16:30 Chloride 108 mmol/L (98-107) H 11/20/22 16:30 Carbon Dioxide 21 mmol/L (21-32) 11/20/22 16:30 Anion Gap 10 (3-11) 11/20/22 16:30 BUN 13 mg/dl (6-23) 11/20/22 16:30 Creatinine 1.09 mg/dl (0.6-1.2) 11/20/22 16:30 Est Cr Clr Drug Dosing 78.4 ml/min 11/20/22 16:30 Est GFR ( Amer) 70.0 ml/min 11/20/22 16:30 Est GFR (Non-Af Amer) 60.4 ml/min 11/20/22 16:30 BUN/Creatinine Ratio 11.9 (10-20) 11/20/22 16:30 Glucose 100 mg/dl (70-99(Fasting)) H 11/20/22 16:30 Calcium 10.2 mg/dl (8.6-10.3) 11/20/22 16:30 Magnesium 1.8 mg/dl (1.7-2.4) 11/20/22 16:30 Total Bilirubin 0.4 mg/dl (0.2-1.0) 11/20/22 16:30 AST 14 U/L (13-39) 11/20/22 16:30 ALT 18 U/L (7-52) 11/20/22 16:30 Alkaline Phosphatase 79 U/L (34-104) 11/20/22 16:30 Troponin I High Sens 5.2 pg/ml (0-14) 11/20/22 16:30 Total Protein 8.3 gm/dl (6.0-8.3) 11/20/22 16:30 Albumin 5.0 gm/dl (3.4-5.0) 11/20/22 16:30 Globulin 3.3 gm/dl (2.5-4.0) 11/20/22 16:30 Albumin/Globulin Ratio 1.5 (0.9-2) 11/20/22 16:30 Lipase 34 U/L (11-82) 11/20/22 16:30 Impressions Chest X-Ray 11/20/22 16:21 XR chest 1V portable HISTORY: 47 years-old Female Chest pain, nonspecific COMPARISON: 11/10/2022 TECHNIQUE: AP view of the chest FINDINGS: Cardiomediastinal and hilar silhouettes are unchanged. Stable mild right hemidiaphragmatic elevation. No pneumothorax, pleural effusion, airspace consolidation or pulmonary edema. Bones of the chest appear grossly intact. IMPRESSION: No acute process. ACT 112: Negative or not required by law. The above report was generated using voice recognition software. It may contain grammatical, syntax or spelling errors. Electronically signed by: Sergio Santos M.D. 11/20/2022 5:48 PM Code Status & VTE Plan Code Status Full code VTE Prophylaxis Plan VTE Prophylaxis will be ordered: Yes PG Care Time/CCT Total # of Minutes Spent Total Time Spent with Patient: Total time spent is greater than 50% in coordination of care (as documented) at patient's floor/unit and/or counseling patient: Coding Level of Care Code 43227 INT INP/OBS CARE 3/75MIN Diagnoses High cholesterol E78.00 Anemia D64.9 Sleeping difficulty G47.9 Pericardial effusion I31.39 GERD with stricture K21.9; K22.2 Complex partial seizure G40.209 Epilepsy type: partial symptomatic Intractability: not intractable Status epilepticus: without status epilepticus Depression with anxiety F41.8 Migraine headache G43.009 Migraine type: without aura Status migrainosus presence: without status migrainosus Intractability: not intractable Asthma J45.909 Bipolar disorder, unspecified F31.9 GERD (gastroesophageal reflux disease) K21.9 Barretts esophagus K22.70 Atypical chest pain R07.89 (6) Complex partial seizure Epilepsy type: partial symptomatic Intractability: not intractable Status epilepticus: without status epilepticus Qualified Code(s): G40.209 - Localization-related (focal) (partial) symptomatic epilepsy and epileptic syndromes with complex partial seizures, not intractable, without status epilepticus (8) Migraine headache Migraine type: without aura Status migrainosus presence: without status migrainosus Intractability: not intractable Qualified Code(s): G43.009 - Migraine without aura, not intractable, without status migrainosus
[2022-11-20] MEDS ORDERED: ACETAMINOPHEN 325 MG TAB PO PRN (19:32)
[2022-11-20] MEDS ORDERED: ONDANSETRON 8MG OD TAB PO PRN (19:32)
[2022-11-20] MEDS ORDERED: NITROGLYCERIN SL 0.4 MG/TAB TAB SL PRN (19:32)
[2022-11-20] MEDS ORDERED: MELATONIN 3 MG TAB PO PRN (19:32)
[2022-11-20] MEDS ORDERED: ONDANSETRON INJ 2 MG/ML 2 ML VIAL IV PRN (19:32)
[2022-11-20] MEDS ORDERED: ALUMINUM/MAGNESIUM SUSP 30 ML UDC PO PRN (19:40)
[2022-11-20] MEDS: NSS + 20MEQ KCL 20 MEQ/1,000 ML BAG IV SCH (20:17)
[2022-11-20] MEDS: COLCHICINE 0.6 MG TAB PO SCH (20:18)
[2022-11-20] MEDS: PANTOprazole 40 MG TAB PO SCH (20:18)
[2022-11-20] MEDS: POTASSIUM CHLORIDE PWD 20 MEQ PACK PO SCH (20:18)
[2022-11-20] MEDS: DICYCLOMINE HCL 10 MG CAP PO SCH (20:18)
[2022-11-20] MEDS: METOPROLOL SUCC 25MG EXT REL TAB PO SCH (21:29)
[2022-11-20] MEDS ORDERED: hydrOXYzine HCl 10 MG TAB PO STA (21:43)
[2022-11-20] MEDS: NITROGLYCERIN 2% OINTMENT 30GM TUBE EXT SCH (22:06)
[2022-11-20] MEDS ORDERED: NITROGLYCERIN 2% OINTMENT 30GM TUBE EXT SCH (23:00)
[2022-11-20] MEDS ORDERED: MECLIZINE 12.5 MG TAB PO ONE (23:27)
[2022-11-21 02:32] LABS: Basophils # (auto) 0.11 K/uL (0-0.2); Eosinophils # (auto) 0.22 K/uL (0-0.50); Hematocrit (blood only) 30.4 % (37.0-47.0); Hemoglobin 9.9 g/dl (12.0-16.0); Immature Granulocytes # (auto) 0.02 K/uL (0.01-0.20); Immature Granulocytes % (auto) 0.2 %; Lymphocytes # (auto) 3.15 K/uL (1.2-3.4); Lymphocytes % (auto) 28.4 %; Mean Corpuscular Hemoglobin 28.9 pg (25.0-34.0); Mean Corpuscular Hgb Conc 32.6 g/dL (32.0-36.0); Mean Corpuscular Volume 88.9 fL (80.0-100.0); Mean Platelet Volume 10.3 fL (9.4-12.4); Monocytes # (auto) 1.11 K/uL (0.11-0.59); Neutrophils # (auto) 6.47 K/uL (1.40-6.50); Neutrophils % (auto) 58.4 %; Platelet Count 223 K/uL (130-400); RDW Standard Deviation 45.7 fL (36.4-46.3); Red Blood Count 3.42 M/uL (4.20-5.40); White Blood Count 11.08 K/ul (4.8-10.8)
[2022-11-21 02:46] LABS: Albumin Level 4.1 gm/dl (3.4-5.0); BUN Creatinine Ratio 12.6 (10-20); Calcium 9.2 mg/dl (8.6-10.3); Creatinine Clr Calc Pharmacy 84.5 ml/min; Est GFR (Non-African American) 64.7 ml/min; Magnesium 1.9 mg/dl (1.7-2.4); Phosphorus 3.7 mg/dl (2.5-4.9)
[2022-11-21] MEDS ORDERED: LORazepam 2 MG/1 ML VIAL IV PRN (03:14)
[2022-11-21] MEDS: NITROGLYCERIN 2% OINTMENT 30GM TUBE EXT SCH ×2 (04:58→11:58)
--- NOTE | 2022-11-21 07:03 | Hospitalist Progress Note ---
Date of Service November 21, 2022 Assessment & Plan (1) High cholesterol: (2) Anemia: (3) Sleeping difficulty: (4) Pericardial effusion: (5) GERD with stricture: (6) Complex partial seizure: (7) Depression with anxiety: (8) Migraine headache: (9) Asthma: (10) Bipolar disorder, unspecified: (11) GERD (gastroesophageal reflux disease): (12) Barretts esophagus: (13) Atypical chest pain: Plan Atypical chest pain/reversible EKG changes/history of elevated troponin- The patient will be admitted to telemetry for serial cardiac enzymes, serial EKG's, cardiac rhythm monitoring Given aspirin 324 mg, Nitropaste 2 inches, morphine sulfate 4 mg IV, Zofran 4 mg IV, and metoprolol 5 mg IV in the ED Continue Nitropaste 2 inches to anterior chest wall every 6 hours she reports that aspirin in the past given her severe esophageal burning Start metoprolol succinate 25 mg p.o. twice daily Continue potassium chloride 20 mEq p.o. twice daily, give a dose this evening for potassium of 3.5 Consult cardiology, as patient was sent here by outpatient cardiology for possible cardiac catheterization tomorrow GERD/Greenfield's esophagus- Continue pantoprazole 40 mg p.o. twice daily, and famotidine 40 mg every morning Anxiety/depression- Continue citalopram 10 mg daily Admission and Anticipated Discharge Date Admission Date: November 20, 2022 Subjective Patient was seen bedside this morning. She is currently waiting to go to the [facility]. She states that her chest pain has mostly resolved though. Results & Data Results & Data Vital Signs (Past 12 Hours) Vital Signs Temp Pulse Pulse Resp BP Pulse Ox O2 Del Method 11/21/22 02:54 37.1 C 63 18 110/68 97 Room Air 11/20/22 22:00 73 11/20/22 19:30 86 11/20/22 23:01 36.9 C 84 18 117/74 96 Room Air 11/20/22 19:36 36.9 C 75 20 135/80 100 Room Air (6) Complex partial seizure Epilepsy type: partial symptomatic Intractability: not intractable Status epilepticus: without status epilepticus Qualified Code(s): G40.209 - Localization-related (focal) (partial) symptomatic epilepsy and epileptic syndromes with complex partial seizures, not intractable, without status epilepticus (8) Migraine headache Intractability: not intractable Migraine type: without aura Status migrainosus presence: without status migrainosus Qualified Code(s): G43.009 - Migraine without aura, not intractable, without status migrainosus
[2022-11-21] MEDS: COLCHICINE 0.6 MG TAB PO SCH (08:18)
[2022-11-21] MEDS: DICYCLOMINE HCL 10 MG CAP PO SCH ×2 (08:19→12:21)
[2022-11-21] MEDS: METOPROLOL SUCC 25MG EXT REL TAB PO SCH (08:19)
[2022-11-21] MEDS: PANTOprazole 40 MG TAB PO SCH (08:20)
[2022-11-21] MEDS ORDERED: LORazepam 2 MG/1 ML VIAL IV STA (08:21)
[2022-11-21] MEDS: POTASSIUM CHLORIDE PWD 20 MEQ PACK PO SCH (08:33)
[2022-11-21] MEDS ORDERED: CITALOPRAM 20 MG TAB PO SCH (09:00)
[2022-11-21] MEDS ORDERED: FAMOTIDINE 40 MG TABLET PO SCH (09:00)
[2022-11-21] MEDS ORDERED: fentaNYL citrate PF 100 MCG/2 ML VIAL ONE ×2 (10:24→10:54)
[2022-11-21] MEDS ORDERED: MIDAZOLAM HCL 1 MG/ML 2ML VIAL ONE ×3 (10:24→10:56)
[2022-11-21] MEDS ORDERED: HEPARIN (PORCINE) 1000 UNIT/ML 10 ML (CATH LAB USE ONLY) ONE (10:24)
[2022-11-21] MEDS ORDERED: niCARdipine HCL INJ 2.5 MG/ML 10 ML AMP ONE (10:24)
[2022-11-21] MEDS ORDERED: NITROGLYCERIN/D5W 100MCG/ML 20ML SYR ONE (10:25)
--- NOTE | 2022-11-21 10:50 | Pre Anesthesia Assessment ---
Date of Service November 21, 2022 Pre Sedation Assessment Vital Signs Temp Pulse Pulse Resp BP BP Pulse Ox 11/21/22 10:13 68 16 124/63 98 11/21/22 08:00 11/21/22 08:01 97.7 F 91 H 16 101/65 96 11/21/22 02:54 98.8 F 63 18 110/68 97 11/20/22 22:00 73 11/20/22 19:30 86 11/20/22 23:01 98.4 F 84 18 117/74 96 11/20/22 19:36 98.4 F 75 20 135/80 100 11/20/22 18:10 77 21 11/20/22 18:00 75 18 11/20/22 18:00 132/83 11/20/22 17:50 80 14 11/20/22 17:40 88 15 11/20/22 17:30 84 18 11/20/22 17:30 153/93 H 11/20/22 17:20 80 22 11/20/22 17:10 76 17 11/20/22 17:00 95 H 19 11/20/22 17:00 152/95 H 11/20/22 16:53 98 H 17 11/20/22 17:58 90 153/93 H 11/20/22 17:02 98 H 152/95 H 11/20/22 16:54 100 H 11/20/22 16:46 98 11/20/22 16:46 98 11/20/22 16:20 97.7 F 108 H 20 164/93 H 97 O2 Del Method O2 Flow Rate 11/21/22 10:13 Room Air 11/21/22 08:00 Room Air 11/21/22 08:01 Room Air 11/21/22 02:54 Room Air 11/20/22 22:00 11/20/22 19:30 11/20/22 23:01 Room Air 11/20/22 19:36 Room Air 11/20/22 18:10 11/20/22 18:00 11/20/22 18:00 11/20/22 17:50 11/20/22 17:40 11/20/22 17:30 11/20/22 17:30 11/20/22 17:20 11/20/22 17:10 11/20/22 17:00 11/20/22 17:00 11/20/22 16:53 11/20/22 17:58 11/20/22 17:02 11/20/22 16:54 11/20/22 16:46 Room Air 11/20/22 16:46 Room Air 0 11/20/22 16:20 Room Air Cardiovascular RRR, no murmur, no edema Respiratory normal respiratory effort, lungs clear to auscultation Pre-Sedation Airway Assessment Smoking Status: Never smoker Hx Sleep Apnea: No Hx Difficult Intubation: No Short, Thick Neck: Yes Thyromental Distance: > or= 3.5 Finger Breadths Oral Cavity: + Dental Abnormalities Mallampati Class: II ASA: ASA3 NPO Status Date of Last Intake of Fluids: 11/20/22 Time of Last Intake of Fluids: 22:00 Date of Last Intake of Solid Food: 11/20/22 Time of Last Intake of Solid Foods: 22:00 Procedure Planning Contraindications for Sedation: none Current Medications Reviewed: Yes Notes The planned sedation has been discussed with the patient. Informed Consent was obtained. I have identified the patient, determined the appropriateness of sedation and have assessed the patient immediately prior to the procedure. All medicine(s) and interventions are by my order.
[2022-11-21] MEDS ORDERED: diphenhydrAMINE 50 MG/ML VIAL ONE (10:58)
--- NOTE | 2022-11-21 11:06 | Post Anesthesia Assessment ---
Date of Service November 21, 2022 Post Sedation Assessment Vital Signs Temp Pulse Pulse Resp BP BP Pulse Ox 11/21/22 10:13 68 16 124/63 98 11/21/22 08:00 11/21/22 08:01 97.7 F 91 H 16 101/65 96 11/21/22 02:54 98.8 F 63 18 110/68 97 11/20/22 22:00 73 11/20/22 19:30 86 11/20/22 23:01 98.4 F 84 18 117/74 96 11/20/22 19:36 98.4 F 75 20 135/80 100 11/20/22 18:10 77 21 11/20/22 18:00 75 18 11/20/22 18:00 132/83 11/20/22 17:50 80 14 11/20/22 17:40 88 15 11/20/22 17:30 84 18 11/20/22 17:30 153/93 H 11/20/22 17:20 80 22 11/20/22 17:10 76 17 11/20/22 17:00 95 H 19 11/20/22 17:00 152/95 H 11/20/22 16:53 98 H 17 11/20/22 17:58 90 153/93 H 11/20/22 17:02 98 H 152/95 H 11/20/22 16:54 100 H 11/20/22 16:46 98 11/20/22 16:46 98 11/20/22 16:20 97.7 F 108 H 20 164/93 H 97 O2 Del Method O2 Flow Rate 11/21/22 10:13 Room Air 11/21/22 08:00 Room Air 11/21/22 08:01 Room Air 11/21/22 02:54 Room Air 11/20/22 22:00 11/20/22 19:30 11/20/22 23:01 Room Air 11/20/22 19:36 Room Air 11/20/22 18:10 11/20/22 18:00 11/20/22 18:00 11/20/22 17:50 11/20/22 17:40 11/20/22 17:30 11/20/22 17:30 11/20/22 17:20 11/20/22 17:10 11/20/22 17:00 11/20/22 17:00 11/20/22 16:53 11/20/22 17:58 11/20/22 17:02 11/20/22 16:54 11/20/22 16:46 Room Air 11/20/22 16:46 Room Air 0 11/20/22 16:20 Room Air Recovery Score Activity: Moves 4 extremities Respiration: Deep Breath/Cough Circulation: +/-20% PreAnes Value Consciousness: Fully Awake Oxygen Saturation: O2 needed for >90% Discharge Sedation Level of Care: Fast Track Phase II Post Sedation Plan On clinical assessment, the patient appears to have tolerated the sedation without complications. Patient is recovering as anticipated. Patient will continue to be monitored by nursing and may be discharged when sedation discharge criteria are met per below protocol. Upon Completions of procedure up to 15 minutes continue every 5 minute vital signs and the P.A.R. score; then discharge to a Phase I or Fast Track to Phase II per the following guidelines: * Discharge Patient to appropriate Phase II area if PAR is 8 or greater or return to pre- procedure baseline. The post - procedure orders will be as directed. * If PAR score is less than 8 or not return to pre-procedure baseline then patient will follow Phase I monitoring till PAR is reached for Phase II. The Phase I may be done in procedure room or may call to secure a Phase I area. * If naloxone or flumazenil are used for reversal, hold in Phase I for continued monitoring from when last reversal dose was given for a minimum of 60 minutes or longer pending the nurse and/or physician discretion of patient condition before discharge to Phase II. Please call the Sedation Physician to re-evaluate and complete post-note for discharge to Phase II area. Do NOT discharge from procedure sedation or Phase 1 until post- sedation evaluation note is complete by procedure /sedation MD Sedation Discharge Instructions to be given to the patient at discharge to home.
--- NOTE | 2022-11-21 11:14 | Cardiac Catheterization ---
[facility] Data: Billet Recorder Cardiac Status Clinical evaluation leading to the procedure CAD Presenation: Unstable angina Diagnostic Physicians Name: Hugo Arteaga MD Closure Device Recommendations: Medical Therapy and/or Counseling Cardiac Cath Procedure Full Procedure Date November 21, 2022 Pre-Procedure Diagnosis Pre-Procedure Diagnosis: Angina AUC Score AUC Score: 7 Post-Procedure Diagnosis Post-Procedure Diagnosis: Normal Coronary Arteries and Normal Intracardiac Pressures Procedure(s) Performed Procedure(s) Performed: Coronary Angiography and Left Heart Cath Press Tender Short Goods Hugo Arteaga MD Head Of Training And Development(s) Yahir Estimated Blood Loss Estimated Blood Loss: 5 Medication(s) Medication(s): Diphenhydramine, Fentanyl, Heparin, Lidocaine 1%, Nicardipine, Nitroglycerin and Versed Summary of Findings Indication: Chest pain, elevated troponin Access: 6 Fr right radial artery Catheters: [place] Findings: LM -normal caliber angiographically normal LAD -medium caliber, angiographically normal, distal vessel wraps around apex. Medium D2 without significant disease. Circumflex -medium caliber, 20% ostial stenosis, remainder of vessels without significant disease. RCA -dominant, medium caliber, angiographically normal LVEDP -17 Arterial Closure: TR band Summary: 1. Essentially normal coronary arteries 2. Normal intracardiac filling pressure Recommendations: Reassurance, continue colchicine and continued ASCVD risk factor modification Hemodynamics Rest Ao:: 116/80/99 Final Ao: 104/69/85 LV: 118/19 Recommendations Recommendations: Medical Therapy and/or Counseling Specimens Specimens: None Radiation Exposure (mGy) 424 Contrast (mls) 40 Anesthesia Moderate 4681-9005 Procedural Complication(s) None Disposition PCU I attest to the content of the Intraoperative Record and any orders documented therein. Any exceptions are noted below. [facility] Card Cath Procedure Codes Cardiac Catheterization Procedure 1: Cardiovascular Cath Procedures: 38242 Coronaries and LHC (+/-LV) Moderate Sedation Procedure 1: Sedation/Anesthesia: 87846 Mod Sedation by the same physician;Init15 Min Child Age 5 & Up PG Care Time/CCT Total # of Minutes Spent Total Time Spent with Patient: Total time spent is greater than 50% in coordination of care (as documented) at patient's floor/unit and/or counseling patient:
--- NOTE | 2022-11-21 11:21 | Cardiology Consultation ---
Date of Consultation November 21, 2022 Assessment & Plan (1) Precordial chest pain: Patient underwent cardiac catheterization today via right radial artery. Her coronary arteries were essentially normal with no obstructive CAD. Reassured patient that current chest pain is not due to her coronary arteries. From a cardiac cath standpoint can be discharged later today after TR band removed. Recommend continuation of colchicine and ASCVD risk factor modification. Can follow-up with cardiology, Dr. Ayala as necessary. History of Present Illness Attending Physician: Rey Bains DO History of Present Illness Ms. Griffith is a 47-year-old woman who was sent [facility] yesterday from cardiology clinic in the setting of ongoing chest symptoms and subtle ECG abnormalities. Patient was recently hospitalized for atypical chest pain. Had minimally elevated HS TropI 25, echo unremarkable. Chest pain thought noncardiac and discharged on anti-inflammatory. Seen yesterday by Dr. Ayala in office for ongoing chest pain. ECG with subtle new ST depressions. Since admissions has been having ongoing chest pain/chest pounding. HS TropI negative x4. Allergies Allergy/AdvReac Type Severity Reaction Status Date / Time clonazepam Allergy Severe SOB AND Verified 11/20/22 15:00 DIFFICULTY WALKING pollen extracts Allergy Mild ITCHING/SNE Verified 11/20/22 15:00 EZING aspirin AdvReac Mild Nausea Verified 11/20/22 15:00 Home Medications Medication Instructions Recorded Confirmed Type dicyclomine 10 mg capsule 20 mg PO QID 02/13/18 11/20/22 History acetaminophen 500 mg tablet 1,000 mg PO Q6H PRN Pain 08/02/18 11/20/22 History (Tylenol Extra Strength) aluminum hydrox-magnesium carb 254 10 ml PO QID PRN ABD PAIN/UPSET 12/05/18 11/20/22 History mg-237.5 mg/5 mL oral suspension (Gaviscon Extra Strength) brivaracetam 75 mg tablet 75 mg PO QAM 04/29/19 11/20/22 History (Briviact) potassium chloride 20 mEq oral 20 meq PO BID #10 packets 10/31/21 11/20/22 Rx packet (Klor-Con) medroxyprogesterone 150 mg/mL 150 mg IM .COMPLEX #1 mL 01/18/22 11/20/22 Rx intramuscular syringe ondansetron 8 mg disintegrating 8 mg PO Q8H PRN nausea and 09/15/22 11/20/22 Rx tablet vomiting #20 tabs famotidine 40 mg tablet 40 mg PO QAM 11/10/22 11/20/22 History colchicine (gout) 0.6 mg tablet 0.6 mg PO BID #60 tabs 11/12/22 11/20/22 Rx melatonin 3 mg tablet 3 mg PO HS PRN sleep #30 tabs 11/12/22 11/20/22 Rx nitroglycerin 0.4 mg sublingual 0.4 mg sublingual Q5M PRN chest 11/12/22 11/20/22 Rx tablet pain #10 tabs amitriptyline 150 mg tablet 150 mg PO HS PRN diaz #30 tabs 11/14/22 11/20/22 Rx citalopram 10 mg tablet (Celexa) 10 mg PO DAILY #30 tabs 11/16/22 11/20/22 Rx meclizine 12.5 mg tablet 12.5 mg PO TID PRN dizziness #30 11/16/22 11/20/22 Rx tabs pantoprazole 40 mg tablet,delayed 40 mg PO BID #180 tabs 11/20/22 11/20/22 Rx release (Protonix) sucralfate 100 mg/mL oral See Rx Instructions .Route 11/20/22 11/20/22 Rx suspension .COMPLEX #400 mL Patient History Medical History Anxiety Asthma (03/03/11) Barretts esophagus Bipolar disorder, unspecified (03/03/11) Blindness, one eye (03/03/11) LEFT Chronic abdominal pain Complex partial seizure A CHILD-NONE SINCE PER PT Cough productive of clear sputum Depression with anxiety Ear pain Epigastric abdominal pain Fever Fever and chills GERD (gastroesophageal reflux disease) (03/03/11) IBS (irritable bowel syndrome) Mgr NOS wo ntrc w st mgr (03/03/11) Migraine headache Shoulder pain, bilateral URI (upper respiratory infection) URI, acute Vertigo Vomiting Surgical History H/O eye surgery History of cholecystectomy History of colonoscopy History of ear surgery History of esophagogastroduodenoscopy (EGD) History of tubal ligation Hx of section Family History Grandfather (Paternal) Colorectal cancer Father Myocardial infarction Heart disease Hypertension Aunt Diabetes Mother Hypertension Grandfather (Maternal) Colon cancer Uncle Lung cancer Other Gallbladder disease Lung disease Seizure Denies family history of Ovarian cancer Prostate cancer Breast cancer Uterine cancer Social History Smoking Status: Never smoker Second Hand Exposure: No; Do You Dip or Chew Tobacco: Yes; Tobacco Cessation Education Requested by Patient: No Hx Alcohol Use: No Hx Substance Use: No Preferred Language: Korean Communication Ability: Effective Nurse Liaison Required: No Beliefs That Will Affect Care: None marital status: Single Current Living Situation: Family current occupational status: disabled Other Information That Helps Us Care for You: No Feels Safe at Home: Yes Safety Concerns: Feels Safe At This Time Dental Care, Regularly: Yes Physical Activity Frequency Comment: Walking Seatbelt Use: always Sunscreen Use: Yes Assistive Devices: None Review of Systems Review of Systems: All systems reviewed & are unremarkable except as noted in HPI & below Physical Exam Physical Exam: General: Comfortable HEENT: Sclerae anicteric Lungs: Clear to auscultation bilaterally Cardiac: Regular rate and rhythm, no murmurs. Vascular: 2+ radial Abdomen: Soft, nontender Extremities: Well perfused, no peripheral edema Neuro: Nonfocal Psych: Anxious, alert and oriented Results & Data Vital Signs (Past 12 Hours) Vital Signs Temp Pulse Resp BP Pulse Ox O2 Del Method 11/21/22 10:13 68 16 124/63 98 Room Air 11/21/22 08:00 Room Air 11/21/22 08:01 97.7 F 91 H 16 101/65 96 Room Air 11/21/22 02:54 98.8 F 63 18 110/68 97 Room Air PG Care Time/CCT Total # of Minutes Spent Total Time Spent with Patient: Total time spent is greater than 50% in coordination of care (as documented) at patient's floor/unit and/or counseling patient: Coding Level of Care Code 96835 IN/OBS CONSULT LVL 3,45M Diagnoses Precordial chest pain R07.2
[2022-11-21] MEDS ORDERED: SODIUM CHLORIDE 0.9% 1000ML 1,000 ML IV SCH (11:45)
--- NOTE | 2022-11-21 11:45 | Discharge Summary ---
Date of Service November 21, 2022 Admission HPI Per Admitting Provider The patient is a 47-year-old female with a past medical history including pericardial effusion, elevated troponin, depression/anxiety, complex partial seizures, GERD with stricture, Greenfield's esophagus, IBS and family history of heart disease, who presents to the emergency department for reasons as noted above. In the emergency department she reports pounding in her chest, but no heart monitor appears to be normal sinus rhythm. EKG with lateral ST depressions that improved with administration of aspirin 324 mg, Nitropaste 2 inches, morphine sulfate and metoprolol tartrate 5 mg IV. Admission Exam Per Admitting Provider The patient is awake, alert and oriented 3, well developed and well nourished, normocephalic and atraumatic, lying in bed and in no acute distress. HEENT--PERRL, EOMI, mucous membranes and oropharynx dry. Neck--supple. No JVD. No bruits. Thyroid normal, trachea midline, no adenopathy. Heart--normal S1 and S2. No murmurs, rubs or gallops. Lungs--clear bilaterally, no respiratory distress, no accessory muscle use. Abdomen--normal bowel sounds and soft. Nontender. Nondistended, no hernias or masses, no organomegaly. Extremities--no cyanosis or clubbing. No edema. There are good distal pulses b/l. Dermatologic--normal skin turgor, normal color, no abnormal lymph nodes, no rash. Neurologic--cranial nerves II through XII grossly intact. Rheumatologic--normal range of motion. Psychiatric--normal affect. Principal Diagnosis Precordial chest pain Discharge Exam Constitutional: well-appearing, no acute distress HEENT: NCAT, no conjunctival injection CV: regular rhythm, no murmur appreciated, extremities well-perfused, no LE edema Resp: CTABL, no wheezes/rales/rhonchi appreciated, no increased work of breathing GI: soft, nondistended, nontender, BS normoactive MSK: no gross deformities appreciated Skin: warm, dry, no rash appreciated Neuro: alert, oriented, no focal neurologic deficit appreciated Discharge Data Allergies Allergy/AdvReac Type Severity Reaction Status Date / Time clonazepam Allergy Severe SOB AND Verified 11/20/22 15:00 DIFFICULTY WALKING pollen extracts Allergy Mild ITCHING/SNE Verified 11/20/22 15:00 EZING aspirin AdvReac Mild Nausea Verified 11/20/22 15:00 Consultations 11/20/22 17:05 ED Decision to Admit Stat 11/21/22 06:54 Consult Cardiology Routine Procedures Performed Operation Date: 11/21/22 09:30 Actual Procedures s Cineradiography w/Routine Exam - Mark Arteaga MD p Cath, Left with Cors and Vent - Mark Arteaga MD Chest X-Ray 11/20/22 16:21 XR chest 1V portable HISTORY: 47 years-old Female Chest pain, nonspecific COMPARISON: 11/10/2022 TECHNIQUE: AP view of the chest FINDINGS: Cardiomediastinal and hilar silhouettes are unchanged. Stable mild right hemidiaphragmatic elevation. No pneumothorax, pleural effusion, airspace consolidation or pulmonary edema. Bones of the chest appear grossly intact. IMPRESSION: No acute process. ACT 112: Negative or not required by law. The above report was generated using voice recognition software. It may contain grammatical, syntax or spelling errors. Electronically signed by: Sergio Santos M.D. 11/20/2022 5:48 PM Ordered Studies 11/21/22 06:32 CL Cath Imgs for PACS use only Routine Hospital Course (1) High cholesterol: (2) Anemia: (3) Pericardial effusion: (4) GERD with stricture: (5) Complex partial seizure: (6) Depression with anxiety: (7) Migraine headache: (8) Asthma: (9) Bipolar disorder, unspecified: (10) GERD (gastroesophageal reflux disease): (11) Barretts esophagus: Plan Ms. Griffith is a 47-year-old woman who was sent [facility] yesterday from cardiology clinic in the setting of ongoing chest symptoms and subtle ECG abnormalities. Patient was recently hospitalized for atypical chest pain. Had minimally amadeo vated HS TropI 25, echo unremarkable. Chest pain thought noncardiac and discharged on anti-inflammatory. Seen yesterday by Dr. Ayala in office for ongoing chest pain. ECG with subtle new ST depressions. Since admissions has been having ongoing chest pain/chest pounding. HS TropI negative x4. -Given aspirin 324 mg, Nitropaste 2 inches, morphine sulfate 4 mg IV, Zofran 4 mg IV, and metoprolol 5 mg IV in the ED -Continue Nitropaste 2 inches to anterior chest wall every 6 hours she reports that aspirin in the past given her severe esophageal burning -Start metoprolol succinate 25 mg p.o. twice daily -Continue potassium chloride 20 mEq p.o. twice daily, give a dose this evening for potassium of 3.5 -Consult cardiology, cardiac catheterization was done which showed no obstructive CAD. Patient's chest pain is not due to her coronary arteries. Recommend to continue continue colchicine and ASCVD risk factor modification. Can follow-up with Dr. Ayala as necessary. GERD/Greenfield's esophagus- Continue pantoprazole 40 mg p.o. twice daily, and famotidine 40 mg every morning Anxiety/depression- Continue citalopram 10 mg daily Total Time Total Time Spent Total Time Spent (In Minutes): <30 Discharge Plan Discharge Items Patient Disposition: Home - Self-Care Reason For Visit: CHEST PAIN, RULE OUT LA Discharge Diagnosis: Precordial chest pain Condition on Discharge: Fair Activity: Resume your previous activity Non-emergency contact: Primary Care Provider Call non-emergency contact if: your pain is unusual for you and your temperature is above 101.5 Follow-up/Referrals: Manas Mcqueen MD [Primary Care Provider] - 11/29/22 11:30 am (Follow up scheduled on 11/28/22 @ 11:30 am) Diet: Heart Healthy Addtl Attending Provider Instructions: You were admitted to the hospital for pericardial chest pain. A cardiac catheterization was done during this admission which showed essentially normal coronary arteries without any obstructive CAD. A discharge summary will be sent to your primary care physician to ensure continuity of care. Please bring this discharge summary with you to your next office appointment so that your provider can review it at that time. Follow-up appointments: * Make a follow-up appointment with your PCP within the next week. It is very important that you follow up with them shortly after discharge from the hospital. * Keep all your follow-up appointments as already scheduled. If you cannot make an appointment, notify your provider. Medications: Your medication list has been reviewed and reconciled upon discharge to ensure accuracy and continuity of care. An updated list of all your medications is included with your hospital discharge paperwork. Please review this list closely, and make note of any changes. * No new medication was added during your visit * If you have any issues filling these prescriptions, please call [phone] and ask to leave a message for Dr. Andrews. * Take your medications as instructed; do not skip a dose of your medicines. Make sure all of your doctors know every medicine you are taking (including onsk-kqb-[id number] medicines, vitamins, and supplements). Call your primary care provider before taking any new medicines (including over- the-counter medicines, vitamins, and supplements), because some of these may interact with your current medications, or may make your symptoms worse. Tell your primary care provider if you cannot afford your medications. CONTACT YOUR PRIMARY CARE PROVIDER if you experience any of the following: * Worsening of symptoms * Fever, chills, or fatigue * Difficulty following your treatment plan, or difficulty taking medications CALL 911 OR GO TO THE EMERGENCY DEPARTMENT if you experience any of the following: * Sudden, severe abdominal pain or nausea/vomiting * Severe chest pain, or chest pain that radiates (moves) to your jaw or arm * Sudden, severe shortness of breath or difficulty breathing Thank you for allowing us to participate in your care. Pending Studies at Discharge: No Stand-Alone Forms: My [facility], Smoking Cessation Medications and DC Order Prescriptions: Continued citalopram [Celexa] 10 mg tablet 10 mg PO DAILY Qty: 30 1RF meclizine 12.5 mg tablet 12.5 mg PO TID PRN (Reason: dizziness) Qty: 30 0RF sucralfate 100 mg/mL suspension See Rx Instructions .ROUTE .COMPLEX Qty: 400 0RF Rx Instructions: 10 ml am, noon, pm and hs pantoprazole [Protonix] 40 mg tablet,delayed release (DR/EC) 40 mg PO BID Qty: 180 0RF amitriptyline 150 mg tablet 150 mg PO HS PRN (Reason: diaz) Qty: 30 2RF Hold Instructions: no longer takes Rx Instructions: still on hold Gaviscon Extra Strength 254-237.5 mg/5 mL suspension 10 ml PO QID PRN (Reason: ABD PAIN/UPSET) medroxyprogesterone 150 mg/mL syringe 150 mg IM .COMPLEX Qty: 1 4RF Rx Instructions: 150 mg IM : Inject 1 ml intramuscular every 10 weeks; [id number] ondansetron 8 mg tablet,disintegrating 8 mg PO Q8H PRN (Reason: nausea and vomiting) Qty: 20 0RF Briviact 75 mg tablet 75 mg PO QAM dicyclomine 10 mg capsule 20 mg PO QID acetaminophen [Tylenol Extra Strength] 500 mg Tablet 1,000 mg PO Q6H PRN (Reason: Pain) potassium chloride [Klor-Con] 20 mEq packet 20 meq PO BID Qty: 10 0RF famotidine 40 mg tablet 40 mg PO QAM melatonin 3 mg Tablet 3 mg PO HS PRN (Reason: sleep) Qty: 30 0RF nitroglycerin 0.4 mg tablet, sublingual 0.4 mg sublingual Q5M PRN (Reason: chest pain) Qty: 10 0RF Rx Instructions: Do not administer more than 3 tablets in a 15 minute period colchicine (gout) 0.6 mg tablet 0.6 mg PO BID Qty: 60 2RF Discharge Orders: Discharge Order (Routine); Ordered 11/21/22 Ordered By: Rey Bains Admission Data Admit Date/Time: 11/20/22 17:56 Attending Provider: Rey Bains Admit Provider: Aman Finn Primary Care Provider: Manas Mcqueen V. Other Providers: Aman Finn ; Mark Arteaga Other Interventions: Discharge Summary Assessment (RN) Last Done: 11/21/22 14:04 Supervising Physician Co-Signing Physician Notes I personally examined the patient and verified all mendoza points of history and exam, discussed case, and agree with decision making with Dr Andrews feeling ok just worried about what to do with chest pain when she's home vitals noted nad heent nc at mmm breathing unlabored no accessory muscles good effort skin no rashes no pallor or icterus chest pain - likely still from myocarditis - fortunately [facility] reassuring. safe for home. continue colchicine, ibuprofen prn. reassurrance, time.
[2022-11-21] MEDS: NSS + 20MEQ KCL 20 MEQ/1,000 ML BAG IV SCH (11:58)
--- NOTE | 2022-11-21 15:56 | Electrocardiogram Report ---
Test Reason : Blood Pressure : / mmHG Vent. Rate : 101 BPM Atrial Rate : 101 BPM P-R Int : 146 ms QRS Dur : 076 ms QT Int : 330 ms P-R-T Axes : 025 -05 036 degrees QTc Int : 427 ms Sinus tachycardia Minimal voltage criteria for LVH, may be normal variant ( R in aVL ) Poor R wave progression, consider anterior PA vs. lead placement vs. LVH Abnormal ECG When compared with ECG of 20-NOV-2022 14:56, (unconfirmed) Nonspecific T wave abnormality, worse in Inferior leads Confirmed by Medhat Turner ([id number]) on 11/21/2022 3:56:01 PM Referred By: REFERRED SELF Confirmed By:Medhat Turner
--- NOTE | 2022-11-21 15:57 | Electrocardiogram Report ---
Test Reason : Blood Pressure : / mmHG Vent. Rate : 074 BPM Atrial Rate : 074 BPM P-R Int : 148 ms QRS Dur : 078 ms QT Int : 392 ms P-R-T Axes : 019 006 009 degrees QTc Int : 435 ms Normal sinus rhythm Poor R wave progression, consider anterior CT vs. lead placement vs. LVH Abnormal ECG When compared with ECG of 20-NOV-2022 16:26, (unconfirmed) Nonspecific T wave abnormality, improved in Lateral leads Confirmed by Medhat Turner ([id number]) on 11/21/2022 3:57:17 PM Referred By: REFERRED SELF Confirmed By:Medhat Turner
--- NOTE | 2022-11-21 15:58 | Electrocardiogram Report ---
Test Reason : Blood Pressure : / mmHG Vent. Rate : 071 BPM Atrial Rate : 071 BPM P-R Int : 142 ms QRS Dur : 076 ms QT Int : 400 ms P-R-T Axes : 013 -09 001 degrees QTc Int : 434 ms Normal sinus rhythm Minimal voltage criteria for LVH, may be normal variant ( R in aVL ) Poor R wave progression, consider anterior RI vs. lead placement vs. LVH Abnormal ECG When compared with ECG of 20-NOV-2022 17:14, (unconfirmed) No significant change was found Confirmed by Medhat Turner ([id number]) on 11/21/2022 3:58:39 PM Referred By: REFERRED SELF Confirmed By:Medhat Turner
--- NOTE | 2022-11-21 16:02 | Electrocardiogram Report ---
Test Reason : Blood Pressure : / mmHG Vent. Rate : 069 BPM Atrial Rate : 069 BPM P-R Int : 160 ms QRS Dur : 094 ms QT Int : 428 ms P-R-T Axes : 030 -09 -02 degrees QTc Int : 458 ms Normal sinus rhythm Incomplete right bundle branch block Minimal voltage criteria for LVH, may be normal variant Abnormal ECG When compared with ECG of 20-NOV-2022 18:24, (unconfirmed) T wave inversion now evident in Anterior leads Confirmed by Medhat Turner ([id number]) on 11/21/2022 4:01:44 PM Referred By: REFERRED SELF Confirmed By:Medhat Turner
--- NOTE | 2022-11-21 16:02 | Electrocardiogram Report ---
Test Reason : Blood Pressure : / mmHG Vent. Rate : 068 BPM Atrial Rate : 068 BPM P-R Int : 160 ms QRS Dur : 088 ms QT Int : 432 ms P-R-T Axes : 017 -11 007 degrees QTc Int : 459 ms Normal sinus rhythm Minimal voltage criteria for LVH, may be normal variant Nonspecific T wave abnormality Abnormal ECG When compared with ECG of 21-NOV-2022 02:59, (unconfirmed) No significant change was found Confirmed by Medhat Turner ([id number]) on 11/21/2022 4:02:49 PM Referred By: REFERRED SELF Confirmed By:Medhat Turner
--- NOTE | 2022-11-21 16:09 | Electrocardiogram Report ---
Test Reason : Blood Pressure : / mmHG Vent. Rate : 072 BPM Atrial Rate : 072 BPM P-R Int : 150 ms QRS Dur : 084 ms QT Int : 428 ms P-R-T Axes : 006 -11 -04 degrees QTc Int : 468 ms Normal sinus rhythm Moderate voltage criteria for LVH, may be normal variant T wave abnormality, consider anterior ischemia Prolonged QT Abnormal ECG When compared with ECG of 21-NOV-2022 04:56, (unconfirmed) No significant change was found Confirmed by Medhat Turner ([id number]) on 11/21/2022 4:09:16 PM Referred By: REFERRED SELF Confirmed By:Medhat Turner
--- NOTE | 2022-11-21 18:52 | Billing Data ---
Date of Service November 21, 2022 Coding Level of Care Code 95513 IN/OBS DISCH 30 MIN/LESS
== END 2022-11-21 16:22 | disposition home or self-care (01) ==
LOC: ED 16:09 → 4W 16:09 → SUATTDRO 17:56 → 4W 18:45

== ENCOUNTER 2024-06-25 11:43 | Observation (INO) ==
[2024-06-25 12:18] LABS: iSTAT Creatinine 1.2 mg/dl (0.6-1.3); iSTAT Hemoglobin 13.9 g/dl (12.0-16.0); iSTAT Ionized Calcium 1.23 mmol/l (1.12-1.32); iSTAT Potassium 3.5 mmol/L (3.3-5.0)
--- NOTE | 2024-06-25 12:23 | Emergency Department Note ---
Impression & Plan Headache, Arm paresthesia, right, Stroke-like symptoms ED Provider Note HISTORY OF PRESENT ILLNESS: Patient is a 49-year-old female presenting with posterior headache and right arm numbness. Patient reports she has a history of a carotid artery dissection is on a baby aspirin. Reports that this morning she woke up and the back of her head and neck hurt. She states that "it feels like a jackknife is being shoved into my head." She denies ever having headaches like this before. She states that she also woke up today and had numbness and tingling in her right upper extremity. Reports the numbness extends from the elbow down to her hand. She states that she had no neurological symptoms when she went to bed last night at 2200. She reports feeling lightheaded and dizzy. Denies any abdominal pain, nausea or vomiting. Denies any chest pain or shortness of breath. She was seen by her neurologist today and was referred to the emergency department for possible stroke. ROS: as above PHYSICAL EXAM: Constitutional: Patient appears in no acute distress. HENT: Head: Normocephalic and atraumatic. Eyes: EOMI, PERRL Mouth/Throat: Mucous membranes moist. Neck: Trachea midline. Neck supple. Cardiovascular: RRR, No murmurs, rubs or gallops. Intact distal pulses. Pulmonary/Chest: No respiratory distress. Breath sounds clear and equal bilaterally. No wheezes or rales. Abdominal: Abdomen soft, no tenderness, rebound or guarding. Musculoskeletal: No edema, tenderness or deformity noted. Skin: Warm and dry. No rash, erythema, pallor or cyanosis Psychiatric: Appropriate mood and affect for situation. Neurological: Alert and keenly responsive. Facies symmetric. Able to raise eyebrows, close eyes, smile, puff mouth, stick out tongue, move tongue left and right and raise palate symmetrically. Able to shrug shoulders. PERRLA. SILT to forehead below eye and at jawline. Can hear soft noise bilaterally. Strength 5/5 in bilateral upper and lower extremities. SILT throughout bilateral lower extremities. Patient has sensation intact to light touch in the upper extremities, but reports that it is slightly more dull in the right upper extremity as compared to the left. MDM: - Vitals signs showed tachycardia - History obtained via patient. History as above. - Chronic conditions affecting care: bipolar disorder; anxiety/depression; HLD; occlusion of right internal carotid; migraine headaches - Differential diagnoses include, but are not limited to: CVA; intracranial hemorrhage; complex migraine; electrolyte abnormality; arterial dissection - Order placed for continuous cardiac monitoring. At this time, monitor showed rate of 77 bpm with normal sinus rhythm, per my interpretation. - External medical records reviewed. Neurology office visit note from today was reviewed. Patient was seen for numbness and pain in her right hand that goes to her mid forearm. She reportedly has daily neck pain and has had head pain in the back of her head for a few days. She was given a prescription for Ubrelvy at the appointment. They were scheduling her for an MRI of her C-spine. Given patient's severe pain, she was sent to the emergency department for pain and concern for stroke. - Patient's last known well was last night and she is outside the window for TNK. - EKG image interpreted by myself showed normal sinus rhythm. Rate 88 bpm. QT 362. No acute ischemic changes. - Laboratory workup interpreted by myself showed normal WBC; normal PT/INR; stable electrolytes - CXR image reviewed by myself negative for pneumonia, per my interpretation - CT head wo contrast negative for acute pathology - CTA head showed chronic occlusion of the cavernous segment of the right internal carotid artery with distal reconstitution. This appears similar to CTA in April 2023. - CTA neck showed no change in severe stenosis of the right internal carotid artery. - Patient given 1L NS, 5 mg IV compazine and 25 mg IV benadryl for headache management. On reassessment, she still complaining of significant head pain. Given 1 g IV Tylenol and 1 g IV magnesium. Loaded with 324 mg PO aspirin for TIA symptoms. - Patient is still complaining of numbness and tingling in her right arm. Will admit for further strokelike workup. However, the signs more like a complex migraine. Patient does have history of migraines, but she reports that she never gets pain in the back of her head, is normally on 1 side or the other. - Discussion was had with pillowcase maker about patient's case and need for admission - Hospitalist consulted for admission - Patient admitted to [facility] for further evaluation and management. ASSESSMENT AND PLAN: Diagnosis: Headache; right arm paresthesias; strokelike symptoms Plan: admit Past Med/Surg History Problem List (Updated 06/25/24 @ 14:12 by Marilu Forrest MD) Stroke-like symptoms (Acute) Arm paresthesia, right (Acute) Headache (Acute) Right arm numbness Hypertension Neck pain Fluttering heart Tinnitus Migraine, chronic, without aura Demyelinating disease Occlusion of posterior communicating artery Vitamin D deficiency Migraine aura, persistent, intractable, with status migrainosus Positive GABRIELLA (antinuclear antibody) Anticardiolipin antibody positive Vitamin B 12 deficiency Abnormal MRI, cervical spine TMJ (temporomandibular joint syndrome) Sensorineural hearing loss (SNHL) of both ears 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 ICAO (internal carotid artery occlusion) Headache Lymphadenopathy, axillary left, on CT chest 11/10/2022 Sleeping difficulty High cholesterol Pericardial effusion (Acute) Palpitations (Acute) Dysphagia History of frequent ear infections Health care maintenance GERD with stricture Complex partial seizure (Chronic) A CHILD-NONE SINCE PER PT Depression with anxiety (Chronic) Asthma (Chronic 03/03/11) Bipolar disorder, unspecified (Chronic 03/03/11) Blindness, 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) LEFT GERD (gastroesophageal reflux disease) (Chronic 03/03/11) IBS (irritable bowel syndrome) (Chronic) Barretts esophagus (Chronic) Medical History Neck swelling Sickness Migraine with aura, intractable, with status migrainosus Vision blurred Vertigo Change in bowel habits Early satiety Leukocytosis Anemia Elevated blood pressure reading without diagnosis of hypertension Abnormal EKG Migraine headache Chronic abdominal pain Avulsion fracture of talus Pain of right fibula Right ankle injury Amaurosis fugax of right eye Family history of anesthesia complication Sleeping difficulty TMJ (temporomandibular joint syndrome) Pericardial effusion ICAO (internal carotid artery occlusion) IBS (irritable bowel syndrome) GERD (gastroesophageal reflux disease) H/O cerebral embolic infarction Dysphagia Depression with anxiety Complex partial seizure Blindness of left eye Asthma History of anemia Headache Congestion of both ears Congestion of paranasal sinus Vertigo Greenfield's esophagus Elevated troponin Atypical chest pain Tachycardia Cough productive of clear sputum Mgr NOS wo ntrc w st mgr (03/03/11) Anxiety Surgical History Hx of cardiac cath History of colonoscopy History of ear surgery H/O eye surgery History of esophagogastroduodenoscopy (EGD) Hx of section History of tubal ligation History of cholecystectomy Family History Grandfather (Paternal) Colorectal cancer Father Myocardial infarction Heart disease Hypertension Aunt Diabetes Mother Hypertension Grandfather (Maternal) Colon cancer Uncle Lung cancer Other Gallbladder disease Lung disease Seizure Denies family history of Ovarian cancer Prostate cancer Breast cancer Uterine cancer Social History Smoking Status: Never smoker Tobacco Type: Declines Second Hand Exposure: No; Do You Dip or Chew Tobacco: No; Hx Alcohol Use: No Hx Substance Use: No Preferred Language: Korean Communication Ability: Effective Manager Media Relations Required: No Beliefs That Will Affect Care: None marital status: Single Current Living Situation: Parent current occupational status: disabled Feels Safe at Home: Yes Dental Care, Regularly: Yes Physical Activity Frequency Comment: Walking Seatbelt Use: always Sunscreen Use: Yes Assistive Devices: None Allergies Allergies Allergy/AdvReac Type Severity Reaction Status Date / Time clonazepam Allergy Severe SOB AND Verified 06/25/24 10:55 DIFFICULTY WALKING pollen extracts Allergy Mild ITCHING/SNE Verified 06/25/24 10:55 EZING pineapple Allergy mouth Verified 06/25/24 10:55 bleeding aspirin AdvReac Mild Nausea Verified 06/25/24 10:55 Home Meds Home Medications Medication Instructions Recorded Confirmed famotidine 40 mg tablet 40 mg PO QAM 11/10/22 06/25/24 albuterol sulfate 90 mcg/actuation 1 inh inhalation QID PRN Wheezing 12/13/22 06/25/24 aerosol inhaler atorvastatin 40 mg tablet 40 mg PO QAM 05/15/23 06/25/24 riboflavin 200 mg PO QPM 06/04/23 06/25/24 ticagrelor 90 mg tablet (Brilinta) 90 mg PO BID 06/04/23 06/25/24 acetaminophen 325 mg tablet 650 mg PO QID PRN Pain 08/18/23 06/25/24 (Tylenol) aspirin 81 mg tablet,delayed 81 mg PO DAILY 08/18/23 06/25/24 release citalopram 20 mg tablet 20 mg PO HS 12/11/23 06/25/24 Previous Rx's Medication Instructions Recorded nitroglycerin 0.4 mg sublingual 0.4 mg sublingual Q5M PRN chest 11/12/22 tablet pain #10 tabs pantoprazole 40 mg tablet,delayed 40 mg PO BID #180 tabs 11/20/22 release (Protonix) melatonin 3 mg tablet 6 mg (2 x 3 mg) PO HS PRN sleep 05/15/23 #30 tabs cyanocobalamin (vitamin B-12) 2,000 mcg PO DAILY #100 ea 02/15/24 2,000 mcg lozenges meclizine 25 mg tablet 25 mg PO TID PRN dizziness #90 tabs 02/15/24 ondansetron HCl 8 mg tablet 8 mg PO BID PRN nausea and 02/15/24 vomiting #60 tabs syringe with needle, safety 1 mL #12 ea 02/15/24 25 gauge x 1" (Easy Touch FlipLock Syringe) pregabalin 100 mg capsule 100 mg PO BID #60 caps 02/22/24 cholecalciferol (vitamin D3) 50 50 mcg PO DAILY #90 caps 04/18/24 mcg (2,000 unit) capsule norethindrone (contraceptive) 0.35 See Rx Instructions .Route 04/28/24 mg tablet (Jencycla) .COMPLEX #28 tabs atogepant 60 mg tablet (Qulipta) 60 mg PO DAILY #30 tabs 05/06/24 cholecalciferol (vitamin D3) 1,250 50,000 unit PO .COMPLEX #24 caps 05/08/24 mcg (50,000 unit) capsule cyanocobalamin (vitamin B-12) 1,000 mcg subcut .COMPLEX #12 mL 05/08/24 1,000 mcg/mL injection solution Botox 200 unit injection See Rx Instructions IM .COMPLEX #1 05/16/24 (onabotulinumtoxinA) ea lasmiditan 100 mg tablet (Reyvow) 100 mg PO ONCE PRN migraine 05/26/24 headache 30 days #8 tabs peg 3350-sod sulf,[id number] See Rx Instructions PO .COMPLEX #2 06/19/24 178.7-7.3-0.5-1.12-0.9 gram oral mL soln (Suflave) amoxicillin 875 mg-potassium 1 tab PO BID #14 tabs 06/24/24 clavulanate 125 mg tablet carvedilol 6.25 mg tablet 6.25 mg PO BID #60 tabs 06/24/24 lorazepam 0.5 mg tablet 0.5 mg PO .COMPLEX PRN anxiety 1 06/25/24 day #2 tabs tizanidine 2 mg tablet 2 mg PO BID muscle spasticity #60 06/25/24 tabs ubrogepant 100 mg tablet (Ubrelvy) 100 mg PO .COMPLEX PRN migraine 06/25/24 #10 tabs Results & Data (ED) Vital Signs Vital Signs - 24 hr 06/25/24 11:47 06/25/24 12:31 06/25/24 12:31 Temperature 36.7 C Temperature Source Temporal Artery Scan Pulse Rate 94 H 96 H Pulse Rate [Apical] 86 Pulse Rate from SpO2 Sensor Pulse Rhythm Regular Pulse Rhythm [Apical] Regular Pulse Strength [Apical] Normal Respiratory Rate 18 14 14 Respiratory Effort / Characteristics Non-Labored Spontaneous Non-Labored Spontaneous Respiratory Depth Normal Normal Respiratory Pattern Regular Regular Blood Pressure 136/93 Blood Pressure [Left Arm] 162/76 H Blood Pressure Mean 107 Blood Pressure Mean [Left Arm] 104 Blood Pressure Position [Left Arm] Semi-fowlers Pulse Oximetry 99 96 96 Oxygen Delivery Method Room Air Room Air Room Air Sepsis Recent Fever Within 48 Hours No Sepsis New/Unexplained Change in Mental Status N/A Sepsis Action Taken by Nursing No Action Required 06/25/24 12:35 06/25/24 12:42 06/25/24 12:49 Temperature Temperature Source Pulse Rate 78 77 Pulse Rate [Apical] Pulse Rate from SpO2 Sensor 78 Pulse Rhythm Pulse Rhythm [Apical] Pulse Strength [Apical] Respiratory Rate 14 Respiratory Effort / Characteristics Respiratory Depth Respiratory Pattern Blood Pressure 162/76 H Blood Pressure [Left Arm] Blood Pressure Mean 117 Blood Pressure Mean [Left Arm] Blood Pressure Position [Left Arm] Pulse Oximetry 98 Oxygen Delivery Method Room Air Sepsis Recent Fever Within 48 Hours Sepsis New/Unexplained Change in Mental Status Sepsis Action Taken by Nursing 06/25/24 13:07 06/25/24 14:30 06/25/24 14:33 Temperature Temperature Source Pulse Rate 95 H 87 Pulse Rate [Apical] Pulse Rate from SpO2 Sensor 94 H 88 Pulse Rhythm Pulse Rhythm [Apical] Pulse Strength [Apical] Respiratory Rate 18 12 Respiratory Effort / Characteristics Respiratory Depth Respiratory Pattern Blood Pressure 130/99 130/99 Blood Pressure [Left Arm] Blood Pressure Mean 109 109 Blood Pressure Mean [Left Arm] Blood Pressure Position [Left Arm] Pulse Oximetry 98 100 98 Oxygen Delivery Method Room Air Room Air Room Air Sepsis Recent Fever Within 48 Hours Sepsis New/Unexplained Change in Mental Status Sepsis Action Taken by Nursing Laboratory Data 06/25/24 12:00 06/25/24 12:00 Lab Results 06/25/24 06/25/24 Range/Units 12:00 12:05 WBC 10.75 (4.8-10.8) K/ul RBC 4.17 L (4.20-5.40) M/uL Hgb 13.0 (12.0-16.0) g/dl POC Hgb 13.9 (12.0-16.0) g/dl Hct 39.5 (37.0-47.0) % POC Hct 41 (37-47) % MCV 94.7 (80.0-100.0) fL MCH 31.2 (25.0-34.0) pg MCHC 32.9 (32.0-36.0) g/dL RDW Std Deviation 44.6 (36.4-46.3) fL RDW Coeff of Aurelio 12.8 (11.5-14.5) % Plt Count 294 (130-400) K/uL MPV 10.3 (9.4-12.4) fL PT 10.7 (9.0-12.0) Seconds INR 1.0 (0.9-1.1) APTT 32 H (21-31) Seconds PTT Ratio 1.2 POC Sodium 139 (135-144) mmol/L Sodium 138 (136-145) mmol/L POC Potassium 3.5 (3.3-5.0) mmol/L Potassium 3.5 (3.5-5.1) mmol/L POC Chloride 104 (101-112) mmol/L Chloride 102 (98-107) mmol/L Carbon Dioxide 26 (21-32) mmol/L POC Total CO2 23 L (24-31) mmol/L Anion Gap 10 (3-11) POC Anion Gap 16.0 (16-25) mmol/L POC BUN 20 H (7-18) mg/dl BUN 20 (6-23) mg/dl Creatinine 1.08 (0.6-1.2) mg/dl POC Creatinine 1.2 (0.6-1.3) mg/dl Est Cr Clr Drug Dosing 77.0 ml/min eGFR 62.97 BUN/Creatinine Ratio 18.5 (10-20) Glucose 100 H (70-99(Fasting)) mg/dl POC Glucose (other) 100 H (70-99) mg/dl Calcium 10.1 (8.6-10.3) mg/dl POC Ioniz Calcium Sandra 1.23 (1.12-1.32) mmol/l Magnesium 2.0 (1.7-2.4) mg/dl Total Bilirubin 0.4 (0.2-1.0) mg/dl AST 10 L (13-39) U/L ALT 9 (7-52) U/L Alkaline Phosphatase 106 H (34-104) U/L Total Protein 8.1 (6.0-8.3) gm/dl Albumin 4.9 (3.4-5.0) gm/dl Globulin 3.2 (2.5-4.0) gm/dl Albumin/Globulin Ratio 1.5 (0.9-2) Administered Medications Magnesium Sulfate/Dextrose (Magnesium Sulfate / D5w) 1 gm in 100 mls @ 100 mls/hr IV NOW STA Stop: 06/25/24 15:05 Last Admin: 06/25/24 14:24 Dose: 100 mls/hr Documented By: Discontinued Medications Aspirin (Aspirin Chew 324 Mg) 324 mg PO NOW STA Stop: 06/25/24 14:07 Last Admin: 06/25/24 14:24 Dose: 324 mg Documented By: Diphenhydramine HCl (Diphenhydramine 50 Mg/Ml Vial) 25 mg IV NOW STA Stop: 06/25/24 13:01 Last Admin: 06/25/24 13:28 Dose: 25 mg Documented By: AXEL Sodium Chloride (Nss) 1,000 mls @ 999 mls/hr IV .Q1H1M ONE Stop: 06/25/24 14:00 Last Infusion: 06/25/24 14:36 Dose: Infused Documented By: Admin: 06/25/24 13:28 Dose: 999 mls/hr Documented By: AXEL Prochlorperazine (Compazine) 1 mls @ 1 mls/min IV ONE ONE Stop: 06/25/24 13:01 Last Admin: 06/25/24 13:28 Dose: 1 mls/min Documented By: AXEL Acetaminophen (Ofirmev) 1,000 mg in 100 mls @ 400 mls/hr IV NOW STA Stop: 06/25/24 14:19 Last Admin: 06/25/24 14:24 Dose: 400 mls/hr Documented By: Ioversol (Optiray 320 125ml) 119 ml IV ONCE ONE Stop: 06/25/24 12:34 Last Admin: 06/25/24 12:33 Dose: 119 ml Documented By: LUCHO Imaging Data Radiologist's Impression: Head CTA 06/25/24 12:05 CTA ANGIOGRAPHY OF THE HEAD CLINICAL HISTORY: posterior headache; R arm numbness COMPARISON STUDY: CTA of the head May 09, 2023. MRI of the brain April 10, 2024. TECHNIQUE: Helical axial images of the head were obtained following uneventful intravenous administration of 119 cc of Optiray. Sagittal and coronal reconstructions were viewed as well as maximal intensity projections on an independent 3-D workstation. Automated exposure control was utilized for the study. A dose lowering technique was utilized adhering to the principles of ALARA. FINDINGS: No acute intracranial hemorrhage, midline shift or mass effect is present. Left globe deformity is chronic. Ventricular system is normal. Basal cisterns are patent. There are no extra axial collections. The small enhancing extra-axial lesion within the right middle cranial fossa on MRI of April 10, 2024 is not well-visualized by CT. Chronic occlusion of the cavernous right ICA with distal reconstitution is unchanged since prior CT a. The right A1 segment is hypoplastic. This is unchanged. The left M1 and M2 segment are patent. The A2 segments are patent. Posterior circulation is intact. There is no acute intracranial vessel occlusion. There is no intracranial aneurysm. persistence of the left posterior cerebral artery is incidentally noted. IMPRESSION: 1. Chronic occlusion of the cavernous segment of the right internal carotid artery with distal reconstitution, unchanged since CTA of May 09, 2023. 2. No acute intracranial vessel occlusion. No intracranial aneurysm. 3. No significant change since CTA of May 09, 2023. ACT 112: Negative or not required by law. Electronically signed by: Kp Stafford M.D. 06/25/2024 1:16 PM Neck CTA 06/25/24 12:05 CT ANGIOGRAPHY OF THE NECK WITH CONTRAST CLINICAL HISTORY: posterior headache; R arm numbness COMPARISON STUDY: CTA of the neck May 22, 2024. Technique: CT angiography of the carotid and vertebral arteries was obtained using Optiray and 3D reconstruction on an independent workstation. NASCET criteria was utilized. Automated exposure control was utilized for the study. A dose lowering technique was utilized adhering to the principles of ALARA. Findings: Visualized portions of the lung apices are unremarkable. There is no cervical lymphadenopathy. There are no cervical spine fractures. Note is again made of severe narrowing of the right internal carotid artery which begins just distal to the vessel origin. There is trace flow within the petrous portion of the right cavernous carotid. No definite flow is identified within the cavernous portions. There is distal reconstitution at the level of the supraclinoid ICA, similar to prior exam. There is mild plaque within the proximal left internal carotid artery without stenosis. Vertebral arteries are patent. Left vertebral artery is dominant. There is no acute dissection within the neck. No aneurysm is identified. IMPRESSION: 1. No change in severe stenosis of the right internal carotid artery with trace flow within the petrous portion and suspected occlusion with distal reconstitution at the level of the supraclinoid ICA since CTA of 05/22/2024. 2. No additional stenoses within the major vessels of the neck. No acute dissection. No aneurysm. ACT 112: Negative or not required by law. Electronically signed by: Kp Stafford M.D. 06/25/2024 1:10 PM Chest X-Ray 06/25/24 12:06 XR chest 1V portable CLINICAL HISTORY: stroke alert COMPARISON STUDY: 04/18/2024 FINDINGS: Heart size and pulmonary vasculature are normal. No effusion, consolidation, or pneumothorax. IMPRESSION: No acute findings. ACT 112: Negative or not required by law. Electronically signed by: Sohail Guy M.D. 06/25/2024 1:[address] 06/25/24 12:06 CT head/brain wo con CLINICAL HISTORY: Neuro deficit, acute, stroke suspected. TECHNIQUE: Multiple axial CT images of the head were obtained without contrast. A dose lowering technique was utilized adhering to the principles of ALARA. CT DOSE: 1033.87 mGy.cm COMPARISON: 04/10/2024 MRI FINDINGS: There is motion artifact. No intracranial hemorrhage seen. No mass effect, midline shift, or hydrocephalus. No skull fracture. Visualized paranasal sinuses and mastoid air cells are clear. IMPRESSION: No acute findings. ACT 112: Negative or not required by law. The above report was generated using voice recognition software. It may contain grammatical, syntax or spelling errors. Electronically signed by: Sohail Guy M.D. 06/25/2024 12:46 PM Discharge Plan Visit Data Chief Complaint: TIA Symptoms Stated Complaint: HEADACH, NUMB ARM, CAROTID ARTERY RIP ED Provider: Marilu Forrest Discharge Problem: Headache, Arm paresthesia, right, Stroke-like symptoms Forms Stand Alone Forms: [facility] basno Prescriptions Prescriptions: No Action pregabalin 100 mg capsule 100 mg PO BID Qty: 60 5RF cholecalciferol (vitamin D3) 50 mcg (2,000 unit) capsule 50 mcg PO DAILY Qty: 90 3RF Rx Instructions: with heaviest meal of the day Qulipta 60 mg tablet 60 mg PO DAILY Qty: 30 5RF Botox 200 unit recon soln See Rx Instructions IM .COMPLEX Qty: 1 3RF Rx Instructions: 155 UNITS IM IN THE FACE AND NECK MUSCLES EVERY 12 WEEKS PER MIGRAINE PROTOCOL Reyvow 100 mg tablet 100 mg PO ONCE PRN (Reason: migraine headache) 30 Days Qty: 8 2RF Rx Instructions: Limit 1 dose in [address] 8 hours after use Suflave 178.7-7.3-0.5 gram recon soln See Rx Instructions PO .COMPLEX Qty: 2 0RF Rx Instructions: orally; orally; TAKE FIRST DOSE AT 6 PM AND SECOND DOSE 6 HOURS PRIOR TO PROCEDURE BIN: [id number] [facility]: 2000 GROUP: [id number] pantoprazole [Protonix] 40 mg tablet,delayed release (DR/EC) 40 mg PO BID Qty: 180 0RF melatonin 3 mg tablet 6 mg PO HS PRN (Reason: sleep) Qty: 30 0RF atorvastatin 40 mg tablet 40 mg PO QAM cholecalciferol (vitamin D3) 1,250 mcg (50,000 unit) capsule 50,000 unit PO .COMPLEX Qty: 24 1RF Rx Instructions: 50,000 units orally; take one twice a week, Take with heaviest meal of the day cyanocobalamin (vitamin B-12) 1,000 mcg/mL solution 1,000 mcg subcut .COMPLEX Qty: 12 5RF Rx Instructions: 1,000 mcg subcutaneously ; inject 1000mcg three times a week norethindrone (contraceptive) [Jencycla] 0.35 mg tablet See Rx Instructions .ROUTE .COMPLEX Qty: 28 11RF Dose Instruction: TAKE 1 TABLET BY MOUTH EVERY DAY Rx Instructions: TAKE 1 TABLET BY MOUTH EVERY DAY carvedilol 6.25 mg tablet 6.25 mg PO BID Qty: 60 5RF Rx Instructions: must administer with a meal/food amoxicillin-pot clavulanate 875-125 mg tablet 1 tab PO BID Qty: 14 0RF meclizine 25 mg tablet 25 mg PO TID PRN (Reason: dizziness) Qty: 90 5RF ondansetron HCl 8 mg tablet 8 mg PO BID PRN (Reason: nausea and vomiting) Qty: 60 5RF cyanocobalamin (vitamin B-12) 2,000 mcg lozenge 2,000 mcg PO DAILY Qty: 100 3RF (DME) Easy Touch FlipLock Syringe 1 mL 25 gauge x 1" syringe See Rx Instructions .ROUTE .MEDSUPPLY Qty: 12 0RF Rx Instructions: As directed Brilinta 90 mg tablet 90 mg PO BID riboflavin 200 mg PO QPM lorazepam 0.5 mg tablet 0.5 mg PO .COMPLEX PRN (Reason: anxiety) 1 Days Qty: 2 0RF Rx Instructions: take 1 hour prior to procedure, may repeat at time of procedure prn Ubrelvy 100 mg tablet 100 mg PO .COMPLEX PRN (Reason: migraine) Qty: 10 6RF Rx Instructions: 100 mg orally PRN; Take 1 tablet at onset of migraine, may repeat after 2 hrs. Limit 2-3 days per week. tizanidine 2 mg tablet 2 mg PO BID Qty: 60 6RF albuterol sulfate 90 mcg/actuation HFA aerosol inhaler 1 inh inhalation QID PRN (Reason: Wheezing) famotidine 40 mg tablet 40 mg PO QAM nitroglycerin 0.4 mg tablet, sublingual 0.4 mg sublingual Q5M PRN (Reason: chest pain) Qty: 10 0RF Rx Instructions: Do not administer more than 3 tablets in a 15 minute period acetaminophen [Tylenol] 325 mg Tablet 650 mg PO QID PRN (Reason: Pain) aspirin 81 mg Tablet,Delayed Release (Dr/Ec) 81 mg PO DAILY Rx Instructions: Took 4 tabs today citalopram 20 mg tablet 20 mg PO HS Referrals Referrals: Manas Mcqueen MD [Primary Care Provider] -
[2024-06-25] MEDS: OPTIRAY 320 125ml IV ONE (12:33)
[2024-06-25 12:48] LABS: Hematocrit (blood only) 39.5 % (37.0-47.0); Mean Corpuscular Hemoglobin 31.2 pg (25.0-34.0); Mean Corpuscular Hgb Conc 32.9 g/dL (32.0-36.0); Mean Corpuscular Volume 94.7 fL (80.0-100.0); Mean Platelet Volume 10.3 fL (9.4-12.4); Platelet Count 294 K/uL (130-400); RDW Coefficient of Variation 12.8 % (11.5-14.5); RDW Standard Deviation 44.6 fL (36.4-46.3); Red Blood Count 4.17 M/uL (4.20-5.40); White Blood Count 10.75 K/ul (4.8-10.8)
--- NOTE | 2024-06-25 12:48 | CT Scan Report ---
CT head/brain wo con CLINICAL HISTORY: Neuro deficit, acute, stroke suspected. TECHNIQUE: Multiple axial CT images of the head were obtained without contrast. A dose lowering tech nique was utilized adhering to the principles of ALARA. CT DOSE: 1033.87 mGy.cm COMPARISON: 04/10/2024 MRI FINDINGS: There is motion artifact. No intracranial hemorrhage seen. No mass effect, midline shift, o r hydrocephalus. No skull fracture. Visualized paranasal sinuses and mastoid air cells are clear. IMPRESSION: No acute findings. ACT 112: Negative or not required by law. The above report was generated using voice recognition software. It may contain grammatical, syntax o r spelling errors. Electronically signed by: Sohail Guy M.D. 06/25/2024 12:46 PM
[2024-06-25 13:00] LABS: Albumin Globulin Ratio 1.5 (0.9-2); Albumin Level 4.9 gm/dl (3.4-5.0); BUN Creatinine Ratio 18.5 (10-20); Bilirubin,Total 0.4 mg/dl (0.2-1.0); Calcium 10.1 mg/dl (8.6-10.3); Globulin 3.2 gm/dl (2.5-4.0); Potassium 3.5 mmol/L (3.5-5.1); Total Protein 8.1 gm/dl (6.0-8.3)
--- NOTE | 2024-06-25 13:03 | XRay Report ---
XR chest 1V portable CLINICAL HISTORY: stroke alert COMPARISON STUDY: 04/18/2024 FINDINGS: Heart size and pulmonary vasculature are normal. No effusion, consolidation, or pneumothora x. IMPRESSION: No acute findings. ACT 112: Negative or not required by law. Electronically signed by: Sohail Guy M.D. 06/25/2024 1:01 PM
--- NOTE | 2024-06-25 13:12 | CT Scan Report ---
CT ANGIOGRAPHY OF THE NECK WITH CONTRAST CLINICAL HISTORY: posterior headache; R arm numbness COMPARISON STUDY: CTA of the neck May 22, 2024. Technique: CT angiography of the carotid and vertebral arteries was obtained using Optiray and 3D rec onstruction on an independent workstation. NASCET criteria was utilized. Automated exposure control was utilized for the study. A dose lowering technique was utilized adhering to the principles of ALA RA. Findings: Visualized portions of the lung apices are unremarkable. There is no cervical lymphadenopat hy. There are no cervical spine fractures. Note is again made of severe narrowing of the right regulatory internship al carotid artery which begins just distal to the vessel origin. There is trace flow within the bobby us portion of the right cavernous carotid. No definite flow is identified within the cavernous portio ns. There is distal reconstitution at the level of the supraclinoid ICA, similar to prior exam. There is mild plaque within the proximal left internal carotid artery without stenosis. Vertebral arteries are patent. Left vertebral artery is dominant. There is no acute dissection within the neck. No aneu rysm is identified. IMPRESSION: 1. No change in severe stenosis of the right internal carotid artery with trace flow within the bobby us portion and suspected occlusion with distal reconstitution at the level of the supraclinoid ICA si nce CTA of 05/22/2024. 2. No additional stenoses within the major vessels of the neck. No acute dissection. No aneurysm. ACT 112: Negative or not required by law. Electronically signed by: Kp Stafford M.D. 06/25/2024 1:10 PM
[2024-06-25 13:15] LABS: Partial Thromboplastin Ratio 1.2; Partial Thromboplastin Time 32 Seconds (21-31); Prothrombin Time 10.7 Seconds (9.0-12.0)
--- NOTE | 2024-06-25 13:17 | CT Scan Report ---
CTA ANGIOGRAPHY OF THE HEAD CLINICAL HISTORY: posterior headache; R arm numbness COMPARISON STUDY: CTA of the head May 09, 2023. MRI of the brain April 10, 2024. TECHNIQUE: Helical axial images of the head were obtained following uneventful intravenous administr ation of 119 cc of Optiray. Sagittal and coronal reconstructions were viewed as well as maximal inten sity projections on an independent 3-D workstation. Automated exposure control was utilized for the study. A dose lowering technique was utilized adhering to the principles of ALARA. FINDINGS: No acute intracranial hemorrhage, midline shift or mass effect is present. Left globe defor mity is chronic. Ventricular system is normal. Basal cisterns are patent. There are no extra axial co llections. The small enhancing extra-axial lesion within the right middle cranial fossa on MRI of Apr is not well-visualized by CT. 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 The right A1 segment is hypoplastic. This is unchanged. The left M1 and M2 segment are patent. The A2 segments are patent. Posterior circulation is intact. T here is no acute intracranial vessel occlusion. There is no intracranial aneurysm. persistence of the left posterior cerebral artery is incidentally noted. IMPRESSION: 1. 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 2. No acute intracranial vessel occlusion. No intracranial aneurysm. 3. No significant change since CTA of May 09, 2023. ACT 112: Negative or not required by law. Electronically signed by: Kp Stafford M.D. 06/25/2024 1:16 PM
[2024-06-25] MEDS: PROCHLORPERAZINE 1 ML IV ONE (13:28)
[2024-06-25] MEDS: diphenhydrAMINE 50 MG/ML VIAL IV STA (13:28)
[2024-06-25] MEDS: SODIUM CHLORIDE 0.9% 1,000 ML IV ONE (13:28)
[2024-06-25] MEDS: ACETAMINOPHEN 1,000 MG/100 ML VIAL IV STA (14:24)
[2024-06-25] MEDS: MAGNESIUM SULFATE / D5W 1 GM/100 ML BAG IV STA (14:24)
[2024-06-25] MEDS: ASPIRIN CHEW 324 MG PO STA (14:24)
[2024-06-25] MEDS: LORazepam 2 MG/1 ML VIAL IV STA (17:53)
[2024-06-25] MEDS: LORazepam 2 MG/1 ML VIAL ONE (17:53)
--- NOTE | 2024-06-25 18:05 | Electrocardiogram Report ---
Test Reason : Blood Pressure : */* mmHG Vent. Rate : 88 BPM Atrial Rate : 88 BPM P-R Int : 154 ms QRS Dur : 84 ms QT Int : 362 ms P-R-T Axes : 28 -8 6 degrees QTcB Int : 438 ms Normal sinus rhythm Voltage criteria for left ventricular hypertrophy Nonspecific ST and T wave abnormality Abnormal ECG When compared with ECG of 18-Aug-2023 15:35, No significant change was found Confirmed by Hugo Napier ([id number]) on 06/25/2024 6:05:01 PM Referred By: REFERRED SELF Confirmed By: Hugo Napier
--- NOTE | 2024-06-25 19:47 | Magnetic Resonance Report ---
Technique: Multiple T1 and T2-weighted magnetic resonance images were obtained of the brain without gadolinium contrast Findings: There is no sign of acute or old infarction with normal-appearing diffusion weighted images. No definite focus of demyelination is seen. No definite mass lesion is seen on this noncontrast study. There is no intracranial hemorrhage or other fluid collection. No midline shift or other form of herniation is seen. There is no hydrocephalus. Normal flow-voids are seen within the arteries of the [id number]. Meckel's cave appears prominent bilaterally. The pituitary gland appears mildly flattened within the sella turcica. The left globe appears enlarged and mildly irregular in contour. The optic nerves are tortuous and demonstrates increased cerebrospinal fluid around them. The paranasal sinuses and mastoid air cells appear clear. Impression: Suspected idiopathic intracranial hypertension (pseudotumor cerebri). This is suggested by optic nerve tortuosity and optic nerve sheath distention, as well as deformity of the left globe and prominence of Meckel's cave and a partially empty sella turcica ACT 112: Positive. There are findings on this exam that require communication between the performing entity and the patient following Patient Test Result Information Act ([place] ACT 112) guidelines. Electronically signed by Heath Robertson 06-25-2024 7:47 PM
--- NOTE | 2024-06-25 19:53 | Magnetic Resonance Report ---
Clinical History: Right arm numbness Technique: Sagittal and axial T1 and T2-weighted magnetic resonance images were obtained of the cervical spine without gadolinium contrast. Findings: This examination is limited by motion artifact. The cervical vertebrae are in normal alignment with no listhesis seen. No fracture is identified. There is a suspected hemangioma in the T1 vertebral body. The overall bone marrow signal intensity of the vertebrae is unremarkable. There is no definite sign of infection. There is no sign of acute ligamentous injury. The spinal cord is of normal signal intensity with no focal lesion seen. The cerebellar tonsils are normally situated. At C2-C3, no disc herniation is present. There is no spinal stenosis or nerve root compression At C3-C4, there is disc bulge without clear spinal cord deformity. There is right greater than left neural foramen narrowing that may affect the right C4 nerve root. At C4-C5, there is mild spinal stenosis with mild flattening of the spinal cord due to a disc bulge. The neural foramen are patent At C5-C6, there is mild spinal stenosis with slight flattening of the spinal cord due to a disc bulge. There is mild left and minimal right neural foramen narrowing At C6-C7, there is a disc bulge. There is no spinal stenosis or nerve root compression At C7-T1, no disc herniation is present. There is no spinal stenosis or nerve root compression Impression: 1. Limited examination due to motion artifact 2. Mild spinal stenosis at C4-5 and C5-6 with mild flattening of the spinal cord due to disc bulges. No cord edema or myelomalacia is seen 3. Right C3-4 neural foramen narrowing that may affect the right C4 nerve root Electronically signed by Heath Robertson 06-25-2024 7:53 PM
--- NOTE | 2024-06-25 21:33 | History & Physical Report ---
Date of Service June 25, 2024 Assessment & Plan (1) Abnormal brain MRI: (2) Headache: (3) Right arm numbness: (4) Hypertension: (5) Amaurosis fugax of right eye: Plan 49-year-old woman with history of a carotid dissection approximately 1 year ago on ASA/brilinta who came in with occipital headache, episode of right arm numbness which has resolved Additional recent symptoms include nausea, right ear tinnitus x 1 month, episodes of right eye amaurosis fugax in the past year Obtained MRI brain and cspine as recommended from neurology clinic, with which I concur Brain MRI without stroke, however, radiologist noted several findings concerning for idiopathic intracranial hypertension: "Suspected idiopathic intracranial hypertension (pseudotumor cerebri). This is suggested by optic nerve tortuosity and optic nerve sheath distention, as well as deformity of the left globe and prominence of Meckel's cave and a partially empty sella turcica" This is concerning because IIH is compatible with her worsening symptoms of headache, nausea, tinnitus, episodes of amaurosis fugax Additional workup would typically include MRV head and LP for opening pressure -low salt diet -consult neurology -she is on aspirin and brilinta which may complicate timing of LP - hold for tonight R arm numbness, ALTON stenosis with history of dissection - R arm dysesthesia symptoms have resolved, were present on awakening, and distribution was typically not stroke-like (started at elbow included forearm and hand, radial distribution more prominent) - I think this was probably a compression neuropathy that has resolved. She has R C4 nerve root impingement and mild cervical spinal stenosis but these would not explain her arm symptoms. 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 She also had severe occipital headache she has been under treatment for migraine but has had severe daily headache at least for months. It is throbbing and right occipital, she does have some photophobia and nausea no emesis. Usually atogepant is only thing that helps - helps for several hours but never does completely resolve the headache which worsens again after four hours or so. She has had trial of multiple migraine medications and referral for botox. For past month has had tinnitus in right ear - waxes and wanes but consistent. Not rushing or pulsatile. She had recent ENT evaluation, no ear problems found. Also endorses episodes of right eye blindness lasting 90 seconds or so that she says are ocular migraine. This has been going on for past year, since her carotid dissection. left eye is blind since , she has had a cataract surgery in her right eye eye a few months ago The headache improved after compazine, benadryl, ativan and APAP given by ED. She no longer has the right arm numbness. Allergies Allergy/AdvReac Type Severity Reaction Status Date / Time clonazepam Allergy Severe SOB AND Verified 06/25/24 19:29 DIFFICULTY WALKING pollen extracts Allergy Mild ITCHING/SNE Verified 06/25/24 19:29 EZING pineapple Allergy mouth Verified 06/25/24 19:29 bleeding aspirin AdvReac Mild Nausea Verified 06/25/24 19:29 Home Medications Medication Instructions Recorded Confirmed Type famotidine 40 mg tablet 40 mg PO QAM 11/10/22 06/25/24 History nitroglycerin 0.4 mg sublingual 0.4 mg sublingual Q5M PRN chest 11/12/22 06/25/24 Rx tablet pain #10 tabs pantoprazole 40 mg tablet,delayed 40 mg PO BID #180 tabs 11/20/22 06/25/24 Rx release (Protonix) albuterol sulfate 90 mcg/actuation 1 inh inhalation QID PRN Wheezing 12/13/22 06/25/24 History aerosol inhaler atorvastatin 40 mg tablet 40 mg PO QAM 05/15/23 06/25/24 History melatonin 3 mg tablet 6 mg (2 x 3 mg) PO HS PRN sleep 05/15/23 06/25/24 Rx #30 tabs ticagrelor 90 mg tablet (Brilinta) 90 mg PO BID 06/04/23 06/25/24 History acetaminophen 325 mg tablet 650 mg PO QID PRN Pain 08/18/23 06/25/24 History (Tylenol) aspirin 81 mg tablet,delayed 81 mg PO DAILY 08/18/23 06/25/24 History release citalopram 20 mg tablet 20 mg PO HS 12/11/23 06/25/24 History cyanocobalamin (vitamin B-12) 2,000 mcg PO DAILY #100 ea 02/15/24 06/25/24 Rx 2,000 mcg lozenges meclizine 25 mg tablet 25 mg PO TID PRN dizziness #90 tabs 02/15/24 06/25/24 Rx ondansetron HCl 8 mg tablet 8 mg PO BID PRN nausea and 02/15/24 06/25/24 Rx vomiting #60 tabs syringe with needle, safety 1 mL #12 ea 02/15/24 06/25/24 Rx 25 gauge x 1" (Easy Touch FlipLock Syringe) pregabalin 100 mg capsule 100 mg PO BID #60 caps 02/22/24 06/25/24 Rx cholecalciferol (vitamin D3) 50 50 mcg PO DAILY #90 caps 04/18/24 06/25/24 Rx mcg (2,000 unit) capsule atogepant 60 mg tablet (Qulipta) 60 mg PO DAILY #30 tabs 05/06/24 06/25/24 Rx cholecalciferol (vitamin D3) 1,250 50,000 unit PO .COMPLEX #24 caps 05/08/24 06/25/24 Rx mcg (50,000 unit) capsule Botox 200 unit injection See Rx Instructions IM .COMPLEX #1 05/16/24 06/25/24 Rx (onabotulinumtoxinA) ea lasmiditan 100 mg tablet (Reyvow) 100 mg PO ONCE PRN migraine 05/26/24 06/25/24 Rx headache 30 days #8 tabs peg [id number]-sod [id number] See Rx Instructions PO .COMPLEX #2 06/19/24 06/25/24 Rx 178.7-7.3-0.5-1.12-0.9 gram oral mL soln (Suflave) carvedilol 6.25 mg tablet 6.25 mg PO BID #60 tabs 06/24/24 06/25/24 Rx cyanocobalamin (vitamin B-12) 1,000 mcg subcut 3XWK 06/25/24 06/25/24 History 1,000 mcg/mL injection solution lorazepam 0.5 mg tablet 0.5 mg PO .COMPLEX PRN anxiety 1 06/25/24 06/25/24 Rx day #2 tabs norethindrone (contraceptive) 0.35 0.35 mg PO DAILY 06/25/24 06/25/24 History mg tablet (Jencycla) riboflavin (vitamin B2) 100 mg 200 mg PO QPM 06/25/24 06/25/24 History tablet tizanidine 2 mg tablet 2 mg PO BID muscle spasticity #60 06/25/24 06/25/24 Rx tabs ubrogepant 100 mg tablet (Ubrelvy) 100 mg PO .COMPLEX PRN migraine 06/25/24 06/25/24 Rx #10 tabs Past Med/Surg History Problem List (Updated 06/25/24 @ 21:21 by Yamila Moffett MD) Abnormal brain MRI Stroke-like symptoms (Acute) Arm paresthesia, right (Acute) Headache (Acute) Right arm numbness Hypertension Neck pain Fluttering heart Tinnitus Migraine, chronic, without aura Demyelinating disease Occlusion of posterior communicating artery Vitamin D deficiency Migraine aura, persistent, intractable, with status migrainosus Positive GABRIELLA (antinuclear antibody) Anticardiolipin antibody positive Vitamin B 12 deficiency Abnormal MRI, cervical spine TMJ (temporomandibular joint syndrome) Sensorineural hearing loss (SNHL) of both ears 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 ICAO (internal carotid artery occlusion) Headache Lymphadenopathy, axillary left, on CT chest 11/10/2022 Sleeping difficulty High cholesterol Pericardial effusion (Acute) Palpitations (Acute) Dysphagia History of frequent ear infections Health care maintenance GERD with stricture Complex partial seizure (Chronic) A CHILD-NONE SINCE PER PT Depression with anxiety (Chronic) Asthma (Chronic 03/03/11) Bipolar disorder, unspecified (Chronic 03/03/11) Blindness, 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) LEFT GERD (gastroesophageal reflux disease) (Chronic 03/03/11) IBS (irritable bowel syndrome) (Chronic) Barretts esophagus (Chronic) Medical History Neck swelling Sickness Migraine with aura, intractable, with status migrainosus Vision blurred Vertigo Change in bowel habits Early satiety Leukocytosis Anemia Elevated blood pressure reading without diagnosis of hypertension Abnormal EKG Migraine headache Chronic abdominal pain Avulsion fracture of talus Pain of right fibula Right ankle injury Amaurosis fugax of right eye Family history of anesthesia complication mother-"woke up during surgery" Sleeping difficulty TMJ (temporomandibular joint syndrome) no clicking or locking, occ. pain Pericardial effusion hx ICAO (internal carotid artery occlusion) f/u [facility] neurology IBS (irritable bowel syndrome) GERD (gastroesophageal reflux disease) H/O cerebral embolic infarction pt unsure of details Dysphagia Depression with anxiety Complex partial seizure none since childhood Blindness of left eye Asthma inh prn History of anemia no current issues Headache Med prn Congestion of both ears "ongoing" Congestion of paranasal sinus "ongoing" Vertigo w/lightheadedness Greenfield's esophagus Elevated troponin 11/2022, seen in [place], cath completed>no findings Atypical chest pain no known cause, seen in [place] 11/2022, cath>no findings per pt. Tachycardia seen in [place] 11/2022, cath completed>no findings, no cardiology Cough productive of clear sputum resolved Mgr NOS wo ntrc w [facility] mgr (03/03/11) hx Anxiety Surgical History Hx of cardiac cath 11/21/22, , [facility], no stents>no findings; "no further follow up with cardio was necessary" History of colonoscopy History of ear surgery 2013 - Eustacian tube H/O eye surgery MUSCLE SX LEFT EYE History of esophagogastroduodenoscopy (EGD) 2017 @ [facility] by Dr Medhat Choi Hx of section x1 History of tubal ligation History of cholecystectomy Family History Grandfather (Paternal) Colorectal cancer Father Myocardial infarction Heart disease Hypertension Aunt Diabetes Mother Hypertension Grandfather (Maternal) Colon cancer Uncle Lung cancer Other Gallbladder disease Lung disease Seizure Denies family history of Ovarian cancer Prostate cancer Breast cancer Uterine cancer Social History Smoking Status: Never smoker Tobacco Type: Declines Second Hand Exposure: No; Do You Dip or Chew Tobacco: No; Hx Alcohol Use: No Hx Substance Use: No Preferred Language: [place] Communication Ability: Effective [employer] Required: No Beliefs That Will Affect Care: None marital status: Single Current Living Situation: Parent current occupational status: disabled Feels Safe at Home: Yes Dental Care, Regularly: Yes Physical Activity Frequency Comment: Walking Seatbelt Use: always Sunscreen Use: Yes Assistive Devices: None Physical Exam Physical Exam: PHYSICAL EXAMINATION Last 24h vital signs reviewed, see documentation in flowsheet General: in dark room, awake, no distress HEENT: Normocephalic, atraumatic, pupils round and equal, sclerae anicteric, no conjunctival injection, moist mucus membranes Lungs: Normal respiratory effort. Clear to auscultation bilaterally. No RRW Heart: Regular rate and rhythm, no murmurs. No JVD Abdomen: Soft, nontender, nondistended. Bowel sounds present. Extremities: Warm, dry, well-perfused. No extremity edema. 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 face is symmetric speech is normal no meningismus. Moves 4 extremities well. sensation intact to fine touch for her right arm Psych: Normal affect and behavior Results & Data Results & Data Vital Signs (Past 12 Hours) Vital Signs Temp Pulse Pulse Resp BP BP Pulse Ox 06/25/24 21:00 99 H 06/25/24 19:39 90 20 97 06/25/24 17:00 97 H 18 164/98 H 98 06/25/24 16:57 95 H 06/25/24 16:00 92 H 18 160/86 H 99 06/25/24 14:33 87 12 130/99 98 06/25/24 14:30 95 H 18 130/99 100 06/25/24 13:07 98 06/25/24 12:49 77 06/25/24 12:42 78 14 98 06/25/24 12:35 162/76 H 06/25/24 12:31 96 H 14 96 06/25/24 12:31 86 14 162/76 H 96 06/25/24 11:47 36.7 C 94 H 18 136/93 99 O2 Del Method 06/25/24 21:00 06/25/24 19:39 Room Air 06/25/24 17:00 Room Air 06/25/24 16:57 06/25/24 16:00 06/25/24 14:33 Room Air 06/25/24 14:30 Room Air 06/25/24 13:07 Room Air 06/25/24 12:49 06/25/24 12:42 Room Air 06/25/24 12:35 06/25/24 12:31 Room Air 06/25/24 12:31 Room Air 06/25/24 11:47 Room Air Laboratory Results 06/25/24 06/25/24 Range/Units 12:05 12:00 WBC 10.75 (4.8-10.8) K/ul RBC 4.17 L (4.20-5.40) M/uL Hgb 13.0 (12.0-16.0) g/dl POC Hgb 13.9 (12.0-16.0) g/dl Hct 39.5 (37.0-47.0) % POC Hct 41 (37-47) % MCV 94.7 (80.0-100.0) fL MCH 31.2 (25.0-34.0) pg MCHC 32.9 (32.0-36.0) g/dL RDW Std Deviation 44.6 (36.4-46.3) fL RDW Coeff of Aurelio 12.8 (11.5-14.5) % Plt Count 294 (130-400) K/uL MPV 10.3 (9.4-12.4) fL PT 10.7 (9.0-12.0) Seconds INR 1.0 (0.9-1.1) APTT 32 H (21-31) Seconds PTT Ratio 1.2 POC Sodium 139 (135-144) mmol/L Sodium 138 (136-145) mmol/L POC Potassium 3.5 (3.3-5.0) mmol/L Potassium 3.5 (3.5-5.1) mmol/L POC Chloride 104 (101-112) mmol/L Chloride 102 (98-107) mmol/L Carbon Dioxide 26 (21-32) mmol/L POC Total CO2 23 L (24-31) mmol/L Anion Gap 10 (3-11) POC Anion Gap 16.0 (16-25) mmol/L POC BUN 20 H (7-18) mg/dl BUN 20 (6-23) mg/dl Creatinine 1.08 (0.6-1.2) mg/dl POC Creatinine 1.2 (0.6-1.3) mg/dl Est Cr Clr Drug Dosing 77.0 ml/min eGFR 62.97 BUN/Creatinine Ratio 18.5 (10-20) Glucose 100 H (70-99(Fasting)) mg/dl POC Glucose (other) 100 H (70-99) mg/dl Calcium 10.1 (8.6-10.3) mg/dl POC Ioniz Calcium Sandra 1.23 (1.12-1.32) mmol/l Magnesium 2.0 (1.7-2.4) mg/dl Total Bilirubin 0.4 (0.2-1.0) mg/dl AST 10 L (13-39) U/L ALT 9 (7-52) U/L Alkaline Phosphatase 106 H (34-104) U/L Total Protein 8.1 (6.0-8.3) gm/dl Albumin 4.9 (3.4-5.0) gm/dl Globulin 3.2 (2.5-4.0) gm/dl Albumin/Globulin Ratio 1.5 (0.9-2) Diagnostic Findings Head CTA 06/25/24 12:05 CTA ANGIOGRAPHY OF THE HEAD CLINICAL HISTORY: posterior headache; R arm numbness COMPARISON STUDY: CTA of the head May 09, 2023. MRI of the brain April 10, 2024. TECHNIQUE: Helical axial images of the head were obtained following uneventful intravenous administration of 119 cc of Optiray. Sagittal and coronal reconstructions were viewed as well as maximal intensity projections on an independent 3-D workstation. Automated exposure control was utilized for the study. A dose lowering technique was utilized adhering to the principles of ALARA. FINDINGS: No acute intracranial hemorrhage, midline shift or mass effect is present. Left globe deformity is chronic. Ventricular system is normal. Basal cisterns are patent. There are no extra axial collections. The small enhancing extra-axial lesion within the right middle cranial fossa on MRI of April 10, 2024 is not well-visualized by CT. Chronic occlusion of the cavernous right ICA with distal reconstitution is unchanged since prior CT a. The right A1 segment is hypoplastic. This is unchanged. The left M1 and M2 segment are patent. The A2 segments are patent. Posterior circulation is intact. There is no acute intracranial vessel occlusion. There is no intracranial aneurysm. persistence of the left posterior cerebral artery is incidentally noted. IMPRESSION: 1. Chronic occlusion of the cavernous segment of the right internal carotid artery with distal reconstitution, unchanged since CTA of May 09, 2023. 2. No acute intracranial vessel occlusion. No intracranial aneurysm. 3. No significant change since CTA of May 09, 2023. ACT 112: Negative or not required by law. Electronically signed by: Kp Stafford M.D. 06/25/2024 1:16 PM Neck CTA 06/25/24 12:05 CT ANGIOGRAPHY OF THE NECK WITH CONTRAST CLINICAL HISTORY: posterior headache; R arm numbness COMPARISON STUDY: CTA of the neck May 22, 2024. Technique: CT angiography of the carotid and vertebral arteries was obtained using Optiray and 3D reconstruction on an independent workstation. NASCET criteria was utilized. Automated exposure control was utilized for the study. A dose lowering technique was utilized adhering to the principles of ALARA. Findings: Visualized portions of the lung apices are unremarkable. There is no cervical lymphadenopathy. There are no cervical spine fractures. Note is again made of severe narrowing of the right internal carotid artery which begins just distal to the vessel origin. There is trace flow within the petrous portion of the right cavernous carotid. No definite flow is identified within the cavernous portions. There is distal reconstitution at the level of the supraclinoid ICA, similar to prior exam. There is mild plaque within the proximal left internal carotid artery without stenosis. Vertebral arteries are patent. Left vertebral artery is dominant. There is no acute dissection within the neck. No aneurysm is identified. IMPRESSION: 1. No change in severe stenosis of the right internal carotid artery with trace flow within the petrous portion and suspected occlusion with distal reconstitution at the level of the supraclinoid ICA since CTA of 05/22/2024. 2. No additional stenoses within the major vessels of the neck. No acute dissection. No aneurysm. ACT 112: Negative or not required by law. Electronically signed by: Kp Stafford M.D. 06/25/2024 1:10 PM Chest X-Ray 06/25/24 12:06 XR chest 1V portable CLINICAL HISTORY: stroke alert COMPARISON STUDY: 04/18/2024 FINDINGS: Heart size and pulmonary vasculature are normal. No effusion, consolidation, or pneumothorax. IMPRESSION: No acute findings. ACT 112: Negative or not required by law. Electronically signed by: Sohail Guy M.D. 06/25/2024 1:[address] 06/25/24 12:06 CT head/brain wo con CLINICAL HISTORY: Neuro deficit, acute, stroke suspected. TECHNIQUE: Multiple axial CT images of the head were obtained without contrast. A dose lowering technique was utilized adhering to the principles of ALARA. CT DOSE: 1033.87 mGy.cm COMPARISON: 04/10/2024 MRI FINDINGS: There is motion artifact. No intracranial hemorrhage seen. No mass effect, midline shift, or hydrocephalus. No skull fracture. Visualized paranasal sinuses and mastoid air cells are clear. IMPRESSION: No acute findings. ACT 112: Negative or not required by law. The above report was generated using voice recognition software. It may contain grammatical, syntax or spelling errors. Electronically signed by: Sohail Guy M.D. 06/25/2024 12:46 PM Brain MRI 06/25/24 14:46 Technique: Multiple T1 and T2-weighted magnetic resonance images were obtained of the brain without gadolinium contrast Findings: There is no sign of acute or old infarction with normal-appearing diffusion weighted images. No definite focus of demyelination is seen. No definite mass lesion is seen on this noncontrast study. There is no intracranial hemorrhage or other fluid collection. No midline shift or other form of herniation is seen. There is no hydrocephalus. Normal flow-voids are seen within the arteries of the [id number]. Meckel's cave appears prominent bilaterally. The pituitary gland appears mildly flattened within the sella turcica. The left globe appears enlarged and mildly irregular in contour. The optic nerves are tortuous and demonstrates increased cerebrospinal fluid around them. The paranasal sinuses and mastoid air cells appear clear. Impression: Suspected idiopathic intracranial hypertension (pseudotumor cerebri). This is suggested by optic nerve tortuosity and optic nerve sheath distention, as well as deformity of the left globe and prominence of Meckel's cave and a partially empty sella turcica ACT 112: Positive. There are findings on this exam that require communication between the performing entity and the patient following Patient Test Result Information Act ([place] ACT 112) guidelines. Electronically signed by Heath Robertson 06-25-2024 7:47 PM Cervical Spine MRI 06/25/24 14:46 Clinical History: Right arm numbness Technique: Sagittal and axial T1 and T2-weighted magnetic resonance images were obtained of the cervical spine without gadolinium contrast. Findings: This examination is limited by motion artifact. The cervical vertebrae are in normal alignment with no listhesis seen. No fracture is identified. There is a suspected hemangioma in the T1 vertebral body. The overall bone marrow signal intensity of the vertebrae is unremarkable. There is no definite sign of infection. There is no sign of acute ligamentous injury. The spinal cord is of normal signal intensity with no focal lesion seen. The cerebellar tonsils are normally situated. At C2-C3, no disc herniation is present. There is no spinal stenosis or nerve root compression At C3-C4, there is disc bulge without clear spinal cord deformity. There is right greater than left neural foramen narrowing that may affect the right C4 nerve root. At C4-C5, there is mild spinal stenosis with mild flattening of the spinal cord due to a disc bulge. The neural foramen are patent At C5-C6, there is mild spinal stenosis with slight flattening of the spinal cord due to a disc bulge. There is mild left and minimal right neural foramen narrowing At C6-C7, there is a disc bulge. There is no spinal stenosis or nerve root compression At C7-T1, no disc herniation is present. There is no spinal stenosis or nerve root compression Impression: 1. Limited examination due to motion artifact 2. Mild spinal stenosis at C4-5 and C5-6 with mild flattening of the spinal cord due to disc bulges. No cord edema or myelomalacia is seen 3. Right C3-4 neural foramen narrowing that may affect the right C4 nerve root Electronically signed by Heath Robertson 06-25-2024 7:53 PM Code Status & VTE Plan VTE Prophylaxis Plan VTE Prophylaxis will be ordered: Yes Reason for no VTE drug order: Treatment not indicated PG Care Time/CCT Total # of Minutes Spent Total Time Spent with Patient: Total time spent is greater than 50% in coordination of care (as documented) at patient's floor/unit and/or counseling patient: Coding Level of Care Code 91926 INT INP/OBS CARE 3/75MIN Diagnoses Abnormal brain MRI R90.89 Headache R51.9 Right arm numbness R20.0 Hypertension I10 Amaurosis fugax of right eye G45.3
[2024-06-25] MEDS ORDERED: MAGNESIUM HYDROXIDE SUSP 30 ML UDC PO PRN (23:12)
[2024-06-25] MEDS ORDERED: POLYETHYLENE (MIRALAX) 17 GM PACK PO PRN (23:12)
[2024-06-25] MEDS ORDERED: ALUMINUM/MAGNESIUM SUSP 30 ML UDC PO PRN (23:12)
[2024-06-25] MEDS ORDERED: ONDANSETRON 4 MG OD TAB PO PRN (23:39)
[2024-06-25] MEDS: MELATONIN 3 MG TAB PO PRN (23:58)
[2024-06-25] MEDS: ZOLPIDEM TARTRATE 5 MG TAB PO PRN (23:58)
[2024-06-25] MEDS: PREGABALIN 100 MG CAP PO SCH (23:58)
[2024-06-26] MEDS: tiZANidine HCL 4 MG TABLET PO SCH (00:01)
[2024-06-26] MEDS: carvediloL 6.25 MG TAB PO SCH (00:39)
[2024-06-26] MEDS: ACETAMINOPHEN 325 MG TAB PO PRN (08:04)
[2024-06-26] MEDS: ATORVASTATIN 40 MG TAB PO SCH (08:08)
[2024-06-26] MEDS: PANTOprazole 40 MG TAB PO SCH (08:08)
[2024-06-26] MEDS: FAMOTIDINE 40 MG TABLET PO SCH (08:08)
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
[2024-06-26] MEDS: ONDANSETRON INJ 2 MG/ML 2 ML VIAL IV PRN (09:32)
[2024-06-26] MEDS: ATOGEPANT (QULIPTA) 60 MG TAB PO SCH (10:55)
[2024-06-26] MEDS: KETOROLAC 30 MG/ML VIAL IV ONE ×2 (10:58→16:39)
--- NOTE | 2024-06-26 14:21 | Med Student Discharge Summary ---
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 She also had severe occipital headache she has been under treatment for migraine but has had severe daily headache at least for months. It is throbbing and right occipital, she does have some photophobia and nausea no emesis. Usually atogepant is only thing that helps - helps for several hours but never does completely resolve the headache which worsens again after four hours or so. She has had trial of multiple migraine medications and referral for botox. For past month has had tinnitus in right ear - waxes and wanes but consistent. Not rushing or pulsatile. She had recent ENT evaluation, no ear problems found. Also endorses episodes of right eye blindness lasting 90 seconds or so that she says are ocular migraine. This has been going on for past year, since her carotid dissection. left eye is blind since , she has had a cataract surgery in her right eye eye a few months ago The headache improved after compazine, benadryl, ativan and APAP given by ED. She no longer has the right arm numbness. Admission Exam (Per Admitting) Constitutional General: in dark room, awake, no distress HEENT: Normocephalic, atraumatic, pupils round and equal, sclerae anicteric, no conjunctival injection, moist mucus membranes Lungs: Normal respiratory effort. Clear to auscultation bilaterally. No RRW Heart: Regular rate and rhythm, no murmurs. No JVD Abdomen: Soft, nontender, nondistended. Bowel sounds present. Extremities: Warm, dry, well-perfused. No extremity edema. 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 face is symmetric speech is normal no meningismus. Moves 4 extremities well. sensation intact to fine touch for her right arm Psych: Normal affect and behavior Discharge Exam Constitutional a&o x3, no acute distress Eyes Abduction of L eye impaired, ADDuction of R eye impaired. 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 Respiratory clear to auscultation b/l. Cardiovascular RRR, no m/r/g. 2+ pulses in all extremities. Gastrointestinal (Abdomen) soft, nontender abdomen. +BS in all 4 quadrants. Musculoskeletal Tender to palpation of atlantoccipital joint, cervical paraspinals and cervical spinous processes. Motor strength 5/5 in all extremities. Neurologic 2+ DTRs in biceps, brachioradialis, patellar reflexes. Diminished Achilles reflex. CN V3 on the right impaired, otherwise CN V intact. Cranial nerves 7 - 12 intact. Sensory examination intact to touch in all extremities. No abnormal changes in gait noted. 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 Additional recent symptoms include nausea, right ear tinnitus x 1 month, episodes of right eye blindness in the past year. CT angiography of the head and neck showed a severe stenosis of the right internal carotid artery at the level of the supraclinoid area, unchanged from previous CTAs. Brain MRI without contrast showed "Suspected idiopathic intracranial hypertension (pseudotumor cerebri). This is suggested by optic nerve tortuosity and optic nerve sheath distention, as well as deformity of the left globe and prominence of Meckel's cave and a partially empty sella turcica." However on review with and radiology, agreed these findings are likely chronic. Spine MRI without contrast showed minimal narrowing at C4-5 and C5-6 due to bone and disc. On 06/26, patient woke up with an occipital headache and numbness from the 5th metatarsal to pinky on the left hand. Denies N/V, photophobia, dizziness. Neck Pain Abnormal MRI Occipital Headache Tenderness to palpation of atlantooccipital joint, cervical paraspinals and cervical spinous processes points toward MSK etiology over neurologic. MRI results appear to be chronic over acute IIH. - Neuro consulted, appreciate recommendations 1. The patient needs vitamin D replacement 50,000 units vitamin D3 weekly for the next 3 months and then recheck vitamin D level. 2. The patient has B12 deficiency and only has a level of 283. Increase B12 injections from 3x to 4x weekly to get her B12 level between 400-500. 3. Patient can take her own Qulipta 60 mg daily for headaches 4. Toradol 30mg IV q6 while inpatient; rx meloxicam 15mg daily for 10 days for outpatient headache management 5. Consider repeat MRI of the brain and cervical spine both with contrast but this could be done as an outpatient 6. Consider repeat LP to measure opening pressure but I think we can hold off on this as an outpatient as well. 7. The patient should see sheetrock applicator for a full eye exam 8. Consider initiating Botox for headache prevention (and I have counseled the patient regarding this). 9. Rx Flexeril 7.5mg BID as needed as patient endorsed "feeling weird" after taking Zanaflex 2mg BID and preferred to try another medication. Discussed interaction with meclizine which patient takes occasionally for dizziness, encourage to try taking them with hours between then when possible - OMT of cervical spine offered and attempted, patient did not tolerate gentle touch for more than a few seconds - F/U with neurology, ophthalmology, and PCP within a week or two for close followup and management including any medication and/or dose changes Vitamin D deficiency - History of Vitamin D deficiency since February 2024, continue 50,000 units vitamin D3 weekly Vitamin B12 deficiency - Continue oral and IM B12 supplements. Increase frequency of B12 injections. Discharge Plan Discharge Items Patient Disposition: Home - Self-Care Reason For Visit: POSSIBLE PSEUDOTUMOR CEREBRI Discharge Diagnosis: occipital headache Activity: Per Instructions section Non-emergency contact: Primary Care Provider, Neurologist and Jewel Setter Call non-emergency contact if: your symptoms worsen and your pain is not controlled Follow-up/Referrals: Manas Mcqueen MD [Primary Care Provider] - 07/03/24 11:20 am (Follow Up Appt with Dr. Ramos) Diet: Low Potassium (2gm) Addtl Attending Provider Instructions: You were seen and evaluated for R arm numbness and severe posterior headache after being sent to [facility] ER from the neurology office for concern about stroke. You had an MRI brain which was read as possible pseudotumor cerebri, also known as idiopathic intracranial hypertension. With this in mind, the plan was to have you undergo a lumbar puncture which would be both diagnostic and therapeutic. However, you have a known small right middle cranial fossa meningioma noted on MRI of the brain April 2024. MRI of the brain on June 25 was interpreted as having changes consistent with idiopathic intracranial hypertension - these changes seen on MRI are old and you have had no elevated pressure in December 2023 and have no ocular/vision changes in the last 6 months. Therefore, we are not clinically or radiographically convinced you have elevated intracranial pressure. You additionally have a history of migraine headaches and nonmigrainous headaches stemming from cervical spine pain. You have known degenerative changes of the mild to moderate nature in your cervical spine with no history of myelopathy or cord injury. Previous MRI of the cervical spine has showed a C4-5 nonenhancing lesion of uncertain etiology (but definitely old). You have been evaluated for multiple sclerosis multiple times in the past (most recently in 2023) without diagnosis. You have no brain lesions consistent with MS either. Unfortunately, neither MRI on June 25 was not done with contrast (which would have been ideal given her diagnoses and previous findings). You additionally have bipolar disorder, anxiety, depression, and panic attacks all of which are fairly well-controlled currently on citalopram. You were also found to have vitamin D deficiency which could add to much of your general symptoms. Recommendations from neurologist and the internal medicine team: 1. Take meloxicam 15mg daily (an NSAID) and cyclobenzaprine twice daily 7.5mg (a muscle relaxant) to help with your headaches as your current one seems to be due to significant cervical paraspinal and suboccipital muscle tightness; discontinuing tizanidine 2mg BID at this time as it makes you feel "weird" since it is in the same class of medication as cyclobenzaprine (centrally acting m uscle relaxant) - please review these medication changes with your primary care provider and neurologist to follow up on efficacy and if there are any adverse effects 2. Continue taking your own Qulipta 60 mg daily for migraines 3. Increase B12 injections from 3x weekly to 4x weekly to get your B12 level between 400-500. 4. Vitamin D replacement 50,000 units vitamin D3 weekly for the next 3 months and then recheck vitamin D level. 5. Consider repeat MRI of the brain and cervical spine both with contrast but this can be done outpatient. 6. Consider repeat LP to measure opening pressure which can also be done outpatient. 7. See sheetrock applicator for a full eye exam. 8. Consider initiating Botox for headache prevention Please follow up outpatient with your primary care provider and outpatient neurologist so your current concerns and pain can continue to be addressed. Pending Studies at Discharge: No Stand-Alone Forms: My [facility] LettuceThinner, Smoking Cessation Medications and DC Order Prescriptions: New cyclobenzaprine 7.5 mg tablet 7.5 mg PO BID PRN (Reason: muscle spasm, headaches) Qty: 60 0RF meloxicam 15 mg tablet 15 mg PO DAILY Qty: 10 0RF Rx Instructions: please take one tablet daily for management of your headache symptoms - follow up with your PCP and neurologist within a week to ensure your symptoms are well-managed and any medications or dosages can be changed accordingly. Continued pregabalin 100 mg capsule 100 mg PO BID Qty: 60 5RF cholecalciferol (vitamin D3) 50 mcg (2,000 unit) capsule 50 mcg PO DAILY Qty: 90 3RF Rx Instructions: with heaviest meal of the day Qulipta 60 mg tablet 60 mg PO DAILY Qty: 30 5RF Botox 200 unit recon soln See Rx Instructions IM .COMPLEX Qty: 1 3RF Rx Instructions: 155 UNITS IM IN THE FACE AND NECK MUSCLES EVERY 12 WEEKS PER MIGRAINE PROTOCOL Reyvow 100 mg tablet 100 mg PO ONCE PRN (Reason: migraine headache) 30 Days Qty: 8 2RF Rx Instructions: Limit 1 dose in [address] 8 hours after use Suflave 178.7-7.3-0.5 gram recon soln See Rx Instructions PO .COMPLEX Qty: 2 0RF Rx Instructions: orally; orally; TAKE FIRST DOSE AT 6 PM AND SECOND DOSE 6 HOURS PRIOR TO PROCEDURE BIN: [id number] N: 2000 GROUP: [id number] pantoprazole [Protonix] 40 mg tablet,delayed release (DR/EC) 40 mg PO BID Qty: 180 0RF melatonin 3 mg tablet 6 mg PO HS PRN (Reason: sleep) Qty: 30 0RF atorvastatin 40 mg tablet 40 mg PO QAM cholecalciferol (vitamin D3) 1,250 mcg (50,000 unit) capsule 50,000 unit PO .COMPLEX Qty: 24 1RF Rx Instructions: 50,000 units orally; take one twice a week, Take with heaviest meal of the day carvedilol 6.25 mg tablet 6.25 mg PO BID Qty: 60 5RF Rx Instructions: must administer with a meal/food meclizine 25 mg tablet 25 mg PO TID PRN (Reason: dizziness) Qty: 90 5RF ondansetron HCl 8 mg tablet 8 mg PO BID PRN (Reason: nausea and vomiting) Qty: 60 5RF cyanocobalamin (vitamin B-12) 2,000 mcg lozenge 2,000 mcg PO DAILY Qty: 100 3RF (DME) Easy Touch FlipLock Syringe 1 mL 25 gauge x 1" syringe See Rx Instructions .ROUTE .MEDSUPPLY Qty: 12 0RF Rx Instructions: As directed Brilinta 90 mg tablet 90 mg PO BID lorazepam 0.5 mg tablet 0.5 mg PO .COMPLEX PRN (Reason: anxiety) 1 Days Qty: 2 0RF Rx Instructions: take 1 hour prior to procedure, may repeat at time of procedure prn Ubrelvy 100 mg tablet 100 mg PO .COMPLEX PRN (Reason: migraine) Qty: 10 6RF Rx Instructions: 100 mg orally PRN; Take 1 tablet at onset of migraine, may repeat after 2 hrs. Limit 2-3 days per week. albuterol sulfate 90 mcg/actuation HFA aerosol inhaler 1 inh inhalation QID PRN (Reason: Wheezing) famotidine 40 mg tablet 40 mg PO QAM nitroglycerin 0.4 mg tablet, sublingual 0.4 mg sublingual Q5M PRN (Reason: chest pain) Qty: 10 0RF Rx Instructions: Do not administer more than 3 tablets in a 15 minute period acetaminophen [Tylenol] 325 mg Tablet 650 mg PO QID PRN (Reason: Pain) aspirin 81 mg Tablet,Delayed Release (Dr/Ec) 81 mg PO DAILY citalopram 20 mg tablet 20 mg PO HS norethindrone (contraceptive) [Jencycla] 0.35 mg tablet 0.35 mg PO DAILY riboflavin (vitamin B2) 100 mg Tablet 200 mg PO QPM Changed cyanocobalamin (vitamin B-12) 1,000 mcg/mL solution 1,000 mcg subcut 4XWK Qty: 0 0RF Discontinued tizanidine 2 mg tablet 2 mg PO BID Qty: 60 6RF Discharge Orders: Discharge Order (Routine); Ordered 06/26/24 Ordered By: Kyle Bentley/Other Patient Handouts: Understanding Neck Problems, Muscle Spasm, Migraine Tension Headaches, Self-Care for Headaches, Understanding Headache Pain, Migraine Prevention Admission Data Admit Date/Time: 06/25/24 21:08 Attending Provider: Sloan Longo Admit Provider: Yamila Moffett Primary Care Provider: Manas Mcqueen V. Other Providers: Yamila Moffett; Rick Fraser; Marquis Roy; Moniqeu Andrews; Sierra Arroyo; Haley Nguyen; Kyle Blackman Other Interventions: Discharge Summary Assessment (RN) Last Done: 06/26/24 16:53 Supervising Attestation Iwas present with the above student during the history and physical examination of this patient. I have personally performed the physical exam and decision making activities related to the patients care. I have reviewed and agree with the findings and plan as documented in the students note. Any exceptions or clarifications are listed here: ATTESTATION I also saw the patient and completed a history and exam I also discussed the case with the neurology hearing consultant. With added information of prior records, MRI changes seen yesterday appear chr onic. Patient has a posterior/cervical type headache today. EXAM A/O. VS as noted. neck supple. Tenderness sub occipital musculature CV regular Lungs CTA ABD SNT DATA Labs CBC, BMP WNL Noted low Vitamin D at 8 Imaging Reviewed MRI with neurology IMPRESSION & PLAN Headache (mixed type) - history of chronic migraine, suspect cervical headache at present Vitamin D deficiency Abnormal brain MRI Brief trial of OMT (soft tissue to the sub occipital muscles) - patient was too sensitive Some improvement with IV Toradol Will add Mobic and Flexeril BID PRN Given improvement in headache and chronic findings on MRI, OK for discharge today Follow up with neurology and ophthalmology I, Sloan Longo DO, attending physician, spent 35 minutes myself seeing the patient, discussing with neurology reviewing the chart, and documenting today.
[2024-06-26 15:06] VITALS: BP 98/66; RESP 18; TEMP 98.4; O2SAT 96
[2024-06-26] MEDS: MECLIZINE HCL 25 MG TAB PO PRN (15:38)
[2024-06-26] MEDS: CYCLOBENZAPRINE HCL 5 MG TAB PO STA (16:38)
[2024-06-26 16:56] VITALS: PULSE 84
[2024-06-26] MEDS ORDERED: CITALOPRAM 20 MG TAB PO SCH (21:00)
== END 2024-06-26 18:14 | disposition home or self-care (01) ==
LOC: 3N 11:43 → ED 11:43 → SUATTDRO 21:08 → 3N 22:27